=== PATIENT | male | born 1960 | race Hispanic/Latino ===

== ENCOUNTER 2017-07-08 10:28 | Emergency (ER) | payer MEDICARE ==
[2017-07-08] MEDS ORDERED: Silver Sulfadiazine 1% Cream 50 GM JAR ONE (12:28)
== END 2017-07-08 12:57 | disposition home or self-care (01) ==
LOC: ERS 10:28
DX: T23.212A Burn of second degree of left thumb (nail), initial encounter (principal); E11.9 Type 2 diabetes mellitus without complications; M19.90 Unspecified osteoarthritis, unspecified site; F17.210 Nicotine dependence, cigarettes, uncomplicated; X15.3XXA Contact with hot saucepan or skillet, initial encounter
CPT/HCPCS: 36416; 99283

== ENCOUNTER 2017-07-10 07:48 | Inpatient (IN) | payer MEDICARE ==
[2017-07-10 08:40] LABS: #Eosinphils 0.3 thou/uL (0.0-0.7); #Lymphocytes 1.2 thou/uL (1.20-3.40); #Monocytes 0.7 thou/uL (0.11-0.59); #Neutrophils 4.4 thou/uL (1.40-6.50); %Basophils 0.5 % (0.0-1.0); %Monocytes 10.2 % (0.0-10.0); Mean Platelet Volume 7.4 fL (7.4-10.4); Red Blood Cell (RBC) Count 3.16 mill/uL (4.70-6.10); White Blood Cell (WBC) Count 6.5 thou/uL (4.8-10.8)
[2017-07-10] MEDS ORDERED: Lidocaine 1% (PF) 30 ML VIAL ONE (09:23)
[2017-07-10] MEDS ORDERED: HYDROcodone/Acetaminophen 5/325 mg Tablet PO PRN (10:12)
[2017-07-10] MEDS ORDERED: Fentanyl 100 MCG/2 ML VIAL SLOW IVP PRN (10:12)
[2017-07-10] MEDS ORDERED: traMADol HCl 50 MG TAB PO PRN (10:12)
[2017-07-10] MEDS ORDERED: Acetaminophen 325 MG TAB PO PRN (10:12)
[2017-07-10] MEDS ORDERED: TETANUS AND DIPHTHERIA TOX/PF 0.5 ML DISP.SYRIN IM SCH (10:15)
[2017-07-10] MEDS ORDERED: Communication Order-Pharmacy FS SCH (10:15)
[2017-07-10] MEDS ORDERED: Piperacillin/Tazobactam 4.5 GM in Sodium Chloride 0.9% 100 ML IVPB SCH (10:45)
--- NOTE | 2017-07-10 11:19 | RAD ---
3 VIEWS LEFT THUMB: Date: 07/10/17 HISTORY: Pain and swelling left thumb. FINDINGS: AP, lateral, and oblique views of left thumb obtained. There are extensive vascular calcifications co mpatible with changes of diabetes. There is marked thinning of the nail bed and adjacent soft tissues of the distal left thumb. There ar e some lytic changes and atrophy of the distal aspect of the distal phalanx first digit left hand. Th is may represent chronic ischemic changes. No definite evidence of lytic changes seen. IMPRESSION: Atrophy of the distal aspect of distal phalanx first digit, as well as the dorsal soft tissues and fi rst digit nail bed. POS: EFE
[2017-07-10] MEDS ORDERED: Adacel (T-DAP) 0.5 ML VIAL ONE (11:26)
--- NOTE | 2017-07-10 12:45 | RAD ---
CHEST 1 VIEW: Date: 07/10/17 HISTORY: Preop. COMPARISON: Chest 1 view dated 11/14/15. FINDINGS: Lungs without focal air space consolidation, pneumothorax, or effusion. Prior amputation through the right humeral neck. IMPRESSION: 1. No acute intrathoracic abnormality. 2. Right-sided rib fracture of 5th and 6th ribs, age indeterminate. POS: H
[2017-07-10 12:57] LABS: Prothrombin Time 14.5 SEC (12.0-14.7)
[2017-07-10 12:58] LABS: PTT 43.4 SEC (22.9-36.1)
[2017-07-10 12:59] LABS: Anion Gap 16 mmol/L (10-20); BUN (Urea Nitrogen) 51 mg/dL (8.4-25.7); Calc. Creatinine Clearance 0 mL/min (70-130); Calcium 7.8 mg/dL (7.8-10.44); Carbon Dioxide 15 mmol/L (22-29); Chloride 108 mmol/L (98-107); Estimated GFR-MDRD 12
--- NOTE | 2017-07-10 13:08 | HP ---
CHIEF COMPLAINT: Thumb pain. HISTORY OF PRESENT ILLNESS: Mr. Suero is a 57-year-old male who has developed an infection in his t humb. He reports that he burned his left thumb several days ago. He began having swelling and pain. He presented to the emergency department and was placed on Keflex. His left thumb has become incre asingly painful and has not responded to this. He now has re-presented with his increased symptoms. Orthopedics was consulted to evaluate this finding. 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 He does not take medications for diabetes, osteoarthritis, cirrhosis, hepatitis C, an d chronic kidney disease. PAST SURGICAL HISTORY: Previous left cyst removal, right arm amputation from infection. PSYCHIATRIC HISTORY: Negative. SOCIAL HISTORY: The patient drinks alcohol. He smokes cigarettes at least 1 pack per day. He denie s drug use. ALLERGIES: No known drug allergies. MEDICATIONS: He takes amlodipine daily. REVIEW OF SYSTEMS: Positive for left hand and thumb pain, otherwise negative. PHYSICAL EXAMINATION: VITAL SIGNS: Stable. The patient is afebrile. He is alert, sitting upright in no apparent distress . RESPIRATORY: Breathing comfortably. ABDOMEN: Soft, nontender, and nondistended. MUSCULOSKELETAL: The patient's left hand has swelling of the distal aspect of the thumb. There is e rythema. He has tenderness to palpation. There is no swelling more proximally, minimal pain along t he flexor tendon sheath. No palmar pain. He can make a full fist with the remainder of the digits, but not the thumb. No open wounds, no drainage. IMAGES: X-rays of the thumb are negative except for soft tissue swelling. IMPRESSION: Diabetic male in poor health with history of smoking, now with a left thumb infection. PLAN: At this point, the patient will have I&D of his thumb in the emergency department for felterry in fection. I do not think he has a flexor tenosynovitis yet, but this could be developing. Hopefully, decompressing the felon and starting him on intravenous antibiotics including vancomycin and Zosyn w ill be enough to treat this infection. We will watch him closely for signs of improvement or worseni ng. If he does worse, I will take him to the operating room for more thorough irrigation procedure. He will have medical consultation for his diabetes and other medical problems. Questions have been answered.
[2017-07-10] MEDS ORDERED: [UNRECOGNIZED DRUG - REMARK] IVPB PRN (13:35)
[2017-07-10] MEDS ORDERED: Mag-Al 1200 mg/1200 mg/30 ML UDCUP PO PRN (15:36)
[2017-07-10] MEDS ORDERED: Ondansetron ODT 4 MG TAB PO PRN (15:36)
[2017-07-10] MEDS ORDERED: Diabetic Tussin 200 MG/10 ML UDCUP PO PRN (15:36)
[2017-07-10] MEDS ORDERED: Sodium Chloride 0.65% Nasal 44 ML BOT EA NARE PRN (15:36)
[2017-07-10] MEDS ORDERED: Loratadine 10 MG TAB PO PRN (15:36)
[2017-07-10] MEDS ORDERED: Artificial Tears 18 DROP/0.9 ML EA EYE PRN (15:36)
[2017-07-10] MEDS ORDERED: Eucerin (Mineral Oil/Petrolatum,White) 30 gm Jar TOP PRN (15:36)
[2017-07-10] MEDS ORDERED: hydrALAZINE 20 MG/ML VIAL SLOW IVP PRN (15:36)
[2017-07-10] MEDS ORDERED: Chloraseptic Spray 180 ml Bottle PO PRN (15:36)
[2017-07-10] MEDS ORDERED: Milk Of Magnesia 30 ML UDCUP PO PRN (15:36)
[2017-07-10] MEDS ORDERED: Senokot 8.6 MG TAB PO PRN (15:36)
[2017-07-10] MEDS ORDERED: Ondansetron HCl/PF 4 MG/2 ML Vial IVP PRN (15:36)
[2017-07-10] MEDS ORDERED: Temazepam 15 MG CAP PO PRN (15:36)
--- NOTE | 2017-07-10 16:30 | CON ---
PRIMARY CARE PHYSICIAN: [facility] call admission. REASON FOR CONSULTATION: Medical management. HISTORY OF PRESENT ILLNESS: A 57-year-old male who has history of chronic kidney disease se condary to diabetic nephropathy as well as history of chronic hepatitis C who was evaluated in the em ergency room for right thumb pain. Patient reports that he had burn over the left thumb several days ago and subsequently wound got infected and he was having swelling and pain. He also came one time in the emergency room and he was given oral antibiotic therapy, Keflex, but that did not improve, and patient's condition had gotten worse and his left thumb was becoming more painful and it was throbbi ng pain, 8/10 in intensity. He denies any fever or chills. He denies any drainage. He came to emergency room and he had finger x-ray which showed atrophy of the distal aspect of the di stal phalanx first digit as well as the dorsal soft tissue and first digit nailbed. His chest x-ray was unremarkable other than old right-sided rib fracture. This patient was evaluated by Dr. Victoria fisher in the emergency room. Patient had I&D in the emergency department by Dr. Catherine. Dr. Amaya recommended admission to surgical floor. Patient has received antibiotic therapy in the emergency r oom. Patient will require irrigation and debridement in the operating room and that is why the patie nt is being admitted. When I saw this patient, at that time, he is comfortable. He is hemodynamically stable. He denies a ny headache, chest pain, palpitations, and shortness of breath. He denies any diarrhea, constipation , abdominal pain. Sound team was consulted for medical comanagement. PAST MEDICAL HISTORY: Diabetes type 2, chronic kidney failure with CKD stage 4, chronic hepatitis C, history of pancreatitis, chronic diarrhea, history of gangrene of right upper extremity, and osteoar thritis. PAST SURGICAL HISTORY: Right arm amputation as a result of gangrene that developed after a burn. Th e patient required right shoulder arthrocentesis and fasciotomy secondary to infection and eventually required amputation of right upper extremity and history of left neck cyst removal. PAST PSYCHIATRIC HISTORY: Reviewed and negative. ALLERGIES: No known drug allergies. SOCIAL HISTORY: Patient lives with his brother. He has history of smoking about 1 pack per week. H e drinks alcohol occasionally. He currently denies any illicit drug abuse. He is on medical disabil ity. FAMILY HISTORY: No strong family history of premature coronary artery disease, stroke or cancer. No family history of ESRD. Diabetes runs among several family members. CURRENT HOME MEDICATIONS: Keflex 500 mg t.i.d. The patient did not bring other medication, so unable to review at this point. REVIEW OF SYSTEMS: The following complete review of systems was negative, unless otherwise mentioned in the HPI or below: Constitutional: Weight loss or gain, ability to conduct usual activities. Skin: Rash, itching. Eyes: Double vision, pain. ENT/Mouth: Nose bleeding, neck stiffness, pain, tenderness. Cardiovascular: Palpitations, dyspnea on exertion, orthopnea. Respiratory: Shortness of breath, wheezing, cough, hemoptysis, fever or night sweats. Gastrointestinal: Poor appetite, abdominal pain, heartburn, nausea, vomiting, constipation, or diarr hea. Genitourinary: Urgency, frequency, dysuria, nocturia. Musculoskeletal: Pain, swelling. Neurologic/Psychiatric: Anxiety, depression. Allergy/Immunologic: Skin rash, bleeding tendency. Please see my HPI for pertinent positives and negatives. All other review of systems reviewed and ne gative except as mentioned in the HPI. EMERGENCY ROOM COURSE: Patient has received vancomycin 1 gram, Zosyn 4.5 gram, IV fluid and tetanus toxoid 0.5 mL intramuscularly. PHYSICAL EXAMINATION: VITAL SIGNS: Currently, blood pressure 176/92, pulse 79, respiratory rate 17, temperature 98.6, satu ration 100% on room air, and weight 49.9 kilograms. GENERAL: Patient is chronically ill, no obvious acute distress. HEAD: Normocephalic, atraumatic. EYES: Pupils round, reactive to light. Extraocular muscles intact. ENT: Oropharynx within normal limits. Moist mucous membranes. No oral lesions. No pharyngeal eryt mariangel, no exudate. NECK: Supple, no JVD, no thyromegaly, no carotid bruits. LUNGS: Clear to auscultation without any rhonchi or rales. CARDIAC: S1, S2 regular without any murmur. ABDOMEN: Soft, bowel sounds present, nondistended. No organomegaly, no mass, no suprapubic tenderne ss. BACK: Examination unremarkable, no CVA tenderness. EXTREMITIES: Upper extremity, left thumb swelling which has required I&D in the emergency room and s tatus post wound is covered with a dressing. SKIN: No skin rash. HEMATOLOGICAL SYSTEM: No lymphadenopathy. PSYCHIATRIC: Normal affect. IMAGING DATA AND SIGNIFICANT LABORATORY DATA: 1. EKG showing normal sinus rhythm, left atrial enlargement. 2. X-ray finger showing atrophy of the distal aspect of the distal phalanx of the first digit as wel l as dorsal soft tissue and first digit nailbed. 3. Chest x-ray based on my review, no acute cardiopulmonary process. 4. CBC: WBC 6.5, hemoglobin 10.6, MCV 101.0, platelet 107, ESR 82. INR 1.1. 5. BMP: Sodium 134, potassium 4.7, chloride 108, carbon dioxide 815, anion gap 16, BUN 51, creatini ne 4.93, glucose 113, calcium 7.8, CRP 9.53. ASSESSMENT AND PLAN/IMPRESSION: 1. Left thumb abscess, suspected for flexor tenosynovitis, status post minor incision and drainage i n the emergency room. The patient will require irrigation and debridement in open ration theater summer orrow. At this point, we will cover with broad spectrum antibiotic therapy with vancomycin and Zosyn based on renal dose. We will also prescribe probiotic Florastor 250 mg p.o. daily. We will control his pain with Duncan on p.r.n. basis. 2. Anemia of renal disease with macrocytosis. I will start Nephro-Kim one tablet p.o. daily, tay us sulfate 325 mg p.o. daily and Procrit as needed basis. 3. Mild thrombocytopenia. We will repeat CBC tomorrow. Most likely, platelet count low is related with his history of chronic hepatitis C and possibly cirrhosis. 4. Metabolic acidosis due to renal failure. We will continue sodium bicarbonate 650 mg twice daily. 5. Chronic kidney disease stage 4. We will check urinalysis, urine protein creatinine ratio. This patient's glomerular filtration rate is 12. He will require dialysis in the near future. He has to follow up with carpet cleaning technician on an outpatient basis. We will check phosphorus level as well. 6. Chronic hepatitis C. We will check LFT tomorrow. 7. Diabetes type 2, now diet controlled. We will monitor Accu-Chek before meals and at bedtime whil e in hospital. 8. Deep venous thrombosis prophylaxis. Sequential compression device boots only. 9. Benign enlargement of prostate. We will continue Flomax 0.4 mg p.o. daily. 10. Protein calorie malnutrition. The patient will be given Nepro supplements b.i.d. 11. Hypertension and will start amlodipine 10 mg p.o. daily. 12. Gastrointestinal prophylaxis. We will start Pepcid 20 mg p.o. daily. 13. Benign enlargement of prostate. We will continue Flomax 0.4 mg p.o. daily. CODE STATUS: The patient is FULL CODE. Patient does not have any surrogate decision maker. Disposition plan based on clinical course. Thank you for the consult. We will follow up with you while in hospital.
[2017-07-10] MEDS ORDERED: Piperacillin/Tazobactam 2.25 GM in Sodium Chloride 0.9% 100 ML IVPB SCH (18:00)
[2017-07-10] MEDS ORDERED: Piperacillin/Tazobactam 3.375 GM in Sodium Chloride 0.9% 100 ML IVPB SCH (18:00)
[2017-07-10] MEDS: Piperacillin/Tazobactam 2.25 GM in Sodium Chloride 0.9% 100 ML IVPB SCH (20:19)
[2017-07-10] MEDS ORDERED: Vancomycin HCl 1 GM in Premix Bag 1 BAG IVPB SCH (21:00)
[2017-07-10] MEDS ORDERED: Famotidine 20 MG TAB PO SCH (21:00)
[2017-07-11] MEDS: Piperacillin/Tazobactam 2.25 GM in Sodium Chloride 0.9% 100 ML IVPB SCH ×4 (02:03→19:02)
[2017-07-11 05:59] LABS: ALT (SGPT) 12 U/L (8-55); AST (SGOT) 21 U/L (5-34); Alkaline Phosphatase 72 U/L (40-150); Anion Gap 16 mmol/L (10-20); BUN (Urea Nitrogen) 44 mg/dL (8.4-25.7); Bilirubin, Total 0.4 mg/dL (0.2-1.2); Calc. Creatinine Clearance 18 mL/min (70-130); Carbon Dioxide 15 mmol/L (22-29); Chloride 111 mmol/L (98-107); Estimated GFR-MDRD 13; Globulin 3.7 g/dL (2.4-3.5); Protein, Total 6.9 g/dL (6.0-8.3)
[2017-07-11 06:01] LABS: #Eosinphils 0.4 thou/uL (0.0-0.7); #Lymphocytes 1.6 thou/uL (1.20-3.40); #Monocytes 0.7 thou/uL (0.11-0.59); #Neutrophils 3.2 thou/uL (1.40-6.50); %Basophils 0.3 % (0.0-1.0); %Eosinophils 6.7 % (0.0-10.0); %Lymphocytes 26.5 % (21.0-51.0); %Monocytes 12.3 % (0.0-10.0); Hematocrit 29.6 % (42.0-52.0); Mean Platelet Volume 7.8 fL (7.4-10.4); White Blood Cell (WBC) Count 5.9 thou/uL (4.8-10.8)
[2017-07-11] MEDS: Amlodipine 10 MG TAB PO SCH (08:06)
[2017-07-11] MEDS: Ferrous Sulfate 325 MG TAB PO SCH (08:06)
[2017-07-11] MEDS: Famotidine 20 MG TAB PO SCH (08:06)
[2017-07-11] MEDS: Tamsulosin HCl 0.4 MG CAP PO SCH (08:08)
[2017-07-11] MEDS: Saccharomyces boulardii 250 MG CAP PO SCH (08:08)
[2017-07-11] MEDS ORDERED: Folic Acid/Vit B Comp W-C PO SCH (09:00)
[2017-07-11] MEDS ORDERED: hydrALAZINE 20 MG/ML VIAL SLOW IVP PRN ×2 (15:51)
[2017-07-11] MEDS: Carvedilol 3.125 MG TAB PO SCH (17:28)
--- NOTE | 2017-07-11 20:17 | PDOC.PN ---
- Subjective Encounter Start Date: 07/11/17 Encounter Start Time: 15:00 Patient seen and examined. No new complaints. No overnight events - Objective Resuscitation Status: Resuscitation Status FULL:Full Resuscitation MAR Reviewed: Yes Vital Signs & Weight: Vital Signs (12 hours) Temp Pulse Resp BP Pulse Ox 07/11/17 15:50 97.2 F L 66 14 122/73 100 07/11/17 11:50 97.7 F 72 12 168/87 H 100 Weight Weight 159 lb 13.362 oz I&O: 07/10/17 07/11/17 07/12/17 06:59 06:59 06:59 Intake Total 480 1070 Output Total 1325 Balance 480 -255 Result Diagrams: 07/12/17 04:37 07/12/17 04:37 Additional Labs: Accuchecks 07/11/17 07/11/17 15:50 11:51 POC Glucose 133 H 119 H Phys Exam - Physical Examination Constitutional: NAD Respiratory: no wheezing, no rhonchi Cardiovascular: RRR, no rub Gastrointestinal: soft, non-tender, positive bowel sounds Musculoskeletal: no edema Neurological: moves all 4 limbs Dx/Plan - Plan DVT proph w/SCDs IMPRESSION: 1. DM2 2. HTN 3. CKD 4 4. Chronic Hep C 5. Metabolic acidosis PLAN: * Cont to monitor * IV Atbx per Ortho * AM labs * Add thiamine/folic acid/MVM * Cont curent meds as below Review of Systems - Review of Systems Respiratory: negative: Cough, Dry, Shortness of Breath, Hemoptysis, SOB with Excertion, Pleuritic Pain, Sputum, Wheezing Cardiovascular: negative: chest pain, palpitations, orthopnea, paroxysmal nocturnal dyspnea, edema, light headedness - Medications/Allergies Allergies/Adverse Reactions: Allergies Allergy/AdvReac Type Severity Reaction Status Date / Time No Known Drug Allergies Allergy Verified 12/18/14 01:04 Medications: Current Medications Acetaminophen (Tylenol) 650 mg PO Q6H PRN PRN Reason: Headache/Temp >101F/Mild Pain Last Admin: 07/10/17 19:46 Dose: 650 mg Hydrocodone Bitart/Acetaminophen ([place] 5/325) 2 tab PO Q4H PRN PRN Reason: Severe Pain (7-10) Last Admin: 07/11/17 10:03 Dose: 2 tab Al Hydroxide/Mg Hydroxide (Maalox) 15 ml PO Q4H PRN PRN Reason: Heartburn or Indigestion Amlodipine Besylate (Norvasc) 10 mg PO DAILY [facility] Last Admin: 07/11/17 08:06 Dose: 10 mg Artificial Tears (Tears Naturale) 0 drop EA EYE PRN PRN PRN Reason: Dry Eyes Carvedilol (Coreg) 3.125 mg PO BID-[facility] Last Admin: 07/11/17 17:28 Dose: 3.125 mg Famotidine (Pepcid) 20 mg PO DAILY [facility] Last Admin: 07/11/17 08:06 Dose: 20 mg Fentanyl (Sublimaze) 50 mcg SLOW IVP Q30M PRN PRN Reason: Severe breakthrough pain Ferrous Sulfate (Feosol) 325 mg PO QAM-[facility] Last Admin: 07/11/17 08:06 Dose: 325 mg Folic Acid (Folvite) 1 mg PO DAILY [facility] Guaifenesin (Robitussin Sf) 200 mg PO Q4H PRN PRN Reason: Cough Hydralazine HCl (Apresoline) 10 mg SLOW IVP Q4H PRN PRN Reason: Systolic BP > 180 Hydralazine HCl (Apresoline) 5 mg SLOW IVP Q4H PRN PRN Reason: SBP GREATER THAN 160 Hydralazine HCl (Apresoline) 10 mg SLOW IVP Q4H PRN PRN Reason: SBP Greater Than 180 Vancomycin HCl 1 gm/ Device 200 mls @ 200 mls/hr IVPB Q36H [facility] Piperacillin Sod/Tazobactam (Sod 2.25 gm/ Sodium Chloride) 100 mls @ 200 mls/ hr IVPB 0200,0800,1400,2000 [facility] Last Admin: 07/11/17 19:02 Dose: 100 mls Loratadine (Claritin) 10 mg PO DAILYPRN PRN PRN Reason: Sinus Symptoms Magnesium Hydroxide (Milk Of Magnesium) 30 ml PO DAILYPRN PRN PRN Reason: Constipation Mineral Oil/White Petrolatum (Eucerin Cream) 0 gm TOP BIDPRN PRN PRN Reason: Dry Skin Miscellaneous Medication (Pharmacy To Dose) 0 each IVPB DAILYPRN PRN PRN Reason: LABS Multivitamins (Theragran) 1 tab PO DAILY [facility] Ondansetron HCl (Zofran Odt) 4 mg PO Q6H PRN PRN Reason: Nausea/Vomiting Ondansetron HCl (Zofran) 4 mg IVP Q6H PRN PRN Reason: Nausea/Vomiting Phenol (Chloraseptic [place] 180 Ml Bot) 0 ml PO PRN PRN PRN Reason: Sore Throat Saccharomyces Boulardii (Florastor) 250 mg PO DAILY [facility] Last Admin: 07/11/17 08:08 Dose: 250 mg Senna (Senokot) 2 tab PO HSPRN PRN PRN Reason: Constipation Sodium Chloride (Flush - Normal Saline) 10 ml IVF PRN PRN PRN Reason: Saline Flush Last Admin: 07/10/17 20:19 Dose: 10 ml Sodium Chloride (Christian Nasal [place] 0.65%) 0 ml EA NARE QIDPRN PRN PRN Reason: Nasal Congestion Tamsulosin HCl (Flomax) 0.4 mg PO DAILY [facility] Last Admin: 07/11/17 08:08 Dose: 0.4 mg Temazepam (Restoril) 15 mg PO HSPRN PRN PRN Reason: Insomnia Thiamine HCl (Thiamine) 100 mg PO DAILY [facility] Tramadol HCl (Ultram) 50 mg PO Q6H PRN PRN Reason: Mild Pain (1-3) Vitamin B Complex/Vit C/Folic Acid (Nephro-Kim Tablet) 1 tab PO DAILY [facility] Last Admin: 07/11/17 08:08 Dose: 1 tab
[2017-07-11] MEDS ORDERED: Vancomycin HCl 1 GM in Premix Bag 1 BAG IVPB SCH (23:59)
[2017-07-12] MEDS: Piperacillin/Tazobactam 2.25 GM in Sodium Chloride 0.9% 100 ML IVPB SCH (01:52)
[2017-07-12 06:23] LABS: #Basophils 0.1 thou/uL (0.0-0.2); #Eosinphils 0.5 thou/uL (0.0-0.7); #Lymphocytes 1.8 thou/uL (1.20-3.40); #Monocytes 0.7 thou/uL (0.11-0.59); #Neutrophils 2.5 thou/uL (1.40-6.50); %Basophils 1.5 % (0.0-1.0); %Eosinophils 8.3 % (0.0-10.0); %Lymphocytes 32.3 % (21.0-51.0); %Monocytes 12.4 % (0.0-10.0); Hematocrit 29.1 % (42.0-52.0); Mean Platelet Volume 7.4 fL (7.4-10.4); Red Blood Cell (RBC) Count 2.83 mill/uL (4.70-6.10); White Blood Cell (WBC) Count 5.5 thou/uL (4.8-10.8)
[2017-07-12 06:29] LABS: Anion Gap 16 mmol/L (10-20); BUN (Urea Nitrogen) 42 mg/dL (8.4-25.7); Calc. Creatinine Clearance 19 mL/min (70-130); Calcium 8.1 mg/dL (7.8-10.44); Carbon Dioxide 16 mmol/L (22-29); Chloride 109 mmol/L (98-107); Estimated GFR-MDRD 14; Magnesium 1.5 mg/dL (1.6-2.6)
[2017-07-12] MEDS: Carvedilol 3.125 MG TAB PO SCH (08:58)
[2017-07-12] MEDS: Tamsulosin HCl 0.4 MG CAP PO SCH (08:58)
[2017-07-12] MEDS: Ferrous Sulfate 325 MG TAB PO SCH (08:58)
[2017-07-12] MEDS: Saccharomyces boulardii 250 MG CAP PO SCH (08:58)
[2017-07-12] MEDS: Amlodipine 10 MG TAB PO SCH (08:58)
[2017-07-12] MEDS: Famotidine 20 MG TAB PO SCH (08:59)
[2017-07-12] MEDS ORDERED: Sulfameth/Trimethoprim DS 800-160mg TAB PO SCH (09:00)
[2017-07-12] MEDS ORDERED: Folic Acid 1 MG TAB PO SCH (09:00)
[2017-07-12] MEDS ORDERED: Multivit, Therapeutic 1 TAB PO SCH (09:00)
--- NOTE | 2017-07-12 10:46 | DIS ---
PRIMARY CARE PHYSICIAN: [facility] call admission. DATE OF ADMISSION: 07/10/2017 DATE OF DISCHARGE: 07/12/2017 PRIMARY ATTENDING: Dr. Corby Catherine DISCHARGE DISPOSITION: Home. PRIMARY DISCHARGE DIAGNOSES: 1. Left thumb flexor tenosynovitis, status post incision and drainage. 2. Acute on chronic kidney failure, baseline chronic kidney disease stage 4. SECONDARY DISCHARGE DIAGNOSES: Alcohol abuse, diabetes type 2, chronic hepatitis C, history of amput ation of right arm, history of left hydronephrosis, hypertension, macrocytic anemia. Moderate protei n calorie malnutrition, metabolic acidosis, history of rib fracture, thrombocytopenia, tobacco abuse disorder. PRIMARY PROCEDURE/OPERATION: The patient had I&D done in the emergency room. RADIOLOGICAL INVESTIGATION: Finger x-ray, chest x-ray was normal. SIGNIFICANT LABS: WBC 5.5, hemoglobin 9.2, MCV 103, platelets 92. INR 1.1. Sodium 136, potassium 4 .6, BUN 42, creatinine 4.42, calcium 8.1, magnesium 1.5. LFTs normal. Culture from hand grew Staphy lococcus aureus. Blood culture negative. DISCHARGE MEDICATIONS: Norvasc 10 mg p.o. daily, Coreg 3.125 mg p.o. b.i.d., Keflex 500 mg p.o. b.i. d. for 15 days, Pepcid 20 mg p.o. daily, ferrous sulfate 325 mg p.o. daily, folic acid 1 mg p.o. aiden y, [place] 5 one or two tablets q.4 hourly p.r.n., multivitamin 1 tablet p.o. daily, Florastor 250 mg p .o. daily, sodium bicarbonate 325 mg p.o. b.i.d., Flomax 0.4 mg p.o. daily, thiamine 100 mg p.o. aiden y. CONTRAINDICATIONS: None. CODE STATUS: FULL CODE. INPATIENT CONSULTANTS: Dr. Catherine was primary while in hospital. Sound Team was consulted for la dical comanagement. TEST RESULTS PENDING ON DISCHARGE: None. ALLERGIES: No known drug allergies. DISCHARGE PLAN: Post hospital, the patient is advised to follow up with Dr. Thornton for renal insuff iciency. The patient will follow up with Dr. Corby Catherine in 1 week. The patient is advise d to make appointment with primary care physician. HOSPITAL COURSE: A 57-year-old male with the above mentioned medical problems who had a bur n over left thumb and subsequently his wound got infected and he required emergency room visit. His x-ray of the finger was unremarkable, but patient required minor I&D and pus was drained. After that , patient was getting wound care while in hospital. He was given vancomycin and Zosyn based on renal dose. He has acute on chronic kidney failure which is gradually getting worse. During this admissi on, we provided necessary medications prescriptions for his renal insufficiency. He does not need an y dialysis at this point. He is almost nearby for his ESRD and that is why I advised him to follow u p with Dr. Thornton, his exploration engineer. While in hospital his magnesium was replaced. His culture gre w MSSA and based on that, we changed to Keflex on discharge. His blood culture is negative. All new medication prescriptions sent to his pharmacy. Patient is seen and examined at bedside today. REVIEW OF SYSTEMS: Review of systems reviewed with him and negative. VITAL SIGNS: Currently, temperature 98.2, pulse 70, respiratory rate 16, saturation 96%, blood press ure 108/60. Weight 159 pounds. GENERAL: The patient is currently alert, awake, no obvious acute distress. HEENT: Head is normocephalic, atraumatic. Eyes: Pupils round, reactive to light. Extraocular musc les intact. ENT: Oropharynx within normal limits. LUNGS: Clear to auscultation without any rhonchi. CARDIAC: S1, S2 regular. No murmur. ABDOMEN: Soft and benign. EXTREMITIES: No edema. Left thumb is covered with dressing. All new medication prescription sent to his pharmacy. The patient is medically stable for discharge and we will sign off. Please consider this no note as a progress note as well.
[2017-07-12 12:38] VITALS: BP 148/81; TEMP 98.4
== END 2017-07-12 14:35 | disposition home or self-care (01) | DRG 558 ==
LOC: ERS 07:48 → SURG A 10:12
PROVIDERS: ADMIT Orthopaedic Surgery; ATTEND Orthopaedic Surgery
PROC: 0H9GXZZ Drainage of Left Hand Skin, External Approach (ICD-10-PCS; principal; 2017-07-10)
DX: M65.9 Synovitis and tenosynovitis, unspecified (principal); N18.4 Chronic kidney disease, stage 4 (severe); E87.2 Acidosis; D69.6 Thrombocytopenia, unspecified; N17.9 Acute kidney failure, unspecified; E44.0 Moderate protein-calorie malnutrition; L02.512 Cutaneous abscess of left hand; B18.2 Chronic viral hepatitis C; I12.9 Hypertensive chronic kidney disease with stage 1 through stage 4 chronic kidney disease, or unspecified chronic kidney disease; D53.9 Nutritional anemia, unspecified; N40.0 Benign prostatic hyperplasia without lower urinary tract symptoms; B95.61 Methicillin susceptible Staphylococcus aureus infection as the cause of diseases classified elsewhere; F17.210 Nicotine dependence, cigarettes, uncomplicated; Z89.201 Acquired absence of right upper limb, unspecified level; Z68.24 Body mass index [BMI] 24.0-24.9, adult; Z87.81 Personal history of (healed) traumatic fracture; E11.9 Type 2 diabetes mellitus without complications
CPT/HCPCS: 26011; 36415; 36416; 71010; 80048; 80053; 83735; 85025; 85610; 85652; 85730; 86140; 87040; 87070; 87077; 87186; 87205; 90471; 90715; 93005; 96361; 96365; 96366; 96368; 99283; A4216; J2001; J2543; J3370; J3475; J7050

== ENCOUNTER 2018-08-01 17:52 | Inpatient (IN) | payer MEDICARE ==
[~2018-08-01 17:52] MED LIST: Heparin 1,000 UNITS/ML VIAL ONE; Heparin 10,000 UNITS/ 10 ML VIAL ONE
[2018-08-01] MEDS ORDERED: Ondansetron PF 4 MG/2 ML Vial ONE (19:29)
[2018-08-01 19:36] LABS: Hemoglobin 10.3 g/dL (14.0-18.0); Mean Corpuscular HGB CONC 32.8 g/dL (32.0-36.0); Mean Corpuscular Hemoglobin 32.3 pg (27.0-31.0); Mean Corpuscular Volume 98.6 fL (78.0-98.0); Mean Platelet Volume 6.9 fL (7.4-10.4); Platelet Count 166 thou/uL (130-400); RBC Distribution Width 13.5 % (11.5-14.5); Red Blood Cell (RBC) Count 3.18 mill/uL (4.70-6.10); White Blood Cell (WBC) Count 4.7 thou/uL (4.8-10.8)
[2018-08-01 19:57] LABS: ALT (SGPT) 15 U/L (8-55); AST (SGOT) 11 U/L (5-34); Albumin 3.5 g/dL (3.5-5.0); Alkaline Phosphatase 92 U/L (40-150); BUN (Urea Nitrogen) 108 mg/dL (8.4-25.7); Bilirubin, Total 0.5 mg/dL (0.2-1.2); Calc. Creatinine Clearance 0 mL/min (70-130); Calcium 8.1 mg/dL (7.8-10.44); Chloride 109 mmol/L (98-107); Estimated GFR-MDRD 4; Globulin 4.2 g/dL (2.4-3.5); Glucose 103 mg/dL (70-105); Lipase 85 U/L (8-78); Potassium 5.2 mmol/L (3.5-5.1); Protein, Total 7.7 g/dL (6.0-8.3); Sodium 133 mmol/L (136-145)
[2018-08-01 19:58] LABS: Carbon Dioxide Less than 8 mmol/L (22-29)
[2018-08-01 19:59] LABS: Band 8 % (5-11); Burr Cells SLIGHT = 2-5 cells (100X) (0-1/hpf); Eosinophils 2 % (0-10); Lymphocytes 33 % (21-51); MDiff Complete? YES; Metamyelocyte 1 % (0-0); Monocytes 6 % (0-10); Neutrophil 47 % (42-75); Ovalocytes SLIGHT = 2-5 cells (100X) (0-1/hpf); Platelet Morphology Comment Appears Adequate; Polychromasia SLIGHT = 2-3 cells (100X) (0-2/hpf); Reactive Lymphocytes 1 % (0-10)
[2018-08-01 20:52] LABS: Lactic Acid 0.8 mmol/L (0.5-2.2)
[2018-08-01] MEDS ORDERED: Sodium Bicarbonate 150 MEQ in Dextrose 5% in Water 1,000 ML IV SCH (21:00)
[2018-08-01] MEDS ORDERED: Famotidine/PF 20 mg/2ml Vial ONE (21:04)
[2018-08-01 22:48] LABS: Bilirubin Negative (Negative); Blood, Urine Large (Negative); Clarity TURBID (Clear); Glucose, Urine (Dipstick) Negative (Negative); Leukocyte Large (Negative); Nitrite Negative (Negative); Protein, Urine (Dipstick) 100 mg/dL (Neg-Trace); Specific Gravity, Urine 1.011 (1.002-1.036); Urobilinogen 0.2 mg/dL (0.2-1.0)
[2018-08-01 22:58] LABS: Squamous Epithelial 0-3 HPF (0-3)
[2018-08-01 22:59] LABS: Pathc Cast-AUWi Flag 6.46 (0-2.49); Yeast-AUWi Flag 163.2 (0-25.0)
[2018-08-01 23:09] LABS: Bacteria/HPF 3+ HPF (None Seen); RBC/HPF GREATER THAN 50-TNTC HPF (0-3)
[2018-08-01 23:10] LABS: Hyaline Casts/LPF 0-3 HYALINE CAST LPF (0-3 Hyaline)
--- NOTE | 2018-08-02 04:03 | CON ---
DATE OF CONSULTATION: 08/01/2018 TYPE OF CONSULTATION: Nephrology consultation REASON FOR CONSULTATION: Stage 5 chronic kidney disease. HISTORY OF PRESENT ILLNESS: This is a very pleasant 58-year-old gentleman followed by me in clinic since 2015 who presented to the hospital with vomiting. The patient's creatinine has been progressively increasing and was noted to be 12.5 and was severely acidotic, so I was called. The patient denies any headache, numbness, tingling, or weakness. Denies any nausea, vomiting, or chest pain. PAST MEDICAL HISTORY: Significant for hypertension, diabetes mellitus, hepatitis C, chronic failure to thrive, history of right arm amputation, gangrene, cyst surgery. SOCIAL HISTORY: No alcohol or drug use. FAMILY HISTORY: Negative for ESRD. ALLERGIES: REVIEWED. HOME MEDICATIONS: List reviewed. REVIEW OF SYSTEMS: A 15-point review of system was performed and was negative except for positives noted above. GENERAL: HEAD: NECK: No swelling or lumps. NOSE: No epistaxis or discharge. EYES: No diplopia or pain. RESPIRATORY: CARDIOVASCULAR: GASTROINTESTINAL: /COLORER MACHINE: MUSCULOSKELETAL: No joint pain. NEUROPSYCHIATIC SYSTEMS: No suicidal ideation. No ideation. SKIN: Denies any rash or ulcer. CONSTITUTIONAL: No fever or chills. PHYSICAL EXAMINATION: GENERAL: The patient is awake, alert. VITAL SIGNS: Pulse 70, breathing 16, blood pressure 174/90. GENERAL APPEARANCE AND MENTAL STATUS: Fair. HEAD/NECK: Normocephalic. Atraumatic. EYES: EOMI. No deformity. EARS: Clear. No ulcers. NOSE: Intact. No lesions. MOUTH: Clear. No discharge. THROAT: Clear. No exudate. LUNGS: Clear. No crackles. CARDIAC: S1, S2. No rub. ABDOMEN: Benign. Bowel sounds positive. GENITALIA/RECTUM: [place]off[place] absent. BACK/EXTREMITIES: Edema 0+. NEUROLOGICAL: Alert and motor intact. SKIN: LYMPHATICS: The patient is severely cachectic. LABORATORY DATA: Labs show potassium 5.2, hemoglobin 10.3. ASSESSMENT AND PLAN: 1. CKD stage 5 with uremia and acidosis. Plan for dialysis in the morning. 2. Metabolic acidosis, start bicarbonate drip. 3. Anemia, stable. 4. Hyperkalemia. Plan dialysis in the morning and treat it with bicarbonate. Risks verus benefits of dialysis were discussed. Job ID: [id number]
[2018-08-02] MEDS ORDERED: CEFAZOLIN/Water 2 GM/20 ML SYRINGE SLOW IVP SCH (07:00)
[2018-08-02] MEDS ORDERED: CEFAZOLIN 2 GM/50 ML BAG ONE ×2 (08:30→08:33)
[2018-08-02] MEDS ORDERED: Senokot S 8.6-50 MG TAB PO PRN (10:00)
[2018-08-02] MEDS ORDERED: Calcium Carbonate 500 MG ChewTAB PO PRN (10:00)
[2018-08-02] MEDS ORDERED: Dextrose 5% in Water 1,000 ML IV PRN (10:00)
[2018-08-02] MEDS ORDERED: HumaLOG 300 UNITS/3 ML VIAL SC PRN (10:00)
[2018-08-02] MEDS ORDERED: Dextrose 50% Abboject 50 ML SYRINGE SLOW IVP PRN (10:00)
[2018-08-02] MEDS ORDERED: Acetaminophen 325 MG TAB PO PRN (10:00)
[2018-08-02] MEDS ORDERED: Guaifenesin DM 100-10/5 ML UDCUP PO PRN (10:00)
[2018-08-02] MEDS ORDERED: Ondansetron PF 4 MG/2 ML Vial IVP PRN (10:00)
[2018-08-02] MEDS ORDERED: Sodium Chloride 0.9% 10 ML ONE (10:09)
[2018-08-02] MEDS ORDERED: Lidocaine 2% 11 ML SYR ONE (10:09)
[2018-08-02] MEDS ORDERED: Heparin 10,000 UNITS/1 ML VIAL ONE (10:09)
[2018-08-02] MEDS ORDERED: Bupivacaine HCl 0.5%/Epinephrine 1:200,000/PF 30 ml Vial ONE (10:09)
[2018-08-02] MEDS ORDERED: Lidocaine 2% PF 5 ML VIAL ONE (10:10)
[2018-08-02] MEDS ORDERED: Tuberculin PPD 0.1 ML VIAL I-DERMAL SCH ×2 (10:15→12:00)
[2018-08-02] MEDS ORDERED: Fentanyl 100 MCG/2 ML VIAL ONE (10:16)
--- NOTE | 2018-08-02 10:36 | HP ---
REASON FOR ADMISSION: Acute kidney injury and severe metabolic acidosis. HISTORY OF PRESENTING ILLNESS: The patient came to ER with complaints of abdominal pain, nausea, and vomiting. This has been ongoing for the last 3 days. He also mentions that he has had diarrhea from last 2 to 3 days now. The patient has history of CKD stage 3 to 4. He also has hypertension and has not been taking any medications. On arrival, the patient was found to have had uremia with BUN and creatinine of 108 and 12.5 with bicarb less than 8. His potassium was also 5.2. He is currently in day stay for placement of hemodialysis catheter to initiate dialysis. He has no complaints of chest pain or palpitation. No complaints of shortness of breath. He says he ambulates by himself. PAST MEDICAL AND SURGICAL HISTORY: History of CKD stage 4, hypertension, right upper extremity amputation for a prior staph infection, likely benign prostatic hypertrophy, prior history of hep C, pancreatitis, history of chronic diarrhea, diabetes mellitus type 2, prior history of right shoulder arthrocentesis with fasciotomy and eventual amputation of the entire right upper extremity, and history of left neck cyst removal. CURRENT MEDICATIONS: Please note, the patient is not taking any medications at present. ALLERGIES: NO KNOWN DRUG ALLERGIES. PERSONAL HISTORY: Does not abuse alcohol or drugs. He says he quit smoking recently. Prior to which was smoking pack a day before. He is on disability at present. The patient ambulates by himself. FAMILY HISTORY: Mother at the age of 72 years. She has had history of hypertension and diabetes. He does not know much about his father. Previously, the patient was discharged in June of 2017, on Norvasc, Coreg, ferrous sulfate, folic acid, Flomax, and sodium bicarbonate. He is not taking any of these at present. REVIEW OF SYSTEMS: CONSTITUTIONAL: Negative for weight loss or gain, ability to conduct usual activities. SKIN: Negative for rash, itching. EYES: Negative for double vision, pain. ENT/MOUTH: Negative for nose bleeding, neck stiffness, pain, tenderness. CARDIOVASCULAR: Negative for palpitations, dyspnea on exertion, orthopnea. RESPIRATORY: Negative for shortness of breath, wheezing, cough, hemoptysis, fever or night sweats. GASTROINTESTINAL: Negative for poor appetite, abdominal pain, heartburn, nausea , vomiting, constipation, or diarrhea. GENITOURINARY: Negative for urgency, frequency, dysuria, nocturia. MUSCULOSKELETAL: Negative for pain, swelling. NEUROLOGIC/PSYCHIATRIC: Negative for anxiety, depression. ALLERGY/IMMUNOLOGIC: Negative for skin rash, bleeding tendency. CODE STATUS: Full. Power of traffic law attorney is his son, Mr. Courtney, the number to reach him is [phone]. PHYSICAL EXAMINATION: GENERAL: The patient is a 58-year-old male, who is currently not in any acute distress. VITAL SIGNS: Blood pressure 150/74, pulse 90 per minute, respiratory rate 16 per minute, temperature 97.8 degrees Fahrenheit, and saturating 100% on room air. NECK: Supple. No elevated JVD. HEENT: Eyes, extraocular muscles intact. Pupils reacting to light. Oral cavity, mucous membranes are dry. No exudates or congestion. CARDIOVASCULAR SYSTEM: S1 and S2 heard. Regular rhythm. RESPIRATORY SYSTEM: Air entry 1+ bilateral. Basal rales plus. No wheezes. ABDOMEN: Soft. Bowel sounds heard. No tenderness, rigidity, or guarding. EXTREMITIES: No peripheral edema or calf tenderness. The patient has entire right upper extremity amputated at the shoulder. The peripheral pulses are 1+ bilateral. No ischemic ulcerations or gangrene. CENTRAL NERVOUS SYSTEM: No gross focal deficits noted. The patient is alert, awake, and oriented well. PSYCHIATRIC SYSTEM: The patient's mood is euthymic. No hallucinations or delusions. LABORATORY DATA: EKG done shows normal sinus rhythm at 86 beats per minute. There is poor R-wave progression. White count of 4.7, H and H are 10 and 31, MCV is 98 with platelet count of 166, and neutrophils of 47%. Potassium 5.2, sodium 133, chloride 109, serum bicarb less than 8, BUN 108, creatinine 12.5, serum glucose 103, and lactic acid 0.8. Liver enzymes within normal limits. Albumin is 3.5. Lipase is 85. First set of troponin is negative. UA shows large blood, large leukocyte esterase, more than 50 wbc's and rbc's, and 3+ bacteria. CLINICAL IMPRESSION AND PLAN: The patient will be admitted to telemetry for uremia, acute kidney injury on top of his chronic kidney disease stage 4, likely end- stage renal disease and will be initiated on dialysis, severe metabolic acidosis. The patient also has poor medication compliance and followups. He is currently in day stay area for placement of hemodialysis catheter by Dr. Kahn. Likely, he will get a fistula placed as well. We will place him on Norvasc, small dose of Coreg, ferrous sulfate, folic acid, and Flomax. He will be on D5 water with sodium bicarbonate IV drip per Nephrology advise. We will obtain an echo with 2D Doppler for LV function. The patient appears cachectic as well, but his albumin is normal. The patient states he has always been a thin person from before. He will also be on Accu-Cheks before meals and at bedtime with mild Humalog coverage. His current serum glucose is around 100. We will continue to closely monitor him on telemetry. Job ID: [id number] [facility]
[2018-08-02] MEDS ORDERED: Sodium Chloride 0.9% 50 ML ONE (10:43)
[2018-08-02 11:18] LABS: HBSAg Index 0.18 S/CO (0-0.99); Hep B Core Total Ab Non-Reactive (NonReactive); Hep B Core Total Index 0.08 S/CO (0-0.79); Hep B Surf AB Non-Reactive (NonReactive); Hep B Surf Ag Non-Reactive S/CO (NonReactive)
--- NOTE | 2018-08-02 11:20 | RAD ---
FRONTAL VIEW CHEST: Comparison: Two view chest, 07-10-17 Indication: Uremia. Pulmonary infiltrate. FINDINGS: There is no lobar consolidation, effusion, or pneumothorax. The cardiac silhouette is normal in size. There mild vascular calcification. IMPRESSION: No focal consolidation. POS: [facility]
[2018-08-02] MEDS ORDERED: Acetaminophen 500 MG TAB PO PRN (11:22)
[2018-08-02] MEDS ORDERED: traMADol HCl 50 MG TAB PO PRN (11:22)
--- NOTE | 2018-08-02 11:38 | PRG ---
DATE OF SERVICE: 08/02/2018 SUBJECTIVE: A 58-year-old gentleman being seen for end-stage renal disease. The patient denies any nausea, vomiting, or chest pain. OBJECTIVE: See above. CONSTITUTIONAL: Awake, alert, in no acute distress. VITAL SIGNS: Afebrile. Pulse 75, breathing 16, blood pressure was 160/73. GENERAL APPEARANCE AND MENTAL STATUS: Fair. HEAD/NECK: Normocephalic. Atraumatic. EYES: EOMI. No deformity. EARS: Clear. No ulcers. NOSE: Intact. No lesions. MOUTH: Clear. No discharge. THROAT: Clear. No exudate. LUNGS: Clear. No crackles. CARDIAC: S1, S2. No rub. ABDOMEN: Benign. Bowel sounds positive. GENITALIA/RECTUM: Moffett absent. BACK/EXTREMITIES: Edema 0+. NEUROLOGICAL: Alert and motor intact. SKIN: LYMPHATICS: LABORATORY DATA: Labs show hemoglobin 10.3. Other labs are pending. ASSESSMENT AND PLAN: 1. Stage 3 chronic kidney disease, plan dialysis. 2. Hypertension, stable. 3. Anemia, stable. 4. An access was placed with outpatient dialysis setup. Job ID: [id number]
[2018-08-02 12:25] LABS: Hep C IgG Ab Reflex HepC Qnt (NonReactive)
[2018-08-02 12:27] LABS: Hep C Index 11.46 S/CO (0-0.79)
--- NOTE | 2018-08-02 13:03 | RAD ---
PORTABLE CHEST: HISTORY: Respiratory distress. Line placement. COMPARISON: 08/02/2018 FINDINGS: A right-sided HemoSplit catheter is seen. The catheter tip overlies the proximal superior vena cava. There is also a left-sided central line. The tip of this overlies the distal superior vena cava. No signs of pneumothorax. IMPRESSION: Line placement, as discussed above. POS: [facility]
[2018-08-02] MEDS ORDERED: PROPOFOL 200 MG/20 ML VIAL ONE (15:27)
[2018-08-02] MEDS ORDERED: Lidocaine 1% PF 5 ML VIAL ONE (15:27)
[2018-08-02] MEDS ORDERED: Ondansetron PF 4 MG/2 ML Vial ONE (15:27)
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
[2018-08-02] MEDS: Carvedilol 6.25 MG TAB PO SCH (17:35)
[2018-08-02] MEDS ORDERED: Heparin 10,000 UNITS/ 10 ML VIAL CATH PRN (17:45)
--- NOTE | 2018-08-02 18:00 | OP ---
DATE OF PROCEDURE: 08/02/2018 PREOPERATIVE DIAGNOSES: 1. End-stage renal disease. 2. Drug abuse, recent cocaine use, tobacco abuse. 3. Right arm amputation proximally, IV left basilic vein, dorsal forearm left, poor IV access. POSTOPERATIVE DIAGNOSES: 1. End-stage renal disease. 2. Drug abuse, recent cocaine use, tobacco abuse. 3. Right arm amputation proximally, IV left basilic vein, dorsal forearm left, poor IV access. PROCEDURE: 1. Right IJ cuffed tunneled hemodialysis catheter. 2. Left IJ central line. 3. Fluoroscopy and ultrasound used. SURGEON: Chidi Kahn MD ANESTHESIA: TIVA, local of 0.5% Marcaine with epinephrine, 30 mL mixed to 2% Xylocaine 10 mL. DESCRIPTION OF PROCEDURE: The patient was taken to the operating room where under intravenous sedation neck and chest prepared with ChloraPrep and draped in routine fashion. After prepping and draping in routine fashion, local anesthetic mixture was infiltrated into the skin and subcutaneous tissue about the operative site. Using ultrasound guidance, the right and left internal jugular veins were cannulated with trocar catheters. J-wire was threaded, trocar catheter removed. Skin was incised and enlarged on both sides. On the right side, a stab incision was made over the right chest. Using a tunneling device, pre-curved [employer] cuffed-tunneled hemodialysis catheter tunneled between two incisions, placed the fabric cuff beneath the skin access site, catheter secured with two sutures of 3-0 nylon and Biopatch sterile dressing applied. Smaller and medium size dilators were placed with J-wire into the internal jugular vein and removed. Dilator and Peel-Away sheath placed with J-wire in superior vena cava. Dilator and J-wire were removed. Catheter placed with Peel-Away sheath, Peel-Away sheath removed. Platysma was approximated with 4-0 Monocryl, skin with subdermal 4-0 Monocryl, and [place] glue applied. On the left side. Seldinger technique was used to place a triple-lumen catheter securing it with 3-0 nylon, Biopatch sterile dressing applied. J-wire had been removed. All ports aspirated blood, flushed with saline solution. Hemodialysis catheter flushed with 1000 units of heparin/mL indicating volume of the port. Fluoroscopic images revealed good line placement. Job ID: [id number]
[2018-08-02] MEDS ORDERED: Amlodipine 10 MG TAB PO SCH (18:15)
[2018-08-02] MEDS: cloNIDine 0.1 MG TAB PO SCH (20:29)
[2018-08-02] MEDS: Heparin 5,000 UNITS/ML VIAL SC SCH (20:30)
[2018-08-02] MEDS: traMADol HCl 50 MG TAB PO PRN (20:31)
[2018-08-03 05:59] LABS: Albumin 3.4 g/dL (3.5-5.0); Anion Gap 18 mmol/L (10-20); BUN (Urea Nitrogen) 60 mg/dL (8.4-25.7); Calc. Creatinine Clearance 6 mL/min (70-130); Calcium 7.7 mg/dL (7.8-10.44); Carbon Dioxide 17 mmol/L (22-29); Chloride 105 mmol/L (98-107); Estimated GFR-MDRD 7; Glucose 101 mg/dL (70-105); Phosphorus 4.4 mg/dL (2.3-4.7); Potassium 3.7 mmol/L (3.5-5.1); Sodium 136 mmol/L (136-145)
[2018-08-03 06:17] LABS: Band 2 % (5-11); Eosinophils 6 % (0-10); Hemoglobin 9.5 g/dL (14.0-18.0); Lymphocytes 25 % (21-51); MDiff Complete? YES; Mean Corpuscular HGB CONC 33.7 g/dL (32.0-36.0); Mean Corpuscular Hemoglobin 32.1 pg (27.0-31.0); Mean Corpuscular Volume 95.2 fL (78.0-98.0); Mean Platelet Volume 6.7 fL (7.4-10.4); Monocytes 8 % (0-10); Neutrophil 58 % (42-75); Platelet Count 139 thou/uL (130-400); Platelet Morphology Comment Appears Adequate; RBC Distribution Width 13.2 % (11.5-14.5); Red Blood Cell (RBC) Count 2.96 mill/uL (4.70-6.10); White Blood Cell (WBC) Count 4.7 thou/uL (4.8-10.8)
[2018-08-03] MEDS ORDERED: READ PPD TEST SITE PO SCH (09:00)
[2018-08-03] MEDS: Carvedilol 6.25 MG TAB PO SCH ×2 (09:08→17:10)
[2018-08-03] MEDS: Tamsulosin HCl 0.4 MG CAP PO SCH (09:09)
[2018-08-03] MEDS: Heparin 5,000 UNITS/ML VIAL SC SCH ×2 (09:09→20:10)
[2018-08-03] MEDS: Ferrous Sulfate 325 MG TAB PO SCH (09:09)
[2018-08-03] MEDS: Folic Acid 1 MG TAB PO SCH (09:10)
[2018-08-03] MEDS: cloNIDine 0.1 MG TAB PO SCH ×4 (09:10→20:10)
[2018-08-03] MEDS: Amlodipine 10 MG TAB PO SCH (09:10)
[2018-08-03] MEDS: Famotidine 20 MG TAB PO SCH (09:10)
[2018-08-03] MEDS: Polyethylene Glycol 3350 17 GM Packet PO SCH (09:11)
[2018-08-03] MEDS: Multivit, Therapeutic 1 TAB PO SCH (09:11)
--- NOTE | 2018-08-03 10:21 | ULT ---
LEFT UPPER EXTREMITY DIALYSIS VEIN MAPPING: HISTORY: The patient has had a previous history of right arm amputation. FINDINGS: Multiple longitudinal and transverse images of the left upper extremity venous and arterial systems o btained using a multihertz linear ray transducer. Real-time, color flow, and spectral waveform Doppl er analysis demonstrates flow seen in the left brachial artery, radial artery, and ulnar arteries. T he left brachial artery had a diameter of 4.0 mm, the left radial artery 1.6 mm, and left ulnar arter y 1.7 mm. The left cephalic vein has the following measurements: Proximal humeral 0.6 mm Mid humeral 1.2 mm Distal humeral 0.9 mm Antecubital 0.8 mm Proximal forearm 0.6 mm Mid forearm 0.6 mm Distal forearm 0.5 mm The left basilic vein has the following measurements: Proximal humeral 5.4 mm Mid humeral 3.5 mm Distal humeral 2.7 mm Antecubital 2.6 mm Proximal forearm 3.5 mm Mid forearm 2.5 mm Distal forearm 2.7 mm IMPRESSION: Tiny left cephalic vein with left basilic vein measurements as given above. POS: [facility]
--- NOTE | 2018-08-03 10:33 | PRG ---
DATE OF SERVICE: 08/03/2018 SUBJECTIVE: A 58-year-old gentleman being seen for end-stage renal disease. The patient denies any nausea, vomiting, or chest pain. OBJECTIVE: GENERAL: The patient is awake and alert. VITAL SIGNS: Afebrile, pulse 72, breathing 16, blood pressure 133/76. GENERAL APPEARANCE AND MENTAL STATUS: Fair. HEAD/NECK: Normocephalic. Atraumatic. EYES: EOMI. No deformity. EARS: Clear. No ulcers. NOSE: Intact. No lesions. MOUTH: Clear. No discharge. THROAT: Clear. No exudate. LUNGS: Clear. No crackles. CARDIAC: S1, S2. No rub. ABDOMEN: Benign. Bowel sounds positive. GENITALIA/RECTUM: Moffett absent. BACK/EXTREMITIES: Edema 0+. NEUROLOGICAL: Alert and motor intact. SKIN: LYMPHATICS: LABORATORY DATA: Labs show hemoglobin 9.5. Bicarb 17, potassium 3.7. ASSESSMENT AND PLAN: 1. Stage 3 chronic kidney disease, stable. 2. Hypertension, stable. 3. Uremia, improved. We will set up outpatient dialysis. Job ID: [id number]
[2018-08-03] MEDS ORDERED: Heparin 1,000 UNITS/ML VIAL ONE (11:11)
--- NOTE | 2018-08-03 17:57 | PDOC.PN ---
- Subjective Encounter Start Date: 08/03/18 Encounter Start Time: 10:30 Subjective: pt up in bed feels much better today - Objective Resuscitation Status - Order Detail: 08/02/18 09:58 Resuscitation Status Routine Resuscitation Status: FULL: Full Resuscitation Discussed with: POA: son , [id number] Vital Signs & Weight: Vital Signs (12 hours) Temp Pulse Resp BP BP Pulse Ox 08/03/18 17:11 125/67 08/03/18 17:10 125/67 08/03/18 16:00 98.2 F 71 18 125/67 99 08/03/18 13:50 97.4 F L 74 17 151/82 H 100 08/03/18 09:10 72 08/03/18 09:08 163/77 H 08/03/18 08:00 97.5 F L 72 17 163/77 H 100 Weight Admit Weight 97 lb 9.6 oz Weight 97 lb 9.6 oz I&O: 08/02/18 08/03/18 08/04/18 06:59 06:59 06:59 Intake Total 880 480 Output Total 950 250 Balance -70 230 Result Diagrams: 08/03/18 04:45 08/03/18 04:45 Additional Labs: Accuchecks 08/03/18 08/03/18 08/02/18 16:47 05:22 20:19 POC Glucose 118 H 101 157 H Phys Exam - Physical Examination pt appears very cachetic Neck: no nodes, no JVD, supple, full ROM Respiratory: no wheezing, no rales, no rhonchi, wheezing present, clear to auscultation bilateral Cardiovascular: RRR, no significant murmur, no rub, gallop, irregular Gastrointestinal: soft, non-tender, no distention, positive bowel sounds Dx/Plan (1) Acute worsening of stage 4 chronic kidney disease Code(s): N28.9 - DISORDER OF KIDNEY AND URETER, UNSPECIFIED; N18.4 - CHRONIC KIDNEY DISEASE, STAGE 4 (SEVERE) Status: Acute (2) Diabetes mellitus type 2 in nonobese Code(s): E11.9 - TYPE 2 DIABETES MELLITUS WITHOUT COMPLICATIONS Status: Chronic (3) Alcohol abuse Code(s): F10.10 - ALCOHOL ABUSE, UNCOMPLICATED Status: Chronic (4) Hypertension Code(s): I10 - ESSENTIAL (PRIMARY) HYPERTENSION Status: Chronic - Plan pt appears very cachetic, states he eats but has diarrhea all the time -: on hemodialysis -: will add tsh and hiv * . Review of Systems - Review of Systems Respiratory: negative: Cough, Dry, Shortness of Breath, Hemoptysis, SOB with Excertion, Pleuritic Pain, Sputum, Wheezing Cardiovascular: negative: chest pain, palpitations, orthopnea, paroxysmal nocturnal dyspnea, edema, light headedness, other Gastrointestinal: negative: Nausea, Vomiting, Abdominal Pain, Diarrhea, Constipation, Melena, Hematochezia, Other - Medications/Allergies Allergies/Adverse Reactions: Allergies Allergy/AdvReac Type Severity Reaction Status Date / Time No Known Drug Allergies Allergy Verified 08/02/18 16:15 Medications: Current Medications Acetaminophen (Tylenol) 650 mg PO Q4H PRN PRN Reason: Headache/Fever/Mild Pain (1-3) Acetaminophen (Tylenol) 1,000 mg PO Q6H PRN PRN Reason: Moderate to Severe Pain (6-10) Amlodipine Besylate (Norvasc) 10 mg PO DAILY [facility] Last Admin: 08/03/18 09:10 Dose: Not Given Calcium Carbonate (Tums) 1,000 mg PO Q4H PRN PRN Reason: Heartburn or Indigestion Carvedilol (Coreg) 3.125 mg PO BID-[facility] Last Admin: 08/03/18 17:10 Dose: 3.125 mg Cefazolin Sodium (Ancef) 2 gm SLOW IVP ONCALL-OR [facility] Clonidine (Catapres) 0.1 mg PO TID [facility] Last Admin: 08/03/18 17:11 Dose: Not Given Dextrose/Water (Dextrose 50%) 25 gm SLOW IVP PRN PRN PRN Reason: Hypoglycemia Famotidine (Pepcid) 20 mg PO DAILY [facility] Last Admin: 08/03/18 09:10 Dose: 20 mg Ferrous Sulfate (Feosol) 325 mg PO QAM-[facility] Last Admin: 08/03/18 09:09 Dose: 325 mg Folic Acid (Folvite) 1 mg PO DAILY [facility] Last Admin: 08/03/18 09:10 Dose: 1 mg Glucagon (Glucagon) 1 mg IM PRN PRN PRN Reason: Hypoglycemia Guaifenesin/Dextromethorphan (Robitussin Dm) 15 ml PO Q4H PRN PRN Reason: Cough Heparin Sodium (Porcine) (Heparin) 5,000 units SC BID [facility] Last Admin: 08/03/18 09:09 Dose: 5,000 units Heparin Sodium (Porcine) (Heparin 1,000 Units/Ml (10 Ml)) 0 units CATH ONE PRN PRN Reason: TO EACH PORT PER DIALYSIS Stop: 08/09/18 17:46 Dextrose/Water (D5w) 1,000 mls @ 0 mls/hr IV .Q0M PRN PRN Reason: Hypoglycemia Influenza Virus Vaccine Quadrival (Fluzone Quad [id number] Syringe) 0.5 ml IM .ONCE ONE Stop: 08/03/18 21:01 Insulin Human Lispro (Humalog) 0 units SC .MILD SLIDING SCALE PRN PRN Reason: Mild Correctional Scale Multivitamins (Theragran) 1 tab PO DAILY [facility] Last Admin: 08/03/18 09:11 Dose: 1 tab Ondansetron HCl (Zofran) 4 mg IVP Q6H PRN PRN Reason: Nausea/Vomiting Pneumococcal 13-Valent Conj Vacc (Prevnar) 0.5 ml IM .ONCE ONE Stop: 08/03/18 21:01 Polyethylene Glycol (Miralax) 17 gm PO DAILY [facility] Last Admin: 08/03/18 09:11 Dose: Not Given Senna/Docusate Sodium (Senokot S) 2 tab PO BID PRN PRN Reason: Constipation Tamsulosin HCl (Flomax) 0.4 mg PO DAILY [facility] Last Admin: 08/03/18 09:09 Dose: 0.4 mg Tramadol HCl (Ultram) 50 mg PO Q6H PRN PRN Reason: Moderate Pain (4-6) Last Admin: 08/02/18 20:31 Dose: 50 mg Tramadol HCl (Ultram) 100 mg PO Q6H PRN PRN Reason: Severe Pain (7-10)
--- NOTE | 2018-08-03 18:03 | PRG ---
DATE OF SERVICE: 08/03/2018 SUBJECTIVE: Manish Suero is doing well today. He is dialyzing. Ultrasound vein mapping, left arm reveals that his veins are poor. He might not be able to have a basilic vein fistula. He may need a graft. Plan is for placement of fistular graft tomorrow. He may need staged transposition pending operative findings. N.p.o. after midnight. He understands risks and benefits. Questions were answered. Job ID: [id number]
[2018-08-03 18:58] LABS: HIV (1/2) Antibody/Antigen Non-Reactive (NonReactive); HIV 1/2 INDEX 0.08 S/CO (<1.00); Thyroid Stimulating Hormone 2.3065 uIU/mL (0.35-4.94)
[2018-08-03] MEDS ORDERED: Prevnar 13-Val Conj/PF 0.5 ML SYRINGE IM ONE (21:00)
[2018-08-04] MEDS ORDERED: Midazolam HCl 2 mg/2 ml Vial ONE (06:38)
[2018-08-04] MEDS ORDERED: Fentanyl 100 MCG/2 ML VIAL ONE ×2 (06:38→11:42)
[2018-08-04] MEDS: cloNIDine 0.1 MG TAB PO SCH ×3 (09:09→21:07)
[2018-08-04] MEDS: Ferrous Sulfate 325 MG TAB PO SCH (09:09)
[2018-08-04] MEDS: Multivit, Therapeutic 1 TAB PO SCH (09:09)
[2018-08-04] MEDS: Tamsulosin HCl 0.4 MG CAP PO SCH (09:09)
[2018-08-04] MEDS: Amlodipine 10 MG TAB PO SCH (09:09)
[2018-08-04] MEDS: Famotidine 20 MG TAB PO SCH (09:09)
[2018-08-04] MEDS: Folic Acid 1 MG TAB PO SCH (09:09)
[2018-08-04] MEDS: Polyethylene Glycol 3350 17 GM Packet PO SCH (09:10)
[2018-08-04] MEDS: Carvedilol 6.25 MG TAB PO SCH ×2 (09:10→17:30)
[2018-08-04] MEDS: Heparin 5,000 UNITS/ML VIAL SC SCH ×2 (09:10→21:07)
[2018-08-04] MEDS ORDERED: CEFAZOLIN 2 GM/50 ML BAG ONE (10:38)
[2018-08-04] MEDS ORDERED: Tuberculin PPD 0.1 ML VIAL I-DERMAL SCH (11:30)
[2018-08-04] MEDS ORDERED: Protamine Sulfate 50 MG/5 ML VIAL ONE (11:41)
[2018-08-04] MEDS ORDERED: Heparin 5,000 UNITS/ML VIAL ONE (11:41)
[2018-08-04] MEDS ORDERED: Bupivacaine HCl 0.5%/Epinephrine 1:200,000/PF 30 ml Vial ONE (11:41)
[2018-08-04] MEDS ORDERED: Lidocaine 2% PF 5 ML VIAL ONE (11:41)
--- NOTE | 2018-08-04 11:41 | PRG ---
DATE OF SERVICE: 08/04/2018 SUBJECTIVE: A 58-year-old gentleman, being seen for end-stage renal disease. The patient denied nausea, vomiting, or chest pain. OBJECTIVE: GENERAL: The patient is alert and awake. VITAL SIGNS: Afebrile, pulse 71, breathing 16, blood pressure 106/60. GENERAL APPEARANCE AND MENTAL STATUS: Fair. HEAD/NECK: Normocephalic. Atraumatic. EYES: EOMI. No deformity. EARS: Clear. No ulcers. NOSE: Intact. No lesions. MOUTH: Clear. No discharge. THROAT: Clear. No exudate. LUNGS: Clear. No crackles. CARDIAC: S1, S2. No rub. ABDOMEN: Benign. Bowel sounds positive. GENITALIA/RECTUM: Moffett absent. BACK/EXTREMITIES: Edema 0+. NEUROLOGICAL: Alert and motor intact. SKIN: LYMPHATICS: LABORATORY DATA: Lab showed hemoglobin 9.5. Creatinine 8.1. ASSESSMENT AND PLAN: 1. Stage 6 chronic kidney disease, continue hemodialysis. 2. Hypertension, stable. 3. Anemia, stable. 4. Medication based on GFR appropriate. Job ID: [id number]
[2018-08-04] MEDS ORDERED: PHENYLEPHRINE-NS 100 MCG/ML 10 ML SYRINGE ONE ×2 (12:51→16:23)
[2018-08-04] MEDS ORDERED: Heparin 10,000 UNITS/ 10 ML VIAL ONE (16:23)
[2018-08-04] MEDS ORDERED: PROPOFOL 200 MG/20 ML VIAL ONE (16:23)
[2018-08-04 19:13] LABS: HCV log10 6.083 (.); Hep C PCR-Quant 1210000 IU/mL (.)
--- NOTE | 2018-08-04 20:36 | OP ---
DATE OF PROCEDURE: 08/04/2018 PREOPERATIVE DIAGNOSES: End-stage renal disease, history of proximal amputation, right arm. POSTOPERATIVE DIAGNOSES: End-stage renal disease, history of proximal amputation, right arm, left upper extremity primary AV dialysis fistula. Inflow, proximal radial artery of excellent caliber. Outflow, perforating branch of antecubital vein with dual outflow, cephalic and basilic vein, and a separate branch more proximally toward the basilic vein, calibrated outflow with 4 mm coronary dilator. Note, cephalic vein junction, mid distal 3rd upper arm seemed to be occluded. The primary outflow may be the basilic vein. He may need a staged basilic vein transposition fistula. ANESTHESIA: General, local 0.5% Marcaine with epinephrine 30 mL mixed with 2% Xylocaine 10 mL. DESCRIPTION OF PROCEDURE: The patient was taken to the operating room where under general anesthesia (with the patient's amputation right arm, it was felt that he would need his left arm and we did not do regional anesthesia) left arm was prepared with ChloraPrep and draped in routine fashion. Local anesthetic was infiltrated in the skin and subcutaneous tissue about the operative site. Incision was made in the proximal volar forearm below the antecubital fossa longitudinally. This was carried down through the skin and subcutaneous tissue identifying the antecubital vein, cephalic basilic vein. There was a perforating branch, it was of a large caliber. This was dissected free and branches were divided between 4-0 silk ties and clips, and spatulated over branch points and interrogated with coronary dilators. The patient was given 6000 units of heparin intravenously. Coronary dilators were passed through the cephalic vein outflow without obstruction until the juncture of the distal mid 3rd of the cephalic vein, where there seemed to be an obstruction probably from a previous IV. There was no obstruction in the basilic vein outflow. The brachial, ulnar, and radial arteries were clamped with vascular clamps and a longitudinal arteriotomy was made in the proximal radial artery for 2.5 cm anastomosis elongated with Dey scissors and perforating branch of antecubital vein had been spatulated over branch points as described. An end vein to side radial artery anastomosis was created with continuous suture of 6-0 Prolene. At the completion of anastomosis, branches were ligated with 4-0 silk ties and vascular clamps were released. There was good flow in the fistula, interrogated by Doppler with excellent basilic vein outflow. The cephalic vein outflow seemed to be pulsatile indicating the patient will need a basilic vein transposition of fistula in the future. Good hemostasis was noted. The patient was given protamine 25 mg intravenously by Anesthesia. Subcutaneous tissue was approximated with 3-0 Monocryl, skin with subdermal 4-0 Monocryl, and [place] glue applied. Job ID: [id number]
--- NOTE | 2018-08-04 20:56 | CT ---
NONCONTRAST CT HEAD: 08/04/18 HISTORY: Patient fell and hit head today. Patient is on heparin. COMPARISON: 05/07/15. FINDINGS: There is no evidence of an acute cortical infarction, hemorrhage mass effect or midline shift. Mild c erebral volume loss is again seen. The visualized paranasal sinuses and mastoid air cells are clear. No calvarial fracture is seen. There is a minimal amount of scalp soft tissue swelling seen in the ri ght anterior frontal region. Vascular calcifications are seen in the carotid siphons and distal vertebral arteries. IMPRESSION: 1. No acute intracranial abnormalities demonstrated. 2. Cerebral volume loss. 3. Minimal right anterior frontal scalp hematoma. POS: [facility]
[2018-08-05] MEDS: traMADol HCl 50 MG TAB PO PRN (04:55)
--- NOTE | 2018-08-05 07:10 | PDOC.PN ---
- Subjective Encounter Start Date: 08/04/18 - Objective Resuscitation Status - Order Detail: 08/02/18 09:58 Resuscitation Status Routine Resuscitation Status: FULL: Full Resuscitation Discussed with: POA: son , [phone] Vital Signs & Weight: Vital Signs (12 hours) Temp Pulse Pulse Resp Resp BP BP 08/05/18 04:00 98.9 F 69 20 08/04/18 20:40 97.3 F L 71 18 08/04/18 19:54 71 14 91/58 L 113/48 L BP Pulse Ox Pulse Ox 08/05/18 04:00 108/64 95 08/04/18 20:40 115/49 L 98 08/04/18 19:54 100 Weight Admit Weight 97 lb 9.6 oz Weight 94 lb 3.2 oz I&O: 08/04/18 08/05/18 08/06/18 06:59 06:59 06:59 Intake Total 580 720 Output Total 475 600 Balance 105 120 Result Diagrams: 08/03/18 04:45 08/03/18 04:45 Additional Labs: Accuchecks 08/05/18 08/04/18 08/04/18 05:37 21:03 16:55 POC Glucose 176 H 208 H 126 H Dx/Plan (1) Acute worsening of stage 4 chronic kidney disease Code(s): N28.9 - DISORDER OF KIDNEY AND URETER, UNSPECIFIED; N18.4 - CHRONIC KIDNEY DISEASE, STAGE 4 (SEVERE) Status: Acute (2) Diabetes mellitus type 2 in nonobese Code(s): E11.9 - TYPE 2 DIABETES MELLITUS WITHOUT COMPLICATIONS Status: Chronic (3) Alcohol abuse Code(s): F10.10 - ALCOHOL ABUSE, UNCOMPLICATED Status: Chronic (4) Hypertension Code(s): I10 - ESSENTIAL (PRIMARY) HYPERTENSION Status: Chronic - Plan * .
[2018-08-05] MEDS: Ferrous Sulfate 325 MG TAB PO SCH (08:10)
[2018-08-05] MEDS: Amlodipine 10 MG TAB PO SCH (08:10)
[2018-08-05] MEDS: Carvedilol 6.25 MG TAB PO SCH ×2 (08:10→17:35)
[2018-08-05] MEDS: Polyethylene Glycol 3350 17 GM Packet PO SCH ×2 (08:11→08:16)
[2018-08-05] MEDS: cloNIDine 0.1 MG TAB PO SCH ×4 (08:11→22:08)
[2018-08-05] MEDS: Tamsulosin HCl 0.4 MG CAP PO SCH (08:11)
[2018-08-05] MEDS: Folic Acid 1 MG TAB PO SCH (08:11)
[2018-08-05] MEDS: Multivit, Therapeutic 1 TAB PO SCH (08:11)
[2018-08-05] MEDS: Famotidine 20 MG TAB PO SCH (08:11)
[2018-08-05] MEDS: Heparin 5,000 UNITS/ML VIAL SC SCH ×2 (08:11→22:09)
--- NOTE | 2018-08-05 10:48 | EKG ---
Test Reason : Blood Pressure : / mmHG Vent. Rate : 086 BPM Atrial Rate : 086 BPM P-R Int : 134 ms QRS Dur : 100 ms QT Int : 388 ms P-R-T Axes : 074 085 071 degrees QTc Int : 464 ms Normal sinus rhythm Possible Left atrial enlargement Borderline ECG Confirmed by LES CORDOBA DO ([id number]), loan expeditor ERIKA HAYES ([id number]) on 08/05/2018 10:47:55 AM Referred By: Confirmed By:LES CORDOBA DO
--- NOTE | 2018-08-05 11:30 | PDOC.PN ---
- Subjective Encounter Start Date: 08/05/18 Encounter Start Time: 08:45 Subjective: pt up in bed states that he fell yest when he was going to the -: bathroom - Objective Resuscitation Status - Order Detail: 08/02/18 09:58 Resuscitation Status Routine Resuscitation Status: FULL: Full Resuscitation Discussed with: POA: son , [phone] Vital Signs & Weight: Vital Signs (12 hours) Temp Pulse Resp BP BP Pulse Ox 08/05/18 10:59 98.1 F 70 16 119/50 L 100 08/05/18 09:35 120/58 L 120/58 L 08/05/18 08:10 75 08/05/18 08:06 98.6 F 75 16 115/51 L 100 08/05/18 04:00 98.9 F 69 20 108/64 95 Weight Admit Weight 97 lb 9.6 oz Weight 94 lb 3.2 oz I&O: 08/04/18 08/05/18 08/06/18 06:59 06:59 06:59 Intake Total 580 720 Output Total 475 600 350 Balance 105 120 -350 Result Diagrams: 08/03/18 04:45 08/03/18 04:45 Additional Labs: Accuchecks 08/05/18 08/04/18 08/04/18 05:37 21:03 16:55 WBC RBC Hgb Hct MCV MCH MCHC RDW Plt Count MPV Neutrophils % (Manual) Band Neuts % (Manual) Lymphocytes % (Manual) Reactive Lymphs % Monocytes % (Manual) Eosinophils % (Manual) Basophils % (Manual) Metamyelocytes % (Man) Neutrophils # Lymphocytes # Plt Morphology Comment Polychromasia Ovalocytes Andre Cells Sodium Potassium Chloride Carbon Dioxide Anion Gap BUN Creatinine Estimated GFR (MDRD) BUN/Creatinine Ratio Glucose POC Glucose 176 H 208 H 126 H Lactic Acid Calcium Phosphorus Total Bilirubin AST ALT Alkaline Phosphatase Troponin I Serum Total Protein Albumin Globulin Albumin/Globulin Ratio Lipase TSH 3rd Generation Urine Color Urine Clarity Urine pH Ur Specific [place] Urine Protein Urine Glucose (UA) Urine Ketones Urine Blood Urine Nitrite Urine Bilirubin Urine Urobilinogen Ur Leukocyte Esterase Urine RBC Urine WBC Ur Squamous Epith Cells Urine Bacteria Hyaline Casts Hep Bs Antigen Hep Bs Antibody Hep Bs Antibody Index Hep B Core Total Ab Hepatitis C Antibody HCV RNA (PCR) log10 HCV RNA Ultraquant Hepatitis C RNA Comment HIV 1&2 Antigen & Ab 08/03/18 08/03/18 08/03/18 18:10 04:45 04:45 WBC 4.7 L RBC 2.96 L Hgb 9.5 L Hct 28.2 L MCV 95.2 MCH 32.1 H MCHC 33.7 RDW 13.2 Plt Count 139 MPV 6.7 L Neutrophils % (Manual) 58 Band Neuts % (Manual) 2 L Lymphocytes % (Manual) 25 Reactive Lymphs % Monocytes % (Manual) 8 Eosinophils % (Manual) 6 Basophils % (Manual) 1 Metamyelocytes % (Man) Neutrophils # Lymphocytes # Plt Morphology Comment Appears Adequate Polychromasia Ovalocytes [place] Cells Sodium 136 Potassium 3.7 Chloride 105 Carbon Dioxide 17 L Anion Gap 18 BUN 60 H Creatinine 8.11 H Estimated GFR (MDRD) 7 BUN/Creatinine Ratio 7.40 Glucose 101 POC Glucose Lactic Acid Calcium 7.7 L Phosphorus 4.4 Total Bilirubin AST ALT Alkaline Phosphatase Troponin I Serum Total Protein Albumin 3.4 L Globulin Albumin/Globulin Ratio Lipase TSH 3rd Generation 2.3065 Urine Color Urine Clarity Urine pH Ur Specific [place] Urine Protein Urine Glucose (UA) Urine Ketones Urine Blood Urine Nitrite Urine Bilirubin Urine Urobilinogen Ur Leukocyte Esterase Urine RBC Urine WBC Ur Squamous Epith Cells Urine Bacteria Hyaline Casts Hep Bs Antigen Hep Bs Antibody Hep Bs Antibody Index Hep B Core Total Ab Hepatitis C Antibody HCV RNA (PCR) log10 HCV RNA Ultraquant Hepatitis C RNA Comment HIV 1&2 Antigen & Ab Non-Reactive 08/02/18 08/01/18 08/01/18 13:04 22:40 19:51 WBC RBC Hgb Hct MCV MCH MCHC RDW Plt Count MPV Neutrophils % (Manual) Band Neuts % (Manual) Lymphocytes % (Manual) Reactive Lymphs % Monocytes % (Manual) Eosinophils % (Manual) Basophils % (Manual) Metamyelocytes % (Man) Neutrophils # Lymphocytes # Plt Morphology Comment Polychromasia Ovalocytes Andre Cells Sodium Potassium Chloride Carbon Dioxide Anion Gap BUN Creatinine Estimated GFR (MDRD) BUN/Creatinine Ratio Glucose POC Glucose Lactic Acid 0.8 Calcium Phosphorus Total Bilirubin AST ALT Alkaline Phosphatase Troponin I Serum Total Protein Albumin Globulin Albumin/Globulin Ratio Lipase TSH 3rd Generation Urine Color [place] H Urine Clarity TURBID Urine pH 5.0 Ur Specific [place] 1.011 Urine Protein 100 H Urine Glucose (UA) Negative Urine Ketones Trace H Urine Blood Large H Urine Nitrite Negative Urine Bilirubin Negative Urine Urobilinogen 0.2 Ur Leukocyte Esterase Large H Urine RBC GREATER THAN 50-TNTC H Urine WBC Greater Than 50-TNTC H Ur Squamous Epith Cells 0-3 Urine Bacteria 3+ H Hyaline Casts 0-3 HYALINE CAST Hep Bs Antigen Hep Bs Antibody Hep Bs Antibody Index Hep B Core Total Ab Hepatitis C Antibody HCV RNA (PCR) log10 6.083 HCV RNA Ultraquant [id number] Hepatitis C RNA Comment HIV 1&2 Antigen & Ab 08/01/18 08/01/18 08/01/18 19:21 19:21 19:21 WBC 4.7 L RBC 3.18 L Hgb 10.3 L Hct 31.3 L MCV 98.6 H MCH 32.3 H MCHC 32.8 RDW 13.5 Plt Count 166 MPV 6.9 L Neutrophils % (Manual) 47 Band Neuts % (Manual) 8 Lymphocytes % (Manual) 33 Reactive Lymphs % 1 Monocytes % (Manual) 6 Eosinophils % (Manual) 2 Basophils % (Manual) 2 Metamyelocytes % (Man) 1 H Neutrophils # Not Reportable Lymphocytes # Not Reportable Plt Morphology Comment Appears Adequate Polychromasia SLIGHT = 2-3 cells Ovalocytes SLIGHT = 2-5 cells Andre Cells SLIGHT = 2-5 cells Sodium 133 L Potassium 5.2 H Chloride 109 H Carbon Dioxide Less than 8 L* Anion Gap TNP BUN 108 H Creatinine 12.50 H Estimated GFR (MDRD) 4 BUN/Creatinine Ratio Glucose 103 POC Glucose Lactic Acid Calcium 8.1 Phosphorus Total Bilirubin 0.5 AST 11 ALT 15 Alkaline Phosphatase 92 Troponin I Serum Total Protein 7.7 Albumin 3.5 Globulin 4.2 H Albumin/Globulin Ratio 0.8 L Lipase 85 H TSH 3rd Generation Urine Color Urine Clarity Urine pH Ur Specific [place] Urine Protein Urine Glucose (UA) Urine Ketones Urine Blood Urine Nitrite Urine Bilirubin Urine Urobilinogen Ur Leukocyte Esterase Urine RBC Urine WBC Ur Squamous Epith Cells Urine Bacteria Hyaline Casts Hep Bs Antigen Non-Reactive Hep Bs Antibody Non-Reactive Hep Bs Antibody Index 2.20 Hep B Core Total Ab Non-Reactive Hepatitis C Antibody Reflex HepC Qnt H HCV RNA (PCR) log10 HCV RNA Ultraquant Hepatitis C RNA Comment HIV 1&2 Antigen & Ab 08/01/18 19:21 WBC RBC Hgb Hct MCV MCH MCHC RDW Plt Count MPV Neutrophils % (Manual) Band Neuts % (Manual) Lymphocytes % (Manual) Reactive Lymphs % Monocytes % (Manual) Eosinophils % (Manual) Basophils % (Manual) Metamyelocytes % (Man) Neutrophils # Lymphocytes # Plt Morphology Comment Polychromasia Ovalocytes [place] Cells Sodium Potassium Chloride Carbon Dioxide Anion Gap BUN Creatinine Estimated GFR (MDRD) BUN/Creatinine Ratio Glucose POC Glucose Lactic Acid Calcium Phosphorus Total Bilirubin AST ALT Alkaline Phosphatase Troponin I Less than 0.010 Serum Total Protein Albumin Globulin Albumin/Globulin Ratio Lipase TSH 3rd Generation Urine Color Urine Clarity Urine pH Ur Specific [place] Urine Protein Urine Glucose (UA) Urine Ketones Urine Blood Urine Nitrite Urine Bilirubin Urine Urobilinogen Ur Leukocyte Esterase Urine RBC Urine WBC Ur Squamous Epith Cells Urine Bacteria Hyaline Casts Hep Bs Antigen Hep Bs Antibody Hep Bs Antibody Index Hep B Core Total Ab Hepatitis C Antibody HCV RNA (PCR) log10 HCV RNA Ultraquant Hepatitis C RNA Comment HIV 1&2 Antigen & Ab Phys Exam - Physical Examination Neck: no nodes, no JVD, supple, full ROM Respiratory: no wheezing, no rales, no rhonchi, wheezing present, clear to auscultation bilateral Cardiovascular: RRR, no significant murmur, no rub, gallop, irregular Gastrointestinal: soft, non-tender, no distention, positive bowel sounds Neurological: non-focal, normal sensation, 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 Dx/Plan (1) Acute worsening of stage 4 chronic kidney disease Code(s): N28.9 - DISORDER OF KIDNEY AND URETER, UNSPECIFIED; N18.4 - CHRONIC KIDNEY DISEASE, STAGE 4 (SEVERE) Status: Acute (2) Diabetes mellitus type 2 in nonobese Code(s): E11.9 - TYPE 2 DIABETES MELLITUS WITHOUT COMPLICATIONS Status: Chronic (3) Alcohol abuse Code(s): F10.10 - ALCOHOL ABUSE, UNCOMPLICATED Status: Chronic (4) Hypertension Code(s): I10 - ESSENTIAL (PRIMARY) HYPERTENSION Status: Chronic - Plan continue dialysis -: will check bmp today -: pt states he has chronic diarrhea for years, tsh normal -: celiac's work up via serology negative. -: discharge when ok with nephro * . Review of Systems - Review of Systems Cardiovascular: negative: chest pain, palpitations, orthopnea, paroxysmal nocturnal dyspnea, edema, light headedness, other Gastrointestinal: negative: Nausea, Vomiting, Abdominal Pain, Diarrhea, Constipation, Melena, Hematochezia, Other Genitourinary: negative: Dysuria, Frequency, Incontinence, Hematuria, Retention , Other Musculoskeletal: negative: Neck Pain, Shoulder Pain, Arm Pain, Back Pain, Hand Pain, Leg Pain, Foot Pain, Other - Medications/Allergies Allergies/Adverse Reactions: Allergies Allergy/AdvReac Type Severity Reaction Status Date / Time No Known Drug Allergies Allergy Verified 08/02/18 16:15 Medications: Current Medications Acetaminophen (Tylenol) 650 mg PO Q4H PRN PRN Reason: Headache/Fever/Mild Pain (1-3) Acetaminophen (Tylenol) 1,000 mg PO Q6H PRN PRN Reason: Moderate to Severe Pain (6-10) Amlodipine Besylate (Norvasc) 10 mg PO DAILY [facility] Last Admin: 08/05/18 08:10 Dose: 10 mg Calcium Carbonate (Tums) 1,000 mg PO Q4H PRN PRN Reason: Heartburn or Indigestion Carvedilol (Coreg) 3.125 mg PO BID-[facility] Last Admin: 08/05/18 08:10 Dose: 3.125 mg Cefazolin Sodium (Ancef) 2 gm SLOW IVP ONCALL-[facility] Clonidine (Catapres) 0.1 mg PO TID [facility] Last Admin: 08/05/18 09:35 Dose: 0.1 mg Dextrose/Water (Dextrose 50%) 25 gm SLOW IVP PRN PRN PRN Reason: Hypoglycemia Famotidine (Pepcid) 20 mg PO DAILY [facility] Last Admin: 08/05/18 08:11 Dose: 20 mg Ferrous Sulfate (Feosol) 325 mg PO [facility] Last Admin: 08/05/18 08:10 Dose: 325 mg Folic Acid (Folvite) 1 mg PO DAILY [facility] Last Admin: 08/05/18 08:11 Dose: 1 mg Glucagon (Glucagon) 1 mg IM PRN PRN PRN Reason: Hypoglycemia Guaifenesin/Dextromethorphan (Robitussin Dm) 15 ml PO Q4H PRN PRN Reason: Cough Heparin Sodium (Porcine) (Heparin) 5,000 units SC BID [facility] Last Admin: 08/05/18 08:11 Dose: 5,000 units Heparin Sodium (Porcine) (Heparin 1,000 Units/Ml (10 Ml)) 0 units CATH ONE PRN PRN Reason: TO EACH PORT PER DIALYSIS Stop: 08/09/18 17:46 Dextrose/Water (D5w) 1,000 mls @ 0 mls/hr IV .Q0M PRN PRN Reason: Hypoglycemia Insulin Human Lispro (Humalog) 0 units SC .MILD SLIDING SCALE PRN PRN Reason: Mild Correctional Scale Multivitamins (Theragran) 1 tab PO DAILY [facility] Last Admin: 08/05/18 08:11 Dose: 1 tab Read Ppd Test Site 0 each PO ONE [facility] Stop: 08/06/18 09:01 Ondansetron HCl (Zofran) 4 mg IVP Q6H PRN PRN Reason: Nausea/Vomiting Polyethylene Glycol (Miralax) 17 gm PO DAILY [facility] Last Admin: 08/05/18 08:16 Dose: Not Given Senna/Docusate Sodium (Senokot S) 2 tab PO BID PRN PRN Reason: Constipation Tamsulosin HCl (Flomax) 0.4 mg PO DAILY [facility] Last Admin: 08/05/18 08:11 Dose: 0.4 mg Tramadol HCl (Ultram) 50 mg PO Q6H PRN PRN Reason: Moderate Pain (4-6) Last Admin: 08/05/18 04:55 Dose: 50 mg Tramadol HCl (Ultram) 100 mg PO Q6H PRN PRN Reason: Severe Pain (7-10)
--- NOTE | 2018-08-05 12:21 | PRG ---
DATE OF SERVICE: 08/05/2018 SUBJECTIVE: This is a 58-year-old gentleman being seen for end-stage renal disease. The patient denies any nausea, vomiting, or chest pain. OBJECTIVE: CONSTITUTIONAL: The patient is awake and alert. VITAL SIGNS: Afebrile, pulse 70, breathing 16, and blood pressure 120/58. GENERAL APPEARANCE AND MENTAL STATUS: Fair. HEAD/NECK: Normocephalic. Atraumatic. EYES: EOMI. No deformity. EARS: Clear. No ulcers. NOSE: Intact. No lesions. MOUTH: Clear. No discharge. THROAT: Clear. No exudate. LUNGS: Clear. No crackles. CARDIAC: S1, S2. No rub. ABDOMEN: Benign. Bowel sounds positive. GENITALIA/RECTUM: [place] absent. BACK/EXTREMITIES: Edema 0+. NEUROLOGICAL: Alert and motor intact. SKIN: LYMPHATICS: LABORATORY DATA: Labs show hemoglobin 9.5. ASSESSMENT AND PLAN: 1. Stage 6 chronic kidney disease. Continue hemodialysis. 2. Hypertension, stable. 3. Anemia, stable. 4. Medication based on GFR appropriate. Job ID: [id number]
[2018-08-05] MEDS ORDERED: Artificial Tears 18 DROP/0.9 ML EA EYE PRN (13:52)
[2018-08-05] MEDS ORDERED: Heparin 10,000 UNITS/ 10 ML VIAL ONE (15:00)
[2018-08-06] MEDS: Carvedilol 6.25 MG TAB PO SCH ×3 (08:17→17:51)
[2018-08-06] MEDS: cloNIDine 0.1 MG TAB PO SCH ×4 (08:18→20:30)
[2018-08-06] MEDS: Ferrous Sulfate 325 MG TAB PO SCH (08:18)
[2018-08-06] MEDS: Amlodipine 10 MG TAB PO SCH (08:18)
[2018-08-06] MEDS: Heparin 5,000 UNITS/ML VIAL SC SCH ×2 (08:19→20:31)
[2018-08-06] MEDS: Polyethylene Glycol 3350 17 GM Packet PO SCH (08:19)
[2018-08-06] MEDS: Multivit, Therapeutic 1 TAB PO SCH (08:19)
[2018-08-06] MEDS: Famotidine 20 MG TAB PO SCH (08:19)
[2018-08-06] MEDS: Tamsulosin HCl 0.4 MG CAP PO SCH (08:19)
[2018-08-06] MEDS: Folic Acid 1 MG TAB PO SCH (08:19)
[2018-08-06] MEDS ORDERED: READ PPD TEST SITE PO SCH (09:00)
[2018-08-06 09:17] LABS: #Basophils 0.1 thou/uL (0.0-0.2); #Eosinphils 0.3 thou/uL (0.0-0.7); #Lymphocytes 1.4 thou/uL (1.20-3.40); #Monocytes 0.8 thou/uL (0.11-0.59); #Neutrophils 4.1 thou/uL (1.40-6.50); %Basophils 0.8 % (0.0-1.0); %Eosinophils 3.9 % (0.0-10.0); %Lymphocytes 21.2 % (21.0-51.0); %Monocytes 11.7 % (0.0-10.0); %Neutrophils 62.5 % (42.0-75.0); Hemoglobin 7.8 g/dL (14.0-18.0); MDiff Complete? YES; Mean Corpuscular HGB CONC 31.6 g/dL (32.0-36.0); Mean Corpuscular Hemoglobin 31.6 pg (27.0-31.0); Platelet Count 108 thou/uL (130-400); Platelet Morphology Comment Appears Decreased; RBC Distribution Width 12.9 % (11.5-14.5); Red Blood Cell (RBC) Count 2.46 mill/uL (4.70-6.10); White Blood Cell (WBC) Count 6.5 thou/uL (4.8-10.8)
[2018-08-06 09:25] LABS: Anion Gap 14 mmol/L (10-20); BUN (Urea Nitrogen) 24 mg/dL (8.4-25.7); Calc. Creatinine Clearance 12 mL/min (70-130); Calcium 7.5 mg/dL (7.8-10.44); Carbon Dioxide 24 mmol/L (22-29); Chloride 102 mmol/L (98-107); Estimated GFR-MDRD 15; Glucose 200 mg/dL (70-105); Magnesium 1.7 mg/dL (1.6-2.6); Phosphorus 2.8 mg/dL (2.3-4.7); Potassium 3.3 mmol/L (3.5-5.1); Sodium 137 mmol/L (136-145)
--- NOTE | 2018-08-06 10:11 | PRG ---
DATE OF SERVICE: 08/06/2018 SUBJECTIVE: This is a 58-year-old gentleman, being seen for end-stage renal disease. The patient denies any nausea, vomiting, or chest pain. OBJECTIVE: GENERAL: The patient is awake and alert. VITAL SIGNS: Pulse 73, breathing 16, blood pressure 120/49. GENERAL APPEARANCE AND MENTAL STATUS: Fair. HEAD/NECK: Normocephalic. Atraumatic. EYES: EOMI. No deformity. EARS: Clear. No ulcers. NOSE: Intact. No lesions. MOUTH: Clear. No discharge. THROAT: Clear. No exudate. LUNGS: Clear. No crackles. CARDIAC: S1, S2. No rub. ABDOMEN: Benign. Bowel sounds positive. GENITALIA/RECTUM: [place] absent. BACK/EXTREMITIES: Edema 0+. NEUROLOGICAL: Alert and motor intact. SKIN: LYMPHATICS: LABORATORY DATA: hemoglobin 7.8. ASSESSMENT AND PLAN: 1. Stage 6 chronic kidney disease, continue hemodialysis. 2. Hypertension, stable. 3. Anemia, stable. 4. Medications based on GFR appropriate. 5. Hypokalemia, recommend high potassium diet. Job ID: [id number]
--- NOTE | 2018-08-06 13:33 | PDOC.PN ---
- Subjective Encounter Start Date: 08/06/18 Encounter Start Time: 10:30 Subjective: pt up in bed no complains - Objective Resuscitation Status - Order Detail: 08/02/18 09:58 Resuscitation Status Routine Resuscitation Status: FULL: Full Resuscitation Discussed with: POA: son , [phone] Vital Signs & Weight: Vital Signs (12 hours) Temp Pulse Resp BP Pulse Ox 08/06/18 12:00 100 08/06/18 11:29 97.5 F L 76 18 95/60 100 08/06/18 10:58 98.4 F 69 18 121/58 L 100 08/06/18 08:18 73 08/06/18 08:14 98.1 F 73 16 120/49 L 100 08/06/18 03:10 98.9 F 69 16 85/42 L 97 Weight Admit Weight 97 lb 9.6 oz Weight 94 lb 3.2 oz I&O: 08/05/18 08/06/18 08/07/18 06:59 06:59 06:59 Intake Total 720 575 Output Total 600 2150 Balance 120 -1575 Result Diagrams: 08/06/18 08:50 08/06/18 08:50 Additional Labs: Accuchecks 08/06/18 08/06/18 08/05/18 10:48 05:17 20:10 POC Glucose 137 H 108 156 H 08/05/18 18:00 POC Glucose 80 Phys Exam - Physical Examination Respiratory: no wheezing, no rales, no rhonchi, wheezing present, clear to auscultation bilateral Cardiovascular: RRR, no significant murmur, no rub, gallop, irregular Gastrointestinal: soft, non-tender, no distention, positive bowel sounds Musculoskeletal: no edema, pulses present, edema present Dx/Plan (1) Acute worsening of stage 4 chronic kidney disease Code(s): N28.9 - DISORDER OF KIDNEY AND URETER, UNSPECIFIED; N18.4 - CHRONIC KIDNEY DISEASE, STAGE 4 (SEVERE) Status: Acute (2) Diabetes mellitus type 2 in nonobese Code(s): E11.9 - TYPE 2 DIABETES MELLITUS WITHOUT COMPLICATIONS Status: Chronic (3) Alcohol abuse Code(s): F10.10 - ALCOHOL ABUSE, UNCOMPLICATED Status: Chronic (4) Hypertension Code(s): I10 - ESSENTIAL (PRIMARY) HYPERTENSION Status: Chronic - Plan pt's hh is low will get occult blood -: may transfuse if hh is <7 -: if hh stable may discharge in am * . Review of Systems - Review of Systems Respiratory: negative: Cough, Dry, Shortness of Breath, Hemoptysis, SOB with Excertion, Pleuritic Pain, Sputum, Wheezing Cardiovascular: negative: chest pain, palpitations, orthopnea, paroxysmal nocturnal dyspnea, edema, light headedness, other Gastrointestinal: negative: Nausea, Vomiting, Abdominal Pain, Diarrhea, Constipation, Melena, Hematochezia, Other - Medications/Allergies Allergies/Adverse Reactions: Allergies Allergy/AdvReac Type Severity Reaction Status Date / Time No Known Drug Allergies Allergy Verified 08/02/18 16:15 Medications: Current Medications Acetaminophen (Tylenol) 650 mg PO Q4H PRN PRN Reason: Headache/Fever/Mild Pain (1-3) Acetaminophen (Tylenol) 1,000 mg PO Q6H PRN PRN Reason: Moderate to Severe Pain (6-10) Amlodipine Besylate (Norvasc) 10 mg PO DAILY [facility] Last Admin: 08/06/18 08:18 Dose: 10 mg Artificial Tears (Tears Naturale) 2 drop EA EYE Q4H PRN PRN Reason: Dry Eyes Calcium Carbonate (Tums) 1,000 mg PO Q4H PRN PRN Reason: Heartburn or Indigestion Carvedilol (Coreg) 3.125 mg PO BID-[facility] Last Admin: 08/06/18 08:17 Dose: 3.125 mg Cefazolin Sodium (Ancef) 2 gm SLOW IVP [facility] Clonidine (Catapres) 0.1 mg PO TID [facility] Last Admin: 08/06/18 08:18 Dose: 0.1 mg Dextrose/Water (Dextrose 50%) 25 gm SLOW IVP PRN PRN PRN Reason: Hypoglycemia Famotidine (Pepcid) 20 mg PO DAILY [facility] Last Admin: 08/06/18 08:19 Dose: 20 mg Ferrous Sulfate (Feosol) 325 mg PO QAM-[facility] Last Admin: 08/06/18 08:18 Dose: 325 mg Folic Acid (Folvite) 1 mg PO DAILY [facility] Last Admin: 08/06/18 08:19 Dose: 1 mg Glucagon (Glucagon) 1 mg IM PRN PRN PRN Reason: Hypoglycemia Guaifenesin/Dextromethorphan (Robitussin Dm) 15 ml PO Q4H PRN PRN Reason: Cough Heparin Sodium (Porcine) (Heparin) 5,000 units SC BID [facility] Last Admin: 08/06/18 08:19 Dose: 5,000 units Heparin Sodium (Porcine) (Heparin 1,000 Units/Ml (10 Ml)) 0 units CATH ONE PRN PRN Reason: TO EACH PORT PER DIALYSIS Stop: 08/09/18 17:46 Dextrose/Water (D5w) 1,000 mls @ 0 mls/hr IV .Q0M PRN PRN Reason: Hypoglycemia Insulin Human Lispro (Humalog) 0 units SC .MILD SLIDING SCALE PRN PRN Reason: Mild Correctional Scale Multivitamins (Theragran) 1 tab PO DAILY [facility] Last Admin: 08/06/18 08:19 Dose: 1 tab Ondansetron HCl (Zofran) 4 mg IVP Q6H PRN PRN Reason: Nausea/Vomiting Polyethylene Glycol (Miralax) 17 gm PO DAILY [facility] Last Admin: 08/06/18 08:19 Dose: Not Given Senna/Docusate Sodium (Senokot S) 2 tab PO BID PRN PRN Reason: Constipation Tamsulosin HCl (Flomax) 0.4 mg PO DAILY [facility] Last Admin: 08/06/18 08:19 Dose: 0.4 mg Tramadol HCl (Ultram) 50 mg PO Q6H PRN PRN Reason: Moderate Pain (4-6) Last Admin: 08/05/18 04:55 Dose: 50 mg Tramadol HCl (Ultram) 100 mg PO Q6H PRN PRN Reason: Severe Pain (7-10)
[2018-08-07 07:11] LABS: Hemoglobin 7.8 g/dL (14.0-18.0)
[2018-08-07] MEDS: Carvedilol 6.25 MG TAB PO SCH ×2 (08:34→17:24)
[2018-08-07] MEDS: Amlodipine 10 MG TAB PO SCH ×2 (08:34→09:23)
[2018-08-07] MEDS: Polyethylene Glycol 3350 17 GM Packet PO SCH (08:35)
[2018-08-07] MEDS: cloNIDine 0.1 MG TAB PO SCH ×4 (08:35→21:04)
[2018-08-07] MEDS: Folic Acid 1 MG TAB PO SCH (09:10)
[2018-08-07] MEDS: Ferrous Sulfate 325 MG TAB PO SCH (09:10)
[2018-08-07] MEDS: Multivit, Therapeutic 1 TAB PO SCH (09:10)
[2018-08-07] MEDS: Tamsulosin HCl 0.4 MG CAP PO SCH (09:10)
[2018-08-07] MEDS: Famotidine 20 MG TAB PO SCH (09:10)
[2018-08-07] MEDS: Heparin 5,000 UNITS/ML VIAL SC SCH (09:11)
--- NOTE | 2018-08-07 12:20 | PDOC.PN ---
- Subjective Encounter Start Date: 08/07/18 Encounter Start Time: 10:00 Subjective: pt up in bed no complains - Objective Resuscitation Status - Order Detail: 08/02/18 09:58 Resuscitation Status Routine Resuscitation Status: FULL: Full Resuscitation Discussed with: POA: son , [phone] Vital Signs & Weight: Vital Signs (12 hours) Temp Pulse Resp BP BP Pulse Ox 08/07/18 11:46 98.3 F 83 16 97/66 100 08/07/18 09:23 95/51 L 08/07/18 08:35 95/51 L 08/07/18 08:34 74 92/45 L 08/07/18 08:00 98.5 F 74 16 92/45 L 98 08/07/18 05:00 98.7 F 68 17 100/62 98 Weight Admit Weight 97 lb 9.6 oz Weight 94 lb 3.2 oz I&O: 08/06/18 08/07/18 08/08/18 06:59 06:59 06:59 Intake Total 575 1370 240 Output Total 2150 300 Balance -1575 1070 240 Result Diagrams: 08/07/18 06:30 08/06/18 08:50 Additional Labs: Accuchecks 08/07/18 08/07/18 08/06/18 11:52 05:10 20:30 POC Glucose 165 H 128 H 170 H 08/06/18 17:08 POC Glucose 170 H Phys Exam - Physical Examination Neck: no nodes, no JVD, supple, full ROM Respiratory: no wheezing, no rales, no rhonchi, wheezing present, clear to auscultation bilateral Cardiovascular: RRR, no significant murmur, no rub, gallop, irregular Gastrointestinal: soft, non-tender, no distention, positive bowel sounds Dx/Plan (1) Acute worsening of stage 4 chronic kidney disease Code(s): N28.9 - DISORDER OF KIDNEY AND URETER, UNSPECIFIED; N18.4 - CHRONIC KIDNEY DISEASE, STAGE 4 (SEVERE) Status: Acute (2) Diabetes mellitus type 2 in nonobese Code(s): E11.9 - TYPE 2 DIABETES MELLITUS WITHOUT COMPLICATIONS Status: Chronic (3) Alcohol abuse Code(s): F10.10 - ALCOHOL ABUSE, UNCOMPLICATED Status: Chronic (4) Hypertension Code(s): I10 - ESSENTIAL (PRIMARY) HYPERTENSION Status: Chronic - Plan pt's hh low stable, stool for occult blood positive will consult gi -: pt's urine cx indicates group b strep with low colony -: pt's dialysis not set up yet * . Review of Systems - Review of Systems Respiratory: negative: Cough, Dry, Shortness of Breath, Hemoptysis, SOB with Excertion, Pleuritic Pain, Sputum, Wheezing Cardiovascular: negative: chest pain, palpitations, orthopnea, paroxysmal nocturnal dyspnea, edema, light headedness, other Gastrointestinal: negative: Nausea, Vomiting, Abdominal Pain, Diarrhea, Constipation, Melena, Hematochezia, Other - Medications/Allergies Allergies/Adverse Reactions: Allergies Allergy/AdvReac Type Severity Reaction Status Date / Time No Known Drug Allergies Allergy Verified 08/02/18 16:15 Medications: Current Medications Acetaminophen (Tylenol) 650 mg PO Q4H PRN PRN Reason: Headache/Fever/Mild Pain (1-3) Acetaminophen (Tylenol) 1,000 mg PO Q6H PRN PRN Reason: Moderate to Severe Pain (6-10) Amlodipine Besylate (Norvasc) 10 mg PO DAILY [facility] Last Admin: 08/07/18 09:23 Dose: Not Given Artificial Tears (Tears Naturale) 2 drop EA EYE Q4H PRN PRN Reason: Dry Eyes Calcium Carbonate (Tums) 1,000 mg PO Q4H PRN PRN Reason: Heartburn or Indigestion Carvedilol (Coreg) 3.125 mg PO BID-[facility] Last Admin: 08/07/18 08:34 Dose: Not Given Cefazolin Sodium (Ancef) 2 gm SLOW IVP ONCALL-OR [facility] Clonidine (Catapres) 0.1 mg PO TID [facility] Last Admin: 08/07/18 09:23 Dose: Not Given Dextrose/Water (Dextrose 50%) 25 gm SLOW IVP PRN PRN PRN Reason: Hypoglycemia Famotidine (Pepcid) 20 mg PO DAILY [facility] Last Admin: 08/07/18 09:10 Dose: 20 mg Ferrous Sulfate (Feosol) 325 mg PO QAM-[facility] Last Admin: 08/07/18 09:10 Dose: 325 mg Folic Acid (Folvite) 1 mg PO DAILY [facility] Last Admin: 08/07/18 09:10 Dose: 1 mg Glucagon (Glucagon) 1 mg IM PRN PRN PRN Reason: Hypoglycemia Guaifenesin/Dextromethorphan (Robitussin Dm) 15 ml PO Q4H PRN PRN Reason: Cough Heparin Sodium (Porcine) (Heparin) 5,000 units SC BID [facility] Last Admin: 08/07/18 09:11 Dose: Not Given Heparin Sodium (Porcine) (Heparin 1,000 Units/Ml (10 Ml)) 0 units CATH ONE PRN PRN Reason: TO EACH PORT PER DIALYSIS Stop: 08/09/18 17:46 Dextrose/Water (D5w) 1,000 mls @ 0 mls/hr IV .Q0M PRN PRN Reason: Hypoglycemia Insulin Human Lispro (Humalog) 0 units SC .MILD SLIDING SCALE PRN PRN Reason: Mild Correctional Scale Multivitamins (Theragran) 1 tab PO DAILY [facility] Last Admin: 08/07/18 09:10 Dose: 1 tab Ondansetron HCl (Zofran) 4 mg IVP Q6H PRN PRN Reason: Nausea/Vomiting Polyethylene Glycol (Miralax) 17 gm PO DAILY [facility] Last Admin: 08/07/18 08:35 Dose: Not Given Senna/Docusate Sodium (Senokot S) 2 tab PO BID PRN PRN Reason: Constipation Tamsulosin HCl (Flomax) 0.4 mg PO DAILY [facility] Last Admin: 08/07/18 09:10 Dose: 0.4 mg Tramadol HCl (Ultram) 50 mg PO Q6H PRN PRN Reason: Moderate Pain (4-6) Last Admin: 08/05/18 04:55 Dose: 50 mg Tramadol HCl (Ultram) 100 mg PO Q6H PRN PRN Reason: Severe Pain (7-10)
--- NOTE | 2018-08-07 13:23 | PRG ---
DATE OF SERVICE: 08/07/2018 SUBJECTIVE: Manish Suero is doing well. His left arm fistula has a good thrill and bruit. Surgical wound looks good. He underwent, on 08/04/2018, left arm primary fistula; inflow, proximal radial artery; outflow, cephalic and basilic vein. The patient should follow up in my office in 2 to 3 weeks. I will see him as needed in this hospitalization. Please call if needed. Job ID: [id number]
--- NOTE | 2018-08-07 17:43 | PRG ---
DATE OF SERVICE: 08/07/2018 SUBJECTIVE: Patient was seen and examined at bedside and overnight events noted. Patient denies any shortness of breath or chest pain or palpitation. No history of nausea or vomiting or diarrhea or fever or chills or cramps. OBJECTIVE: GENERAL: This is a well built male in no apparent distress. VITAL SIGNS: Temperature 98.3. Pulse 80. Respiratory rate 16. Blood pressure 97/66. HEENT: Atraumatic, normocephalic. Oral mucosa is moist NECK: Supple. CARDIOVASCULAR: S1, S2 heard. Rate and rhythm regular. RESPIRATORY: Clear to auscultation. GASTROINTESTINAL: Abdomen is soft. MUSCULOSKELETAL: No tenderness. No edema. DERMATOLOGIC: No skin rash. NEUROLOGIC: Alert and awake and oriented X3. No focal neurologic deficits. Moving all the extremities. PSYCHIATRIC: Mood and affect normal. LABORATORY DATA: Not done today. ASSESSMENT AND PLAN: 1. End-stage renal disease, on dialysis. 2. Hypertension. 3. Anemia. 4. Hypokalemia. 5. Monitor labs. Check labs in the morning. We will follow. Job ID: [id number]
[2018-08-07] MEDS ORDERED: GoLYTELY 4,000 ml Bottle PO SCH (18:00)
--- NOTE | 2018-08-07 21:26 | CON ---
DATE OF CONSULTATION: 08/07/2018 REQUESTING PHYSICIAN: Dr. Kaufman. REASON FOR CONSULTATION: Anemia and heme-positive stool. HISTORY OF PRESENT ILLNESS: Manish Suero is a 58-year-old gentleman who was admitted to the hospital 5 days ago on 08/02/2018 with [id number] renal failure and severe metabolic acidosis. He was found to have urinary tract infection. Presenting symptoms included nausea and vomiting as well as diarrhea. He has been started on dialysis and over the past few days, he has been feeling much better. He is receiving antibiotics for his UTI. He was noted to be anemic with hemoglobin of 10.3 on presentation and over the course of the past few days, this has declined down to 7.8. There has been no overt evidence of bleeding, but Hemoccult testing was done and was positive. The patient himself denies any melena or hematochezia. He says he has had intermittent bright red blood per rectum over the years just rarely, but none recently. He denies any melena. He denies any abdominal pain. He does say that he deals with chronic diarrhea. This has been going on for several years. Bowel movements basically occur 4-5 times per day or after every meal and urgent and usually loose. He took some Imodium, but this made him feel constipated and he prefers the diarrhea. He does not recall ever having undergone colonoscopy. He thinks he might have had an EGD at some point in the past. Note that, he used cocaine a couple of weeks ago and was smoking tobacco heavily until a couple of weeks ago. REVIEW OF SYSTEMS: Full review of systems including constitutional, head, eyes, ears, nose, throat, GI, , cardiovascular, respiratory, musculoskeletal, neurologic systems are negative except as noted in the HPI. PAST MEDICAL HISTORY: 1. Diabetes type 2. 2. End-stage renal disease. 3. Endocarditis. 4. Hepatitis C genotype 3, treatment naive. 5. Benign prostatic hypertrophy. 6. Drug abuse, tobacco abuse, quit 2 weeks ago. 7. 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 8. Pancreatitis. ALLERGIES: NO KNOWN DRUG ALLERGIES. OUTPATIENT MEDICATIONS: None. SOCIAL HISTORY: He previously drank alcohol heavily. He previously smoked cigarettes heavily, quit only 2 weeks ago. He used cocaine a couple of weeks ago. FAMILY HISTORY: Negative for GI malignancy. PHYSICAL EXAMINATION: VITAL SIGNS: Temperature 98.3, pulse 83, blood pressure 97/66, 100% oxygen saturation on room air. GENERAL: Frail cachectic appearing 58-year-old man lying in bed comfortably, in no acute distress. MENTAL: He is alert and oriented. He is able to answer questions appropriately. SKIN: He is a bit pale. No jaundice, no rashes were palpable. EYES: No scleral icterus. Extraocular movements intact. ENT: Mucous membranes moist. No oral lesions. LYMPH: No submandibular, supraclavicular lymphadenopathy. THYROID: Nontender to palpation. HEART: Regular rate and rhythm. LUNGS: Clear to auscultation bilaterally. ABDOMEN: Bowel sounds present. Soft and nontender on palpation to extremities. No peripheral edema. VESSELS: Radial pulse 2+ bilaterally. NEUROLOGIC: Cranial nerves 2 through 12 intact bilaterally. No focal deficits. LABORATORY STUDIES: Hemoglobin initially 10.3, now down to 7.8, MCV is 100.0, WBC 6.5, platelets 108. Vitamin B12 was normal at 1516. TSH is 2.3, albumin 3.4. LFTs all normal with total bilirubin 0.5, alkaline phosphatase 92, AST 11, ALT 13. BUN is 24, creatinine is 4.01, down from 12.5 on presentation. Sodium 137, potassium 3.3. FOBT is positive. Lipase only 85. Urine culture showing group B strep. IMAGING STUDIES: Echocardiogram demonstrated a grade 1/3 diastolic dysfunction with ejection fraction of 55% to 60%. Brain CT showed no acute processes. ASSESSMENT AND PLAN: 1. Anemia, macrocytic. 2. Heme-positive stool. 3. Chronic kidney disease. 4. Chronic diarrhea. I discussed with the patient multiple potential reasons for his anemia, the chronic kidney disease is likely contributor. Given the heme-positive stool, we need to consider possible occult GI bleeding lesion. It would be reasonable to proceed with EGD and colonoscopy during this hospitalization. He is agreeable to this. We will go ahead and give him a bowel preparation this evening in anticipation of endoscopy tomorrow. Further recommendations based on the presence or absence of findings. Thank you for the consultation. Please call back anytime with questions or concerns. Job ID: [id number]
[2018-08-08 06:20] LABS: Anion Gap 15 mmol/L (10-20); BUN (Urea Nitrogen) 47 mg/dL (8.4-25.7); Calc. Creatinine Clearance 8 mL/min (70-130); Calcium 8.1 mg/dL (7.8-10.44); Carbon Dioxide 19 mmol/L (22-29); Chloride 104 mmol/L (98-107); Estimated GFR-MDRD 10; Glucose 105 mg/dL (70-105); Sodium 134 mmol/L (136-145)
[2018-08-08 09:39] LABS: #Basophils 0.1 thou/uL (0.0-0.2); #Eosinphils 0.3 thou/uL (0.0-0.7); #Lymphocytes 1.7 thou/uL (1.20-3.40); #Monocytes 0.6 thou/uL (0.11-0.59); #Neutrophils 3.3 thou/uL (1.40-6.50); %Basophils 1.3 % (0.0-1.0); %Lymphocytes 28.3 % (21.0-51.0); %Monocytes 10.2 % (0.0-10.0); %Neutrophils 55.2 % (42.0-75.0); Hemoglobin 7.2 g/dL (14.0-18.0); Mean Corpuscular HGB CONC 32.2 g/dL (32.0-36.0); Mean Corpuscular Hemoglobin 32.2 pg (27.0-31.0); Mean Corpuscular Volume 99.9 fL (78.0-98.0); Mean Platelet Volume 7.3 fL (7.4-10.4); Platelet Count 152 thou/uL (130-400); RBC Distribution Width 12.6 % (11.5-14.5); Red Blood Cell (RBC) Count 2.25 mill/uL (4.70-6.10)
[2018-08-08] MEDS: Carvedilol 6.25 MG TAB PO SCH ×2 (12:37→17:32)
[2018-08-08] MEDS: Ferrous Sulfate 325 MG TAB PO SCH (12:37)
[2018-08-08] MEDS: Amlodipine 10 MG TAB PO SCH (12:37)
[2018-08-08] MEDS: Polyethylene Glycol 3350 17 GM Packet PO SCH (12:38)
[2018-08-08] MEDS: cloNIDine 0.1 MG TAB PO SCH ×3 (12:38→20:08)
[2018-08-08] MEDS: Folic Acid 1 MG TAB PO SCH (12:41)
[2018-08-08] MEDS: Multivit, Therapeutic 1 TAB PO SCH (12:41)
[2018-08-08] MEDS: Tamsulosin HCl 0.4 MG CAP PO SCH (12:44)
[2018-08-08] MEDS: cefTRIAXone\\ROCEPHIN 1 GM in Sodium Chloride 0.9% 100 ML IVPB SCH (12:44)
[2018-08-08] MEDS: Famotidine 20 MG TAB PO SCH (12:44)
[2018-08-08 13:22] VITALS: BMI 14.3
--- NOTE | 2018-08-08 15:44 | PRG ---
DATE OF SERVICE: 08/08/2018 This is a GI inpatient daily progress note. SUBJECTIVE: Mr. Suero drank maybe a quarter of his bowel prep last night and then refused to drink anymore. This morning, he denies any abdominal pain or nausea. He says he is feeling hungry. He is not wanting to go forward with any GI procedure. OBJECTIVE: VITAL SIGNS: Pulse 108, blood pressure 87/49, temperature 98.1, and 94% oxygen saturation on room air. GENERAL: No acute distress. HEART: Regular rate and rhythm. LUNGS: Clear to auscultation bilaterally. ABDOMEN: Soft and nontender to palpation. EXTREMITIES: No peripheral edema. LABORATORY STUDIES: Hemoglobin declined further to 7.2, WBC 6.0, MCV is 99.9, and platelets 152. Sodium 134, potassium 4.0, BUN 47, and creatinine 5.73. ASSESSMENT AND PLAN: 1. Anemia. 2. Heme-positive stool. 3. Chronic diarrhea. 4. Chronic kidney disease, now on dialysis. I had a long discussion with the patient today regarding our proposed endoscopic anemia workup. I still do recommend that we proceed with EGD and colonoscopy to rule out occult GI bleeding lesion as a contributor to his anemia, particularly with the heme-positive stool. The patient states that he understands this, but he is also not willing to undergo any endoscopic procedures, not willing to drink the bowel preparation. He would prefer to eat today and leave any further discussion for a later date. I would respect his wishes in this regard. GI will go ahead and sign off, but please call back anytime if we can be of assistance or if the patient changes his mind. Job ID: [id number]
--- NOTE | 2018-08-08 20:02 | PDOC.PN ---
- Subjective Encounter Start Date: 08/08/18 Encounter Start Time: 10:00 Subjective: pt up in bed refusing his egd and colonoscopy - Objective Resuscitation Status - Order Detail: 08/02/18 09:58 Resuscitation Status Routine Resuscitation Status: FULL: Full Resuscitation Discussed with: POA: son , [phone] Vital Signs & Weight: Vital Signs (12 hours) Temp Pulse Resp BP BP Pulse Ox 08/08/18 19:44 100.6 F H 87 16 119/65 98 08/08/18 17:32 87/49 L 08/08/18 14:31 87/49 L 08/08/18 12:38 87/49 L 08/08/18 12:37 108 H 87/59 L Weight Admit Weight 97 lb 9.6 oz Weight 94 lb 3.2 oz I&O: 08/07/18 08/08/18 08/09/18 06:59 06:59 06:59 Intake Total 1370 2390 1600 Output Total 300 750 Balance 1070 2390 850 Result Diagrams: 08/08/18 09:10 08/08/18 05:50 Additional Labs: Accuchecks 08/08/18 08/08/18 08/07/18 17:03 04:26 19:42 POC Glucose 137 H 109 140 H Phys Exam - Physical Examination Neck: no nodes, no JVD, supple, full ROM Respiratory: no wheezing, no rales, no rhonchi, wheezing present, clear to auscultation bilateral Cardiovascular: RRR, no significant murmur, no rub, gallop, irregular Gastrointestinal: soft, non-tender, no distention, positive bowel sounds Dx/Plan (1) Acute worsening of stage 4 chronic kidney disease Code(s): N28.9 - DISORDER OF KIDNEY AND URETER, UNSPECIFIED; N18.4 - CHRONIC KIDNEY DISEASE, STAGE 4 (SEVERE) Status: Acute (2) Diabetes mellitus type 2 in nonobese Code(s): E11.9 - TYPE 2 DIABETES MELLITUS WITHOUT COMPLICATIONS Status: Chronic (3) Alcohol abuse Code(s): F10.10 - ALCOHOL ABUSE, UNCOMPLICATED Status: Chronic (4) Hypertension Code(s): I10 - ESSENTIAL (PRIMARY) HYPERTENSION Status: Chronic - Plan heme positve, refused EGD/colonoscopy -: will discharge pt summer once dialysis is set up * . Review of Systems - Review of Systems Cardiovascular: negative: chest pain, palpitations, orthopnea, paroxysmal nocturnal dyspnea, edema, light headedness, other Gastrointestinal: negative: Nausea, Vomiting, Abdominal Pain, Diarrhea, Constipation, Melena, Hematochezia, Other Genitourinary: negative: Dysuria, Frequency, Incontinence, Hematuria, Retention , Other - Medications/Allergies Allergies/Adverse Reactions: Allergies Allergy/AdvReac Type Severity Reaction Status Date / Time No Known Drug Allergies Allergy Verified 08/02/18 16:15 Medications: Current Medications Acetaminophen (Tylenol) 650 mg PO Q4H PRN PRN Reason: Headache/Fever/Mild Pain (1-3) Acetaminophen (Tylenol) 1,000 mg PO Q6H PRN PRN Reason: Moderate to Severe Pain (6-10) Amlodipine Besylate (Norvasc) 10 mg PO DAILY [facility] Last Admin: 08/08/18 12:37 Dose: Not Given Artificial Tears (Tears Naturale) 2 drop EA EYE Q4H PRN PRN Reason: Dry Eyes Calcium Carbonate (Tums) 1,000 mg PO Q4H PRN PRN Reason: Heartburn or Indigestion [facility] Last Admin: 08/08/18 17:32 Dose: Not Given Clonidine (Catapres) 0.1 mg PO TID [facility] Last Admin: 08/08/18 14:31 Dose: Not Given Dextrose/Water (Dextrose 50%) 25 gm SLOW IVP PRN PRN PRN Reason: Hypoglycemia Famotidine (Pepcid) 20 mg PO DAILY [facility] Last Admin: 08/08/18 12:44 Dose: 20 mg Ferrous Sulfate (Feosol) 325 mg PO [facility] Last Admin: 08/08/18 12:37 Dose: Not Given Folic Acid (Folvite) 1 mg PO DAILY [facility] Last Admin: 08/08/18 12:41 Dose: Not Given Glucagon (Glucagon) 1 mg IM PRN PRN PRN Reason: Hypoglycemia Guaifenesin/Dextromethorphan (Robitussin Dm) 15 ml PO Q4H PRN PRN Reason: Cough Heparin Sodium (Porcine) (Heparin) 5,000 units SC BID [facility] Last Admin: 08/07/18 09:11 Dose: Not Given Heparin Sodium (Porcine) (Heparin 1,000 Units/Ml (10 Ml)) 0 units CATH ONE PRN PRN Reason: TO EACH PORT PER DIALYSIS Stop: 08/09/18 17:46 Dextrose/Water (D5w) 1,000 mls @ 0 mls/hr IV .Q0M PRN PRN Reason: Hypoglycemia Ceftriaxone Sodium 1 gm/ (Sodium Chloride) 100 mls @ 200 mls/hr IVPB Q24HR [facility] Stop: 08/11/18 09:01 Last Admin: 08/08/18 12:44 Dose: 100 mls Insulin Human Lispro (Humalog) 0 units SC .MILD SLIDING SCALE PRN PRN Reason: Mild Correctional Scale Multivitamins (Theragran) 1 tab PO DAILY [facility] Last Admin: 08/08/18 12:41 Dose: Not Given Ondansetron HCl (Zofran) 4 mg IVP Q6H PRN PRN Reason: Nausea/Vomiting Polyethylene Glycol (Miralax) 17 gm PO DAILY [facility] Last Admin: 08/08/18 12:38 Dose: Not Given Senna/Docusate Sodium (Senokot S) 2 tab PO BID PRN PRN Reason: Constipation Tamsulosin HCl (Flomax) 0.4 mg PO DAILY [facility] Last Admin: 08/08/18 12:44 Dose: 0.4 mg Tramadol HCl (Ultram) 50 mg PO Q6H PRN PRN Reason: Moderate Pain (4-6) Last Admin: 08/05/18 04:55 Dose: 50 mg Tramadol HCl (Ultram) 100 mg PO Q6H PRN PRN Reason: Severe Pain (7-10) Last Admin: 08/08/18 15:44 Dose: 100 mg
--- NOTE | 2018-08-08 20:21 | PRG ---
DATE OF SERVICE: 08/08/2018 SUBJECTIVE: Patient was seen and examined at bedside and overnight events noted. Patient denies any shortness of breath or chest pain or palpitation. No history of nausea or vomiting or diarrhea or fever or chills or cramps. OBJECTIVE: GENERAL: This is a thin-built male, in no apparent distress. VITAL SIGNS: Temperature 98.1, pulse 74, respiratory rate blood pressure 106/64. HEENT: Atraumatic, normocephalic. Oral mucosa is moist NECK: Supple. CARDIOVASCULAR: S1, S2 heard. Rate and rhythm regular. RESPIRATORY: Clear to auscultation. GASTROINTESTINAL: Abdomen is soft. MUSCULOSKELETAL: No tenderness. No edema. DERMATOLOGIC: No skin rash. NEUROLOGIC: Alert and awake and oriented X3. No focal neurologic deficits. Moving all the extremities. PSYCHIATRIC: Mood and affect normal. LABORATORY DATA: Potassium is 4.0, BUN 47, creatinine is 5.7. ASSESSMENT AND PLAN: 1. End-stage renal disease. Continue on dialysis. 2. Hypertension . 3. Anemia. 4. Hypokalemia, stable. 5. Plan is to continue on dialysis as tolerated. Follow with case management for outpatient placement. Job ID: [id number]
[2018-08-09 06:02] LABS: #Eosinphils 0.2 thou/uL (0.0-0.7); #Lymphocytes 0.8 thou/uL (1.20-3.40); #Monocytes 0.5 thou/uL (0.11-0.59); #Neutrophils 3.4 thou/uL (1.40-6.50); %Basophils 0.8 % (0.0-1.0); %Eosinophils 3.7 % (0.0-10.0); %Lymphocytes 16.6 % (21.0-51.0); %Monocytes 10.5 % (0.0-10.0); %Neutrophils 68.4 % (42.0-75.0); Hemoglobin 7.9 g/dL (14.0-18.0); Mean Corpuscular HGB CONC 31.6 g/dL (32.0-36.0); Mean Corpuscular Hemoglobin 31.9 pg (27.0-31.0); Mean Platelet Volume 7.4 fL (7.4-10.4); Platelet Count 168 thou/uL (130-400); RBC Distribution Width 12.4 % (11.5-14.5); Red Blood Cell (RBC) Count 2.49 mill/uL (4.70-6.10); White Blood Cell (WBC) Count 4.9 thou/uL (4.8-10.8)
[2018-08-09 06:23] LABS: Anion Gap 12 mmol/L (10-20); BUN (Urea Nitrogen) 17 mg/dL (8.4-25.7); Calc. Creatinine Clearance 15 mL/min (70-130); Calcium 8.1 mg/dL (7.8-10.44); Carbon Dioxide 25 mmol/L (22-29); Chloride 102 mmol/L (98-107); Estimated GFR-MDRD 19; Glucose 108 mg/dL (70-105); Potassium 4.3 mmol/L (3.5-5.1); Sodium 135 mmol/L (136-145)
[2018-08-09] MEDS: Amlodipine 10 MG TAB PO SCH (08:13)
[2018-08-09] MEDS: cloNIDine 0.1 MG TAB PO SCH (08:14)
[2018-08-09] MEDS: Polyethylene Glycol 3350 17 GM Packet PO SCH (08:14)
[2018-08-09] MEDS: cefTRIAXone\\ROCEPHIN 1 GM in Sodium Chloride 0.9% 100 ML IVPB SCH (08:26)
[2018-08-09] MEDS: Tamsulosin HCl 0.4 MG CAP PO SCH (08:27)
[2018-08-09] MEDS: Ferrous Sulfate 325 MG TAB PO SCH (08:27)
[2018-08-09] MEDS: Famotidine 20 MG TAB PO SCH (08:27)
[2018-08-09] MEDS: Multivit, Therapeutic 1 TAB PO SCH (08:27)
[2018-08-09] MEDS: Folic Acid 1 MG TAB PO SCH (08:28)
[2018-08-09] MEDS: Carvedilol 6.25 MG TAB PO SCH (08:28)
[2018-08-09] MEDS: Heparin 5,000 UNITS/ML VIAL SC SCH (08:36)
--- NOTE | 2018-08-09 12:36 | PRG ---
DATE OF SERVICE: 08/09/2018 SUBJECTIVE: Patient was seen and examined at bedside and overnight events noted. Patient denies any shortness of breath or chest pain or palpitation. No history of nausea or vomiting or diarrhea or fever or chills or cramps. OBJECTIVE: GENERAL: This is a thin-built male, in no acute distress. VITAL SIGNS: Temperature 98.4. Heart rate 78. Respiratory rate 21. Blood pressure 104/76. HEENT: Atraumatic, normocephalic. Oral mucosa is moist NECK: Supple. CARDIOVASCULAR: S1, S2 heard. Rate and rhythm regular. RESPIRATORY: Clear to auscultation. GASTROINTESTINAL: Abdomen is soft. MUSCULOSKELETAL: No tenderness. No edema. DERMATOLOGIC: No skin rash. NEUROLOGIC: Alert and awake and oriented X3. No focal neurologic deficits. Moving all the extremities. PSYCHIATRIC: Mood and affect normal. LABORATORY DATA: Potassium is 4.0, BUN is 17, creatinine is 3.0. ASSESSMENT AND PLAN: 1. End-stage renal disease. Continue hemodialysis on Tuesday, Tuesday, and Tuesday. 2. Hypertension. 3. Anemia. 4. Hypokalemia, stable. 5. Continue on dialysis as tolerated. Follow with case management for outpatient placement. Job ID: [id number]
--- NOTE | 2018-08-09 12:46 | PDOC.PN ---
- Subjective Encounter Start Date: 08/09/18 Encounter Start Time: 11:15 Subjective: pt up in bed no complains - Objective Resuscitation Status - Order Detail: 08/02/18 09:58 Resuscitation Status Routine Resuscitation Status: FULL: Full Resuscitation Discussed with: POA: son , [id number] Vital Signs & Weight: Vital Signs (12 hours) Temp Pulse Resp BP BP BP Pulse Ox 08/09/18 11:52 97.8 F 77 18 103/52 L 97 08/09/18 08:28 104/46 L 08/09/18 08:14 87/49 L 08/09/18 08:13 80 08/09/18 08:00 97 08/09/18 07:26 98.4 F 80 16 104/46 L 97 08/09/18 05:00 98.1 F 86 18 112/77 98 Weight Admit Weight 97 lb 9.6 oz Weight 94 lb 3.2 oz I&O: 08/08/18 08/09/18 08/10/18 06:59 06:59 06:59 Intake Total 2390 2070 Output Total 1450 Balance 2390 620 Result Diagrams: 08/09/18 05:50 08/09/18 05:50 Additional Labs: Accuchecks 08/09/18 08/09/18 08/08/18 11:54 04:53 19:44 POC Glucose 127 H 99 114 H 08/08/18 17:03 POC Glucose 137 H Phys Exam - Physical Examination Neck: no nodes, no JVD, supple, full ROM Respiratory: no wheezing, no rales, no rhonchi, wheezing present, clear to auscultation bilateral Cardiovascular: RRR, no significant murmur, no rub, gallop, irregular Gastrointestinal: soft, non-tender, no distention, positive bowel sounds Dx/Plan (1) Acute worsening of stage 4 chronic kidney disease Code(s): N28.9 - DISORDER OF KIDNEY AND URETER, UNSPECIFIED; N18.4 - CHRONIC KIDNEY DISEASE, STAGE 4 (SEVERE) Status: Acute (2) Diabetes mellitus type 2 in nonobese Code(s): E11.9 - TYPE 2 DIABETES MELLITUS WITHOUT COMPLICATIONS Status: Chronic (3) Alcohol abuse Code(s): F10.10 - ALCOHOL ABUSE, UNCOMPLICATED Status: Chronic (4) Hypertension Code(s): I10 - ESSENTIAL (PRIMARY) HYPERTENSION Status: Chronic - Plan waiting for dialysis to be set up -: pt refused egd/colonosocpy -: hh stable * . Review of Systems - Review of Systems Respiratory: negative: Cough, Dry, Shortness of Breath, Hemoptysis, SOB with Excertion, Pleuritic Pain, Sputum, Wheezing Cardiovascular: negative: chest pain, palpitations, orthopnea, paroxysmal nocturnal dyspnea, edema, light headedness, other Gastrointestinal: negative: Nausea, Vomiting, Abdominal Pain, Diarrhea, Constipation, Melena, Hematochezia, Other - Medications/Allergies Allergies/Adverse Reactions: Allergies Allergy/AdvReac Type Severity Reaction Status Date / Time No Known Drug Allergies Allergy Verified 08/02/18 16:15 Medications: Current Medications Acetaminophen (Tylenol) 650 mg PO Q4H PRN PRN Reason: Headache/Fever/Mild Pain (1-3) Acetaminophen (Tylenol) 1,000 mg PO Q6H PRN PRN Reason: Moderate to Severe Pain (6-10) Amlodipine Besylate (Norvasc) 10 mg PO DAILY [facility] Last Admin: 08/09/18 08:13 Dose: Not Given Artificial Tears (Tears Naturale) 2 drop EA EYE Q4H PRN PRN Reason: Dry Eyes Calcium Carbonate (Tums) 1,000 mg PO Q4H PRN PRN Reason: Heartburn or Indigestion Carvedilol (Coreg) 3.125 mg PO BID-[facility] Last Admin: 08/09/18 08:28 Dose: 3.125 mg Clonidine (Catapres) 0.1 mg PO TID [facility] Last Admin: 08/09/18 08:14 Dose: Not Given Dextrose/Water (Dextrose 50%) 25 gm SLOW IVP PRN PRN PRN Reason: Hypoglycemia Famotidine (Pepcid) 20 mg PO DAILY [facility] Last Admin: 08/09/18 08:27 Dose: 20 mg Ferrous Sulfate (Feosol) 325 mg PO QAM-[facility] Last Admin: 08/09/18 08:27 Dose: 325 mg Folic Acid (Folvite) 1 mg PO DAILY [facility] Last Admin: 08/09/18 08:28 Dose: 1 mg Glucagon (Glucagon) 1 mg IM PRN PRN PRN Reason: Hypoglycemia Guaifenesin/Dextromethorphan (Robitussin Dm) 15 ml PO Q4H PRN PRN Reason: Cough Heparin Sodium (Porcine) (Heparin) 5,000 units SC BID [facility] Last Admin: 08/09/18 08:36 Dose: 5,000 units Heparin Sodium (Porcine) (Heparin 1,000 Units/Ml (10 Ml)) 0 units CATH ONE PRN PRN Reason: TO EACH PORT PER DIALYSIS Stop: 08/09/18 17:46 Dextrose/Water (D5w) 1,000 mls @ 0 mls/hr IV .Q0M PRN PRN Reason: Hypoglycemia Ceftriaxone Sodium 1 gm/ (Sodium Chloride) 100 mls @ 200 mls/hr IVPB Q24HR [facility] Stop: 08/11/18 09:01 Last Admin: 08/09/18 08:26 Dose: 100 mls Insulin Human Lispro (Humalog) 0 units SC .MILD SLIDING SCALE PRN PRN Reason: Mild Correctional Scale Multivitamins (Theragran) 1 tab PO DAILY [facility] Last Admin: 08/09/18 08:27 Dose: 1 tab Ondansetron HCl (Zofran) 4 mg IVP Q6H PRN PRN Reason: Nausea/Vomiting Polyethylene Glycol (Miralax) 17 gm PO DAILY [facility] Last Admin: 08/09/18 08:14 Dose: Not Given Senna/Docusate Sodium (Senokot S) 2 tab PO BID PRN PRN Reason: Constipation Tamsulosin HCl (Flomax) 0.4 mg PO DAILY [facility] Last Admin: 08/09/18 08:27 Dose: 0.4 mg Tramadol HCl (Ultram) 50 mg PO Q6H PRN PRN Reason: Moderate Pain (4-6) Last Admin: 08/05/18 04:55 Dose: 50 mg Tramadol HCl (Ultram) 100 mg PO Q6H PRN PRN Reason: Severe Pain (7-10) Last Admin: 08/08/18 15:44 Dose: 100 mg
[2018-08-09 14:20] VITALS: BP 93/38; TEMP 97.9
--- NOTE | 2018-08-10 05:04 | DIS ---
DATE OF ADMISSION: 08/01/2018 DATE OF DISCHARGE: 08/09/2018 DISCHARGE DIAGNOSES: As of the following; 1. Acute worsening of stage 4 chronic kidney disease, going to dialysis. 2. Diabetes. 3. Alcohol abuse. 4. Hypertension. 5. Anemia. HOSPITAL COURSE: The patient is a 58-year-old male who presented to the hospital on the with worsening acute kidney injury and severe metabolic acidosis. He also had complaints of abdominal pain, nausea, vomiting. The patient was seen by the surgeon and also was seen by Nephrology and underwent acute hemodialysis. The patient also had an echocardiogram which indicated an EF of 55% to 60%. He did have some mild tricuspid regurgitation. The patient continued to improve throughout the hospital stay. His hospital course was complicated by a fall which was a mechanical fall. He did have a CT brain, which was negative, just indicated no cerebral volume loss, minimal right anterior frontal scalp hematoma. The patient in the hospital was noted to have anemia. His occult stool specimen was positive. The patient was seen by GI; however, he refused to do the prep, and at this time, an EGD and endoscopy were not performed since the patient refused. I did explain to the patient the importance of this given his anemia and the patient also states that he has chronic diarrhea. The patient stated he understands. However, he does not want to go through this. The patient on discharge had a stable hemoglobin 7.9, he was asymptomatic. He will be discharged home. He will follow up with Nephrology and his primary as an outpatient. I did check an HIV test given that he appeared to be very malnourished. His HIV test was negative. DISCHARGE MEDICATIONS: 1. Tamsulosin 0.4 mg daily. 2. Multivitamin one p.o. daily. 3. Folic acid one p.o. daily. 4. Ferrous sulfate 325 daily. 5. Carvedilol 3.125 daily. His blood pressure was very low. He could not handle any other blood pressure medications. PHYSICAL EXAMINATION: VITAL SIGNS: Temperature 97.7, heart rate 76, respirations 16, oxygen saturation 95% on room air, blood pressure 93/38. GENERAL: He is awake, alert, and oriented x3. Does not appear in distress. CV: S1 and S2 present. No murmurs, rubs, or gallops. ABDOMEN: Soft and nontender. Bowel sounds are present x2. EXTREMITIES: No edema. Pedal pulses are present x2. While he was in the hospital, he did have a urine which was positive. Microbiology indicated Streptococcus agalactiae, less than 5000 colonies. He was treated with Rocephin for 3 days. The patient was asymptomatic. He will again follow up with his primary care doctor as an outpatient. Job ID: [id number]
== END 2018-08-09 14:32 | disposition home or self-care (01) | DRG 674 ==
LOC: ERS 17:52 → ERHOLD 22:38 → SURG A 08-02 08:32 → 2NO 08-02 17:10 → T4-B 08-06 11:12
PROVIDERS: ADMIT Hospitalist; ATTEND Hospitalist
PROC: 0JH63XZ Insertion of Tunneled Vascular Access Device into Chest Subcutaneous Tissue and Fascia, Percutaneous Approach (ICD-10-PCS; 2018-08-02)
PROC: 05HM33Z Insertion of Infusion Device into Right Internal Jugular Vein, Percutaneous Approach (ICD-10-PCS; 2018-08-02)
PROC: B543ZZA Ultrasonography of Right Jugular Veins, Guidance (ICD-10-PCS; 2018-08-02)
PROC: 02HV33Z Insertion of Infusion Device into Superior Vena Cava, Percutaneous Approach (ICD-10-PCS; 2018-08-02)
PROC: B548ZZA Ultrasonography of Superior Vena Cava, Guidance (ICD-10-PCS; 2018-08-02)
PROC: 5A1D70Z Performance of Urinary Filtration, Intermittent, Less than 6 Hours Per Day (ICD-10-PCS; 2018-08-02)
PROC: 5A1D70Z Performance of Urinary Filtration, Intermittent, Less than 6 Hours Per Day (ICD-10-PCS; 2018-08-03)
PROC: 031C0ZF Bypass Left Radial Artery to Lower Arm Vein, Open Approach (ICD-10-PCS; principal; 2018-08-04)
PROC: 5A1D70Z Performance of Urinary Filtration, Intermittent, Less than 6 Hours Per Day (ICD-10-PCS; 2018-08-05)
DX: N17.9 Acute kidney failure, unspecified (principal); E87.2 Acidosis; I12.0 Hypertensive chronic kidney disease with stage 5 chronic kidney disease or end stage renal disease; N18.6 End stage renal disease; F17.210 Nicotine dependence, cigarettes, uncomplicated; B19.20 Unspecified viral hepatitis C without hepatic coma; N40.0 Benign prostatic hyperplasia without lower urinary tract symptoms; E11.22 Type 2 diabetes mellitus with diabetic chronic kidney disease; F10.10 Alcohol abuse, uncomplicated; E87.5 Hyperkalemia; D53.9 Nutritional anemia, unspecified; S00.03XA Contusion of scalp, initial encounter; W19.XXXA Unspecified fall, initial encounter; Y92.231 Patient bathroom in hospital as the place of occurrence of the external cause; Z89.201 Acquired absence of right upper limb, unspecified level
CPT/HCPCS: 36415; 36416; 70450; 71045; 80048; 80053; 80069; 81003; 81015; 82274; 82607; 83605; 83690; 83735; 84100; 84443; 84484; 85014; 85018; 85025; 86580; 86704; 86706; 86803; 87077; 87086; 87340; 87389; 87522; 90935; 93005; 93970; 94760; 96361; 96374; 96375; C1752; C1769; G0257; G0365; J0670; J0696; J1644; J2001; J2250; J2405; J2704; J2720; J3010; J7050; J7070; S0028

== ENCOUNTER 2018-11-11 12:15 | Inpatient (IN) | payer MEDICARE ==
[~2018-11-11 12:15] MED LIST changes: -Heparin 10,000 UNITS/ 10 ML VIAL ONE
[2018-11-11 12:55] LABS: #Basophils 0.1 thou/uL (0.0-0.2); #Eosinphils 0.1 thou/uL (0.0-0.7); #Lymphocytes 0.9 thou/uL (1.20-3.40); #Monocytes 0.7 thou/uL (0.11-0.59); %Basophils 0.5 % (0.0-1.0); %Eosinophils 0.8 % (0.0-10.0); %Lymphocytes 8.6 % (21.0-51.0); %Monocytes 6.3 % (0.0-10.0); %Neutrophils 83.8 % (42.0-75.0); Hemoglobin 7.7 g/dL (14.0-18.0); Mean Corpuscular HGB CONC 31.1 g/dL (32.0-36.0); Mean Corpuscular Hemoglobin 29.9 pg (27.0-31.0); Mean Corpuscular Volume 95.9 fL (78.0-98.0); Mean Platelet Volume 7.3 fL (7.4-10.4); Platelet Count 188 thou/uL (130-400); RBC Distribution Width 14.1 % (11.5-14.5); Red Blood Cell (RBC) Count 2.58 mill/uL (4.70-6.10); White Blood Cell (WBC) Count 10.8 thou/uL (4.8-10.8)
[2018-11-11 13:18] LABS: ALT (SGPT) 12 U/L (8-55); AST (SGOT) 20 U/L (5-34); Alkaline Phosphatase 98 U/L (40-150); Anion Gap 19 mmol/L (10-20); BUN (Urea Nitrogen) 51 mg/dL (8.4-25.7); Bilirubin, Total 0.5 mg/dL (0.2-1.2); CRP (Inflammatory) 24.14 mg/dL (= or < 0.5); Calc. Creatinine Clearance 0 mL/min (70-130); Calcium 8.1 mg/dL (7.8-10.44); Carbon Dioxide 11 mmol/L (22-29); Chloride 109 mmol/L (98-107); Estimated GFR-MDRD 11; Globulin 4.8 g/dL (2.4-3.5); Glucose 105 mg/dL (70-105); Potassium 5.6 mmol/L (3.5-5.1); Protein, Total 7.8 g/dL (6.0-8.3); Sodium 133 mmol/L (136-145)
--- NOTE | 2018-11-11 13:51 | RAD ---
RIGHT FOOT 3 VIEWS: Date: 11/11/18 HISTORY: Bilateral foot wounds. History of diabetes. FINDINGS: Bones are demineralized and there are extensive vascular calcifications seen. I do not see any defini te plain film evidence for osteomyelitis. IMPRESSION: No plain film evidence for osteomyelitis. POS: [facility]
--- NOTE | 2018-11-11 13:57 | RAD ---
LEFT FOOT 3 VIEWS: Date: 11/11/18 HISTORY: Foot wound. History of diabetes. COMPARISON: 02/17/15 exam. FINDINGS: The bones are demineralized. There are extensive vascular calcifications. Neuropathic type changes of the subtalar joint are again seen. There is a fracture involving the proximal phalanx of the little toe. It appears to extend into the p roximal joint space and also into the distal joint space. There is no plain film evidence for osteomy elitis. IMPRESSION: Proximal phalanx little toe fracture. POS: [facility]
[2018-11-11] MEDS ORDERED: Lidocaine 2% 10 ML INJ ONE (14:08)
[2018-11-11] MEDS ORDERED: Clindamycin/D5W 900 mg/50 ml Premix Bag ONE (14:51)
[2018-11-11] MEDS ORDERED: Morphine 4 MG/ML VIAL ONE (14:51)
[2018-11-11] MEDS ORDERED: Ondansetron PF 4 MG/2 ML Vial ONE (14:51)
[2018-11-11] MEDS ORDERED: Ondansetron ODT 4 MG TAB ONE (14:54)
[2018-11-11] MEDS ORDERED: Vancomycin HCl 750 MG in Sodium Chloride 0.9% 250 ML 250 ML IVPB ONE (15:30)
[2018-11-11] MEDS ORDERED: Piperacillin/Tazobactam 2.25 GM in Sodium Chloride 0.9% 100 ML IVPB SCH (15:30)
[2018-11-11] MEDS ORDERED: INSULIN REGULAR IVPB ONE (15:45)
[2018-11-11] MEDS ORDERED: DEXTROSE 10% IVPB ONE (15:45)
[2018-11-11] MEDS ORDERED: WATER IVPB ONE (15:45)
[2018-11-11] MEDS ORDERED: Calcium Gluc 4.6 MEQ/10 ML (100 MG/ML) ONE (15:51)
[2018-11-11] MEDS ORDERED: Morphine 2 MG/ML SYRINGE ONE (16:09)
[2018-11-11] MEDS ORDERED: Insulin Regular 300 UNITS/3 ML VIAL ONE (17:45)
[2018-11-11] MEDS ORDERED: Dextrose 50% Abboject 50 ML SYRINGE ONE ×3 (17:45→21:04)
[2018-11-11 18:22] LABS: Anion Gap 17 mmol/L (10-20); BUN (Urea Nitrogen) 51 mg/dL (8.4-25.7); Calc. Creatinine Clearance 0 mL/min (70-130); Calcium 8.3 mg/dL (7.8-10.44); Carbon Dioxide 12 mmol/L (22-29); Chloride 109 mmol/L (98-107); Estimated GFR-MDRD 12; Glucose 89 mg/dL (70-105); Potassium 5.6 mmol/L (3.5-5.1); Sodium 132 mmol/L (136-145)
[2018-11-11] MEDS ORDERED: Fentanyl 100 MCG/2 ML VIAL SLOW IVP PRN (18:35)
[2018-11-11] MEDS ORDERED: Insulin Regular 300 UNITS/3 ML VIAL SC PRN ×2 (18:36)
[2018-11-11] MEDS ORDERED: Dextrose 5% in Water 1,000 ML IV PRN (18:36)
[2018-11-11] MEDS ORDERED: Dextrose 50% Abboject 50 ML SYRINGE SLOW IVP PRN (18:36)
[2018-11-11] MEDS ORDERED: Bisacodyl 10 MG SUPP PR PRN (18:41)
[2018-11-11] MEDS ORDERED: Calcium Carbonate 500 MG ChewTAB PO PRN (18:41)
[2018-11-11] MEDS ORDERED: Ondansetron ODT 4 MG TAB PO PRN (18:41)
[2018-11-11] MEDS ORDERED: Acetaminophen 325 MG TAB PO PRN (18:41)
[2018-11-11] MEDS ORDERED: Ondansetron PF 4 MG/2 ML Vial IVP PRN (18:41)
[2018-11-11] MEDS ORDERED: Piperacillin/Tazobactam 3.375 GM in Sodium Chloride 0.9% 100 ML IVPB SCH ×2 (18:45→19:15)
[2018-11-11] MEDS ORDERED: Vancomycin HCl 1 GM in Premix Bag 1 BAG IVPB SCH (18:45)
--- NOTE | 2018-11-11 19:12 | HP ---
PRIMARY CARE PHYSICIAN: [facility]. PRIMARY DIRECTOR PAID MEDIA: Dr. Fuchs. CHIEF COMPLAINT: Bilateral lower extremity wounds. HISTORY OF PRESENT ILLNESS: The patient is a 58-year-old male with CKD, currently not on dialysis; hypertension; and diabetes mellitus type 2, presented to the emergency room with above complaints. The patient currently lives at home. He has been not able to tolerate dialysis in the past due to diarrhea. 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 He currently has a dialysis catheter on his right chest. This morning, he noticed left foot blistering along with pus. He felt feverish, however, did not record his temperature. He also had significant pain in the left foot. No nausea, vomiting, abdominal pain, diaphoresis reported. In the emergency room, his workup was consistent with hyperkalemia with potassium 5.6 with significant metabolic acidosis with bicarbonate of 11. His EKG showed peaked T-wave changes. He received insulin D50, vancomycin, Zosyn, morphine, and calcium gluconate in the emergency room. PAST MEDICAL HISTORY: 1. End-stage renal disease, currently not on dialysis. 2. Hypertension. 3. 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 4. Benign prostatic hypertrophy. 5. Chronic hepatitis C. 6. History of pancreatitis. 7. Chronic diarrhea. 8. Diabetes mellitus type 2. 9. Medication noncompliance. 10. History of endocarditis. 11. Tobacco dependence, recently quit. PAST SURGICAL HISTORY: 1. Right upper extremity amputation from Staph infection. 2. Multiple surgical intervention on his right upper extremity. 3. Dialysis access. ALLERGIES: NO KNOWN DRUG ALLERGIES. CURRENT HOME MEDICATIONS: The patient does not take any prescription medications at this time. SOCIAL HISTORY: The patient lives at home with his family. He is full code. Denies current use of alcohol or drug use. He recently quit smoking. FAMILY HISTORY: Hypertension and diabetes runs in his family. REVIEW OF SYSTEMS: All other review of systems were reviewed and were found negative. PHYSICAL EXAMINATION: VITAL SIGNS: Temperature 98.9, respirations 18, pulse rate of 86, blood pressure of 126/64, O2 saturation 100% on room air. GENERAL: A 58-year-old male, in no apparent distress. Denies any shortness of breath. HEENT: Head, atraumatic and normocephalic. Sclerae anicteric. Moist mucous membranes. No oral lesion. NECK: Supple. No JVD appreciated. No carotid bruit. LUNGS: Show minimal rales at bases with scattered rhonchi. No wheezing. No accessory muscle use. HEART: S1 and S2 present. Regular rate and rhythm. No rubs or gallops appreciated. ABDOMEN: Soft, nontender. Bowel sounds present. EXTREMITIES: The patient has history of right upper extremity amputation. No edema or calf tenderness in the right lower extremity. There is some swelling in the left lower extremity. He has dressing present in the left foot from recent I and D in the emergency room. SKIN: There is chronic venous stasis dermatitis mainly in the left lower extremity. Warm and dry. NEUROLOGIC: Grossly nonfocal. Moves all 4 extremities. Diminished sensation in bilateral lower extremities. PSYCHIATRY: Alert, awake, oriented x3. LYMPH NODES: No palpable lymph nodes in the neck. LABORATORY FINDINGS: WBC 10.8 with hemoglobin 7.7, hematocrit 24.7, platelets 188. Chemistry showed sodium 133, potassium 5.6, chloride 109, bicarb 11, BUN 51, creatinine 5.32. Lactic acid 0.7. CRP 24.14. Blood cultures have been sent. Wound culture has been sent. IMAGING DATA: X-ray of the left foot by my review was negative for osteomyelitis. No gas seen. EKG by my review showed sinus rhythm with incomplete right bundle-branch block with peaked T-wave changes in the anterior leads. IMPRESSION: 1. Left foot cellulitis with abscess, status post incision and drainage in the emergency room. 2. Acute kidney injury on chronic kidney disease stage 5. 3. Hyperkalemia, probably due to significant metabolic acidosis. 4. Hyponatremia. 5. Moderate protein-calorie malnutrition. 6. 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 7. History of endocarditis. 8. Chronic hepatitis C. 9. Benign prostatic hypertrophy. 10. Former smoker. 11. 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 12. Anemia secondary to renal insufficiency. PLAN: The patient will be monitored on the telemetry unit due to hyperkalemia. We will start him on sodium bicarbonate drip. We will recheck labs later today. Low-potassium diet. Pain control. I discussed with Nephrology, Dr. Fuchs who recommended sodium bicarbonate drip. We will also consult Dr. Kahn for diabetic foot infection as well as removal of the dialysis catheter that was placed 3 months ago. Recheck labs in a.m. Consult dietitian for low-potassium diet. Insulin sliding scale. Plan of care was discussed with the patient in detail. He stated understanding. The patient will require 3 to 4 days for stabilization. Job ID: [id number]
[2018-11-11] MEDS ORDERED: Piperacillin/Tazobactam 2.25 GM VIAL ONE (20:23)
--- NOTE | 2018-11-11 21:06 | CON ---
DATE OF CONSULTATION: REASON FOR CONSULTATION: Hyperkalemia and acidosis. HISTORY OF PRESENT ILLNESS: This is a very pleasant 58-year-old gentleman with end-stage renal disease refuses to do dialysis, presented to the hospital with lower extremity wound. The patient was noted to have elevated creatinine, severe acidosis, and hyperkalemia. The patient denies headache, numbness, tingling, or weakness. Denies any nausea, vomiting, or chest pain. PAST MEDICAL HISTORY: End-stage renal disease not on dialysis, hypertension, tunneled dialysis catheter, chronic hepatitis C, pancreatitis, diabetes mellitus, right upper extremity amputation due to staph infection, multiple upper extremity dialysis access surgery. MEDICATIONS: Home medication list reviewed. SOCIAL HISTORY: No alcohol or drug use. FAMILY HISTORY: Negative for ESRD. ALLERGIES: REVIEWED. REVIEW OF SYSTEMS: 15-point review of system was performed, negative except for what was noted above. GENERAL: HEAD: NECK: No swelling or lumps. NOSE: No epistaxis or discharge. EYES: No diplopia or pain. RESPIRATORY: CARDIOVASCULAR: GASTROINTESTINAL: /SUPERVISOR ACCOUNTS RECEIVABLE: MUSCULOSKELETAL: No joint pain. NEUROPSYCHIATRIC SYSTEMS: No suicidal ideation. No ideation. SKIN: Denies any rash or ulcer. CONSTITUTIONAL: No fever or chills. PHYSICAL EXAMINATION: GENERAL: The patient is awake and alert. VITAL SIGNS: Afebrile, pulse 90, breathing 16, and blood pressure 126/64. GENERAL APPEARANCE AND MENTAL STATUS: Fair. HEAD/NECK: Normocephalic. Atraumatic. EYES: EOMI. No deformity. EARS: Clear. No ulcers. NOSE: Intact. No lesions. MOUTH: Clear. No discharge. THROAT: Clear. No exudate. LUNGS: Clear. No crackles. CARDIAC: S1, S2. No rub. ABDOMEN: Benign. Bowel sounds positive. GENITALIA/RECTUM: Moffett absent. BACK/EXTREMITIES: Edema 0+. NEUROLOGICAL: Alert and motor intact. SKIN: LYMPHATICS: LABORATORY DATA: Reviewed. ASSESSMENT AND PLAN: 1. Stage 5 chronic kidney disease. Recommend dialysis, the patient declines. 2. Hyperkalemia. Continue bicarbonate. 3. Metabolic acidosis. Continue sodium bicarbonate. Overall prognosis is poor. If the patient change his mind, we will consider dialysis. Job ID: [id number]
[2018-11-12 01:01] LABS: Bilirubin Negative (Negative); Blood, Urine Small (Negative); Clarity CLOUDY (Clear); Glucose, Urine (Dipstick) 250 mg/dL (Negative); Leukocyte Trace (Negative); Nitrite Negative (Negative); Protein, Urine (Dipstick) 100 mg/dL (Neg-Trace); Specific Gravity, Urine 1.013 (1.002-1.036); Urobilinogen 0.2 mg/dL (0.2-1.0)
[2018-11-12 01:03] LABS: Bacteria/HPF None Seen HPF (None Seen); Pathc Cast-AUWi Flag 1.36 (0-2.49); RBC/HPF 0-3 HPF (0-3); Squamous Epithelial 0-3 HPF (0-3)
[2018-11-12 01:17] LABS: Hyaline Casts/LPF 0-3 HYALINE CAST LPF (0-3 Hyaline); Renal Epithelial None Seen HPF (0-3); Transitional Epithelial 0-3 HPF (0-3)
[2018-11-12] MEDS: Acetaminophen 325 MG TAB PO SCH ×4 (02:02→21:47)
[2018-11-12] MEDS: Sodium Bicarbonate 150 MEQ in Dextrose 5% in Water 1,000 ML IV SCH ×3 (02:02→21:48)
[2018-11-12] MEDS: traMADol HCl 50 MG TAB PO PRN (02:07)
[2018-11-12 05:24] LABS: #Monocytes 0.7 thou/uL (0.11-0.59); #Neutrophils 11.9 thou/uL (1.40-6.50); %Basophils 0.1 % (0.0-1.0); %Eosinophils 0.2 % (0.0-10.0); %Lymphocytes 7.4 % (21.0-51.0); %Monocytes 5.3 % (0.0-10.0); Mean Corpuscular HGB CONC 31.6 g/dL (32.0-36.0); Mean Corpuscular Hemoglobin 30.1 pg (27.0-31.0); Mean Corpuscular Volume 95.2 fL (78.0-98.0); Mean Platelet Volume 7.3 fL (7.4-10.4); Platelet Count 145 thou/uL (130-400); Red Blood Cell (RBC) Count 2.31 mill/uL (4.70-6.10); White Blood Cell (WBC) Count 13.7 thou/uL (4.8-10.8)
[2018-11-12 05:50] LABS: Anion Gap 15 mmol/L (10-20); BUN (Urea Nitrogen) 48 mg/dL (8.4-25.7); Calc. Creatinine Clearance 12 mL/min (70-130); Calcium 7.7 mg/dL (7.8-10.44); Carbon Dioxide 16 mmol/L (22-29); Chloride 104 mmol/L (98-107); Estimated GFR-MDRD 12; Glucose 151 mg/dL (70-105); Sodium 130 mmol/L (136-145)
[2018-11-12] MEDS: Saccharomyces boulardii 250 MG CAP PO SCH (09:15)
[2018-11-12] MEDS: Piperacillin/Tazobactam 2.25 GM in Sodium Chloride 0.9% 100 ML IVPB SCH ×2 (09:16→21:47)
[2018-11-12] MEDS ORDERED: Lidocaine 1% (PF) 30 ML VIAL ONE (11:26)
--- NOTE | 2018-11-12 14:14 | PRG ---
DATE OF SERVICE: 11/12/2018 SUBJECTIVE: A 58-year-old gentleman being seen for end-stage kidney disease. The patient refuses dialysis. OBJECTIVE: GENERAL: On examination, the patient is awake and alert. VITAL SIGNS: pulse 86, breathing 16, and blood pressure 130/54. GENERAL APPEARANCE AND MENTAL STATUS: Fair. HEAD/NECK: Normocephalic. Atraumatic. EYES: EOMI. No deformity. EARS: Clear. No ulcers. NOSE: Intact. No lesions. MOUTH: Clear. No discharge. THROAT: Clear. No exudate. LUNGS: Clear. No crackles. CARDIAC: S1, S2. No rub. ABDOMEN: Benign. Bowel sounds positive. GENITALIA/RECTUM: Moffett absent. BACK/EXTREMITIES: Edema 0+. NEUROLOGICAL: Alert and motor intact. SKIN: LYMPHATICS: LABORATORY DATA: Labs show hemoglobin 7. Potassium is 5.0. ASSESSMENT AND PLAN: 1. Stage 5 chronic kidney disease, refused dialysis. 2. Metabolic acidosis, improved. Continue bicarb drip. 3. Anemia. We would recommend transfusion since the patient has refused dialysis. 4. Chronic diarrhea. We would recommend GI consultation. Job ID: [id number]
[2018-11-12 14:29] LABS: Anion Gap 16 mmol/L (10-20); BUN (Urea Nitrogen) 47 mg/dL (8.4-25.7); Calc. Creatinine Clearance 13 mL/min (70-130); Calcium 7.8 mg/dL (7.8-10.44); Carbon Dioxide 18 mmol/L (22-29); Chloride 101 mmol/L (98-107); Estimated GFR-MDRD 13; Glucose 118 mg/dL (70-105); Potassium 4.7 mmol/L (3.5-5.1); Sodium 130 mmol/L (136-145)
--- NOTE | 2018-11-12 15:56 | HP ---
HISTORY OF PRESENT ILLNESS: Manish Suero is a 58-year-old male patient, end-stage renal disease, on maintenance dialysis, but has chosen not to dialyze in a month. He is not dialyzed because it was his belief that his diarrhea was caused by dialysis, although he has had chronic diarrhea for many years longer than he has been on dialysis. He has had a past colonoscopy and upper endoscopy that were normal. The patient wears a diaper most of the times and dialysis was interrupted by his need to have bowel movements, but he states that he can take Imodium. I discussed with him dialysis options. I have discussed with him the fact that if he is not going to do dialysis that he would need to be a DNR and declared that he would never want a dialysis so that when he did become comatose or had a life-threatening arrhythmia that they did not resuscitate him and dialyze him. After this discussion, he has now changed his mind and he wants to do dialysis. I have notified Dr. Fuchs, who will initiate dialysis when appropriate. The patient presents after not having dialysis for a month. He must have enough residual renal function to keep him out of trouble. BUN is 48, creatinine 4.8, GFR 12, potassium 5, CO2 16. In addition, the patient has not had a dressing change or his dialysis right IJ catheter flushed in over a month. He has purulent drainage from the catheter. The patient states that it stinks to him. In addition, he has developed an abscess of his lateral foot, drained in the ER through a small pinhole, wound care and hospitalist have consulted me to evaluate this. Plan is to open this wound further to facilitate wound care and healing. The patient has had positive blood cultures, gram-positive coccus on 11/11, and Enterococcus. Leg cultures are pending. After further draining and opening his left lateral ankle wound and removed his dialysis catheter and per the patient's decision to continue dialysis, I will plan placement of a new hemodialysis catheter tomorrow to give him a 24-hour period without a dialysis catheter to resolve any bacteremia. It is most likely the bacteremia is coming from his dialysis catheter. The patient had a left arm fistula in July. He has not followed up with me. He needs a fistulogram. At the time of placement of his fistula, inflow proximal radial artery, outflow cephalic and basilic vein. It was appreciated at the time of surgery that his outflow cephalic vein may be occluded and it is apparently the case based on his exam and he needs a fistulogram to plan future dialysis access. The patient has had a prior amputation in his right arm due to necrotizing infection. If his left arm is not suitable for a dialysis, consideration of peritoneal dialysis could be given. He does not have any obvious herniation. He did have a CAT scan of the abdomen and pelvis on 05/07/2015 demonstrating left hydronephrosis, hydroureter, but otherwise no remarkable findings. ALLERGIES: NONE. MEDICATIONS: At home, Loperadine. In the hospital, he is on Zosyn and insulin. Glucoses in the hospital, Accu-Cheks 107-180. PAST MEDICAL HISTORY: End-stage renal disease, chosen not to be on dialysis last month, but he needs dialysis, hypertension, BPH, chronic hepatitis C, history of chronic pancreatitis, chronic diarrhea. No records in the hospital to report EGD, colonoscopy, but he has reported he has had this as an outpatient. History of noncompliance, history of endocarditis. PAST SURGICAL HISTORY: Right upper extremity amputation for necrotizing infection at the time when he was abusing alcohol and drugs. Right IJ cuffed tunneled dialysis catheter, left arm primary fistula in July, outflow probably compromised with cephalic vein, collaterals noted on exam. PHYSICAL EXAMINATION: VITAL SIGNS: Height 5 feet 9 inches, BMI 18, he is afebrile, heart rate 84, blood pressure 121/59. LUNGS: Clear to auscultation. CARDIAC: Regular rate and rhythm. No murmur or gallop. ABDOMEN: Soft, nontender, and nondistended. No evident hernias. EXTREMITIES: Proximal right arm amputation. Right IJ cuffed tunneled dialysis catheter, left access. Fistula left arm, inflow proximal radial artery below the elbow crease, outflow cephalic vein, basilic vein. Basilic vein is well distended. Cephalic vein seems to be smaller and seems to occlude in the distal 3rd upper arm. There are multiple collaterals over the upper arm. Lower extremities reveals a pinhole opening in the lateral inferior ankle area. This has undermining posteriorly and anteriorly. There are no areas of cellulitis. The patient has superficial excoriations of two toes on his right foot. He has palpable femoral popliteal pulses bilaterally. He has strongly dopplerable dorsalis pedis posterior tibial pulses. ASSESSMENT AND PLAN: 1. End-stage renal disease, has chosen not to do dialysis for the past month for reasons as documented above. The patient now wants dialysis, I was noted by Dr. Fuchs. The patient has an infected dialysis catheter due to noncompliance and we will remove that at the bedside today and plan to place a new one tomorrow through a new exit site. He will need long-term dialysis access and his left arm fistula was inadequate. He may need a basilic vein transposition fistula. We will obtain a fistulogram this hospitalization and plan to do that secondary procedure later in the week if indicated. 2. Left ankle abscess, inadequately drained. We will plan bedside drainage. He understands the risks and benefits and consents. 3. Excoriations, superficial blistering to toes, right foot. He does not seem to have any significant PAD. He has a history of tobacco use. Job ID: [id number]
[2018-11-12 17:27] LABS: Vancomycin, Random 11.2 ug/mL (See Comment)
[2018-11-12] MEDS ORDERED: Vancomycin HCl 500 MG in Sodium Chloride 0.9% 100 ML IVPB SCH (17:45)
--- NOTE | 2018-11-12 19:55 | PDOC.PN ---
- Subjective Encounter Start Date: 11/12/18 Encounter Start Time: 12:30 Patient seen and examined for SHELBI/diabetic foot infection. Feels better. No new complaints. No overnight events - Objective Resuscitation Status - Order Detail: 11/11/18 18:41 Resuscitation Status Routine Resuscitation Status: FULL: Full Resuscitation MAR Reviewed: Yes Vital Signs & Weight: Vital Signs (12 hours) Temp Pulse Ox 11/12/18 15:14 98.0 F 11/12/18 11:05 99.2 F 11/12/18 08:00 98 Weight Weight 122 lb 6.4 oz Most Recent Monitor Data Heart Rate from ECG 86 NIBP 157/73 NIBP BP-Mean 101 Respiration from ECG 0 SpO2 85 I&O: 11/11/18 11/12/18 11/13/18 06:59 06:59 06:59 Intake Total 1253 Output Total 300 Balance 953 Result Diagrams: 11/12/18 05:09 11/12/18 13:59 Additional Labs: Accuchecks 11/12/18 11/12/18 11/12/18 16:28 10:32 05:48 POC Glucose 122 H 119 H 152 H 11/12/18 11/11/18 11/11/18 00:15 22:40 21:02 POC Glucose 182 H 177 H 107 11/11/18 11/11/18 20:28 20:12 POC Glucose 132 H Less than 35 L* Radiology Reviewed by me: Yes (Foot XR - No Osteo/gas) EKG Reviewed by me: Yes (Tele SR) Phys Exam - Physical Examination Constitutional: NAD Respiratory: no wheezing, no rales, no rhonchi No accessory muscle use Cardiovascular: RRR, no rub no heaves/pulsations Gastrointestinal: soft, non-tender, no distention, positive bowel sounds Musculoskeletal: no edema Foot dressing + Neurological: non-focal, moves all 4 limbs Psychiatric: normal affect, A&O x 3 Dx/Plan - Plan IMPRESSION: 1. Left foot cellulitis with abscess/Bacteremia prob due to dialysis line infection. 2. Acute kidney injury on chronic kidney disease stage 5/ESRD 3. Hyperkalemia, probably due to significant metabolic acidosis. 4. Hyponatremia. 5. Moderate protein-calorie malnutrition. 6. 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 7. History of endocarditis. 8. Chronic hepatitis C. 9. Benign prostatic hypertrophy. 10. Former smoker. 11. 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 12. Anemia secondary to renal insufficiency. PLAN: Cont IV Vancomycin and Zosyn Monitor Vancomycin level Dialysis catheter removed Cont Bicarb drip s/p foot wound debridment AM labs Cont current meds as below Cont sliding scale Microbiology 11/11/18 14:44 Central Line - Left external jugular vein Blood Culture - Preliminary Gram Positive Cocci 11/11/18 14:22 Leg - Pending Bacterial Culture - Preliminary 11/11/18 12:45 Venous blood - Left Arm Blood Culture - Preliminary Enterococcus faecalis Review of Systems - Review of Systems Respiratory: negative: Cough, Dry, Shortness of Breath, Hemoptysis, SOB with Excertion, Pleuritic Pain, Sputum, Wheezing Cardiovascular: negative: chest pain, palpitations, orthopnea, paroxysmal nocturnal dyspnea, edema, light headedness, other Gastrointestinal: negative: Nausea, Vomiting, Abdominal Pain, Diarrhea, Constipation, Melena, Hematochezia, Other - Medications/Allergies Allergies/Adverse Reactions: Allergies Allergy/AdvReac Type Severity Reaction Status Date / Time No Known Drug Allergies Allergy Verified 08/02/18 16:15 Medications: Current Medications Acetaminophen (Tylenol) 650 mg PO Q4H PRN PRN Reason: Headache/Fever/Mild Pain (1-3) Acetaminophen (Tylenol) 650 mg PO TID [facility] Last Admin: 11/12/18 15:39 Dose: 650 mg Albuterol/Ipratropium (Duoneb) 3 ml NEB Q4H PRN PRN Reason: SOB &/or Wheezing Bisacodyl (Dulcolax) 10 mg [place] DAILYPRN PRN PRN Reason: Constipation Calcium Carbonate (Tums) 1,000 mg PO Q4H PRN PRN Reason: Heartburn or Indigestion Dextrose/Water (Dextrose 50%) 25 gm SLOW IVP PRN PRN PRN Reason: Hypoglycemia Fentanyl (Sublimaze) 25 mcg SLOW IVP Q4H PRN PRN Reason: Severe Pain (7-10) Glucagon (Glucagon) 1 mg IM PRN PRN PRN Reason: Hypoglycemia Dextrose/Water (D5w) 1,000 mls @ 0 mls/hr IV .Q0M PRN PRN Reason: Hypoglycemia Sodium Bicarbonate 150 meq/ (Dextrose/Water) 1,150 mls @ 75 mls/hr IV .[id number] COUNT INCLUDES THE [facility] Last Admin: 11/12/18 11:15 Dose: 1,150 mls Piperacillin Sod/Tazobactam (Sod 2.25 gm/ Sodium Chloride) 100 mls @ 200 mls/ hr IVPB Q12HR COUNT INCLUDES THE [facility] Last Admin: 11/12/18 09:16 Dose: 100 mls Insulin Human Regular (Humulin R) 0 units SC .MILD SLIDING SCALE PRN PRN Reason: Mild Correctional Scale Insulin Human Regular (Humulin R) 0 units SC .BEDTIME SLIDING SC PRN PRN Reason: Bedtime Correctional Scale Miscellaneous Medication (Pharmacy To Dose) 1 each IVPB PRN PRN PRN Reason: Pharmacy to dose Ondansetron HCl (Zofran Odt) 4 mg PO Q6H PRN PRN Reason: Nausea/Vomiting Ondansetron HCl (Zofran) 4 mg IVP Q6H PRN PRN Reason: Nausea/Vomiting Saccharomyces Boulardii (Florastor) 250 mg PO DAILY COUNT INCLUDES THE [facility] Last Admin: 11/12/18 09:15 Dose: 250 mg Sodium Chloride (Flush - Normal Saline) 10 ml IVF PRN PRN PRN Reason: Saline Flush Tramadol HCl (Ultram) 50 mg PO Q6H PRN PRN Reason: Moderate Pain (4-6) Last Admin: 11/12/18 02:07 Dose: 50 mg
[2018-11-12] MEDS ORDERED: Vancomycin HCl 1 GM in Premix Bag 1 BAG IVPB SCH (21:00)
[2018-11-13 05:25] LABS: #Eosinphils 0.2 thou/uL (0.0-0.7); #Monocytes 0.5 thou/uL (0.11-0.59); #Neutrophils 4.8 thou/uL (1.40-6.50); %Basophils 0.7 % (0.0-1.0); %Eosinophils 3.5 % (0.0-10.0); %Lymphocytes 15.6 % (21.0-51.0); %Monocytes 8.1 % (0.0-10.0); %Neutrophils 72.1 % (42.0-75.0); Hemoglobin 6.7 g/dL (14.0-18.0); Mean Corpuscular HGB CONC 31.5 g/dL (32.0-36.0); Mean Corpuscular Hemoglobin 29.7 pg (27.0-31.0); Mean Corpuscular Volume 94.3 fL (78.0-98.0); Mean Platelet Volume 7.5 fL (7.4-10.4); Platelet Count 186 thou/uL (130-400); RBC Distribution Width 13.9 % (11.5-14.5); Red Blood Cell (RBC) Count 2.24 mill/uL (4.70-6.10); White Blood Cell (WBC) Count 6.6 thou/uL (4.8-10.8)
[2018-11-13 05:43] LABS: Anion Gap 16 mmol/L (10-20); BUN (Urea Nitrogen) 50 mg/dL (8.4-25.7); Calc. Creatinine Clearance 12 mL/min (70-130); Calcium 7.2 mg/dL (7.8-10.44); Carbon Dioxide 20 mmol/L (22-29); Chloride 101 mmol/L (98-107); Estimated GFR-MDRD 12; Glucose 115 mg/dL (70-105); Potassium 4.6 mmol/L (3.5-5.1); Sodium 132 mmol/L (136-145)
[2018-11-13] MEDS ORDERED: Bupivacaine HCl 0.5%/Epinephrine 1:200,000/PF 30 ml Vial ONE (08:44)
[2018-11-13] MEDS ORDERED: Heparin 5,000 UNITS/ML VIAL ONE (08:44)
[2018-11-13] MEDS ORDERED: Sodium Chloride 0.9% 20 ML ONE (08:44)
[2018-11-13] MEDS ORDERED: Heparin 10,000 UNITS/1 ML VIAL ONE (08:44)
[2018-11-13] MEDS ORDERED: Lidocaine 2% PF 5 ML VIAL ONE (08:44)
[2018-11-13] MEDS ORDERED: PROPOFOL 20 ML ONE (09:03)
[2018-11-13] MEDS ORDERED: Fentanyl 100 MCG/2 ML VIAL ONE (09:03)
[2018-11-13] MEDS: Piperacillin/Tazobactam 2.25 GM in Sodium Chloride 0.9% 100 ML IVPB SCH (10:34)
[2018-11-13] MEDS: Acetaminophen 325 MG TAB PO SCH ×3 (10:48→20:07)
[2018-11-13] MEDS: Saccharomyces boulardii 250 MG CAP PO SCH (10:48)
[2018-11-13] MEDS ORDERED: Promethazine HCl 25 MG/ML VIAL SLOW IVP PRN (10:52)
[2018-11-13] MEDS ORDERED: Ondansetron HCl/PF 4 MG/2 ML Vial IVP PRN (10:52)
[2018-11-13] MEDS ORDERED: Promethazine HCl 25 MG/ML VIAL IM PRN (10:52)
--- NOTE | 2018-11-13 11:58 | OP ---
DATE OF PROCEDURE: 11/12/2018 PREOPERATIVE DIAGNOSIS: End-stage renal disease, noncompliant, uncared for catheter due to noncompliance and lack of dialysis for a month, now willing to start dialysis. Left arm fistula malfunction with probably occluded cephalic vein outflow, needs a fistulogram this hospitalization. Left foot abscess laterally inadequately drain has a pinhole, Nu Gauze dressing with significant undermining needs further drainage. POSTOPERATIVE DIAGNOSIS: End-stage renal disease, noncompliant, uncared for catheter due to noncompliance and lack of dialysis for a month, now willing to start dialysis. Left arm fistula malfunction with probably occluded cephalic vein outflow, needs a fistulogram this hospitalization. Left foot abscess laterally inadequately drain has a pinhole, Nu Gauze dressing with significant undermining needs further drainage. PROCEDURE PERFORMED: Removal of right IJ cuffed tunneled dialysis catheter. Incision and drainage of left foot abscess. Change this pinhole opening to 3.5 cm long opening exposing the underlying cavity and facilitating wound care. ANESTHESIA: 1% Xylocaine (1% Xylocaine with epinephrine requested, but not provided). DESCRIPTION OF PROCEDURE: The patient at bedside used an alcohol prep. His right IJ cuffed tunneled dialysis catheter exiting the right chest was prepared with alcohol and his lateral foot left prepared with alcohol, and local anesthetic was infiltrated in the skin and subcutaneous tissue about both wounds. Hemodialysis catheter was removed. There was some purulent discharge in exit tract, which has previously been cultured. This catheter removed and pressure held hemostatic. The left lateral foot had already been prepared with alcohol and the pinhole opening was open to a 3.5 cm tract with exposed underlying cavity. Normal saline wet-to-dry dressing applied. The patient tolerated the procedure well. Job ID: [id number]
--- NOTE | 2018-11-13 12:15 | OP ---
DATE OF PROCEDURE: 11/13/2018 PREOPERATIVE DIAGNOSES: End-stage renal disease, status post right arm amputation for necrotizing infection years ago, dysfunctional left arm fistula, poor compliance and followup, poor intravenous access. POSTOPERATIVE DIAGNOSES: End-stage renal disease, status post right arm amputation for necrotizing infection years ago, dysfunctional left arm fistula, poor compliance and followup, poor intravenous access. PROCEDURES PERFORMED: Right internal jugular vein cuffed tunneled dialysis catheter. Right subclavian vein triple-lumen catheter. Ultrasound fluoroscopy used. ANESTHESIA: TIVA local of 0.5% Marcaine with epinephrine, 30 mL mixed with 2% Xylocaine 10 mL. INDICATIONS: The patient had decided not to do dialysis for 4 weeks, but now wants to have dialysis. His old dialysis catheter had not been maintained for 4 weeks due to the patient's poor compliance and exit site was infected. Thus, it was removed yesterday. Today, we will place a new catheter and obtain a fistulogram. DESCRIPTION OF PROCEDURE: The patient was taken to the operating room where under intravenous sedation, neck and chest were prepared with ChloraPrep and draped in routine fashion. Local anesthetic mixture was infiltrated into the skin and subcutaneous tissue about the operative site. 0.5% Marcaine with epinephrine, 30 mL mixed with 2% Xylocaine, 10 mL was used. Using an ultrasound guidance, right internal jugular vein was cannulated with a trocar catheter and J-wire threaded, trocar catheter removed. Skin was incised and enlarged sharply. Stab incision was made over the new exit site right chest, and using the tunneling device, pre-curved [employer] cuffed-tunneled hemodialysis catheter tunneled between the 2 incisions, placed the fabric cuff beneath the skin exit site, and catheter was secured with 2 sutures of 3-0 nylon and sterile dressings applied. Small and medium-sized dilators were placed with J-wire and into the internal jugular vein and removed. Dilator and Peel-Away sheath placed with J-wire in the superior vena cava. Dilator and J-wire were removed. Catheter was placed through the Peel-Away sheath and Peel-Away sheath removed. Platysma was approximated with 4-0 Monocryl, skin with subdermal 4-0 Monocryl. Using infraclavicular approach, right subclavian vein triple-lumen catheter was placed using Seldinger technique, removed the J-wire, securing the catheter with 3-0 nylon and aspirated each port of blood and flushed with saline solution. Sterile dressings applied. Final fluoroscopic images revealed good line placement. Job ID: [id number]
--- NOTE | 2018-11-13 12:27 | RAD ---
PORTABLE CHEST: Date: 11/13/18 INDICATION: ICU follow-up. COMPARISON: 08/02/18. FINDINGS: Evidence of new patchy infiltrate in the right lower lung on the current study. Large caliber central line overlies the SVC. Left lung appears clear. Heart and mediastinum unremarka ble. IMPRESSION: Question new right lower lung infiltrate. Follow-up recommended. POS: [facility]
[2018-11-13 12:58] LABS: HBSAg Index 0.37 S/CO (0-0.99); Hep B Surf Ag Non-Reactive S/CO (NonReactive)
[2018-11-13 14:09] LABS: Hep B Core Total Ab Non-Reactive (NonReactive)
[2018-11-13 14:10] LABS: HBSAB Concentration 2.79 mIU/mL; HBSAg Index 0.34 S/CO (0-0.99); Hep B Surf AB Non-Reactive (NonReactive); Hep B Surf Ag Non-Reactive S/CO (NonReactive)
[2018-11-13 14:14] LABS: Hep C IgG Ab Reflex HepC Qnt (NonReactive); Hep C Index 11.78 S/CO (0-0.79)
--- NOTE | 2018-11-13 14:15 | PRG ---
DATE OF SERVICE: 11/13/2018 SUBJECTIVE: Patient was seen and examined at bedside and overnight events noted. Patient denies any shortness of breath or chest pain or palpitation. No history of nausea or vomiting or diarrhea or fever or chills or cramps. OBJECTIVE: GENERAL: This is a thin-built male, in no acute distress. VITAL SIGNS: Temperature 98.2. Heart rate . Respiratory rate 18. Blood pressure . HEENT: Atraumatic, normocephalic. Oral mucosa is moist NECK: Supple. CARDIOVASCULAR: S1, S2 heard. Rate and rhythm regular. RESPIRATORY: Clear to auscultation. GASTROINTESTINAL: Abdomen is soft. MUSCULOSKELETAL: No tenderness. No edema. DERMATOLOGIC: No skin rash. NEUROLOGIC: Alert and awake and oriented X3. No focal neurologic deficits. Moving all the extremities. PSYCHIATRIC: Mood and affect normal. LABORATORY DATA: Potassium 4.6, BUN is 50, and creatinine is 5.1. ASSESSMENT AND PLAN: 1. End-stage renal disease. Plan is to start back on dialysis. The patient agreeable to dialysis and no dialysis catheter placed. 2. Metabolic acidosis. He will have dialysis. 3. Anemia, chronic disease. 4. Edema. 5. Hypertension. We will continue on dialysis as tolerated. We will arrange outpatient dialysis. Job ID: [id number]
[2018-11-13] MEDS ORDERED: Tuberculin PPD 0.1 ML VIAL I-DERMAL SCH (15:00)
[2018-11-13] MEDS ORDERED: PROPOFOL 200 MG/20 ML VIAL ONE (16:45)
[2018-11-13] MEDS ORDERED: Heparin 10,000 UNITS/ 10 ML VIAL ONE (19:27)
[2018-11-13 20:44] LABS: Vancomycin, Random 14.1 ug/mL (See Comment)
[2018-11-13] MEDS ORDERED: Vancomycin HCl 1 GM in Premix Bag 1 BAG IVPB SCH (22:00)
[2018-11-13] MEDS ORDERED: Vancomycin HCl 250 MG in Sodium Chloride 0.9% 100 ML IVPB SCH (22:00)
[2018-11-13] MEDS ORDERED: Vancomycin HCl 500 MG in Sodium Chloride 0.9% 100 ML IVPB SCH (22:00)
[2018-11-13] MEDS ORDERED: HOLD VANCOMYCIN FOR LEVEL >20 FS SCH (22:00)
[2018-11-13] MEDS ORDERED: Vancomycin HCl 750 MG in Sodium Chloride 0.9% 250 ML 250 ML IVPB SCH (22:00)
--- NOTE | 2018-11-13 22:59 | PDOC.PN ---
- Subjective Encounter Start Date: 11/13/18 Encounter Start Time: 11:45 Patient seen and examined for multiple issues. Started on dialysis. No fever. Pain controlled. Appetite ok. No new complaints. No overnight events - Objective Resuscitation Status - Order Detail: 11/11/18 18:41 Resuscitation Status Routine Resuscitation Status: FULL: Full Resuscitation MAR Reviewed: Yes Vital Signs & Weight: Vital Signs (12 hours) Temp Pulse 11/13/18 19:30 98.9 F 11/13/18 15:11 98.8 F 11/13/18 11:27 99.2 F 95 Weight Admit Weight 117 lb 4.8 oz Weight 117 lb 4.8 oz Most Recent Monitor Data Heart Rate from ECG 89 NIBP 171/65 NIBP BP-Mean 100 Respiration from ECG 17 SpO2 100 I&O: 11/12/18 11/13/18 11/14/18 06:59 06:59 06:59 Intake Total 1253 1250 1439 Output Total 483 233 4286 Balance 953 300 -186 Result Diagrams: 11/15/18 05:30 11/15/18 05:30 Additional Labs: Accuchecks 11/13/18 11/13/18 11/13/18 16:41 11:37 06:30 POC Glucose 121 H 101 121 H EKG Reviewed by me: Yes (Tele SR) Phys Exam - Physical Examination Constitutional: NAD Respiratory: no wheezing, no rhonchi Cardiovascular: RRR, no rub Gastrointestinal: soft, non-tender, positive bowel sounds Musculoskeletal: no edema wound dressed Neurological: moves all 4 limbs Dx/Plan - Plan IMPRESSION: 1. Left foot cellulitis with abscess -s/p wound debridment/Enterococcus Bacteremia 2. Acute kidney injury on chronic kidney disease stage 5/ESRD 3. Hyperkalemia, probably due to significant metabolic acidosis. 4. Hyponatremia. 5. Moderate protein-calorie malnutrition. 6. 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 7. History of endocarditis. 8. Chronic hepatitis C. 9. Benign prostatic hypertrophy. 10. Former smoker. 11. 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 12. Anemia secondary to renal insufficiency. PLAN: Cont IV Vancomycin sliding scale Monitor Vancomycin level DC Bicarb drip Transfuse with dialysis in AM if still low AM labs Cont other meds as below Review of Systems - Review of Systems Respiratory: negative: Cough, Dry, Shortness of Breath, Hemoptysis, SOB with Excertion, Pleuritic Pain, Sputum, Wheezing Cardiovascular: negative: chest pain, palpitations, orthopnea, paroxysmal nocturnal dyspnea, edema, light headedness, other - Medications/Allergies Allergies/Adverse Reactions: Allergies Allergy/AdvReac Type Severity Reaction Status Date / Time No Known Drug Allergies Allergy Verified 08/02/18 16:15 Medications: Current Medications Acetaminophen (Tylenol) 650 mg PO Q4H PRN PRN Reason: Headache/Fever/Mild Pain (1-3) Acetaminophen (Tylenol) 650 mg PO TID [facility] Last Admin: 11/13/18 20:07 Dose: 650 mg Albuterol/Ipratropium (Duoneb) 3 ml NEB Q4H PRN PRN Reason: SOB &/or Wheezing Bisacodyl (Dulcolax) 10 mg [place] DAILYPRN PRN PRN Reason: Constipation Calcium Carbonate (Tums) 1,000 mg PO Q4H PRN PRN Reason: Heartburn or Indigestion Dextrose/Water (Dextrose 50%) 25 gm SLOW IVP PRN PRN PRN Reason: Hypoglycemia Fentanyl (Sublimaze) 25 mcg SLOW IVP Q4H PRN PRN Reason: Severe Pain (7-10) Glucagon (Glucagon) 1 mg IM PRN PRN PRN Reason: Hypoglycemia Dextrose/Water (D5w) 1,000 mls @ 0 mls/hr IV .Q0M PRN PRN Reason: Hypoglycemia Vancomycin HCl 1 gm/ Device 200 mls @ 200 mls/hr IVPB [facility]CALL [facility] Vancomycin HCl 750 mg/ Sodium (Chloride) 250 mls @ 250 mls/hr IVPB [facility] Vancomycin HCl 500 mg/ Sodium (Chloride) 100 mls @ 100 mls/hr IVPB [facility] Vancomycin HCl 250 mg/ Sodium (Chloride) 100 mls @ 100 mls/hr IVPB [facility] Vancomycin HCl 500 mg/ Sodium (Chloride) 100 mls @ 100 mls/hr IVPB NOW [facility] Stop: 11/13/18 23:59 Insulin Human Regular (Humulin R) 0 units SC .MILD SLIDING SCALE PRN PRN Reason: Mild Correctional Scale Insulin Human Regular (Humulin R) 0 units SC .BEDTIME SLIDING SC PRN PRN Reason: Bedtime Correctional Scale Loperamide HCl (Imodium) 2 mg PO PRN PRN PRN Reason: Diarrhea/Loose Stools Miscellaneous Medication (Pharmacy To Dose) 1 each IVPB PRN PRN PRN Reason: Pharmacy to dose Read Ppd Test Site 0 each PO 1500 [facility] Stop: 11/16/18 15:01 Hold Vancomycin For (Level >20) 0 each FS .AT DIALYSIS [facility] Ondansetron HCl (Zofran Odt) 4 mg PO Q6H PRN PRN Reason: Nausea/Vomiting Ondansetron HCl (Zofran) 4 mg IVP Q6H PRN PRN Reason: Nausea/Vomiting Saccharomyces Boulardii (Florastor) 250 mg PO DAILY [facility] Last Admin: 11/13/18 10:48 Dose: Not Given Sodium Chloride (Flush - Normal Saline) 10 ml IVF PRN PRN PRN Reason: Saline Flush Tramadol HCl (Ultram) 50 mg PO Q6H PRN PRN Reason: Moderate Pain (4-6) Last Admin: 11/12/18 02:07 Dose: 50 mg
[2018-11-14 06:25] LABS: #Eosinphils 0.3 thou/uL (0.0-0.7); #Lymphocytes 1.2 thou/uL (1.20-3.40); #Monocytes 0.5 thou/uL (0.11-0.59); #Neutrophils 4.2 thou/uL (1.40-6.50); %Basophils 0.2 % (0.0-1.0); %Eosinophils 4.8 % (0.0-10.0); %Lymphocytes 19.5 % (21.0-51.0); %Monocytes 8.8 % (0.0-10.0); %Neutrophils 66.7 % (42.0-75.0); Hemoglobin 6.3 g/dL (14.0-18.0); Mean Corpuscular HGB CONC 31.6 g/dL (32.0-36.0); Mean Corpuscular Hemoglobin 29.8 pg (27.0-31.0); Mean Corpuscular Volume 94.2 fL (78.0-98.0); Mean Platelet Volume 7.2 fL (7.4-10.4); Platelet Count 169 thou/uL (130-400); RBC Distribution Width 13.8 % (11.5-14.5); Red Blood Cell (RBC) Count 2.12 mill/uL (4.70-6.10); White Blood Cell (WBC) Count 6.2 thou/uL (4.8-10.8)
[2018-11-14 06:48] LABS: Anion Gap 12 mmol/L (10-20); BUN (Urea Nitrogen) 28 mg/dL (8.4-25.7); Calc. Creatinine Clearance 17 mL/min (70-130); Calcium 7.4 mg/dL (7.8-10.44); Carbon Dioxide 26 mmol/L (22-29); Chloride 101 mmol/L (98-107); Estimated GFR-MDRD 17; Glucose 108 mg/dL (70-105); Potassium 4.3 mmol/L (3.5-5.1); Sodium 135 mmol/L (136-145)
[2018-11-14] MEDS ORDERED: Epoetin (ESRD) 20,000 UNITS/ML IVP SCH (08:45)
[2018-11-14] MEDS: Acetaminophen 325 MG TAB PO SCH ×3 (10:14→19:54)
[2018-11-14] MEDS: Saccharomyces boulardii 250 MG CAP PO SCH (10:14)
--- NOTE | 2018-11-14 10:50 | PRG ---
DATE OF SERVICE: 11/14/2018 SUBJECTIVE: Patient was seen and examined at bedside and overnight events noted. Patient denies any shortness of breath or chest pain or palpitation. No history of nausea or vomiting or diarrhea or fever or chills or cramps. OBJECTIVE: GENERAL: This is a thin-built male, in no acute distress. VITAL SIGNS: Temperature . Heart rate 90. Respiratory rate 18. Blood pressure 132/49. HEENT: Atraumatic, normocephalic. Oral mucosa is moist NECK: Supple. CARDIOVASCULAR: S1, S2 heard. Rate and rhythm regular. RESPIRATORY: Clear to auscultation. GASTROINTESTINAL: Abdomen is soft. MUSCULOSKELETAL: No tenderness. No edema. DERMATOLOGIC: No skin rash. NEUROLOGIC: Alert and awake and oriented X3. No focal neurologic deficits. Moving all the extremities. PSYCHIATRIC: Mood and affect normal. LABORATORY DATA: Potassium 4.3, BUN is 28, creatinine is 3.6. ASSESSMENT AND PLAN: 1. End-stage renal disease. Continue on dialysis as tolerated. 2. Anemia, here with hemoglobin drop today, rule out any bleed, but we will transfuse 1 unit with dialysis. We will add Epogen. 3. Edema, controlled. 4. Hypertension, stable. 5. Metabolic acidosis, stable. Plan is to have dialysis today with blood transfusion. They would add Epogen. Agree with stopping IV fluids at this time. Job ID: [id number]
[2018-11-14] MEDS ORDERED: Heparin 10,000 UNITS/ 10 ML VIAL ONE (11:11)
[2018-11-14] MEDS ORDERED: Iopamidol 300 61% 100 ML VIAL FS ONE (14:34)
[2018-11-14] MEDS: Loperamide HCl 2 MG CAP PO PRN ×2 (17:00→19:53)
[2018-11-14 17:12] LABS: Vancomycin, Random 15.1 ug/mL (See Comment)
--- NOTE | 2018-11-14 17:18 | PRG ---
DATE OF SERVICE: 11/14/2018 Manish Suero is scheduled for revision of left arm fistula as he has chosen for continued dialysis. Fistulogram today revealed occluded cephalic vein outflow of upper arm as suspected clinically and as suspected at the time of formation of fistula in July. He did not follow up with me as instructed, but now he has decided to continue dialysis. We will plan left arm basilic vein transposition fistula tomorrow. This is usually done as an outpatient and after the surgery, the patient can be discharged the same day or later today, pending his dialysis and medical needs. Job ID: [id number]
[2018-11-14] MEDS: EPOETIN ALFA-EPBX (ESRD) 10,000 UNIT/ML VIAL IVP SCH (18:07)
--- NOTE | 2018-11-14 22:56 | PDOC.PN ---
- Subjective Encounter Start Date: 11/14/18 Encounter Start Time: 12:00 Patient seen and examined for Sepsis/Bacteremia/SHELBI. Feels better. No new complaints. No overnight events - Objective Resuscitation Status - Order Detail: 11/11/18 18:41 Resuscitation Status Routine Resuscitation Status: FULL: Full Resuscitation MAR Reviewed: Yes Vital Signs & Weight: Vital Signs (12 hours) Temp Resp Pulse Ox 11/14/18 20:00 98 11/14/18 19:33 98.6 F 11/14/18 16:00 98.0 F 20 93 L Weight Admit Weight 117 lb 4.8 oz Weight 119 lb 11.2 oz Most Recent Monitor Data Heart Rate from ECG 83 NIBP 150/56 NIBP BP-Mean 87 Respiration from ECG 18 SpO2 96 I&O: 11/13/18 11/14/18 11/15/18 06:59 06:59 06:59 Intake Total 1250 1439 480 Output Total 950 1625 500 Balance 300 -186 -20 Result Diagrams: 11/15/18 05:30 11/15/18 05:30 Additional Labs: Accuchecks 11/14/18 11/14/18 11/14/18 20:28 16:11 10:17 POC Glucose 129 H 129 H 134 H 11/14/18 11/13/18 06:01 23:58 POC Glucose 118 H 124 H EKG Reviewed by me: Yes (Tele SR) Phys Exam - Physical Examination Constitutional: NAD Respiratory: no wheezing, no rhonchi Cardiovascular: RRR, no rub Gastrointestinal: soft, non-tender, positive bowel sounds Musculoskeletal: no edema Neurological: moves all 4 limbs Dx/Plan - Plan DVT proph w/SCDs IMPRESSION: 1. Left foot cellulitis with abscess -s/p wound debridment/Enterococcus Bacteremia due to infected dialysis catheter 2. Acute kidney injury on chronic kidney disease stage 5/ESRD - restarted on dialysis 3. Hyperkalemia, probably due to significant metabolic acidosis. 4. HTN 5. Moderate protein-calorie malnutrition. 6. 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 7. History of endocarditis. 8. Chronic hepatitis C. 9. Benign prostatic hypertrophy. 10. Former smoker. 11. 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 12. Anemia secondary to renal insufficiency. 13. Hyponatremia. PLAN: Add low dose Amlodipine PRBC transfusion today On Epoegen Cont IV Vancomycin sliding scale Monitor Vancomycin level AM labs Cont other meds as below Review of Systems - Review of Systems Respiratory: negative: Cough, Dry, Shortness of Breath, Hemoptysis, SOB with Excertion, Pleuritic Pain, Sputum, Wheezing Cardiovascular: negative: chest pain, palpitations, orthopnea, paroxysmal nocturnal dyspnea, edema, light headedness, other Gastrointestinal: negative: Nausea, Vomiting, Abdominal Pain, Diarrhea, Constipation, Melena, Hematochezia, Other - Medications/Allergies Allergies/Adverse Reactions: Allergies Allergy/AdvReac Type Severity Reaction Status Date / Time No Known Drug Allergies Allergy Verified 08/02/18 16:15 Medications: Current Medications Acetaminophen (Tylenol) 650 mg PO Q4H PRN PRN Reason: Headache/Fever/Mild Pain (1-3) Acetaminophen (Tylenol) 650 mg PO TID [facility] Last Admin: 11/14/18 19:54 Dose: 650 mg Albuterol/Ipratropium (Duoneb) 3 ml NEB Q4H PRN PRN Reason: SOB &/or Wheezing Bisacodyl (Dulcolax) 10 mg [place] DAILYPRN PRN PRN Reason: Constipation Calcium Carbonate (Tums) 1,000 mg PO Q4H PRN PRN Reason: Heartburn or Indigestion Dextrose/Water (Dextrose 50%) 25 gm SLOW IVP PRN PRN PRN Reason: Hypoglycemia Fentanyl (Sublimaze) 25 mcg SLOW IVP Q4H PRN PRN Reason: Severe Pain (7-10) Glucagon (Glucagon) 1 mg IM PRN PRN PRN Reason: Hypoglycemia Dextrose/Water (D5w) 1,000 mls @ 0 mls/hr IV .Q0M PRN PRN Reason: Hypoglycemia Vancomycin HCl 1 gm/ Device 200 mls @ 200 mls/hr IVPB [facility] Vancomycin HCl 750 mg/ Sodium (Chloride) 250 mls @ 250 mls/hr IVPB [facility] Vancomycin HCl 500 mg/ Sodium (Chloride) 100 mls @ 100 mls/hr IVPB [facility] Last Admin: 11/13/18 23:32 Dose: 100 mls Vancomycin HCl 250 mg/ Sodium (Chloride) 100 mls @ 100 mls/hr IVPB [facility] Insulin Human Regular (Humulin R) 0 units SC .MILD SLIDING SCALE PRN PRN Reason: Mild Correctional Scale Insulin Human Regular (Humulin R) 0 units SC .BEDTIME SLIDING SC PRN PRN Reason: Bedtime Correctional Scale Loperamide HCl (Imodium) 2 mg PO PRN PRN PRN Reason: Diarrhea/Loose Stools Last Admin: 11/14/18 19:53 Dose: 2 mg Miscellaneous Medication (Pharmacy To Dose) 1 each IVPB PRN PRN PRN Reason: Pharmacy to dose Read Ppd Test Site 0 each PO 1500 [facility] Stop: 11/16/18 15:01 Hold Vancomycin For (Level >20) 0 each FS .AT DIALYSIS [facility] Ondansetron HCl (Zofran Odt) 4 mg PO Q6H PRN PRN Reason: Nausea/Vomiting Ondansetron HCl (Zofran) 4 mg IVP Q6H PRN PRN Reason: Nausea/Vomiting Saccharomyces Boulardii (Florastor) 250 mg PO DAILY [facility] Last Admin: 11/14/18 10:14 Dose: 250 mg Sodium Chloride (Flush - Normal Saline) 10 ml IVF PRN PRN PRN Reason: Saline Flush Tramadol HCl (Ultram) 50 mg PO Q6H PRN PRN Reason: Moderate Pain (4-6) Last Admin: 11/12/18 02:07 Dose: 50 mg
[2018-11-15 05:48] LABS: #Eosinphils 0.3 thou/uL (0.0-0.7); #Lymphocytes 1.4 thou/uL (1.20-3.40); #Monocytes 0.8 thou/uL (0.11-0.59); #Neutrophils 3.6 thou/uL (1.40-6.50); %Basophils 0.2 % (0.0-1.0); %Eosinophils 5.5 % (0.0-10.0); %Lymphocytes 23.2 % (21.0-51.0); %Monocytes 12.4 % (0.0-10.0); %Neutrophils 58.7 % (42.0-75.0); Hemoglobin 9.1 g/dL (14.0-18.0); Mean Corpuscular HGB CONC 32.3 g/dL (32.0-36.0); Mean Corpuscular Hemoglobin 30.1 pg (27.0-31.0); Mean Corpuscular Volume 93.5 fL (78.0-98.0); Mean Platelet Volume 7.3 fL (7.4-10.4); Platelet Count 182 thou/uL (130-400); RBC Distribution Width 14.1 % (11.5-14.5); White Blood Cell (WBC) Count 6.2 thou/uL (4.8-10.8)
[2018-11-15 06:09] LABS: Anion Gap 12 mmol/L (10-20); BUN (Urea Nitrogen) 20 mg/dL (8.4-25.7); Calc. Creatinine Clearance 20 mL/min (70-130); Calcium 7.8 mg/dL (7.8-10.44); Carbon Dioxide 26 mmol/L (22-29); Chloride 101 mmol/L (98-107); Estimated GFR-MDRD 23; Glucose 94 mg/dL (70-105); Sodium 135 mmol/L (136-145)
[2018-11-15] MEDS ORDERED: Bupivacaine HCl 0.5%/Epinephrine 1:200,000/PF 30 ml Vial ONE (06:43)
[2018-11-15] MEDS ORDERED: Protamine Sulfate 50 MG/5 ML VIAL ONE (06:43)
[2018-11-15] MEDS ORDERED: Heparin 5,000 UNITS/ML VIAL ONE (06:43)
[2018-11-15] MEDS ORDERED: Lidocaine 2% PF 5 ML VIAL ONE (06:43)
[2018-11-15] MEDS ORDERED: Labetalol HCl 100 MG/20 ML VIAL SLOW IVP PRN (06:58)
[2018-11-15] MEDS ORDERED: Fentanyl 100 MCG/2 ML VIAL ONE (07:06)
[2018-11-15] MEDS ORDERED: Bupivacaine/Epinephrine 0.25% 30 ML VIAL ONE (07:55)
--- NOTE | 2018-11-15 07:58 | SPC ---
Left upper extremity dialysis fistulogram HISTORY: Question of abnormal flow in the left upper extremity fistula. Radiation dosimetry: 0.6 minutes of fluoroscopy and the DAP 4.4 reynoso per centimeter squared. Informed consent was obtained from the patient. The left upper extremity dialysis fistula was visuali zed was localized using palpation. The overlying skin was prepped and draped in the usual sterile manner. A 1% lidocaine solution was used to anesthetize the overlying soft tissues. A small dermatoto my was made. A 4 Yoruba micropuncture set was used to gain access into the left upper extremity fistula. Dialysis fistulogram was performed. Radiographic findings: The arterial anastomosis of the left upper extremity fistula is patent without evidence of stenosis. The fistula drains into the left upper extremity basilic vein. No evidence of significant stenosis seen. The basilic vein drains into the left axillary vein and subclavian vein s and left brachiocephalic vein. Flow is seen completely and rapidly passing into the SVC without evidence of occlusion. No significant collateral collaterals are stenosis seen. IMPRESSION: normal left upper extremity dialysis fistula. Fistula drains into the left basilic vein.
[2018-11-15] MEDS ORDERED: Ondansetron HCl/PF 4 MG/2 ML Vial IVP PRN (09:21)
[2018-11-15] MEDS ORDERED: Promethazine HCl 25 MG/ML VIAL SLOW IVP PRN (09:21)
[2018-11-15] MEDS ORDERED: Promethazine HCl 25 MG/ML VIAL IM PRN (09:21)
[2018-11-15] MEDS ORDERED: traMADol HCl 50 MG TAB PO PRN (09:47)
[2018-11-15] MEDS ORDERED: Ondansetron PF 4 MG/2 ML Vial ONE (10:00)
[2018-11-15] MEDS ORDERED: PHENYLEPHRINE-NS 100 MCG/ML 10 ML SYRINGE ONE (10:00)
[2018-11-15] MEDS ORDERED: PROPOFOL 200 MG/20 ML VIAL ONE (10:00)
[2018-11-15] MEDS ORDERED: Esmolol 100 MG/10 ML VIAL ONE (10:00)
[2018-11-15] MEDS ORDERED: Heparin 10,000 UNITS/ 10 ML VIAL ONE (10:00)
[2018-11-15] MEDS ORDERED: Lidocaine 1% PF 5 ML VIAL ONE (10:00)
--- NOTE | 2018-11-15 10:22 | OP ---
DATE OF PROCEDURE: 11/15/2018 PREOPERATIVE DIAGNOSES: Amputation of right arm proximally. History of left arm dialysis fistula malfunction with cephalic vein occlusion outflow, status post replacement of hemodialysis catheter this hospitalization due to lack of care. POSTOPERATIVE DIAGNOSES: Amputation of right arm proximally. History of left arm dialysis fistula malfunction with cephalic vein occlusion outflow, status post replacement of hemodialysis catheter this hospitalization due to lack of care. PROCEDURE PERFORMED: Left basilic vein transposition fistula. ANESTHESIA: General, local 0.25% Marcaine with epinephrine 60 mL mixed with 2% Xylocaine 10 mL. DESCRIPTION OF PROCEDURE: The patient was taken to the operating room, where under general anesthesia left upper extremity was prepared with ChloraPrep and draped in routine fashion. An incision was made from the proximal volar forearm to the medial upper arm into the axilla and carried down through the skin and subcutaneous tissue unroofing the basilic vein, dividing branches between 4-0 silk ties and clips, mobilizing the basilic vein, and marking it with a marker to prevent torsion. A Marcy Wick tunneler was used to create a tunnel over the anterior left upper arm. The cephalic vein outflow, which was occluded, was dissected free and stump ligated with a 3-0 silk tie. After giving the patient 6000 units of heparin intravenously, the basilic vein was transected and flushed with heparinized saline solution and connected to the tunneler, brought through the tunnel, and then flushed with heparinized saline solution, and an end vein to end vein anastomosis was created with continuous suture of 6-0 Prolene completing the anastomosis giving the patient 50 mg of protamine intravenously by Anesthesia. Hemostasis was gained with cautery and clips. Surgicel was placed in the harvest bed. Subcutaneous tissue was approximated with 3-0 Monocryl, skin with subdermal 4-0 Monocryl. Good signal was noted in the axilla, and there was a good palpable thrill in the fistula. A sterile dressing was applied. Job ID: [id number]
[2018-11-15] MEDS: Acetaminophen 325 MG TAB PO SCH (11:31)
--- NOTE | 2018-11-15 11:31 | PRG ---
DATE OF SERVICE: 11/15/2018 SUBJECTIVE: Patient was seen and examined at bedside and overnight events noted. Patient denies any shortness of breath or chest pain or palpitation. No history of nausea or vomiting or diarrhea or fever or chills or cramps. OBJECTIVE: GENERAL: This is a well-built male, in no apparent distress. VITAL SIGNS: Temperature . Heart rate 104. Respiratory rate 18. Blood pressure 142/63. HEENT: Atraumatic, normocephalic. Oral mucosa is moist NECK: Supple. CARDIOVASCULAR: S1, S2 heard. Rate and rhythm regular. RESPIRATORY: Clear to auscultation. GASTROINTESTINAL: Abdomen is soft. MUSCULOSKELETAL: No tenderness. No edema. DERMATOLOGIC: No skin rash. NEUROLOGIC: Alert and awake and oriented X3. No focal neurologic deficits. Moving all the extremities. PSYCHIATRIC: Mood and affect normal. LABORATORY DATA: Potassium 4.0, BUN is 20, creatinine is 2.8. ASSESSMENT AND PLAN: 1. End-stage renal disease. Continue on dialysis as tolerated. 2. Anemia, status post transfusion. Monitor hemoglobin. 3. Edema. 4. Hypertension. 5. Metabolic acidosis. We will monitor labs and continue dialysis as tolerated. Job ID: [id number]
[2018-11-15] MEDS: Amlodipine 5 MG TAB PO SCH (11:32)
[2018-11-15] MEDS: Saccharomyces boulardii 250 MG CAP PO SCH (11:34)
[2018-11-15] MEDS: Loperamide HCl 2 MG CAP PO PRN (14:21)
[2018-11-15] MEDS: READ PPD TEST SITE PO SCH (20:00)
[2018-11-15] MEDS: Acetaminophen 500 MG TAB PO PRN (20:02)
--- NOTE | 2018-11-15 23:43 | PDOC.PN ---
- Subjective Encounter Start Date: 11/15/18 Encounter Start Time: 11:00 Patient seen and examined for Bacteremia. Tolerating dialysis. No fever/chills. No new complaints. No overnight events - Objective Resuscitation Status - Order Detail: 11/11/18 18:41 Resuscitation Status Routine Resuscitation Status: FULL: Full Resuscitation MAR Reviewed: Yes Vital Signs & Weight: Vital Signs (12 hours) Temp Pulse Pulse Resp BP BP BP 11/15/18 20:02 11/15/18 20:00 98.8 F 90 16 139/76 11/15/18 17:00 98.5 F 84 16 169/96 H 11/15/18 14:00 84 175/76 H Pulse Ox Pulse Ox 11/15/18 20:02 94 L 11/15/18 20:00 11/15/18 17:00 98 11/15/18 14:00 100 Weight Admit Weight 117 lb 4.8 oz Weight 111 lb 5.335 oz Most Recent Monitor Data Heart Rate from ECG 83 NIBP 150/56 NIBP BP-Mean 87 Respiration from ECG 18 SpO2 96 I&O: 11/14/18 11/15/18 11/16/18 06:59 06:59 06:59 Intake Total 1439 810 Output Total 1625 850 Balance -186 -40 Result Diagrams: 11/15/18 05:30 11/15/18 05:30 Additional Labs: Accuchecks 11/15/18 11/15/18 11/15/18 16:33 11:17 05:19 POC Glucose 96 127 H 84 Phys Exam - Physical Examination Constitutional: NAD Respiratory: no wheezing, no rhonchi Cardiovascular: RRR, no rub Gastrointestinal: soft, non-tender, positive bowel sounds Musculoskeletal: no edema Neurological: moves all 4 limbs Dx/Plan - Plan DVT proph w/SCDs IMPRESSION: 1. Left foot cellulitis with abscess -s/p wound debridment/Enterococcus Bacteremia due to infected dialysis catheter 2. Acute kidney injury on chronic kidney disease stage 5/ESRD - restarted on dialysis 3. Hyperkalemia, probably due to significant metabolic acidosis. 4. HTN 5. Moderate protein-calorie malnutrition. 6. 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 7. History of endocarditis. 8. Chronic hepatitis C. 9. Benign prostatic hypertrophy. 10. Former smoker. 11. 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 12. Anemia secondary to renal insufficiency. 13. Hyponatremia. PLAN: Cont IV Vancomycin sliding scale Cont Amlodipine Await outpt dialysis setup Cont other meds as below Review of Systems - Medications/Allergies Allergies/Adverse Reactions: Allergies Allergy/AdvReac Type Severity Reaction Status Date / Time No Known Drug Allergies Allergy Verified 08/02/18 16:15 Medications: Current Medications Acetaminophen (Tylenol) 1,000 mg PO Q6H PRN PRN Reason: Moderate to Severe Pain (6-10) Last Admin: 11/15/18 20:02 Dose: 1,000 mg Albuterol/Ipratropium (Duoneb) 3 ml NEB Q4H PRN PRN Reason: SOB &/or Wheezing Amlodipine Besylate (Norvasc) 2.5 mg PO DAILY [facility] Last Admin: 11/15/18 11:32 Dose: 2.5 mg Bisacodyl (Dulcolax) 10 mg SC DAILYPRN PRN PRN Reason: Constipation Calcium Carbonate (Tums) 1,000 mg PO Q4H PRN PRN Reason: Heartburn or Indigestion Dextrose/Water (Dextrose 50%) 25 gm SLOW IVP PRN PRN PRN Reason: Hypoglycemia Fentanyl (Sublimaze) 25 mcg SLOW IVP Q4H PRN PRN Reason: Severe Pain (7-10) Glucagon (Glucagon) 1 mg IM PRN PRN PRN Reason: Hypoglycemia Dextrose/Water (D5w) 1,000 mls @ 0 mls/hr IV .Q0M PRN PRN Reason: Hypoglycemia Vancomycin HCl 1 gm/ Device 200 mls @ 200 mls/hr IVPB [facility] Vancomycin HCl 750 mg/ Sodium (Chloride) 250 mls @ 250 mls/hr IVPB [facility] Vancomycin HCl 500 mg/ Sodium (Chloride) 100 mls @ 100 mls/hr IVPB [facility] Last Admin: 11/13/18 23:32 Dose: 100 mls Vancomycin HCl 250 mg/ Sodium (Chloride) 100 mls @ 100 mls/hr IVPB [facility] Insulin Human Regular (Humulin R) 0 units SC .MILD SLIDING SCALE PRN PRN Reason: Mild Correctional Scale Insulin Human Regular (Humulin R) 0 units SC .BEDTIME SLIDING SC PRN PRN Reason: Bedtime Correctional Scale Labetalol HCl (Normodyne) 10 mg SLOW IVP Q4H PRN PRN Reason: Systolic BP > 180 Loperamide HCl (Imodium) 2 mg PO PRN PRN PRN Reason: Diarrhea/Loose Stools Last Admin: 11/15/18 14:21 Dose: 2 mg Miscellaneous Medication (Pharmacy To Dose) 1 each IVPB PRN PRN PRN Reason: Pharmacy to dose Read Ppd Test Site 0 each PO 1500 [facility] Stop: 11/16/18 15:01 Hold Vancomycin For (Level >20) 0 each FS .AT DIALYSIS [facility] Ondansetron HCl (Zofran Odt) 4 mg PO Q6H PRN PRN Reason: Nausea/Vomiting Ondansetron HCl (Zofran) 4 mg IVP Q6H PRN PRN Reason: Nausea/Vomiting Saccharomyces Boulardii (Florastor) 250 mg PO DAILY [facility] Last Admin: 11/15/18 11:34 Dose: Not Given Sodium Chloride (Flush - Normal Saline) 10 ml IVF PRN PRN PRN Reason: Saline Flush Tramadol HCl (Ultram) 50 mg PO Q6H PRN PRN Reason: Moderate Pain (4-6) Last Admin: 11/12/18 02:07 Dose: 50 mg Tramadol HCl (Ultram) 50 mg PO Q6H PRN PRN Reason: Pain
[2018-11-16 05:42] LABS: #Basophils 0.1 thou/uL (0.0-0.2); #Eosinphils 0.4 thou/uL (0.0-0.7); #Lymphocytes 1.5 thou/uL (1.20-3.40); #Monocytes 0.7 thou/uL (0.11-0.59); #Neutrophils 3.7 thou/uL (1.40-6.50); %Basophils 0.8 % (0.0-1.0); %Eosinophils 6.7 % (0.0-10.0); %Lymphocytes 22.9 % (21.0-51.0); %Monocytes 11.5 % (0.0-10.0); %Neutrophils 58.2 % (42.0-75.0); Hemoglobin 7.7 g/dL (14.0-18.0); Mean Corpuscular HGB CONC 32.8 g/dL (32.0-36.0); Mean Corpuscular Hemoglobin 30.5 pg (27.0-31.0); Mean Corpuscular Volume 93.1 fL (78.0-98.0); Mean Platelet Volume 7.4 fL (7.4-10.4); Platelet Count 163 thou/uL (130-400); RBC Distribution Width 14.2 % (11.5-14.5); Red Blood Cell (RBC) Count 2.51 mill/uL (4.70-6.10); White Blood Cell (WBC) Count 6.4 thou/uL (4.8-10.8)
[2018-11-16] MEDS: Acetaminophen 500 MG TAB PO PRN ×2 (06:25→20:18)
[2018-11-16] MEDS: Saccharomyces boulardii 250 MG CAP PO SCH (08:30)
[2018-11-16] MEDS: Amlodipine 5 MG TAB PO SCH (08:30)
--- NOTE | 2018-11-16 10:14 | PRG ---
DATE OF SERVICE: 11/16/2018 Manish Suero is doing well. His left arm fistula has good thrill and bruit. His surgery was yesterday. I removed his dressing because of the bleeding and hematoma. He has some disruption of the skin wound in his upper medial arm. His nurse Heidi will clean this with soap and water, Betadine, place a sterile dressing. I will return later, under local, replace some krunal that have come out because of the hematoma. The wound is clean and dry. No evidence of infection. Job ID: [id number]
[2018-11-16 10:29] LABS: Vancomycin, Random 11.2 ug/mL (See Comment)
[2018-11-16] MEDS ORDERED: Lidocaine 1% w/Epinephrine 1:200K 30 ML VIAL FS SCH (10:45)
[2018-11-16] MEDS: traMADol HCl 50 MG TAB PO PRN ×2 (11:24→19:10)
[2018-11-16] MEDS: Loperamide HCl 2 MG CAP PO PRN ×2 (11:24→17:47)
[2018-11-16] MEDS: READ PPD TEST SITE PO SCH (14:39)
--- NOTE | 2018-11-16 15:21 | PDOC.PN ---
- Subjective Encounter Start Date: 11/16/18 Encounter Start Time: 15:00 Patient seen and examined for Sepsis/Bacteremia. Feeling better. No CP/SOB. No new complaints. No overnight events - Objective Resuscitation Status - Order Detail: 11/11/18 18:41 Resuscitation Status Routine Resuscitation Status: FULL: Full Resuscitation MAR Reviewed: Yes Vital Signs & Weight: Vital Signs (12 hours) Temp Pulse Resp BP BP BP Pulse Ox 11/16/18 11:00 98.2 F 79 16 127/49 L 95 11/16/18 08:30 81 139/80 11/16/18 08:00 99.5 F 81 18 139/80 100 11/16/18 04:00 98.4 F 81 16 136/81 Weight Admit Weight 117 lb 4.8 oz Weight 113 lb 8.609 oz Most Recent Monitor Data Heart Rate from ECG 83 NIBP 150/56 NIBP BP-Mean 87 Respiration from ECG 18 SpO2 96 I&O: 11/15/18 11/16/18 11/17/18 06:59 06:59 06:59 Intake Total 810 550 Output Total 850 Balance -40 550 Result Diagrams: 11/16/18 05:30 11/15/18 05:30 Additional Labs: Accuchecks 11/16/18 11/16/18 11/15/18 12:12 05:28 21:04 POC Glucose 91 111 H 139 H 11/15/18 16:33 POC Glucose 96 Phys Exam - Physical Examination Constitutional: NAD Respiratory: no wheezing, no rhonchi Cardiovascular: RRR, no rub Gastrointestinal: soft, non-tender, positive bowel sounds Musculoskeletal: no edema Neurological: moves all 4 limbs Dx/Plan - Plan IMPRESSION: 1. Left foot cellulitis with abscess -s/p wound debridment/Enterococcus Bacteremia due to infected dialysis catheter 2. Acute kidney injury on chronic kidney disease stage 5/ESRD - restarted on dialysis 3. Hyperkalemia, probably due to significant metabolic acidosis. 4. HTN 5. Moderate protein-calorie malnutrition. 6. 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 7. History of endocarditis. 8. Chronic hepatitis C. 9. Benign prostatic hypertrophy. 10. Former smoker. 11. 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 12. Anemia secondary to renal insufficiency. 13. Hyponatremia. PLAN: IV Vancomycin sliding scale with dialysis for 2 weeks post discharge Cont current meds as below Await outpt dialysis setup Review of Systems - Review of Systems Respiratory: negative: Cough, Dry, Shortness of Breath, Hemoptysis, SOB with Excertion, Pleuritic Pain, Sputum, Wheezing Cardiovascular: negative: chest pain, palpitations, orthopnea, paroxysmal nocturnal dyspnea, edema, light headedness, other Gastrointestinal: negative: Nausea, Vomiting, Abdominal Pain, Diarrhea, Constipation, Melena, Hematochezia, Other - Medications/Allergies Allergies/Adverse Reactions: Allergies Allergy/AdvReac Type Severity Reaction Status Date / Time No Known Drug Allergies Allergy Verified 08/02/18 16:15 Medications: Current Medications Acetaminophen (Tylenol) 1,000 mg PO Q6H PRN PRN Reason: Moderate to Severe Pain (6-10) Last Admin: 11/16/18 06:25 Dose: 1,000 mg Albuterol/Ipratropium (Duoneb) 3 ml NEB Q4H PRN PRN Reason: SOB &/or Wheezing Amlodipine Besylate (Norvasc) 2.5 mg PO DAILY [facility] Last Admin: 11/16/18 08:30 Dose: 2.5 mg Bisacodyl (Dulcolax) 10 mg [place] DAILYPRN PRN PRN Reason: Constipation Calcium Carbonate (Tums) 1,000 mg PO Q4H PRN PRN Reason: Heartburn or Indigestion Dextrose/Water (Dextrose 50%) 25 gm SLOW IVP PRN PRN PRN Reason: Hypoglycemia Fentanyl (Sublimaze) 25 mcg SLOW IVP Q4H PRN PRN Reason: Severe Pain (7-10) Glucagon (Glucagon) 1 mg IM PRN PRN PRN Reason: Hypoglycemia Dextrose/Water (D5w) 1,000 mls @ 0 mls/hr IV .Q0M PRN PRN Reason: Hypoglycemia Vancomycin HCl 1 gm/ Device 200 mls @ 200 mls/hr IVPB [facility] Vancomycin HCl 750 mg/ Sodium (Chloride) 250 mls @ 250 mls/hr IVPB [facility] Vancomycin HCl 500 mg/ Sodium (Chloride) 100 mls @ 100 mls/hr IVPB [facility] Last Admin: 11/13/18 23:32 Dose: 100 mls Vancomycin HCl 250 mg/ Sodium (Chloride) 100 mls @ 100 mls/hr IVPB [facility] Insulin Human Regular (Humulin R) 0 units SC .MILD SLIDING SCALE PRN PRN Reason: Mild Correctional Scale Insulin Human Regular (Humulin R) 0 units SC .BEDTIME SLIDING SC PRN PRN Reason: Bedtime Correctional Scale Labetalol HCl (Normodyne) 10 mg SLOW IVP Q4H PRN PRN Reason: Systolic BP > 180 Lidocaine/Epinephrine (Xylocaine 1% W/ Epi 1:200k) 30 ml FS ONE [facility] Stop: 11/16/18 23:59 Last Admin: 11/16/18 13:20 Dose: 30 ml Loperamide HCl (Imodium) 2 mg PO PRN PRN PRN Reason: Diarrhea/Loose Stools Last Admin: 11/16/18 11:24 Dose: 2 mg Miscellaneous Medication (Pharmacy To Dose) 1 each IVPB PRN PRN PRN Reason: Pharmacy to dose Hold Vancomycin For (Level >20) 0 each FS .AT DIALYSIS [facility] Ondansetron HCl (Zofran Odt) 4 mg PO Q6H PRN PRN Reason: Nausea/Vomiting Ondansetron HCl (Zofran) 4 mg IVP Q6H PRN PRN Reason: Nausea/Vomiting Saccharomyces Boulardii (Florastor) 250 mg PO DAILY [facility] Last Admin: 11/16/18 08:30 Dose: 250 mg Sodium Chloride (Flush - Normal Saline) 10 ml IVF PRN PRN PRN Reason: Saline Flush Tramadol HCl (Ultram) 50 mg PO Q6H PRN PRN Reason: Moderate Pain (4-6) Last Admin: 11/16/18 11:24 Dose: 50 mg Tramadol HCl (Ultram) 50 mg PO Q6H PRN PRN Reason: Pain Tuberculin PPD (Tuberculin Ppd) 0.1 ml I-DERMAL ONE [facility] Stop: 11/19/18 15:31
[2018-11-16] MEDS ORDERED: Tuberculin PPD 0.1 ML VIAL I-DERMAL SCH (15:30)
[2018-11-16] MEDS ORDERED: Vancomycin HCl 500 MG in Sodium Chloride 0.9% 100 ML IVPB SCH (16:00)
[2018-11-16] MEDS: EPOETIN ALFA-EPBX (ESRD) 10,000 UNIT/ML VIAL IVP SCH (16:33)
--- NOTE | 2018-11-16 17:16 | PRG ---
DATE OF SERVICE: 11/16/2018 SUBJECTIVE: Patient was seen and examined at bedside and overnight events noted. Patient denies any shortness of breath or chest pain or palpitation. No history of nausea or vomiting or diarrhea or fever or chills or cramps. OBJECTIVE: GENERAL: This is a well-built male, in no apparent distress. VITAL SIGNS: Temperature 98.2. Pulse 79. Respiratory rate 16. Blood pressure 127/49. HEENT: Atraumatic, normocephalic. Oral mucosa is moist. NECK: Supple. CARDIOVASCULAR: S1, S2 heard. Rate and rhythm regular. RESPIRATORY: Clear to auscultation. GASTROINTESTINAL: Abdomen is soft. MUSCULOSKELETAL: No tenderness. No edema. DERMATOLOGIC: No skin rash. NEUROLOGIC: Alert and awake and oriented x3. No focal neurologic deficits. Moving all the extremities. PSYCHIATRIC: Mood and affect normal. LABORATORY DATA: Not done today. ASSESSMENT AND PLAN: 1. End-stage renal disease. Continue on dialysis as tolerated. 2. Anemia. 3. Edema. 4. Hypertension. Continue dialysis as tolerated. Job ID: [id number]
[2018-11-16 20:32] VITALS: BMI 16.7
[2018-11-17] MEDS: traMADol HCl 50 MG TAB PO PRN (06:16)
--- NOTE | 2018-11-17 07:59 | OP ---
DATE OF PROCEDURE: 11/16/2018 PREOPERATIVE DIAGNOSIS: Focus of skin disruption secondary to hematoma, bleeding postoperatively. POSTOPERATIVE DIAGNOSIS: Focus of skin disruption secondary to hematoma, bleeding postoperatively. PROCEDURE PERFORMED: Closure of medial upper arm skin separation due to krunal disrupted. Deep stay sutures intact. Staple closure of 3 cm segment of wound due to staple disruption. ANESTHESIA: Local 1% Xylocaine with epinephrine, 10 mL. DESCRIPTION OF PROCEDURE: With the patient at bedside, the dressing from the left upper arm was removed, and area was clean and not bleeding. Area was cleaned with Betadine. Local anesthetic was infiltrated in the skin and subcutaneous tissue, and several krunal applied to reapproximate the skin. The deep Monocryl sutures were intact. There was no evidence of infection. Bleeding had ceased. There was good thrill and bruit in his fistula. Sterile dressings were applied. Job ID: [id number]
[2018-11-17 08:13] VITALS: BP 151/78; TEMP 98.5
[2018-11-17 08:18] LABS: Vancomycin, Random 17.2 ug/mL (See Comment)
[2018-11-17] MEDS: Loperamide HCl 2 MG CAP PO PRN (08:51)
[2018-11-17] MEDS: Saccharomyces boulardii 250 MG CAP PO SCH (08:51)
[2018-11-17] MEDS: Amlodipine 5 MG TAB PO SCH (08:52)
[2018-11-17] MEDS ORDERED: Heparin 1,000 UNITS/ML VIAL ONE (11:11)
--- NOTE | 2018-11-17 13:29 | PRG ---
DATE OF SERVICE: 11/17/2018 Manish Suero is doing well today. His left arm basilic vein fistula has good thrill and bruit. His wound looks good. His wound to be washed daily with soap and water. He can follow up in my office in 2 weeks to remove staple from his wound. I will not access his fistula for at least 4 weeks. I will continue to use his dialysis catheter for dialysis access. I can remove his right subclavian vein central line prior to discharge. Job ID: [id number]
--- NOTE | 2018-11-17 14:17 | PRG ---
DATE OF SERVICE: 11/17/2018 SUBJECTIVE: A 58-year-old gentleman, being seen for end-stage renal disease. The patient denies any nausea, vomiting, or chest pain. OBJECTIVE: GENERAL: On examination, the patient is awake and alert. VITAL SIGNS: Pulse 88, breathing 16, blood pressure 135/77. GENERAL APPEARANCE AND MENTAL STATUS: Fair. HEAD/NECK: Normocephalic. Atraumatic. EYES: EOMI. No deformity. EARS: Clear. No ulcers. NOSE: Intact. No lesions. MOUTH: Clear. No discharge. THROAT: Clear. No exudate. LUNGS: Clear. No crackles. CARDIAC: S1, S2. No rub. ABDOMEN: Benign. Bowel sounds positive. GENITALIA/RECTUM: [place]off[place] absent. BACK/EXTREMITIES: Edema 0+. NEUROLOGICAL: Alert and motor intact. SKIN: LYMPHATICS: LABORATORY DATA: Reviewed. ASSESSMENT AND PLAN: 1. Stage 6 chronic kidney disease. Plan dialysis. 2. Hypertension, stable. 3. Anemia, stable. 4. Medication based on GFR appropriate. Job ID: [id number]
--- NOTE | 2018-11-18 09:17 | DIS ---
DATE OF ADMISSION: 11/11/2018 DATE OF DISCHARGE: 11/17/2018 DISCHARGE DISPOSITION: Home. FOLLOWUP: 1. Follow up with primary care physician at [facility] in 1 week. 2. Follow up with Infectious Disease, Dr. Natarajan in 2 weeks. 3. Follow up with Dr. Fuchs, Nephrology for maintenance hemodialysis. 4. Follow up with General Surgery, Dr. Kahn. 5. Outpatient [facility] dialysis has been set up. ALLERGIES: NO KNOWN DRUG ALLERGIES. HISTORY: The patient was seen and examined on the day of discharge. Denies any new complaints. No chest pain, shortness of breath, palpitations. DISCHARGE MEDICATION: 1. Vancomycin IV with hemodialysis for the 2 weeks for enterococcus bacteremia. 2. Amlodipine 5 mg daily. 3. Florastor 250 mg daily. 4. Tylenol as needed. 5. Tramadol as needed. 6. Imodium as needed. INPATIENT CONSULTANTS: 1. Nephrology, Dr. Fuchs. 2. General Surgery, Dr. Kahn. BRIEF HOSPITAL COURSE: The patient is a 58-year-old male with chronic kidney disease, on dialysis in the past, presented to the emergency room with bilateral lower extremity wounds. Please refer to the history and physical for further details. The patient was admitted to the hospital with a diagnosis of left foot cellulitis with abscess, requiring incision and drainage in the emergency room. He was also found to be in acute kidney injury on chronic kidney disease stage 5. Please note that, the patient has not been dialyzed for last 2 months per the patient's request. He was seen by General Surgery, Dr. Kahn. He underwent debridement of the left foot abscess. Dialysis catheter that was placed 4 months ago was removed by Dr. Kahn. He also underwent left basilic vein transposition fistula along with right internal jugular vein cuffed-tunneled dialysis catheter. A central line was placed during this hospital stay, that was discontinued. He was placed on IV vancomycin for enterococcus bacteremia. A central line culture was also positive for the same organism. Echocardiogram was negative for endocarditis. He will complete 2 weeks course of IV vancomycin with hemodialysis. Outpatient dialysis has been set up. The patient was extensively counseled on medication compliance. FINAL DIAGNOSES: 1. Left foot cellulitis with abscess, status post incision and drainage. 2. Enterococcus bacteremia due to infected dialysis catheter. 3. Acute kidney injury on chronic kidney disease stage 5/end-stage renal disease, restarted on hemodialysis. 4. Hyperkalemia with significant metabolic acidosis on admission, improved with hemodialysis. 5. Moderate protein-calorie malnutrition. 6. Hypertension. 7. Diabetes mellitus type 2 with diabetic neuropathy and nephropathy. His blood sugars remained between 70 to 130 range throughout this hospital stay. He was not started on any diabetic medications. 8. History of endocarditis in the past. 9. Chronic hepatitis C. 10. Benign prostatic hypertrophy. 11. Former smoker. 12. 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 13. Anemia secondary to renal insufficiency. 14. Hyponatremia. 15. Medication noncompliance. 16. Hypoglycemia after insulin and D50 in the emergency room. 17. Elevated inflammatory markers. SIGNIFICANT LABORATORY DATA: Bicarbonate on admission was 11 with potassium 5.6, sodium 133. CRP was 24.1, albumin 3.0. Blood culture 2 of 2 positive for Enterococcus. Central line, left external jugular vein culture was also positive for Enterococcus faecalis. TIME SPENT: Total time coordinating the discharge of this patient was 40 minutes. Job ID: [id number]
== END 2018-11-17 19:35 | disposition home or self-care (01) | DRG 252 ==
LOC: ERS 12:15 → ERHOLD 16:20 → IMCU/EMU 11-12 00:35 → T4-B 11-14 23:07
PROVIDERS: ADMIT Internal Medicine; ATTEND Internal Medicine
PROC: 0J9R0ZX Drainage of Left Foot Subcutaneous Tissue and Fascia, Open Approach, Diagnostic (ICD-10-PCS; 2018-11-12)
PROC: 05PYX3Z Removal of Infusion Device from Upper Vein, External Approach (ICD-10-PCS; 2018-11-12)
PROC: 0JH63XZ Insertion of Tunneled Vascular Access Device into Chest Subcutaneous Tissue and Fascia, Percutaneous Approach (ICD-10-PCS; 2018-11-13)
PROC: 05H533Z Insertion of Infusion Device into Right Subclavian Vein, Percutaneous Approach (ICD-10-PCS; 2018-11-13)
PROC: B5161ZA Fluoroscopy of Right Subclavian Vein using Low Osmolar Contrast, Guidance (ICD-10-PCS; 2018-11-13)
PROC: B51W1ZZ Fluoroscopy of Dialysis Shunt/Fistula using Low Osmolar Contrast (ICD-10-PCS; 2018-11-14)
PROC: 30233N1 Transfusion of Nonautologous Red Blood Cells into Peripheral Vein, Percutaneous Approach (ICD-10-PCS; 2018-11-14)
PROC: 05SC0ZZ Reposition Left Basilic Vein, Open Approach (ICD-10-PCS; principal; 2018-11-15)
PROC: 0JQF3ZZ Repair Left Upper Arm Subcutaneous Tissue and Fascia, Percutaneous Approach (ICD-10-PCS; 2018-11-16)
PROC: 5A1D70Z Performance of Urinary Filtration, Intermittent, Less than 6 Hours Per Day (ICD-10-PCS; 2018-11-17)
DX: T82.7XXA Infection and inflammatory reaction due to other cardiac and vascular devices, implants and grafts, initial encounter (principal); N18.6 End stage renal disease; A41.81 Sepsis due to Enterococcus; L03.116 Cellulitis of left lower limb; I12.0 Hypertensive chronic kidney disease with stage 5 chronic kidney disease or end stage renal disease; N17.9 Acute kidney failure, unspecified; E87.2 Acidosis; E87.1 Hypo-osmolality and hyponatremia; E44.0 Moderate protein-calorie malnutrition; Z68.1 Body mass index [BMI] 19.9 or less, adult; T81.31XA Disruption of external operation (surgical) wound, not elsewhere classified, initial encounter; L76.32 Postprocedural hematoma of skin and subcutaneous tissue following other procedure; T82.41XA Breakdown (mechanical) of vascular dialysis catheter, initial encounter; K86.1 Other chronic pancreatitis; E11.22 Type 2 diabetes mellitus with diabetic chronic kidney disease; E11.628 Type 2 diabetes mellitus with other skin complications; Z99.2 Dependence on renal dialysis; E87.5 Hyperkalemia; E11.40 Type 2 diabetes mellitus with diabetic neuropathy, unspecified; E11.21 Type 2 diabetes mellitus with diabetic nephropathy; B18.2 Chronic viral hepatitis C; N40.0 Benign prostatic hyperplasia without lower urinary tract symptoms; D63.1 Anemia in chronic kidney disease; K52.9 Noninfective gastroenteritis and colitis, unspecified; E11.649 Type 2 diabetes mellitus with hypoglycemia without coma; Y83.8 Other surgical procedures as the cause of abnormal reaction of the patient, or of later complication, without mention of misadventure at the time of the procedure; Y92.230 Patient room in hospital as the place of occurrence of the external cause; F17.210 Nicotine dependence, cigarettes, uncomplicated; Z89.201 Acquired absence of right upper limb, unspecified level; Z91.15 Patient's noncompliance with renal dialysis; Z91.14 Patient's other noncompliance with medication regimen
CPT/HCPCS: 10060; 36415; 36416; 36430; 36901; 71045; 80048; 80053; 80202; 81003; 81015; 83605; 84484; 85025; 85652; 86140; 86580; 86704; 86706; 86803; 86850; 86900; 86901; 87040; 87070; 87077; 87149; 87186; 87205; 87340; 93005; 93306; 96365; 96366; 96367; 96375; 96376; C1752; C1769; J0670; J1644; J1815; J2001; J2270; J2405; J2543; J2704; J2720; J3010; J3370; J3490; J7050; J7070; P9016; Q0162; Q5105; Q9967

== ENCOUNTER 2018-12-20 16:48 | Inpatient (IN) | payer MEDICARE ==
[2018-12-20 17:39] LABS: #Eosinphils 0.3 thou/uL (0.0-0.7); #Lymphocytes 1.4 thou/uL (1.20-3.40); #Monocytes 0.5 thou/uL (0.11-0.59); #Neutrophils 3.3 thou/uL (1.40-6.50); %Basophils 0.4 % (0.0-1.0); %Eosinophils 5.3 % (0.0-10.0); %Lymphocytes 25.5 % (21.0-51.0); %Monocytes 9.3 % (0.0-10.0); %Neutrophils 59.6 % (42.0-75.0); Mean Corpuscular HGB CONC 31.5 g/dL (32.0-36.0); Mean Corpuscular Hemoglobin 29.4 pg (27.0-31.0); Mean Corpuscular Volume 93.4 fL (78.0-98.0); Mean Platelet Volume 7.2 fL (7.4-10.4); Platelet Count 226 thou/uL (130-400); RBC Distribution Width 17.2 % (11.5-14.5); Red Blood Cell (RBC) Count 2.03 mill/uL (4.70-6.10); White Blood Cell (WBC) Count 5.5 thou/uL (4.8-10.8)
[2018-12-20 17:46] LABS: INR-International Normal Ratio 1.4; PTT 42.5 SEC (22.9-36.1); Prothrombin Time 17.3 SEC (12.0-14.7)
[2018-12-20 17:58] LABS: ALT (SGPT) Less than 7 U/L (8-55); AST (SGOT) 13 U/L (5-34); Albumin 2.7 g/dL (3.5-5.0); Alkaline Phosphatase 92 U/L (40-150); Anion Gap 14 mmol/L (10-20); BUN (Urea Nitrogen) 55 mg/dL (8.4-25.7); Bilirubin, Total 0.3 mg/dL (0.2-1.2); Calc. Creatinine Clearance 0 mL/min (70-130); Carbon Dioxide 16 mmol/L (22-29); Chloride 107 mmol/L (98-107); Estimated GFR-MDRD 9; Globulin 5.1 g/dL (2.4-3.5); Glucose 114 mg/dL (70-105); Potassium 5.1 mmol/L (3.5-5.1); Protein, Total 7.8 g/dL (6.0-8.3); Sodium 132 mmol/L (136-145)
--- NOTE | 2018-12-20 18:09 | RAD ---
Exam: XR Ankle Lt 3 View STANDARD HISTORY: Left ankle swelling. COMPARISON: Views left foot on 11/11/2018 FINDINGS: There is diffuse osteopenia. Neuropathic type changes of the hindfoot are again seen with collapse of the talus as well as the calcaneus. These findings have progressed when compared to the views of the foot on 11/11/2018. The joint space involving the tibiotalar joint as well as subtalar joint are o bliterated with no normal joint space seen. Amorphous appearing calcifications are now seen about the ankle. There are ostial lytic changes involving the distal fibula as well as the distal and anter ior aspect of the tibia. Prominent subcutaneous soft tissue swelling is seen about the ankle. Vascular calcifications are seen. IMPRESSION: 1. Findings which are most likely attributable to further progression in neuropathic-type changes inv olving the left hindfoot. There is now greater degree of collapse of the talus as well as the calcaneus with obliteration of tibiotalar and subtalar joint spaces. There is now amorphous type calc ifications and diffuse soft tissue swelling about the ankle. While findings are again thought to be related to progression in neuropathic type changes, osteomyelitis cannot be entirely excluded based o n this exam.
--- NOTE | 2018-12-20 18:32 | RAD ---
PORTABLE AP CHEST X-RAY 12/20/18 HISTORY: Fluid overload. COMPARISON: 11/13/18. FINDINGS: Tunneled right internal jugular vein hemodialysis catheter remains in place. Patchy parenchymal engle es at the right lung base have resolved with only minimal linear densities now present probably relat ed to atelectasis. Lungs are otherwise clear. Cardiac silhouette and pulmonary vasculature are withi n normal limits for the portable technique of the study. There has been no other interval change fro m the prior exam. IMPRESSION: No acute cardiopulmonary process. POS: DULCE MARIA
--- NOTE | 2018-12-20 22:42 | PDOC.FPRHP ---
- History of Present Illness Chief Complaint: low blood count per HD center History of Present Illness: The patient is a 58YOM with a PMH significant for ESRD on HD, DMII, HTN, and chronic Hepatitis C with poor medical compliance and follow-up who presented to the ED per the recommendations of his HD center who called to inform him that "there was something with his blood" and that he needed to go to the ED. The patient reports that he feels well or at his baseline but was last dialyzed on Tuesday. He states he has issues being compliant with his dialysis 2/2 chronic diarrhea that has been ongoing for years and states that he was actually unable to even finish his session on Tuesday 2/2 diarrhea. The patient denies any N/V, fever/chills, melena or hematochezia. He also denies any chest pain, SOB, or abdominal pain. However, he does endorse B/L LE numbness and pain in his ankles and knees from arthritis and states that his LLE/ankle has been swollen chronically but has enlarged slightly more over the last week. ED Course: 2U PRBCs & HD - Allergies/Adverse Reactions Allergies Allergy/AdvReac Type Severity Reaction Status Date / Time No Known Drug Allergies Allergy Verified 08/02/18 16:15 - Home Medications Medication Instructions Recorded Confirmed Type Loperamide HCl [Imodium A-D] 2 mg PO PRN PRN 11/12/18 11/12/18 History Acetaminophen [Tylenol Extra 500 mg PO Q6H PRN tab 11/17/18 Rx Strength] Amlodipine [Norvasc] 5 mg PO DAILY #30 tab 11/17/18 Rx Saccharomyces boulardii [Florastor] 250 mg PO DAILY #20 cap 11/17/18 Rx Vancomycin HCl 1 gm IVPB WILLCALL bag 11/17/18 Rx traMADol HCl [Ultram] 50 mg PO Q6H PRN tab 11/17/18 Rx - History PMHx: ESRD on HD, DMII, HTN, HLD, h/o endocarditis, BPH, chronic hep C, chronic diarrhea, arthritis PSHx: RUE amputation 2/2 gangrenous staph infection, dialysis access placement FHx: DMII & HTN Social: Smoked 1 cig/day x 42 years and drinks 1-2 beers/week. Last used cocaine 10 months ago. Snorts it. No IVDU or other drug use. - Vital signs BP: 155/45 HR: 79 RR: 18 Tmax: 98.5F Pox: 100% on RA Wt: 49.9kg - Physical Exam Constitutional: NAD, awake, alert and oriented, other (cachectic appearing with poor hygeine) HEENT: normocephalic and atraumatic, conjunctiva clear, grossly normal vision, grossly normal hearing, MMM Neck: supple, FROM Heart: RRR, normal S1/S2, no murmurs/rubs/gallops, other (pulses difficult to palpate, jayson in LLE) Lungs: CTAB, no respiratory distress, good air movement, no rales/rhonchi, no wheezing, no retractions Abdomen: soft, non-tender, bowel sounds present Musculoskeletal: ROM grossly normal, other (amputated RUE w/ significant swelling from L foot up to L knee) Neurological: no focal deficit, CN II-XII intact (grossly), other (decreased sensation in B/L LEs) Skin: other (stage 2 ulcer at base of left heel with significant edema overlying medial left ankle) Heme/Lymphatic: no unusual bruising or bleeding, no purpura, no petechia Psychiatric: normal mood and affect, other (poor recent and remote memory) FMR H&P: Results - Labs Result Diagrams: 12/20/18 17:29 12/20/18 17:28 Lab results: WBC 5.5 thou/uL (4.8-10.8) 12/20/18 17: Hgb 6.0 g/dL (14.0-18.0) L 12/20/18 17:29 Hct 19.0 % (42.0-52.0) L 12/20/18 17:29 MCV 93.4 fL (78.0-98.0) 12/20/18 17:29 Plt Count 226 thou/uL (130-400) 12/20/18 17: Neutrophils % 59.6 % (42.0-75.0) 12/20/18 17:29 Sodium 132 mmol/L (136-145) L 12/20/18 17:28 Potassium 5.1 mmol/L (3.5-5.1) 12/20/18 17: Chloride 107 mmol/L (98-107) 12/20/18 17:28 Carbon Dioxide 16 mmol/L (22-29) L 12/20/18 17:28 BUN 55 mg/dL (8.4-25.7) H 12/20/18 17:28 Creatinine 6.20 mg/dL (0.7-1.3) H 12/20/18 17:28 Glucose 114 mg/dL (70-105) H 12/20/18 17:28 Calcium 8.0 mg/dL (7.8-10.44) 12/20/18 17:28 Total Bilirubin 0.3 mg/dL (0.2-1.2) 12/20/18 17:28 AST 13 U/L (5-34) 12/20/18 17:28 ALT Less than 7 U/L (8-55) L 12/20/18 17:28 Alkaline Phosphatase 92 U/L (40-150) 12/20/18 17:28 Serum Total Protein 7.8 g/dL (6.0-8.3) 12/20/18 17:28 Albumin 2.7 g/dL (3.5-5.0) L 12/20/18 17:28 - Radiology Interpretation Chest x-ray Status: report reviewed by me (no acute process) Other Status: report reviewed by me (L ankle x-ray: chronic neuropathic type changes but cannot r/o osteo) FMR H&P: A/P - Problem List (1) ESRD (end stage renal disease) on dialysis Current Visit: Yes Status: Acute Code(s): N18.6 - END STAGE RENAL DISEASE; Z99.2 - DEPENDENCE ON RENAL DIALYSIS (2) BPH (benign prostatic hyperplasia) Current Visit: Yes Status: Acute Code(s): N40.0 - BENIGN PROSTATIC HYPERPLASIA WITHOUT LOWER URINRY TRACT SYMP (3) History of endocarditis in adulthood Current Visit: Yes Status: Acute Code(s): Z86.79 - PERSONAL HISTORY OF OTHER DISEASES OF THE CIRCULATORY SYSTEM (4) Chronic diarrhea Current Visit: Yes Status: Acute Code(s): K52.9 - NONINFECTIVE GASTROENTERITIS AND COLITIS, UNSPECIFIED (5) Normochromic anemia Current Visit: Yes Status: Acute Code(s): D64.9 - ANEMIA, UNSPECIFIED (6) Chronic ulcer of left heel Current Visit: Yes Status: Acute Code(s): L97.429 - NON-PRS CHRONIC ULCER OF LEFT HEEL AND MIDFOOT W UNSP SEVERT (7) Diabetes mellitus type 2 in nonobese Current Visit: No Status: Chronic Code(s): E11.9 - TYPE 2 DIABETES MELLITUS WITHOUT COMPLICATIONS (8) Hepatitis C Current Visit: No Status: Chronic Code(s): B19.20 - UNSPECIFIED VIRAL HEPATITIS C WITHOUT HEPATIC COMA (9) History of amputation of right arm above elbow Current Visit: No Status: Chronic Code(s): Z89.221 - ACQUIRED ABSENCE OF RIGHT UPPER LIMB ABOVE ELBOW (10) Hypertension Current Visit: No Status: Chronic Code(s): I10 - ESSENTIAL (PRIMARY) HYPERTENSION (11) Malnutrition of moderate degree Current Visit: No Status: Chronic Code(s): E44.0 - MODERATE PROTEIN-CALORIE MALNUTRITION (12) Tobacco abuse Current Visit: No Status: Chronic Code(s): Z72.0 - TOBACCO USE - Plan 58YOM with a PMH significant for ESRD on HD, DMII, HTN, and poor medical compliance who was instructed to go to the ED for evaluation after it was ntoed that his Hgb was 6.0 at HD today. Normocytic anemia: - Hgb of 6.0 on presentation but MCV WNLs. s/p 2U PRBCs in the ER per Nephrology. Most likely 2/2 ESRD as it was also reported that the patient missed his last AUTUMN epogen shot. However, will order iron studies to r/o GUERRERO. Will recheck H/H in the AM. Suspected osteomyelitis of L foot: - LLE extremely swollen on exam and x-ray could not r/o osteo. WBC WNLs and no fever which is areassuring but will order blood cultures & a CRP and get an MRI to rule this out. Will consider consulting ID in the AM as Dr. Natarajan has previously seen this patient and he was instructed to follow-up with him after his last d/c but did not. Per last dc summary was supposed to be getting vancomycin with HD for 2 weeks s/p d/c in early November but unsure if patient was adequately treated since he has such poor follow-up to care. - Will hold off on abx pending further imaging and labwork results. ESRD on HD: - Nephrology, Dr. Fuchs consulted in the ED. Patient also dialyzed in the ED. Appreciate recs. HTN: - BP elevated but patient not on any meds at home. Will treat PRN. DMII: - Not on any home meds. Will order an A1c if one not recently done & start on mild SSI for now and AUTUMN ACHS accuchecks. HLD: - Will check a FLP if one not done recently and treat PRN given h/o DM chronic diarrhea: - Patient reports this is a chronic issue he has been dealing with for >10 years. Will continue home loperamide. Chronic Hep C: - Patient is aware of this but has not been treated. Will encourage outpatient treatment FMR H&P: Upper Level - Pertinent history 58HM presenting to ED for lab abnormalities found in dialysis today. PMH significant for ESRD on HD, hep C, DMII that he takes no medication for, and RUE amputation from extensive staph infection. Patient was discharged from the hospital 31 days ago for hyperkalemia 2/2 missing HD. At that time he also had a left foot cellulitis and abscess that was I&D'd and treated with antibiotics. He was also found to be bacteremic, but did not comply with Vancomycin regimen. He was notified of low H/H by dialysis center and advised to go to ED. He admits to feeling fairly normal, but is occasionally tired. He is undergoing dialysis in ED. He is often noncompliant with HD regimen due to chronic diarrhea. He reports his ankle has been swollen for months and the pain level is minimal. - Pertinent findings 165/83 mmHg 71 bpm 17 breaths/min 97.9F 99% Gen: no acute distress; very cachectic CV: RRR; no murmurs Pulm: CTA-B Abd: soft; non tender Ext: swelling to medial ankle with ulceration seen on L heel; warm and painful to touch WBC: 5.5 H/H: 01/03 Na: 132 L foot XR: concerning for osteomyelitis - Plan Date/Time: 12/20/18 9973 I, Mack Reed, have evaluated this patient and agree with findings/plan as outlined by sports intern resident. Pertinent changes/additions are listed here. Asymptomatic anemia: patient receiving 2u of PRBC with dialysis. Nephrology has been consulted from the ED and is overseeing dialysis. Patient appears very cachectic. Chart review shows negative HIV screen in July. Indices show a normocytic anemia, likely 2/2 AoCD. He is non compliant with epogen shots. Suspected L foot osteomyelitis: ID consulted from ED. Procalcitonin and ESR/CRP ordered. Will confirm infection with MRI before starting abx, given his lack of fever and leukocytosis. He will likely need a GS consult for another I&D. Wound care needed. Addendum - Attending - Attending Attestation Date/Time: 12/21/18 0028 I personally evaluated the patient and discussed the management with Drs. Cervantes /Derek I agree with the History, Examination, Assessment and Plan documented above with any addition or exceptions noted below. 58 yo noncompliant diabetic with ESRD was notified of low H/H and directed to to ER for dialysis and transfusion 2 units PRBCs. Patient has been on vancomycin post HD for enteroccoccus bacteremia left heel and ankle markedly swollen and plain film suspicious for osteomyelitis. recent placement HD permanent access left arm per Dr Kahn still maturing known diabetic retinopathy s/p right arm upper humerus amputation 2006 s/p LLE I&D fasciotomy for abscess history of tobacco, alcohol use and cocaine use denies recent or excessive use Social 3 children Anemia assumed chronic disease w/u will be instituted and transfused consider UDS R/o Osteomyelitis left heel /foot, blood culture, CRP, MRI and ID consultation prn note already on above mentioned Vancomycin per Dr Natarajan iv access sites do not appear infected
[2018-12-20 23:54] LABS: HBSAg Index 0.74 S/CO (0-0.99); Hep B Surf Ag Non-Reactive S/CO (NonReactive)
[2018-12-21] MEDS ORDERED: HumaLOG 300 UNITS/3 ML VIAL SC PRN ×2 (00:13→20:57)
[2018-12-21] MEDS ORDERED: Dextrose 50% Abboject 50 ML SYRINGE SLOW IVP PRN (00:13)
[2018-12-21] MEDS ORDERED: Ondansetron ODT 4 MG TAB PO PRN (00:13)
[2018-12-21] MEDS ORDERED: Dextrose 5% in Water 1,000 ML IV PRN (00:13)
[2018-12-21] MEDS ORDERED: Acetaminophen 325 MG TAB PO PRN (00:13)
[2018-12-21] MEDS ORDERED: Loperamide HCl 2 MG CAP PO PRN (00:13)
[2018-12-21 00:27] VITALS: BMI 15.3
[2018-12-21] MEDS ORDERED: Sodium Chloride 0.9% 100 ML BAG IVPB PRN (00:30)
[2018-12-21] MEDS ORDERED: Heparin 10,000 UNITS/ 10 ML VIAL CATH PRN (00:30)
[2018-12-21 00:36] LABS: CRP (Inflammatory) 13.39 mg/dL (= or < 0.5)
[2018-12-21] MEDS: Loperamide HCl 2 MG CAP PO PRN (01:03)
--- NOTE | 2018-12-21 06:09 | PDOC.FM ---
- Subjective Subjective: NAEO. labs still pending b/c needs HD nurse to draw. Denies fevers, chills. No fatigue or weakness. Still having some loose stools. No hematochezia or melena - Objective Vital Signs & Weight: Vital Signs (12 hours) Temp Pulse Resp BP Pulse Ox 12/21/18 03:00 98.3 F 76 16 122/53 L 100 12/21/18 00:25 97.6 F 78 16 115/64 100 Weight Weight 45.858 kg Result Diagrams: 12/20/18 17:29 12/20/18 17:28 Phys Exam - Physical Examination Constitutional: NAD cachectic appearing Respiratory: no wheezing, clear to auscultation bilateral Cardiovascular: RRR, no significant murmur Gastrointestinal: soft right arm amputation, left ankle swelling with wounds, no purulence Neurological: non-focal Psychiatric: A&O x 3 Dx/Plan (1) Anemia Code(s): D64.9 - ANEMIA, UNSPECIFIED Status: Acute (2) Chronic diarrhea Code(s): K52.9 - NONINFECTIVE GASTROENTERITIS AND COLITIS, UNSPECIFIED Status : Acute (3) Chronic ulcer of left heel Code(s): L97.429 - NON-PRS CHRONIC ULCER OF LEFT HEEL AND MIDFOOT W UNSP SEVERT Status: Acute (4) ESRD (end stage renal disease) on dialysis Code(s): N18.6 - END STAGE RENAL DISEASE; Z99.2 - DEPENDENCE ON RENAL DIALYSIS Status: Acute (5) Diabetes mellitus type 2 in nonobese Code(s): E11.9 - TYPE 2 DIABETES MELLITUS WITHOUT COMPLICATIONS Status: Chronic (6) Hepatitis C Code(s): B19.20 - UNSPECIFIED VIRAL HEPATITIS C WITHOUT HEPATIC COMA Status: Chronic (7) History of amputation of right arm above elbow Code(s): Z89.221 - ACQUIRED ABSENCE OF RIGHT UPPER LIMB ABOVE ELBOW Status: Chronic (8) Hypertension Code(s): I10 - ESSENTIAL (PRIMARY) HYPERTENSION Status: Chronic (9) Malnutrition of moderate degree Code(s): E44.0 - MODERATE PROTEIN-CALORIE MALNUTRITION Status: Chronic - Plan Plan: 58YOM with a PMH significant for ESRD on HD, DMII, HTN, and poor medical compliance who was instructed to go to the ED for evaluation after it was ntoed that his Hgb was 6.0 at HD today. #Normocytic anemia - Hgb of 6.0 on presentation but MCV WNLs. s/p 2U PRBCs in the ER per Nephrology. Most likely 2/2 ESRD as it was also reported that the patient missed his last AUTUMN epogen shot -Iron studies pending -Pending labs, notified HD nurse needs to draw them and that cannot be done until this afternoon. Patient vitals stable so okay to wait. #Suspected osteomyelitis of L foot - LLE extremely swollen on exam and x-ray could not r/o osteo. - CRP elevated, WBC WNLs and no fever - Pending MRI - Pending blood cultures, patient stable will wait on Vanc to give with HD today patient cannot have blood cultures drawn. #History of enterococcus bacteremia -Unsure it patient was adequately treated due to noncompliance with HD -Pending blood cultures then start empiric vancomycin #ESRD on HD - Nephrology, Dr. Fuchs consulted in the ED. Patient also dialyzed in the ED. Appreciate recs. #HTN - BP elevated but patient not on any meds at home. Will treat PRN. #DMII - Not on any home meds. Will order an A1c - mild SSI for now and AUTUMN ACHS accuchecks. #HLD - Will check a FLP if one not done recently and treat PRN given h/o DM #chronic diarrhea - Patient reports this is a chronic issue he has been dealing with for >10 years. - C diff studies pending #Chronic Hep C - Patient is aware of this but has not been treated. Will encourage outpatient treatment dvt ppx: heparin
[2018-12-21] MEDS: Heparin 5,000 UNITS/ML VIAL SC SCH ×3 (09:50→21:01)
[2018-12-21] MEDS ORDERED: Vancomycin HCl 1 GM in Premix Bag 1 BAG IVPB SCH (11:00)
[2018-12-21] MEDS ORDERED: HOLD VANCOMYCIN FOR LEVEL >20 FS SCH (11:00)
[2018-12-21] MEDS ORDERED: Vancomycin Sliding Scale 1 EACH FS ONE (11:00)
[2018-12-21] MEDS ORDERED: Vancomycin HCl 250 MG in Sodium Chloride 0.9% 100 ML IVPB SCH (11:00)
[2018-12-21] MEDS ORDERED: Vancomycin HCl 750 MG in Sodium Chloride 0.9% 250 ML 250 ML IVPB SCH (11:00)
--- NOTE | 2018-12-21 11:35 | CON ---
DATE OF CONSULTATION: 12/20/2018 TIME SEEN: 8 p.m. REASON FOR CONSULTATION: Anemia and hyperkalemia. HISTORY OF PRESENT ILLNESS: This is a very noncompliant 58-year-old gentleman who missed dialysis, presented to the hospital with a hemoglobin of 6, so we were consulted for transfusion as well as management of ESRD. PAST MEDICAL HISTORY: Significant for hypertension, anemia, ESRD, right arm amputation, history of noncompliance, history of end stage kidney disease, history of hepatitis C, history of chronic diarrhea, diabetes mellitus, endocarditis, history of gangrenous staph infection, and dialysis access placement. FAMILY HISTORY: Negative for ESRD. ALLERGIES: REVIEWED. SOCIAL HISTORY: No alcohol or drug use. MEDICATIONS: Hospital medication list reviewed. PHYSICAL EXAMINATION: See above. GENERAL: The patient is awake and alert, in no acute distress. VITAL SIGNS: Afebrile, pulse 79, breathing 16, blood pressure 155/45. GENERAL APPEARANCE AND MENTAL STATUS: Fair. HEAD/NECK: Normocephalic. Atraumatic. EYES: EOMI. No deformity. EARS: Clear. No ulcers. NOSE: Intact. No lesions. MOUTH: Clear. No discharge. THROAT: Clear. No exudate. LUNGS: Clear. No crackles. CARDIAC: S1, S2. No rub. ABDOMEN: Benign. Bowel sounds positive. GENITALIA/RECTUM: Moffett absent. BACK/EXTREMITIES: Edema 0+. NEUROLOGICAL: Alert and motor intact. SKIN: LYMPHATICS: LABORATORY DATA: Labs show hemoglobin 6. Potassium 5.1 ASSESSMENT AND PLAN: 1. Stage 6 chronic kidney disease. Plan, dialysis. 2. Hypertension, stable. 3. Anemia. Give transfusion 2 units. 4. Metabolic acidosis. Plan, dialysis. Medication based on GFR appropriate. Noncompliance is a major issue. Job ID: [id number]
[2018-12-21] MEDS ORDERED: Vancomycin HCl 1.25 GM in Sodium Chloride 0.9% 250 ML 250 ML IVPB SCH (12:00)
[2018-12-21] MEDS ORDERED: Ferrous Sulfate 325 MG TAB PO SCH (12:15)
--- NOTE | 2018-12-21 12:50 | PRG ---
DATE OF SERVICE: 12/21/2018 SUBJECTIVE: A 58-year-old male, being seen for end-stage kidney disease. The patient denies any nausea, vomiting, or chest pain. OBJECTIVE: CONSTITUTIONAL: The patient is awake and alert. VITAL SIGNS: Pulse 74, breathing 16, and blood pressure 122/53. GENERAL APPEARANCE AND MENTAL STATUS: Fair. HEAD/NECK: Normocephalic. Atraumatic. EYES: EOMI. No deformity. EARS: Clear. No ulcers. NOSE: Intact. No lesions. MOUTH: Clear. No discharge. THROAT: Clear. No exudate. LUNGS: Clear. No crackles. CARDIAC: S1, S2. No rub. ABDOMEN: Benign. Bowel sounds positive. GENITALIA/RECTUM: Moffett absent. BACK/EXTREMITIES: Edema 0+. NEUROLOGICAL: Alert and motor intact. SKIN: LYMPHATICS: LABORATORY DATA: Labs show hemoglobin is pending. ASSESSMENT AND PLAN: 1. Stage 6 chronic kidney disease, plan dialysis . 2. Hypertension, stable. 3. Anemia, stable. 4. Medication based on GFR appropriate. Job ID: [id number]
--- NOTE | 2018-12-21 14:00 | MRI ---
LEFT LOWER EXTREMITY MRI WITHOUT IV CONTRAST: HISTORY: Increased pain and swelling to left ankle. Clinical concern for osteomyelitis. COMPARISON: Left ankle, 12/20/2018; left foot, 11/11/2018. FINDINGS: There is very severe deformity involving the hindfoot with extensive pathologic fractures involving t he talus, calcaneus, distal fibula, and distal tibia, particularly anteriorly which shows very severe worsening when compared to a prior 11/11/2018 study but certainly could be consistent with very sever e rapid progressive neuropathic changes. There is a fairly large amount of ankle joint fluid and per iarticular fluid posteriorly, medially, laterally, and anteriorly, as well as fairly extensive fluid within the flexor and peroneus tendon sheaths, evidence for tenosynovitis. There is extensive abnorm al marrow signal within the calcaneus, talus, distal fibula, and anterior tibia as well as the very s evere destructive changes. Certainly, rapid progression of neuropathic joint changes is evident. Gi danielle this rapid progression as well as the articular and periarticular fluid, however, the possibility of coexistent infection certainly cannot be excluded from this study. If that remains a strong clin ical concern, followup nuclear medicine white blood cell scan might be of benefit. IMPRESSION: Very severe destructive changes of the calcaneus, talus, distal tibia, and distal fibula, all showing very marked worsening when compared to 11/11/2018 plain film certainly secondary to a component of se tina worsening neuropathic changes. Given the marked worsening as well as the fairly extensive artic ular and periarticular fluid, coexistent osteomyelitis cannot be excluded. Consider followup nuclear medicine white blood cell scan for further assessment. Fairly extensive tenosynovitis changes, nons pecific, in the peroneus and flexor tendons. POS: OFF
[2018-12-21] MEDS ORDERED: Heparin 10,000 UNITS/ 10 ML VIAL ONE ×2 (15:00)
[2018-12-21 15:05] LABS: #Eosinphils 0.3 thou/uL (0.0-0.7); #Lymphocytes 1.3 thou/uL (1.20-3.40); #Monocytes 0.6 thou/uL (0.11-0.59); #Neutrophils 3.1 thou/uL (1.40-6.50); %Basophils 0.2 % (0.0-1.0); %Eosinophils 5.2 % (0.0-10.0); %Lymphocytes 24.3 % (21.0-51.0); %Neutrophils 59.3 % (42.0-75.0); Hemoglobin 8.6 g/dL (14.0-18.0); Mean Corpuscular HGB CONC 32.9 g/dL (32.0-36.0); Mean Corpuscular Hemoglobin 29.5 pg (27.0-31.0); Mean Corpuscular Volume 89.7 fL (78.0-98.0); Mean Platelet Volume 7.1 fL (7.4-10.4); Platelet Count 198 thou/uL (130-400); RBC Distribution Width 16.8 % (11.5-14.5); Red Blood Cell (RBC) Count 2.91 mill/uL (4.70-6.10); White Blood Cell (WBC) Count 5.2 thou/uL (4.8-10.8)
[2018-12-21 15:17] LABS: Vancomycin, Random 2.5 ug/mL (See Comment)
[2018-12-21 15:18] LABS: Anion Gap 13 mmol/L (10-20); BUN (Urea Nitrogen) 21 mg/dL (8.4-25.7); Calc. Creatinine Clearance 16 mL/min (70-130); Calcium 7.8 mg/dL (7.8-10.44); Carbon Dioxide 25 mmol/L (22-29); Chloride 98 mmol/L (98-107); Estimated GFR-MDRD 19; Glucose 106 mg/dL (70-105); Sodium 132 mmol/L (136-145)
--- NOTE | 2018-12-21 17:46 | CON ---
DATE OF CONSULTATION: 12/21/2018 REASON FOR CONSULTATION: Left foot swelling, concern with osteomyelitis. HISTORY OF PRESENT ILLNESS: This is a 58-year-old with history of type 2 diabetes, retinopathy and neuropathy, and end-stage renal disease as well as untreated chronic hepatitis C infection, on hemodialysis through a tunneled catheter in the right IJ position, and prior amputation of the right upper extremity following gangrenous changes in the past, who developed some changes in the blood test that were submitted recently, specifically a low hemoglobin. He was sent to the hospital here and they found a swollen left ankle and has been worked up for osteomyelitis. 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 Imodium seems to help contain the diarrhea consistently. No headaches. 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 No sore throat, odynophagia or dysphagia. No vomiting. No dyspnea or chest pain. No cough or sputum production. No abdominal pain. He still has urinary output, which is [id number], but no dysuria, no bleeding. He does not have feeling in the lower extremities. His chronic swelling of the left ankle has worsened over the past few months. In October, he was admitted with Enterococcus faecalis bacteremia, ascribed to catheter colonization. Catheter was removed and he received vancomycin for a period of time. PAST MEDICAL HISTORY: End-stage renal disease; type 2 diabetes; neuropathy; retinopathy; chronic hep C, which has been not been treated yet; prior amputation of right upper extremity following necrotizing infection; Charcot arthropathy of left ankle. SOCIAL HISTORY: He smokes every other day and drinks occasionally. Lives alone , has a lot of support, sometimes does not have transportation for dialysis. He used to drink more heavily in the past. FAMILY HISTORY: Type 2 diabetes. ALLERGIES: NONE. CURRENT MEDICATIONS: 1. Tylenol. 2. Dextrose. 3. Glucagon. 4. Heparin. 5. Ondansetron. 6. Loperamide. PHYSICAL EXAMINATION: VITAL SIGNS: Vital signs are normal. SKIN: Shows a shallow abrasion of the tip of the right first toe and there is a round 1 cm shallow ulcer at the medial aspect of the left heel area with a red base. There is a much smaller one in the lateral aspect of the left mid foot region, which appears to be healing compared with previous evaluations. The patient has a tunneled catheter in the right IJ position with normal-appearing exit site. HEENT: No lymphadenopathy. Temporal wasting noted overall wasting syndrome. Ocular movements conjugate. Sclerae white. Pupils are equal. Conjunctivae normal. Nasal passages patent. Oral cavity, no mi'kmaq teeth remaining, no oral mucosal lesions noted. NECK: Supple. No jugular vein distention or carotid bruits. No thyromegaly. LUNGS: Symmetric clear breath sounds. HEART: S1 and S2, regular rate. No S3 or S4. ABDOMEN: Soft, not distended or tender. No ascites. No bladder distention. No organomegaly. EXTREMITIES: Pulses are 2+ in the right popliteal and I could not detect a left popliteal. Dorsalis pedis is very strong on the right side and again undetectable on the left. He has a swelling in the left ankle, but no tenderness, but he does have severe neuropathy. Cap refills are normal. He is able to move extremities on command. He is oriented and follows commands. Speech is normal. No delusional thinking process. Recollection is normal. LABORATORY DATA: White cell count 5.5, hemoglobin 6, platelets 226, and MCV 93. Normal differential. INR 1.4. Sodium 132 and creatinine 6.2. Iron 20 and ferritin 385. Transaminases normal. CRP 13. Albumin 2.7. His previous hepatitis RNA PCR was 5.4 log. The ultra quant was 1,000,210. Genotype 3 was ordered. ASSESSMENT: Type 2 diabetes; end-stage renal disease, on hemodialysis with tunneled catheter; recent episode of Enterococcus faecalis bacteremia secondary to line colonization, which seems to have resolved; left ankle Charcot arthropathy versus osteomyelitis. DISCUSSION: Charcot is the more likely scenario here. MRIs are difficult to interpret in the presence of Charcot and it is hard to distinguish from findings associated with osteomyelitis. A tagged WBC study compared with triple phase scan might be more helpful in that regard. The severe anemia is probably multifactorial, cofactor deficiency plus erythropoietin deficiency. He may have anemia of inflammatory condition as well to be determined. The other possibility is endocarditis. Blood cultures are pending. If that turns out positive, then we will have to consider transesophageal echocardiogram. The previous echo at the end of October was not particularly remarkable except for some hypokinesis. Job ID: [id number] [facility]
[2018-12-21] MEDS: Ferrous Sulfate 325 MG TAB PO SCH (18:22)
[2018-12-21] MEDS: cefTRIAXone\\ROCEPHIN 2 GM in Sodium Chloride 0.9% 100 ML IVPB SCH (18:23)
[2018-12-22] MEDS: Ferrous Sulfate 325 MG TAB PO SCH ×2 (07:58→17:08)
[2018-12-22] MEDS: Heparin 5,000 UNITS/ML VIAL SC SCH ×3 (07:59→21:15)
--- NOTE | 2018-12-22 09:26 | PDOC.FM ---
- Subjective Subjective: NAEO. Reprts feeling fine. NO issues - Objective Vital Signs & Weight: Vital Signs (12 hours) Temp Pulse Resp BP Pulse Ox 12/22/18 07:31 98.2 F 79 18 134/60 100 12/22/18 03:50 99.5 F 88 20 175/75 H 98 Weight Admit Weight 45.858 kg Weight 45.858 kg I&O: 12/21/18 12/22/18 12/23/18 06:59 06:59 06:59 Intake Total 600 1525 Output Total 300 Balance 600 1225 Result Diagrams: 12/21/18 14:50 12/21/18 14:50 Phys Exam - Physical Examination Constitutional: NAD cachectic appearing Respiratory: no wheezing, clear to auscultation bilateral Cardiovascular: RRR, no significant murmur Musculoskeletal: no edema right arm amputation, right toe purulence, no bone, left ankle swelling no erythema Psychiatric: normal affect Skin: cap refill <2 seconds Dx/Plan (1) Anemia Code(s): D64.9 - ANEMIA, UNSPECIFIED Status: Acute (2) Chronic diarrhea Code(s): K52.9 - NONINFECTIVE GASTROENTERITIS AND COLITIS, UNSPECIFIED Status : Acute (3) Chronic ulcer of left heel Code(s): L97.429 - NON-PRS CHRONIC ULCER OF LEFT HEEL AND MIDFOOT W UNSP SEVERT Status: Acute (4) ESRD (end stage renal disease) on dialysis Code(s): N18.6 - END STAGE RENAL DISEASE; Z99.2 - DEPENDENCE ON RENAL DIALYSIS Status: Acute (5) Diabetes mellitus type 2 in nonobese Code(s): E11.9 - TYPE 2 DIABETES MELLITUS WITHOUT COMPLICATIONS Status: Chronic (6) Hepatitis C Code(s): B19.20 - UNSPECIFIED VIRAL HEPATITIS C WITHOUT HEPATIC COMA Status: Chronic (7) History of amputation of right arm above elbow Code(s): Z89.221 - ACQUIRED ABSENCE OF RIGHT UPPER LIMB ABOVE ELBOW Status: Chronic (8) Hypertension Code(s): I10 - ESSENTIAL (PRIMARY) HYPERTENSION Status: Chronic (9) Malnutrition of moderate degree Code(s): E44.0 - MODERATE PROTEIN-CALORIE MALNUTRITION Status: Chronic - Plan Plan: 58YOM with a PMH significant for ESRD on HD, DMII, HTN, and poor medical compliance who was instructed to go to the ED for evaluation after it was ntoed that his Hgb was 6.0 at HD today. #Iron deficiency/Normocytic anemia -Hb improved to 8.6 -started PO iron #Suspected osteomyelitis of L foot - MRI indeterminate - continue empiric vanc - WBC tagged study #suspected right toe osteo -Xray #History of enterococcus bacteremia -Unsure it patient was adequately treated due to noncompliance with HD -Pending blood cultures then start empiric vancomycin - May need ARA, Dr. Natarajan on board #ESRD on HD - Nephrology, Dr. Fuchs consulted in the ED. Patient also dialyzed in the ED. Appreciate recs. #HTN - BP elevated but patient not on any meds at home. Will treat PRN. #DMII - Not on any home meds. Will order an A1c - mild SSI for now and AUTUMN ACHS accuchecks. #HLD - Will check a FLP if one not done recently and treat PRN given h/o DM #chronic diarrhea - Patient reports this is a chronic issue he has been dealing with for >10 years. - C diff studies pending #Chronic Hep C - Patient is aware of this but has not been treated. Will encourage outpatient treatment dvt ppx: heparin Addendum - Attending - Attending Attestation Date/Time: 12/22/18 [id number] I personally evaluated the patient and discussed the management with Dr. Navarrete. I agree with the History, Examination, Assessment and Plan documented above with any addition or exceptions noted below. 58 yo M with ESRD on HD here with anemia and concern for osteo in BL LE. Plan for tagged WBC scan today. Appreciate Dr. Natarajan and Femi's recommendations. Will continue empiric abx.
--- NOTE | 2018-12-22 10:33 | RAD ---
RIGHT FOOT 3 VIEWS: Date: 12/22/18 HISTORY: Concern for osteomyelitis. COMPARISON: 11/11/18 exam. FINDINGS: Vascular calcifications are noted. There is some erosive change involving the distal phalanx of the g reat toe suspicious for early osteomyelitis type change. Bones overall are demineralized. IMPRESSION: Findings concerning for developing osteomyelitis of the tuft of the distal phalanx of the great toe. POS: [facility]
--- NOTE | 2018-12-22 12:26 | PRG ---
DATE OF SERVICE: 12/22/2018 SUBJECTIVE: This is a 58-year-old gentleman, being seen for end-stage renal disease. The patient denied nausea, vomiting, or chest pain. OBJECTIVE: CONSTITUTIONAL: The patient is awake and alert. VITAL SIGNS: Afebrile. Pulse 79, breathing 16, blood pressure 134/60. GENERAL APPEARANCE AND MENTAL STATUS: Fair. HEAD/NECK: Normocephalic. Atraumatic. EYES: EOMI. No deformity. EARS: Clear. No ulcers. NOSE: Intact. No lesions. MOUTH: Clear. No discharge. THROAT: Clear. No exudate. LUNGS: Clear. No crackles. CARDIAC: S1, S2. No rub. ABDOMEN: Benign. Bowel sounds positive. GENITALIA/RECTUM: Moffett absent. BACK/EXTREMITIES: Edema 0+. NEUROLOGICAL: Alert and motor intact. SKIN: LYMPHATICS: ASSESSMENT AND RECOMMENDATION: 1. Stage 6 chronic kidney disease, stable. 2. Hypertension, stable. 3. Anemia, stable. Medication based on GFR, appropriate. Job ID: [id number]
[2018-12-22 14:22] LABS: #Eosinphils 0.3 thou/uL (0.0-0.7); #Lymphocytes 0.7 thou/uL (1.20-3.40); #Monocytes 0.4 thou/uL (0.11-0.59); #Neutrophils 3.2 thou/uL (1.40-6.50); %Basophils 0.1 % (0.0-1.0); %Eosinophils 7.1 % (0.0-10.0); %Lymphocytes 14.6 % (21.0-51.0); %Monocytes 8.7 % (0.0-10.0); %Neutrophils 69.5 % (42.0-75.0); Hemoglobin 8.8 g/dL (14.0-18.0); Mean Corpuscular HGB CONC 32.4 g/dL (32.0-36.0); Mean Corpuscular Hemoglobin 29.4 pg (27.0-31.0); Mean Corpuscular Volume 90.6 fL (78.0-98.0); Mean Platelet Volume 6.9 fL (7.4-10.4); Platelet Count 188 thou/uL (130-400); RBC Distribution Width 16.4 % (11.5-14.5); Red Blood Cell (RBC) Count 2.98 mill/uL (4.70-6.10); White Blood Cell (WBC) Count 4.6 thou/uL (4.8-10.8)
[2018-12-22 14:46] LABS: Anion Gap 13 mmol/L (10-20); BUN (Urea Nitrogen) 27 mg/dL (8.4-25.7); CRP (Inflammatory) 9.33 mg/dL (= or < 0.5); Calc. Creatinine Clearance 17 mL/min (70-130); Calcium 7.8 mg/dL (7.8-10.44); Carbon Dioxide 26 mmol/L (22-29); Chloride 96 mmol/L (98-107); Estimated GFR-MDRD 21; Glucose 146 mg/dL (70-105); Potassium 3.8 mmol/L (3.5-5.1); Sodium 131 mmol/L (136-145)
[2018-12-22] MEDS: Vancomycin HCl 500 MG in Sodium Chloride 0.9% 100 ML IVPB SCH (15:31)
[2018-12-22] MEDS: cefTRIAXone\\ROCEPHIN 2 GM in Sodium Chloride 0.9% 100 ML IVPB SCH (17:08)
--- NOTE | 2018-12-23 01:55 | CON ---
DATE OF CONSULTATION: HISTORY OF PRESENT ILLNESS: Manish Suero is a DNR patient. I have been asked by Family Practice to see him regarding his right great toe findings, in which x-ray suggests distal phalanx osteomyelitis. He has this granulating wound in the plantar aspect of distal right great toe. I have also been asked to see him regarding chronic bone changes. MRI and x-rays of left ankle revealing destructive changes in his talus, calcaneus, distal fibula, and anterior tibia. He has changes consistent with osteomyelitis. He has severe swelling around this area, and this is a chronic ongoing for 8 years the patient states. The patient has a superficial ulceration of his heel, small eschar without deep penetration. There is no fluctuance. The patient also has a left arm basilic vein fistula, which I placed on 11/16/2018. He has a right IJ cuffed tunneled dialysis catheter. The patient is ready to start access in his left arm fistula. We will indicate orders to the dialysis team to start doing so. We can eventually remove his hemodialysis catheter. If Dr. Natarajan thinks that if he needs IV access for prolonged intravenous antibiotics for osteomyelitis, this could be left in place. ALLERGIES: NONE. PAST MEDICAL HISTORY: End-stage renal disease, on maintenance dialysis on Tuesday, Tuesday, and Tuesday; BPH; history of endocarditis; history of chronic anemia; chronic ulcer, left heel; osteomyelitis, left ankle and possible osteomyelitis of distal phalanx, right foot, both without open communicating wounds; diabetes mellitus, type 2; hepatitis C; history of amputation of right arm above the elbow; hypertension; malnutrition; and continued tobacco abuse. PAST SURGICAL HISTORY: Right upper extremity amputation above the elbow for necrotizing fasciitis due to alcohol and drug abuse, right IJ cuffed tunneled dialysis catheter, left arm primary fistula in July, and subsequent basilic vein transposition fistula. MEDICATIONS: 1. Ceftriaxone. 2. Tylenol. 3. Vancomycin. HOME MEDICATIONS: 1. Imodium. 2. Acetaminophen. PHYSICAL EXAMINATION: VITAL SIGNS: Height 5 feet 8 inches, 101 pounds, 15 BMI. HEAD, EARS, EYES, NOSE, AND THROAT: Unremarkable. LUNGS: Clear to auscultation. CARDIAC: Regular rate and rhythm without murmur or gallop. ABDOMEN: Soft, nontender. EXTREMITIES: Right arm amputation. Left upper arm basilic vein transposition fistula wound is well healed. Good thrill and bruit. Palpable femoral and popliteal pulses bilaterally. Palpable pedal pulses. The patient has a wound over his plantar aspect of distal right great toe with granulation tissue. There was no communicating sinus to the phalanx. The patient has significant swelling of the left ankle. He has a heel decubitus, which is superficial, about 3 cm in diameter. There is no deep sinus. There is no fluctuance of the swelling of his ankle. ASSESSMENT AND PLAN: 1. Osteomyelitis radiologically, left ankle. No open wound communicated that I could appreciate. This is chronic for eight years. The only solution I have is a [id number] amputation. We will await Dr. Natarajan' opinion. Prolonged antibiotics may be worth a try but may not be helpful. If he needs long-term IV access, his hemodialysis catheter is a cuffed tunneled catheter and that could be used for that. 2. End-stage renal disease with a functioning basilic vein transposition fistula, ready for access. We will ask the dialysis team to start access in his left arm fistula and if they successfully do so, we can terminate usage of the right IJ cuffed tunneled dialysis catheter for dialysis access and if it is needed in few days a cuffed tunneled catheter at outpatient antibiotic administration, we can use this without having to place a Monet or other catheter. We will await Dr. Natarajan' input. Job ID: [id number]
--- NOTE | 2018-12-23 06:42 | PDOC.FM ---
- Subjective Subjective: NAEO. No fevers or issues. - Objective Vital Signs & Weight: Vital Signs (12 hours) Temp Pulse Resp BP Pulse Ox 12/23/18 00:00 98.9 F 86 20 136/51 L 100 12/22/18 19:36 98.5 F 82 20 128/69 100 Weight Admit Weight 45.858 kg Weight 45.858 kg I&O: 12/21/18 12/22/18 12/23/18 06:59 06:59 06:59 Intake Total 600 1525 Output Total 300 Balance 600 1225 Result Diagrams: 12/22/18 14:00 12/23/18 07:25 Phys Exam - Physical Examination Constitutional: NAD cachectic appearing Respiratory: no wheezing, clear to auscultation bilateral Cardiovascular: RRR, no significant murmur Gastrointestinal: soft right arm amputation, right great toe bandage, left ankle swollen, crepitus Neurological: non-focal, moves all 4 limbs Psychiatric: normal affect, A&O x 3 Dx/Plan (1) Anemia Code(s): D64.9 - ANEMIA, UNSPECIFIED Status: Acute (2) Chronic diarrhea Code(s): K52.9 - NONINFECTIVE GASTROENTERITIS AND COLITIS, UNSPECIFIED Status : Acute (3) Chronic ulcer of left heel Code(s): L97.429 - NON-PRS CHRONIC ULCER OF LEFT HEEL AND MIDFOOT W UNSP SEVERT Status: Acute (4) ESRD (end stage renal disease) on dialysis Code(s): N18.6 - END STAGE RENAL DISEASE; Z99.2 - DEPENDENCE ON RENAL DIALYSIS Status: Acute (5) Diabetes mellitus type 2 in nonobese Code(s): E11.9 - TYPE 2 DIABETES MELLITUS WITHOUT COMPLICATIONS Status: Chronic (6) Hepatitis C Code(s): B19.20 - UNSPECIFIED VIRAL HEPATITIS C WITHOUT HEPATIC COMA Status: Chronic (7) History of amputation of right arm above elbow Code(s): Z89.221 - ACQUIRED ABSENCE OF RIGHT UPPER LIMB ABOVE ELBOW Status: Chronic (8) Hypertension Code(s): I10 - ESSENTIAL (PRIMARY) HYPERTENSION Status: Chronic (9) Malnutrition of moderate degree Code(s): E44.0 - MODERATE PROTEIN-CALORIE MALNUTRITION Status: Chronic - Plan Plan: 58YOM with a PMH significant for ESRD on HD, DMII, HTN, and poor medical compliance admitted for anemia with Hb 6 #Suspected osteomyelitis of L foot - MRI indeterminate of left foot and Xray of great toe of right foot likely c/w w/ osteo - Elevated CRP, trending down - continue empiric vanc and rocephin - Blood cx, NGTD, afebrile, no WBC - WBC tagged study tuesday, Dr. Natarajan and Dr. Kahn on board, recs appreciated #Iron deficiency/Normocytic anemia -s/p 2 PRBC -Hb stable 8.8 -continue PO iron, continue EPO -continue to monitor, patient asx - FOBT to r/o occult GI bleeding #History of enterococcus bacteremia -Unsure it patient was adequately treated due to noncompliance with HD - May need ARA pending blood cultures which are NGTD thus far, Dr. Natarajan on board #ESRD on HD - Nephrology, Dr. Fuchs following, recs appreciated #HTN - BP elevated but patient not on any meds at home - will start on chronic antihypertensive #DMII, uncertain diagnosis - Not on any home meds. No hospital records of elevated A1c most recently 5.0 on this admission - mild SSI for now and AUTUMN ACHS accuchecks. #HLD - Pending FLP #chronic diarrhea - Patient reports this is a chronic issue he has been dealing with for >10 years. - C diff studies pending #Chronic Hep C - Patient is aware of this but has not been treated. Will encourage outpatient treatment dvt ppx: heparin 5000 units TID diet: renal, high protein PCP: none Dispo: Continue abx, pending WBC tagged study. Drs. Kahn & Delgado on board
[2018-12-23] MEDS: Ferrous Sulfate 325 MG TAB PO SCH ×2 (08:09→15:59)
[2018-12-23] MEDS: Heparin 5,000 UNITS/ML VIAL SC SCH ×3 (08:09→20:02)
[2018-12-23 08:11] LABS: Anion Gap 13 mmol/L (10-20); BUN (Urea Nitrogen) 21 mg/dL (8.4-25.7); Calc. Creatinine Clearance 19 mL/min (70-130); Carbon Dioxide 24 mmol/L (22-29); Chloride 99 mmol/L (98-107); Estimated GFR-MDRD 25; Glucose 116 mg/dL (70-105); Potassium 3.8 mmol/L (3.5-5.1); Sodium 132 mmol/L (136-145)
[2018-12-23 08:30] LABS: Cardiac Risk 2.6 (Less than 4.5)
[2018-12-23] MEDS ORDERED: Heparin 1,000 UNITS/ML VIAL ONE (09:54)
[2018-12-23] MEDS ORDERED: Docusate 100 MG CAP PO PRN (11:09)
[2018-12-23] MEDS ORDERED: Amlodipine 5 MG TAB PO SCH (11:15)
--- NOTE | 2018-12-23 11:34 | PRG ---
DATE OF SERVICE: 12/23/2018 SUBJECTIVE: This is a 58-year-old gentleman, being seen for end-stage renal disease. The patient denied nausea, vomiting, or chest pain. OBJECTIVE: CONSTITUTIONAL: The patient is awake and alert. VITAL SIGNS: Afebrile. Pulse 75, breathing 16, blood pressure 136/51. GENERAL APPEARANCE AND MENTAL STATUS: Fair. HEAD/NECK: Normocephalic. Atraumatic. EYES: EOMI. No deformity. EARS: Clear. No ulcers. NOSE: Intact. No lesions. MOUTH: Clear. No discharge. THROAT: Clear. No exudate. LUNGS: Clear. No crackles. CARDIAC: S1, S2. No rub. ABDOMEN: Benign. Bowel sounds positive. GENITALIA/RECTUM: Moffett absent. BACK/EXTREMITIES: Edema 0+. NEUROLOGICAL: Alert and motor intact. SKIN: LYMPHATICS: LABORATORY DATA: Reviewed. ASSESSMENT AND RECOMMENDATION: 1. Stage 6 chronic kidney disease, stable. 2. Hypertension, stable. 3. Anemia, stable. Medication based on GFR, appropriate. Job ID: [id number]
[2018-12-23] MEDS ORDERED: Heparin 10,000 UNITS/ 10 ML VIAL ONE (12:00)
[2018-12-23] MEDS: cefTRIAXone\\ROCEPHIN 2 GM in Sodium Chloride 0.9% 100 ML IVPB SCH (15:59)
[2018-12-23] MEDS ORDERED: Cefepime 1 GM in Sodium Chloride 0.9% 100 ML IVPB SCH (17:00)
[2018-12-24] MEDS ORDERED: Labetalol HCl 100 MG/20 ML VIAL SLOW IVP PRN (05:53)
--- NOTE | 2018-12-24 06:02 | PDOC.FM ---
- Subjective Subjective: NAEO. No fevers, chills. - Objective Vital Signs & Weight: Vital Signs (12 hours) Temp Pulse Resp BP Pulse Ox 12/23/18 20:00 98.0 F 94 16 153/79 H 100 Weight Admit Weight 45.858 kg Weight 45.858 kg I&O: 12/22/18 12/23/18 12/24/18 06:59 06:59 06:59 Intake Total 1525 Output Total 300 Balance 1225 Result Diagrams: 12/22/18 14:00 12/23/18 07:25 Phys Exam - Physical Examination Constitutional: NAD HEENT: moist MMs, sclera anicteric Respiratory: no wheezing, clear to auscultation bilateral Cardiovascular: RRR, no significant murmur Gastrointestinal: soft, non-tender right arm amputation, right great toe wound, left ankle swelling Neurological: non-focal Psychiatric: normal affect, A&O x 3 Dx/Plan (1) Anemia Code(s): D64.9 - ANEMIA, UNSPECIFIED Status: Acute (2) Chronic diarrhea Code(s): K52.9 - NONINFECTIVE GASTROENTERITIS AND COLITIS, UNSPECIFIED Status : Acute (3) Chronic ulcer of left heel Code(s): L97.429 - NON-PRS CHRONIC ULCER OF LEFT HEEL AND MIDFOOT W UNSP SEVERT Status: Acute (4) ESRD (end stage renal disease) on dialysis Code(s): N18.6 - END STAGE RENAL DISEASE; Z99.2 - DEPENDENCE ON RENAL DIALYSIS Status: Acute (5) Diabetes mellitus type 2 in nonobese Code(s): E11.9 - TYPE 2 DIABETES MELLITUS WITHOUT COMPLICATIONS Status: Chronic (6) Hepatitis C Code(s): B19.20 - UNSPECIFIED VIRAL HEPATITIS C WITHOUT HEPATIC COMA Status: Chronic (7) History of amputation of right arm above elbow Code(s): Z89.221 - ACQUIRED ABSENCE OF RIGHT UPPER LIMB ABOVE ELBOW Status: Chronic (8) Hypertension Code(s): I10 - ESSENTIAL (PRIMARY) HYPERTENSION Status: Chronic (9) Malnutrition of moderate degree Code(s): E44.0 - MODERATE PROTEIN-CALORIE MALNUTRITION Status: Chronic - Plan Plan: 58YOM with a PMH significant for ESRD on HD, DMII, HTN, and poor medical compliance admitted for anemia with Hb 6 #Suspected osteomyelitis of L foot - MRI indeterminate of left foot and Xray of great toe of right foot likely c/w w/ osteo - Elevated CRP, trending down - continue empiric vanc and cefepime - Blood cx, NGTD, afebrile, no WBC - WBC tagged study tuesday, Dr. Natarajan and Dr. Kahn on board, recs appreciated #Iron deficiency/Normocytic anemia -s/p 2 PRBC -Hb stable 8.8 -continue PO iron, continue EPO -continue to monitor, patient asx - FOBT to r/o occult GI bleeding #History of enterococcus bacteremia -Unsure it patient was adequately treated due to noncompliance with HD -Continue empiric Vanc - May need ARA pending blood cultures which are NGTD thus far, Dr. Natarajan on board #ESRD on HD - Nephrology, Dr. Fuchs following, recs appreciated #cHTN - BP elevated but patient not on any meds at home - amlodpine 2.5 mg, will cover with PRN antihypertensives for now #DMII, uncertain diagnosis - Not on any home meds. No hospital records of elevated A1c, most recently 5.0 on this admission - mild SSI for now and AUTUMN ACHS accuchecks. #HLD - Pending FLP #chronic diarrhea - Patient reports this is a chronic issue he has been dealing with for >10 years. - C diff studies pending #Chronic Hep C - Patient is aware of this but has not been treated. Will encourage outpatient treatment dvt ppx: heparin 5000 units TID diet: renal, high protein PCP: none Dispo: Continue empiric abx for osteo/hx of enterococcus bacteremia, pending WBC tagged study Monday 12/25. Drs. Kahn & Delgado on board
[2018-12-24] MEDS: Amlodipine 5 MG TAB PO SCH (08:19)
[2018-12-24] MEDS: Ferrous Sulfate 325 MG TAB PO SCH ×2 (08:20→16:39)
[2018-12-24] MEDS: Heparin 5,000 UNITS/ML VIAL SC SCH ×3 (08:20→20:44)
[2018-12-24 08:46] LABS: #Eosinphils 0.6 thou/uL (0.0-0.7); #Lymphocytes 1.6 thou/uL (1.20-3.40); #Monocytes 0.7 thou/uL (0.11-0.59); #Neutrophils 3.1 thou/uL (1.40-6.50); %Basophils 0.8 % (0.0-1.0); %Eosinophils 10.2 % (0.0-10.0); %Lymphocytes 25.8 % (21.0-51.0); %Monocytes 11.7 % (0.0-10.0); %Neutrophils 51.5 % (42.0-75.0); Hemoglobin 8.3 g/dL (14.0-18.0); Mean Corpuscular HGB CONC 31.5 g/dL (32.0-36.0); Mean Corpuscular Hemoglobin 29.1 pg (27.0-31.0); Mean Corpuscular Volume 92.5 fL (78.0-98.0); Mean Platelet Volume 7.3 fL (7.4-10.4); Platelet Count 159 thou/uL (130-400); RBC Distribution Width 16.7 % (11.5-14.5); Red Blood Cell (RBC) Count 2.86 mill/uL (4.70-6.10)
[2018-12-24] MEDS ORDERED: Amlodipine 5 MG TAB PO SCH (09:00)
[2018-12-24 09:07] LABS: Anion Gap 14 mmol/L (10-20); BUN (Urea Nitrogen) 31 mg/dL (8.4-25.7); Calc. Creatinine Clearance 15 mL/min (70-130); Calcium 8.2 mg/dL (7.8-10.44); Carbon Dioxide 22 mmol/L (22-29); Chloride 97 mmol/L (98-107); Estimated GFR-MDRD 18; Glucose 136 mg/dL (70-105); Potassium 3.6 mmol/L (3.5-5.1); Sodium 129 mmol/L (136-145)
--- NOTE | 2018-12-24 11:16 | PRG ---
DATE OF SERVICE: 12/24/2018 SUBJECTIVE: A 58-year-old gentleman being seen for end-stage kidney disease. The patient denies any nausea, vomiting, or chest pain. OBJECTIVE: CONSTITUTIONAL: On examination, the patient is awake and alert. VITAL SIGNS: Afebrile, pulse 94, breathing 16, and blood pressure 180/90. GENERAL APPEARANCE AND MENTAL STATUS: Fair. HEAD/NECK: Normocephalic. Atraumatic. EYES: EOMI. No deformity. EARS: Clear. No ulcers. NOSE: Intact. No lesions. MOUTH: Clear. No discharge. THROAT: Clear. No exudate. LUNGS: Clear. No crackles. CARDIAC: S1, S2. No rub. ABDOMEN: Benign. Bowel sounds positive. GENITALIA/RECTUM: Moffett absent. BACK/EXTREMITIES: Edema 0+. NEUROLOGICAL: Alert and motor intact. LABORATORY DATA: Reviewed. ASSESSMENT AND PLAN: 1. Stage 6 chronic kidney disease, plan dialysis. 2. Hypertension, stable. 3. Anemia, stable. 4. Medications based on glomerular filtration rate are appropriate. Job ID: [id number]
[2018-12-24] MEDS ORDERED: Heparin 10,000 UNITS/ 10 ML VIAL ONE ×2 (12:37→15:00)
[2018-12-24] MEDS: cefTRIAXone\\ROCEPHIN 2 GM in Sodium Chloride 0.9% 100 ML IVPB SCH (16:40)
[2018-12-24] MEDS: Loperamide HCl 2 MG CAP PO PRN (20:44)
--- NOTE | 2018-12-25 06:21 | PDOC.FM ---
- Subjective Subjective: NAEO. No complaints. Feels well. Getting dialysis - Objective Vital Signs & Weight: Vital Signs (12 hours) Temp Pulse Resp BP Pulse Ox 12/24/18 20:00 98.5 F 89 18 160/82 H 100 Weight Admit Weight 45.858 kg Weight 45.858 kg I&O: 12/23/18 12/24/18 12/25/18 06:59 06:59 06:59 Intake Total 500 750 Output Total 380 Balance 500 370 Result Diagrams: 12/25/18 07:30 12/25/18 07:30 Phys Exam - Physical Examination Constitutional: NAD HEENT: PERRLA, moist MMs Respiratory: no wheezing, clear to auscultation bilateral Cardiovascular: RRR, no significant murmur Gastrointestinal: soft Musculoskeletal: no edema right arm amputation, left arm HD fistula, left ankle swelling Neurological: non-focal Psychiatric: A&O x 3 Skin: no rash Dx/Plan (1) Anemia Code(s): D64.9 - ANEMIA, UNSPECIFIED Status: Acute (2) Chronic diarrhea Code(s): K52.9 - NONINFECTIVE GASTROENTERITIS AND COLITIS, UNSPECIFIED Status : Acute (3) Chronic ulcer of left heel Code(s): L97.429 - NON-PRS CHRONIC ULCER OF LEFT HEEL AND MIDFOOT W UNSP SEVERT Status: Acute (4) ESRD (end stage renal disease) on dialysis Code(s): N18.6 - END STAGE RENAL DISEASE; Z99.2 - DEPENDENCE ON RENAL DIALYSIS Status: Acute (5) Diabetes mellitus type 2 in nonobese Code(s): E11.9 - TYPE 2 DIABETES MELLITUS WITHOUT COMPLICATIONS Status: Chronic (6) Hepatitis C Code(s): B19.20 - UNSPECIFIED VIRAL HEPATITIS C WITHOUT HEPATIC COMA Status: Chronic (7) History of amputation of right arm above elbow Code(s): Z89.221 - ACQUIRED ABSENCE OF RIGHT UPPER LIMB ABOVE ELBOW Status: Chronic (8) Hypertension Code(s): I10 - ESSENTIAL (PRIMARY) HYPERTENSION Status: Chronic (9) Malnutrition of moderate degree Code(s): E44.0 - MODERATE PROTEIN-CALORIE MALNUTRITION Status: Chronic (10) Fecal occult blood test positive Status: Acute - Plan Plan: 58YOM with a PMH significant for ESRD on HD, HTN, and poor medical compliance admitted for severe anemia #Suspected osteomyelitis of L foot - MRI indeterminate of left foot and Xray of great toe of right foot likely c/w with osteo - Elevated CRP, trending down - continue empiric vanc and rocephin - Blood cx, NGTD, afebrile, no WBC - WBC tagged study 12/25, pending Dr. Natarajan recs, much appreciated #Anemia requiring transfusions -Hb on admission 6, s/p 2 PRBC -Has been stable to date -iron studies with iron def. anemia/ ACD- continue PO iron, continue EPO -+FOBT, pt stable, consulted GI, recs appreciated #Chronic hyponatremia -129 today, chart review shows as low as 128-130s -fluid restrict, monitor since pt asx #cHTN - BP elevated but patient not on any meds at home - amlodipine 2.5 mg, will cover with PRN antihypertensives until amlodipine reaches working levels #History of enterococcus bacteremia -Unsure it patient was adequately treated due to noncompliance with HD -Continue empiric Vanc - Blood cultures negative @48 hours, Dr. Natarajan on board #ESRD on HD - Nephrology, Dr. Shila crawford, recs appreciated - meds renally dosed #DMII, uncertain diagnosis - Not on any home meds. No hospital records of elevated A1c, most recently 5.0 on this admission - mild SSI for now and AUTUMN ACHS accuchecks. #HLD - Pending FLP #chronic diarrhea - Patient reports this is a chronic issue he has been dealing with for >10 years. - C diff studies pending #Chronic Hep C - Patient is aware of this but has not been treated. Will encourage outpatient treatment dvt ppx: heparin 5000 units TID diet: renal, high protein PCP: none Dispo: Continue empiric abx for osteo/hx of enterococcus bacteremia, pending WBC tagged study Monday 12/25. Drs. Kahn & Delgado on board Addendum - Attending - Attending Attestation Date/Time: 12/25/182123 I personally evaluated the patient and discussed the management with Dr. Navarrete. I agree with the History, Examination, Assessment and Plan documented above with any addition or exceptions noted below. Pt was initially admitted with anemia requiring transfusion and fobt is positive. Will consult GI for evaluation and possible colonoscopy. Pt is getting a tagged wbc scan today to better determine if he has osteomyelitis. Will f/u on results and Dr. Delgado gerardo. Pt was seen during dialysis today.
[2018-12-25 07:49] LABS: #Basophils 0.1 thou/uL (0.0-0.2); #Eosinphils 0.5 thou/uL (0.0-0.7); #Lymphocytes 1.5 thou/uL (1.20-3.40); #Monocytes 0.6 thou/uL (0.11-0.59); #Neutrophils 3.1 thou/uL (1.40-6.50); %Basophils 0.9 % (0.0-1.0); %Eosinophils 9.1 % (0.0-10.0); %Lymphocytes 26.3 % (21.0-51.0); %Monocytes 10.5 % (0.0-10.0); %Neutrophils 53.2 % (42.0-75.0); Hemoglobin 8.3 g/dL (14.0-18.0); Mean Corpuscular HGB CONC 32.7 g/dL (32.0-36.0); Mean Corpuscular Hemoglobin 29.6 pg (27.0-31.0); Mean Corpuscular Volume 90.7 fL (78.0-98.0); Mean Platelet Volume 7.6 fL (7.4-10.4); Platelet Count 156 thou/uL (130-400); RBC Distribution Width 16.6 % (11.5-14.5); White Blood Cell (WBC) Count 5.8 thou/uL (4.8-10.8)
[2018-12-25 08:10] LABS: Anion Gap 13 mmol/L (10-20); BUN (Urea Nitrogen) 41 mg/dL (8.4-25.7); Calc. Creatinine Clearance 12 mL/min (70-130); Calcium 8.4 mg/dL (7.8-10.44); Carbon Dioxide 20 mmol/L (22-29); Chloride 101 mmol/L (98-107); Estimated GFR-MDRD 15; Glucose 106 mg/dL (70-105); Sodium 130 mmol/L (136-145)
[2018-12-25 08:17] LABS: Vancomycin, Random 11.7 ug/mL (See Comment)
[2018-12-25] MEDS: Heparin 5,000 UNITS/ML VIAL SC SCH ×3 (09:00→21:07)
[2018-12-25] MEDS ORDERED: Atenolol 25 MG TAB PO SCH (09:00)
[2018-12-25] MEDS: Vancomycin HCl 500 MG in Sodium Chloride 0.9% 100 ML IVPB SCH (09:29)
[2018-12-25] MEDS: Ferrous Sulfate 325 MG TAB PO SCH ×2 (13:23→17:47)
[2018-12-25] MEDS: Amlodipine 5 MG TAB PO SCH (13:24)
--- NOTE | 2018-12-25 14:17 | PRG ---
DATE OF SERVICE: 12/24/2018 ADDENDUM: Please see the progress note from Dr. Shahrzad torres, for which I agree. The patient was seen, evaluated, discussed, and examined with the residents by bedside. Really no change in this gentleman. Still getting dialysis and keeping his hemoglobin elevated. Main issue with him is waiting on a tagged white blood cell scan that will be done tomorrow to help evaluate the left ankle. He is here to figure out this is osteomyelitis or not. He is on IV vancomycin and Rocephin currently. Getting wound care to the right great toe, which will also be evaluated for osteomyelitis tomorrow. Otherwise, supportive care and pain medications. Job ID: [id number]
--- NOTE | 2018-12-25 14:57 | PRG ---
DATE OF SERVICE: 12/23/2018 ADDENDUM: Please see note from Dr. Navarrete for which I agree. The patient was seen, evaluated, discussed with the residents and examined with the residents by bedside. This is a 58-year-old gentleman who is on dialysis, has chronic anemia; recently anemia was pretty severe, and that is why he is in the hospital; after couple units, he is doing better. We have a mixed picture of iron deficiency as well as chronic disease, has longstanding swelling of the left ankle and will return to work that up as well as the right great toe for the possibility of osteomyelitis and it sounds like we are going to do a tagged white blood cell scan as the MRIs were nonconclusive. He is on IV antibiotics in the meantime and Infectious Disease is involved, and is continuing dialysis and he will have to wait to see what the lab results show that sounds like this is osteomyelitis. Unfortunately, may end up getting amputation. Job ID: [id number]
--- NOTE | 2018-12-25 15:06 | NM ---
Radionucleotide white blood cell scan HISTORY: Right toe infection. Left hind foot infection. Abnormal MRI. FINDINGS: Ill-defined but significantly increased radiotracer uptake involves the left ankle and hind foot compared to the right. On white blood cell scan, the uptake of the bone is not necessarily separable from the surrounding soft tissues. Focal uptake is also demonstrated at the distal tuft of the right big toe. IMPRESSION: White blood cell accumulation about the left ankle and hindfoot and at the distal phalanx of the right great toe is consistent with infection at each site. Please see reports for recent MRI of the left foot and radiograph of the right foot for more specific anatomic localization.
--- NOTE | 2018-12-25 16:54 | CON ---
DATE OF CONSULTATION: 12/25/2018 REASON FOR CONSULTATION: Diarrhea and anemia. CONSULTING PHYSICIAN: Shahrzad Navarrete MD HISTORY OF PRESENT ILLNESS: The patient is a 58-year-old male with past medical history of end-stage renal disease on hemodialysis receiving erythropoietin injections, diabetes, hypertension, chronic hepatitis C infection (untreated), hyperlipidemia, BPH, osteoarthritis, endocarditis, and chronic diarrhea, presenting with abnormal labs. The patient states that he was in his usual state of health until last week when he was at the hemodialysis center where routine blood draws showed that he was significantly anemic with a hemoglobin of approximately 6. He was subsequently transferred to the hospital for further evaluation. During this hospitalization, he has not had any evidence of overt GI bleeding. Denying any nausea, vomiting, fevers, chills, abdominal pain, melena, hematochezia, hematemesis, or constipation. However, he does admit to some weight loss (could not quantify over what time) as well as chronic diarrhea. Concerning his diarrhea, he has had this present for approximately in the last 12 to 13 years, characterized as having approximately 2 to 3 liquid bowel movements per day and usually associated with food intake. These episodes of diarrhea would occur within 10 to 15 minutes after the ingestion of a meal, where he would then be prompted to have a bowel movement, that was associated with fecal urgency, but no evidence of fecal incontinence. During this time period, he has been taking Imodium 2 mg daily and while on this regimen, has been having approximately one semi-solid liquid bowel movements every 1 to 2 days. He denies any consumption of water from untreated water sources, use of artificial sweeteners, or significant changes in his medications, although he does go to hemodialysis every Tuesday, Tuesday, and Tuesday, which does put him in increased category for infectious etiology. Upon questioning the patient, he notes that with fasting state, his diarrhea does improve. During the course of this hospitalization, he underwent FOBT testing given his anemia, which was positive. He states that his last colonoscopy was "years ago" with no stated family history of colon polyps or colon cancer. REVIEW OF SYSTEMS: A 10-category review of systems was obtained with all responses negative except for the pertinent positives as listed in HPI. PAST MEDICAL HISTORY: As per HPI. PAST SURGICAL HISTORY: Right upper extremity amputation just distal to the humeral head and arteriovenous fistula placement in the left upper extremity. FAMILY HISTORY: Diabetes and hypertension. Denies any GI malignancies. SOCIAL HISTORY: Denies any tobacco, alcohol, or illicit drug use, although there was mention in his chart of intranasal cocaine approximately 10 months ago. OUTPATIENT MEDICATIONS: Reviewed. ALLERGIES: NO KNOWN DRUG ALLERGIES. PHYSICAL EXAMINATION: VITAL SIGNS: Temperature 98.2, pulse 81, blood pressure 182/77, respiratory rate 18, saturating 100% on room air. GENERAL: The patient was lying in bed, in no acute distress. Alert and oriented x4. HEENT: Neck supple. No JVD or scleral icterus noted. Normocephalic and atraumatic. CARDIOVASCULAR: Regular rate and rhythm with a 4/6 systolic murmur best heard at the left lower sternal border. RESPIRATORY: Clear to auscultation bilaterally with no discernible wheezes or rales. ABDOMEN: Normoactive bowel sounds. Soft, nontender, and nondistended. EXTREMITIES: No cyanosis, clubbing, or edema. Right upper extremity amputation noted. LABORATORY DATA: CBC with a white blood cell count of 5.8, hemoglobin 8.3, hematocrit 25.4, and platelets 156. Chemistry with a sodium of 130, potassium 4 , chloride 101, CO2 of 20, BUN 41, creatinine 4.21, glucose 106, AST 13, ALT less than 7, alkaline phosphatase 92, and total bilirubin 0.3. CRP 9.3. Serum iron 20, ferritin 385, and TIBC 154. IMAGING DATA: No current GI imaging is available for review. ASSESSMENT AND PLAN: The patient is a 58-year-old male with past medical history of end-stage renal disease on hemodialysis, diabetes, hypertension, chronic hepatitis C infection, hyperlipidemia, BPH, osteoarthritis, endocarditis, and chronic diarrhea, presenting with continued chronic diarrhea and anemia. Anemia: The patient is presenting with a decrease in his baseline H and H with a hemoglobin of approximately 6 on this admission. Fortunately, iron indices were drawn prior to the infusion of packed red blood cells with a low iron, normal ferritin, and low TIBC, which is more indicative of anemia of chronic disease/ renal disease. He does receive erythropoietin injections as an outpatient, but has been fairly noncompliant to this regimen more recently, which could contribute to his worsening anemia. He did have a positive fecal occult blood test during this admission for further evaluation of his anemia, but given the low sensitivity and specificity for the detection of active gastrointestinal bleeding, the likelihood of a false-positive is high; however, it seems to have been "years" since he had a previous colonoscopy and has shown to be fairly noncompliant in the outpatient setting. I did discuss the hoahaoism of doing a colonoscopy during this admission and at this point in time, he is reluctant to proceed, but would rather talk to his daughter about undergoing a colonoscopy during this admission. I did reiterate to the patient that his hemoglobin and hematocrit have stabilized since this admission. There was no evidence of active gastrointestinal bleeding. So the urgency of a colonoscopy is not high, but I would recommend this being done within the next 3 to 6 months if not during this admission. Recommendations: 1. Would continue to trend H and H and transfuse as necessary to maintain an H and H of 7/21. 2. Continue to monitor clinically for signs of active GI bleeding. 3. Would hold on colonoscopy for now per the patient preference for colorectal cancer screening. Diarrhea: The patient states that he has had chronic diarrhea for the last 12 to 13 years, characterizes having approximately 2 to 3 liquid bowel movements per day that are strongly associated with the ingestion of solid and liquid food. His diarrhea does also seem to improve with a fasting states, which does lend itself more toward an osmotic diarrhea picture rather than a executive legal secretary one. The patient's dietary habits are fairly poor, is an apical patient with relatively little intake of dietary fiber, which could be potentially contributing to his chronic diarrhea. However, given his significant healthcare exposures with him being on hemodialysis and infectious etiology cannot be ruled out at this time. Stool studies thus far have been negative for Clostridium difficile, but has not evaluated for any other potential pathogen. Recommendations: 1. Would complete workup for infectious stool pathogens contributing to his chronic diarrhea. This would also include ova and parasites given the chronicity of his diarrhea. 2. Would place the patient on a higher fiber diet as part of a stool bulking technique in order to decrease the amount of bowel movements, he has per day. 3. Would attempt to avoid any potential artificial sweeteners or any osmotically active substances that could contribute to his diarrhea during this admission. 4. If not responding to a higher fiber diet after approximately 2 to 3 weeks, could consider colonoscopy at that time for further evaluation. We will continue to follow. Please call with any questions. Job ID: [id number] [facility], [place]
--- NOTE | 2018-12-25 17:39 | PRG ---
DATE OF SERVICE: 12/25/2018 SUBJECTIVE: Mr. Urenaan unchanged without any respiratory symptoms, abdominal pain, or diarrhea. Vital signs are normal, except for elevation of systolic blood pressure. He appears chronically ill, although somewhat cachectic and temporal wasting. Ocular movements are conjugate. He is oriented, follows commands, pleasant. OBJECTIVE: LUNGS: Symmetric. Clear breath sounds. HEART: S1 and S2, regular rate. ABDOMEN: Soft. EXTREMITIES: No changes in the right and left feet. He has the ulcer at the tip of the right first toe. The swollen left ankle. LABORATORY DATA: Sodium 130 and creatinine 4.21. White cell count is at 5.8, hemoglobin 8.3, and platelets 156. IMAGING STUDIES: The previously noted extremity MRI showed destructive changes of calcaneus, talus, distal tibia, and distal fibula with marked worsening compared with 11/11 plain film. There is also periarticular fluid noted, coexistent osteomyelitis could not be excluded. Now, we have the feedback from the white blood cell labeling study, which shows increased radiotracer uptake in the left ankle and hindfoot compared to the right. ASSESSMENT: Type 2 diabetes; neuropathy; end-stage renal disease, on hemodialysis; recent episode of Enterococcus faecalis bacteremia secondary to line colonization; and now worsening swelling of the left ankle with positive uptake on the bone scan, which was WBC labeled. DISCUSSION: Although even WBC labeled studies can sometimes give false positive results in the setting of Charcot due to bone remodeling, I think in the face of recent bacteremia and the findings in the MRI plus the labeled study, we are forced to treat this. I would treat for the Enterococcus faecalis that was identified recently in October 2018, which is the more likely pathogen. We could use vancomycin sliding scale at dialysis and treat until January 26. Weekly labs, CBC, C-reactive protein, and vancomycin levels to be done at each dialysis treatment. Regarding the right foot, if he truly has osteomyelitis of the right first toe, then evidently we will see progression in the upcoming weeks, but it is also possible that that reflects bone remodeling only. Job ID: [id number]
[2018-12-25] MEDS: cefTRIAXone\\ROCEPHIN 2 GM in Sodium Chloride 0.9% 100 ML IVPB SCH (17:47)
--- NOTE | 2018-12-25 20:44 | PRG ---
DATE OF SERVICE: 12/25/2018 SUBJECTIVE: Patient was seen and examined at bedside and overnight events noted. Patient denies any shortness of breath or chest pain or palpitation. No history of nausea or vomiting or diarrhea or fever or chills or cramps. OBJECTIVE: GENERAL: This is a well-built male, in no apparent distress. VITAL SIGNS: Temperature 98.2. Pulse 81. Respiratory rate 18. Blood pressure 182/77. HEENT: Atraumatic, normocephalic. Oral mucosa is moist NECK: Supple. CARDIOVASCULAR: S1, S2 heard. Rate and rhythm regular. RESPIRATORY: Clear to auscultation. GASTROINTESTINAL: Abdomen is soft. MUSCULOSKELETAL: No tenderness. No edema. DERMATOLOGIC: No skin rash. NEUROLOGIC: Alert and awake and oriented X3. No focal neurologic deficits. Moving all the extremities. PSYCHIATRIC: Mood and affect normal. LABORATORY DATA: Potassium is 4.0, BUN is 41, and creatinine is 4.2. ASSESSMENT AND PLAN: 1. End-stage renal disease. Continue on dialysis. 2. Hypertension. 3. Anemia. 4. Edema, controlled. Plan is to continue on dialysis as tolerated. Job ID: [id number]
[2018-12-26] MEDS ORDERED: Melatonin 3 MG TAB PO SCH (02:00)
--- NOTE | 2018-12-26 07:38 | PDOC.FM ---
- Subjective Subjective: NAEO. No issues, had HD yesterday. No fevers, no diarrhea for past day. Feeling well. - Objective MAR Reviewed: Yes Vital Signs & Weight: Vital Signs (12 hours) Temp Pulse Resp BP Pulse Ox 12/26/18 07:22 98.6 F 86 16 134/54 L 100 12/25/18 20:08 98.3 F 86 20 137/72 100 12/25/18 20:00 100 Weight Admit Weight 45.858 kg Weight 45.858 kg I&O: 12/25/18 12/26/18 12/27/18 06:59 06:59 06:59 Intake Total 750 800 Output Total 380 Balance 370 800 Result Diagrams: 12/25/18 07:30 12/25/18 07:30 Phys Exam - Physical Examination Constitutional: NAD cachectic appearing HEENT: PERRLA, sclera anicteric missing teeth Respiratory: no wheezing, clear to auscultation bilateral Cardiovascular: RRR, no significant murmur Gastrointestinal: soft, non-tender Musculoskeletal: no edema right arm amputation, right great toe healing wound, dry, skin intact left ankle swelling, no erythema, non TTP Neurological: moves all 4 limbs Dx/Plan (1) Anemia Code(s): D64.9 - ANEMIA, UNSPECIFIED Status: Acute (2) Chronic diarrhea Code(s): K52.9 - NONINFECTIVE GASTROENTERITIS AND COLITIS, UNSPECIFIED Status : Acute (3) Chronic ulcer of left heel Code(s): L97.429 - NON-PRS CHRONIC ULCER OF LEFT HEEL AND MIDFOOT W UNSP SEVERT Status: Acute (4) ESRD (end stage renal disease) on dialysis Code(s): N18.6 - END STAGE RENAL DISEASE; Z99.2 - DEPENDENCE ON RENAL DIALYSIS Status: Acute (5) Diabetes mellitus type 2 in nonobese Code(s): E11.9 - TYPE 2 DIABETES MELLITUS WITHOUT COMPLICATIONS Status: Chronic (6) Hepatitis C Code(s): B19.20 - UNSPECIFIED VIRAL HEPATITIS C WITHOUT HEPATIC COMA Status: Chronic (7) History of amputation of right arm above elbow Code(s): Z89.221 - ACQUIRED ABSENCE OF RIGHT UPPER LIMB ABOVE ELBOW Status: Chronic (8) Hypertension Code(s): I10 - ESSENTIAL (PRIMARY) HYPERTENSION Status: Chronic (9) Malnutrition of moderate degree Code(s): E44.0 - MODERATE PROTEIN-CALORIE MALNUTRITION Status: Chronic (10) Fecal occult blood test positive Status: Acute - Plan Plan: 58YOM with a PMH significant for ESRD on HD, HTN, and poor medical compliance admitted for severe anemia #Suspected osteomyelitis of L foot - MRI indeterminate of left foot and Xray of great toe of right foot likely c/w with osteo - Elevated CRP, trending down - continue empiric vanc can d/c rocephin - Blood cx, NGTD, afebrile, no WBC to date - WBC tagged study 12/25 c/w with osteomyelitis diagnosis - Per Dr. Natarajan, will continue weekly vancomyin at HD with weekly labs - CM on board to aid in this #Anemia requiring transfusions -Hb on admission 6, s/p 2 PRBC -Has been stable to date -iron studies with iron def. anemia/ ACD- continue PO iron, continue EPO -+FOBT, pt stable, plan for outpt colonoscopy to r/o colon CA #Chronic hyponatremia -129 today, chart review shows as low as 128-130s -fluid restrict, monitor since pt asx #cHTN - BP stable - amlodipine 2.5 mg, will cover with PRN antihypertensives until amlodipine reaches working levels #History of enterococcus bacteremia -Unsure it patient was adequately treated due to noncompliance with HD -Continue empiric Vanc - Blood cultures negative @48 hours, Dr. Natarajan on board #ESRD on HD - Nephrology, Dr. Fuchs following, recs appreciated - meds renally dosed #DMII, uncertain diagnosis - Not on any home meds. No hospital records of elevated A1c, most recently 5.0 on this admission - mild SSI for now and AUTUMN ACHS accuchecks. #HLD - Pending FLP #chronic diarrhea - Patient reports this is a chronic issue he has been dealing with for >10 years. - C diff studies pending #Chronic Hep C - Patient is aware of this but has not been treated. Will encourage outpatient treatment dvt ppx: heparin 5000 units TID diet: renal, high protein PCP: none Dispo: likely d/c today pending stool studies and CM assitance Addendum - Attending - Attending Attestation Date/Time: 12/26/18 4569 I personally evaluated the patient and discussed the management with Dr. Navarrete. I agree with the History, Examination, Assessment and Plan documented above with any addition or exceptions noted below. The patient's WBC scan consistent with osteomyelitis. Arranging outpt antibiotics with dialysis.
[2018-12-26] MEDS: Amlodipine 5 MG TAB PO SCH (08:22)
[2018-12-26] MEDS: Ferrous Sulfate 325 MG TAB PO SCH ×2 (08:22→16:16)
[2018-12-26] MEDS: Heparin 5,000 UNITS/ML VIAL SC SCH ×3 (08:24→21:13)
[2018-12-26] MEDS: Citrucel 500 MG TAB PO SCH (08:24)
--- NOTE | 2018-12-26 15:31 | PRG ---
DATE OF SERVICE: 12/26/2018 SUBJECTIVE: Patient was seen and examined at bedside and overnight events noted. Patient denies any shortness of breath or chest pain or palpitation. No history of nausea or vomiting or diarrhea or fever or chills or cramps. OBJECTIVE: GENERAL: This is a well-built male, in no apparent distress. VITAL SIGNS: Temperature 98.6, heart rate 83, respiratory rate 16, and blood pressure 134/54. HEENT: Atraumatic, normocephalic. Oral mucosa is moist. NECK: Supple. CARDIOVASCULAR: S1, S2 heard. Rate and rhythm regular. RESPIRATORY: Clear to auscultation. GASTROINTESTINAL: Abdomen is soft. MUSCULOSKELETAL: No tenderness. No edema. DERMATOLOGIC: No skin rash. NEUROLOGIC: Alert and awake and oriented X3. No focal neurologic deficits. Moving all the extremities. PSYCHIATRIC: Mood and affect normal. LABORATORY DATA: Potassium 4.0, BUN is 41, and creatinine is 4.2. ASSESSMENT AND PLAN: 1. End-stage renal disease, continue dialysis Tuesday, Tuesday, and Tuesday. 2. Hypertension. 3. Anemia. 4. Edema, controlled. Plan is to continue on dialysis as tolerated. Job ID: [id number]
[2018-12-26] MEDS ORDERED: Melatonin 3 MG TAB PO PRN (21:07)
--- NOTE | 2018-12-26 23:13 | PRG ---
DATE OF SERVICE: 12/26/2018 REASON FOR CONSULTATION: Diarrhea and anemia. SUBJECTIVE: The patient states that he did not have any acute events or problems overnight. He has also not had any further episodes of diarrhea in this admission over the last 12 to 24 hours despite ingestion of a solid meal. Currently, he denies any nausea, vomiting, fevers, chills, abdominal pain, GI bleeding, dysphagia, or odynophagia. OBJECTIVE: VITAL SIGNS: Temperature 98.7, pulse 88, blood pressure 116/57, respiratory rate 16, saturating 99% on room air. GENERAL: The patient was lying in bed, in no acute distress. Alert and oriented x4. CARDIOVASCULAR: Regular rate and rhythm with a 4/6 systolic murmur best heard at the left lower sternal border. RESPIRATORY: Clear to auscultation bilaterally. ABDOMEN: Normoactive bowel sounds. Soft, nontender, nondistended. EXTREMITIES: No cyanosis, clubbing, or edema. Right upper extremity amputation noted. LABORATORY DATA: No current labs are available for review. IMAGING DATA: No current GI imaging is available for review. ASSESSMENT AND PLAN: The patient is a 58-year-old male with past medical history of end-stage renal disease, on hemodialysis; diabetes, hypertension, chronic hepatitis C infection, hyperlipidemia, BPH, osteoarthritis, endocarditis, and chronic diarrhea, presenting with continued chronic diarrhea and anemia. Anemia. The patient is presenting to the hospital with a decrease in his baseline H and H with hemoglobin subsequently 6 on admission. Iron indices drawn prior to infusion of PRBCs were consistent of an anemia of chronic disease/renal disease for which the patient does receive erythropoietin injections as an outpatient. He denies any evidence of overt GI bleeding, although did have a positive fecal occult blood test during this admission. I discussed with the patient the rastafarian of colonoscopy during this admission and at this point, the patient is reluctant to proceed at this time, but would rather follow up as an outpatient for this possible procedure. Given the anemia of chronic disease, the likelihood of a GI malignancy is low, although with a positive FOBT, it does place him at a higher risk stratification for possible pathology. Recommendations: 1. Would continue to trend H and H and transfuse as necessary to maintain an H and H of 7/21. 2. Continue to monitor clinically for signs of active GI bleeding. 3. Would hold on colonoscopy with possible performing it as an outpatient given the patient's preference. Diarrhea The patient initially presented with complaints of chronic diarrhea that had been present for the last 12-13 years, characterized as having approximately 2-3 liquid bowel movements per day and strongly associated with the ingestion of food, however with a higher fiber diet over the last 12 to 24 hours, he subsequently has had no bowel movements, making inadequate fiber intake a likely etiology. Stool studies performed during this admission were negative for C. difficile. Given his significant improvement in diarrhea during this admission, an infectious etiology is highly unlikely. Instead, I would just continue him on a higher fiber diet and continue to monitor. Recommendations: 1. We would continue the patient on a higher fiber diet as part of a stool bulking technique. 2. We would attempt to avoid any potential osmotically active substances that could contribute to his diarrhea. 3. Continue to monitor the patient for bowel movement. We will sign off at this time given the patient's reluctance to proceed with colonoscopy and lack of ANY diarrhea over the last 12 to 24 hours. Please call with any additional questions. Job ID: [id number] [id number]
--- NOTE | 2018-12-27 07:25 | PDOC.FM ---
- Subjective Subjective: Pt denies issues, resting comforably. no fevrs, chills. Ready to go. No diarrhea - Objective MAR Reviewed: Yes Vital Signs & Weight: Vital Signs (12 hours) Temp Pulse Resp BP Pulse Ox 12/26/18 20:00 99 12/26/18 19:41 98.7 F 88 16 116/57 L 99 Weight Admit Weight 45.858 kg Weight 45.858 kg I&O: 12/26/18 12/27/18 12/28/18 06:59 06:59 06:59 Intake Total 800 1700 Output Total 1200 Balance 800 500 Result Diagrams: 12/25/18 07:30 12/25/18 07:30 Phys Exam - Physical Examination Constitutional: NAD cachectic appearing HEENT: PERRLA, moist MMs missing teeth Respiratory: no wheezing, clear to auscultation bilateral Cardiovascular: RRR, no significant murmur Gastrointestinal: soft, non-tender right great toe healing well, left ankle swelling Neurological: non-focal right arm amputation Psychiatric: normal affect, A&O x 3 Skin: cap refill <2 seconds Dx/Plan (1) Anemia Code(s): D64.9 - ANEMIA, UNSPECIFIED Status: Acute (2) Chronic diarrhea Code(s): K52.9 - NONINFECTIVE GASTROENTERITIS AND COLITIS, UNSPECIFIED Status : Acute (3) Chronic ulcer of left heel Code(s): L97.429 - NON-PRS CHRONIC ULCER OF LEFT HEEL AND MIDFOOT W UNSP SEVERT Status: Acute (4) ESRD (end stage renal disease) on dialysis Code(s): N18.6 - END STAGE RENAL DISEASE; Z99.2 - DEPENDENCE ON RENAL DIALYSIS Status: Acute (5) Diabetes mellitus type 2 in nonobese Code(s): E11.9 - TYPE 2 DIABETES MELLITUS WITHOUT COMPLICATIONS Status: Chronic (6) Hepatitis C Code(s): B19.20 - UNSPECIFIED VIRAL HEPATITIS C WITHOUT HEPATIC COMA Status: Chronic (7) History of amputation of right arm above elbow Code(s): Z89.221 - ACQUIRED ABSENCE OF RIGHT UPPER LIMB ABOVE ELBOW Status: Chronic (8) Hypertension Code(s): I10 - ESSENTIAL (PRIMARY) HYPERTENSION Status: Chronic (9) Malnutrition of moderate degree Code(s): E44.0 - MODERATE PROTEIN-CALORIE MALNUTRITION Status: Chronic (10) Fecal occult blood test positive Status: Acute - Plan Plan: 58YOM with a PMH significant for ESRD on HD, HTN, and poor medical compliance admitted for severe anemia #Suspected osteomyelitis of L foot - MRI indeterminate of left foot and Xray of great toe of right foot likely c/w with osteo - Elevated CRP, trending down - continue empiric vanc can d/c rocephin - Blood cx, NGTD, afebrile, no WBC to date - WBC tagged study 12/25 c/w with osteomyelitis diagnosis - Per Dr. Natarajan, will continue weekly vancomyin at HD with weekly labs - CM on board to aid in this, pending dialysis approval #Anemia requiring transfusions -Hb on admission 6, s/p 2 PRBC -Has been stable to date -iron studies with iron def. anemia/ ACD- continue PO iron, continue EPO -+FOBT, pt stable, plan for outpt colonoscopy to r/o colon CA #Chronic hyponatremia -129 today, chart review shows as low as 128-130s -fluid restrict, monitor since pt asx #cHTN - BP stable - amlodipine 2.5 mg, will cover with PRN antihypertensives until amlodipine reaches working levels #History of enterococcus bacteremia -Unsure it patient was adequately treated due to noncompliance with HD -Continue empiric Vanc - Blood cultures negative @48 hours, Dr. Natarajan on board #ESRD on HD - Nephrology, Dr. Fuchs following, recs appreciated - meds renally dosed #DMII, uncertain diagnosis - Not on any home meds. No hospital records of elevated A1c, most recently 5.0 on this admission - mild SSI for now and AUTUMN ACHS accuchecks. #HLD - Pending FLP #chronic diarrhea - Patient reports this is a chronic issue he has been dealing with for >10 years. - C diff negative -much improved with high fiber diet -consulted dietary for patient education #Chronic Hep C - Patient is aware of this but has not been treated. Will encourage outpatient treatment dvt ppx: heparin 5000 units TID diet: renal, high protein PCP: none Dispo: d/c today Addendum - Attending - Attending Attestation Date/Time: 12/27/18 [id number] I personally evaluated the patient and discussed the management with Dr. Navarrete. I agree with the History, Examination, Assessment and Plan documented above with any addition or exceptions noted below. The patient will get dialysis today. Antibiotics with dialysis along with labs have been arranged. He will d/c later today. Diarrhea is also improved.
[2018-12-27] MEDS: Ferrous Sulfate 325 MG TAB PO SCH (08:30)
[2018-12-27] MEDS: Amlodipine 5 MG TAB PO SCH (08:30)
[2018-12-27] MEDS: Heparin 5,000 UNITS/ML VIAL SC SCH ×2 (08:32→16:24)
[2018-12-27] MEDS: Citrucel 500 MG TAB PO SCH (08:36)
[2018-12-27 12:10] LABS: Anion Gap 15 mmol/L (10-20); BUN (Urea Nitrogen) 41 mg/dL (8.4-25.7); Calc. Creatinine Clearance 14 mL/min (70-130); Calcium 8.5 mg/dL (7.8-10.44); Carbon Dioxide 20 mmol/L (22-29); Chloride 97 mmol/L (98-107); Estimated GFR-MDRD 17; Glucose 81 mg/dL (70-105); Potassium 5.1 mmol/L (3.5-5.1); Sodium 127 mmol/L (136-145)
--- NOTE | 2018-12-27 12:55 | PRG ---
DATE OF SERVICE: 12/27/2018 SUBJECTIVE: Patient was seen and examined at bedside and overnight events noted. Patient denies any shortness of breath or chest pain or palpitation. No history of nausea or vomiting or diarrhea or fever or chills or cramps. OBJECTIVE: GENERAL: This is a well-built male in no apparent distress. VITAL SIGNS: Temperature 98.2. Heart rate blood pressure 146/76. HEENT: Atraumatic, normocephalic. Oral mucosa is moist NECK: Supple. CARDIOVASCULAR: S1, S2 heard. Rate and rhythm regular. RESPIRATORY: Clear to auscultation. GASTROINTESTINAL: Abdomen is soft. MUSCULOSKELETAL: No tenderness. No edema. DERMATOLOGIC: No skin rash. NEUROLOGIC: Alert and awake and oriented X3. No focal neurologic deficits. Moving all the extremities. PSYCHIATRIC: Mood and affect normal. LABORATORY DATA: Potassium 5.1, BUN is 41, creatinine 6.3. ASSESSMENT AND PLAN: 1. End-stage renal disease. Continue doing dialysis. 2. Hypertension. 3. Anemia. 4. Edema. . 5. Hyponatremia, limit fluid. 6. Continue dialysis on Tuesday, Tuesday, and Tuesday as tolerated. Job ID: [id number]
[2018-12-27 13:10] LABS: #Eosinphils 0.4 thou/uL (0.0-0.7); #Lymphocytes 1.6 thou/uL (1.20-3.40); #Monocytes 0.5 thou/uL (0.11-0.59); #Neutrophils 2.5 thou/uL (1.40-6.50); %Basophils 0.4 % (0.0-1.0); %Eosinophils 7.8 % (0.0-10.0); %Lymphocytes 32.2 % (21.0-51.0); %Monocytes 9.2 % (0.0-10.0); %Neutrophils 50.3 % (42.0-75.0); Hemoglobin 7.8 g/dL (14.0-18.0); Mean Corpuscular HGB CONC 33.4 g/dL (32.0-36.0); Mean Corpuscular Hemoglobin 30.1 pg (27.0-31.0); Mean Corpuscular Volume 90.4 fL (78.0-98.0); Mean Platelet Volume 7.3 fL (7.4-10.4); Platelet Count 141 thou/uL (130-400); RBC Distribution Width 16.3 % (11.5-14.5); Red Blood Cell (RBC) Count 2.59 mill/uL (4.70-6.10)
[2018-12-27] MEDS: Vancomycin HCl 500 MG in Sodium Chloride 0.9% 100 ML IVPB SCH (13:37)
[2018-12-27 16:30] VITALS: BP 126/76; TEMP 98.4
--- NOTE | 2018-12-28 10:27 | DIS ---
DATE OF ADMISSION: 12/21/2018 DATE OF DISCHARGE: 12/27/2018 CONSULTATIONS: 1. Infectious Disease, Dr. Natarajan. 2. Gastroenterology, Dr. Dee. 3. Nephrology, Dr. Fuchs. PROCEDURES AND IMAGIN. Hemodialysis. 2. White blood cell tag study: White blood cell accumulation at the left ankle and hindfoot and also at the distal phalanx of the right great toe consistent with infection at each side. PRIMARY DIAGNOSES: 1. Osteomyelitis of right ankle and hindfoot, right distal phalanx and right great toe. 2. Anemia of end-stage renal disease and iron deficiency, requiring transfusions. 3. Positive fecal occult blood test. 4. Osmotic diarrhea. 5. Chronic hypertension. 6. Chronic hyponatremia. SECONDARY DIAGNOSES: 1. End-stage renal disease on hemodialysis. 2. Hypertension. 3. Chronic diarrhea. 4. Hyperlipidemia. 5. Chronic hepatitis C. DISCHARGE MEDICATIONS: New home medications: 1. Vancomycin hemodialysis. 2. Melatonin. 3. Ferrous sulfate 325 mg p.o. b.i.d. with meal. 4. Colace 100 mg p.o. b.i.d. p.r.n. for constipation. 5. Citrucel 500 mg p.o. daily. 6. Amlodipine 2.5 mg p.o. daily. 7. Acetaminophen. Resume home medications: 1. Loperamide. 2. Tylenol. Discontinued medications: None. HISTORY OF PRESENT ILLNESS/HOSPITAL COURSE: Mr. Manish Suero is an ESRD patient, on hemodialysis with poor medical compliance and followup, who presented to the ER after hemodialysis called in for low blood count. He had a hemoglobin of 6.0, was asymptomatic. He received 2 PRBCs. Incidentally on exam, there is concern for osteomyelitis due to less swelling in the ankle and wound on the right greater toe, and so he was admitted for both severe normocytic anemia and suspect osteomyelitis. 1. Normocytic anemia: The patient's hemoglobin stabilized at 8 and he remained asymptomatic. Labs are consistent with iron deficiency anemia. The patient also has been noncompliant with his Epogen shot. In addition, he has positive FOBT. GI was consulted, who said FOBT is poor sensitive, needs specific marker for GI bleed, and to follow up for outpatient colonoscopy. anemia of ESRD and possibly occult blood loss. He was started on iron and his hemoglobin remained stable. 2. Osteomyelitis of left ankle, hindfoot, and distal phalanx of right great toe: The patient never developed fever. The patient never met SIRS criteria; however, he had an elevated ESR of 100. MRI was indeterminate for osteo due to chronic inflammation and chronic arthritis. Dr. Natarajan consulted and white blood cell tag study obtained, which confirmed osteomyelitis. Of note, the patient was discharged from the hospital few weeks ago, where he had enterococcus bacteremia, but he never followed up for continued vancomycin with dialysis. He was treated with vancomycin throughout his course. Dr. Natarajan recommended to continue this until January. Blood cultures never grew out, were negative. 3. Osmotic diarrhea. The patient has been on due to history of diarrhea. GI was consulted and they suspected osmotic diarrhea due to poor diet. He was started on Citrucel and high-fiber diet and diarrhea resolved. The patient's education was provided in regard to this. 4. Overall, the patient's anemia stabilized. His osteomyelitis was treated with instructions to continue to receive vancomycin with weekly labs at dialysis with Dr. Fuchs. Stable upon discharge. INSTRUCTIONS: 1. Location: Home. 2. Diet: High-fiber diet, diabetic, renal, protein diet. 3. Activity: Ad carlos as tolerated. 4. Followup: Please follow up with Dr. Shahrzad Navarrete, [facility] in 3 to 5 days. Please follow up with Dr. Fuchs for continued hemodialysis. Please follow up with Dr. Dee for outpatient colonoscopy next month. Job ID: [id number]
== END 2018-12-27 18:11 | disposition home or self-care (01) | DRG 811 ==
LOC: ERS 16:48 → 2SW 20:00 → OBSVTOIN 12-21 15:31 → T4-A 12-22 13:49
PROVIDERS: ADMIT Family Medicine; ATTEND Family Medicine
PROC: 30233N1 Transfusion of Nonautologous Red Blood Cells into Peripheral Vein, Percutaneous Approach (ICD-10-PCS; principal; 2018-12-21)
PROC: 5A1D70Z Performance of Urinary Filtration, Intermittent, Less than 6 Hours Per Day (ICD-10-PCS; 2018-12-22)
DX: D64.9 Anemia, unspecified (principal); N18.6 End stage renal disease; I12.0 Hypertensive chronic kidney disease with stage 5 chronic kidney disease or end stage renal disease; L97.429 Non-pressure chronic ulcer of left heel and midfoot with unspecified severity; E44.0 Moderate protein-calorie malnutrition; Z66 Do not resuscitate; M86.9 Osteomyelitis, unspecified; E87.1 Hypo-osmolality and hyponatremia; E87.2 Acidosis; Z68.1 Body mass index [BMI] 19.9 or less, adult; B18.2 Chronic viral hepatitis C; E11.22 Type 2 diabetes mellitus with diabetic chronic kidney disease; N40.0 Benign prostatic hyperplasia without lower urinary tract symptoms; M19.91 Primary osteoarthritis, unspecified site; F17.210 Nicotine dependence, cigarettes, uncomplicated; K52.9 Noninfective gastroenteritis and colitis, unspecified; E78.5 Hyperlipidemia, unspecified; Z79.899 Other long term (current) drug therapy; Z99.2 Dependence on renal dialysis; Z89.221 Acquired absence of right upper limb above elbow
CPT/HCPCS: 36415; 36416; 36430; 71045; 78806; 80048; 80053; 80061; 80202; 82274; 82728; 83036; 83540; 83550; 85025; 85610; 85652; 85730; 86140; 86850; 86900; 86901; 87040; 87324; 87340; 87449; 90935; A4641; A9521; G0257; J0696; J1644; J3370; J3490; J7050; P9016

== ENCOUNTER 2019-01-10 10:19 | Emergency (ER) | payer MEDICARE ==
--- NOTE | 2019-01-10 12:41 | RAD ---
XR Foot Lt 3 View STANDARD HISTORY: Foot pain with pain and swelling. COMPARISON: Plain film examination of the foot of 11/11/2018 and of the ankle of 12/20/2018. FINDINGS: The changes of far advanced neuropathic changes of the hindfoot are again demonstrated with fragmentation of the talus and calcaneus. The fracture of the base of the proximal phalanx of the little toe is again noted. Vascular calcifications are seen. IMPRESSION: Advanced neuropathic changes of the hindfoot. Incomplete healing of proximal phalanx lian le toe fracture.
--- NOTE | 2019-01-10 12:43 | RAD ---
PORTABLE CHEST ONE VIEW: 01/10/19 at 12:33 p.m. HISTORY: Dyspnea. FINDINGS/IMPRESSION: Comparison made with exam of 12/20/18. Right sided dialysis catheter remains in place. The heart size is stable. The lungs are well expanded without lobar consolidation, pneumothoraces or pleural effusions. There is mild pulmonary vascular c ongestion. POS: [facility]
[2019-01-10 13:09] LABS: #Basophils 0.1 thou/uL (0.0-0.2); #Eosinphils 0.4 thou/uL (0.0-0.7); #Monocytes 0.5 thou/uL (0.11-0.59); #Neutrophils 2.6 thou/uL (1.40-6.50); %Basophils 1.6 % (0.0-1.0); %Eosinophils 6.6 % (0.0-10.0); %Lymphocytes 35.2 % (21.0-51.0); %Monocytes 9.6 % (0.0-10.0); Hemoglobin 7.5 g/dL (14.0-18.0); Mean Corpuscular HGB CONC 32.3 g/dL (32.0-36.0); Mean Corpuscular Hemoglobin 30.3 pg (27.0-31.0); Mean Corpuscular Volume 93.9 fL (78.0-98.0); Mean Platelet Volume 7.1 fL (7.4-10.4); Platelet Count 177 thou/uL (130-400); RBC Distribution Width 17.1 % (11.5-14.5); Red Blood Cell (RBC) Count 2.48 mill/uL (4.70-6.10); White Blood Cell (WBC) Count 5.6 thou/uL (4.8-10.8)
[2019-01-10 13:26] LABS: INR-International Normal Ratio 1.3; PTT 40.5 SEC (22.9-36.1); Prothrombin Time 16.4 SEC (12.0-14.7)
[2019-01-10 13:34] LABS: ALT (SGPT) 14 U/L (8-55); AST (SGOT) 23 U/L (5-34); Albumin 3.1 g/dL (3.5-5.0); Alkaline Phosphatase 127 U/L (40-150); Anion Gap 19 mmol/L (10-20); BUN (Urea Nitrogen) 52 mg/dL (8.4-25.7); Bilirubin, Total 0.4 mg/dL (0.2-1.2); CK (CPK) 22 U/L (30-200); Calc. Creatinine Clearance 0 mL/min (70-130); Calcium 8.2 mg/dL (7.8-10.44); Carbon Dioxide 14 mmol/L (22-29); Chloride 104 mmol/L (98-107); Estimated GFR-MDRD 11; Globulin 5.2 g/dL (2.4-3.5); Glucose 67 mg/dL (70-105); Potassium 5.5 mmol/L (3.5-5.1); Protein, Total 8.3 g/dL (6.0-8.3); Sodium 131 mmol/L (136-145)
[2019-01-10] MEDS ORDERED: Piperacillin/Tazobactam 4.5 GM in Sodium Chloride 0.9% 100 ML IVPB SCH (13:45)
--- NOTE | 2019-01-12 12:56 | EKG ---
Test Reason : Blood Pressure : / mmHG Vent. Rate : 088 BPM Atrial Rate : 088 BPM P-R Int : 150 ms QRS Dur : 098 ms QT Int : 410 ms P-R-T Axes : 065 073 028 degrees QTc Int : 496 ms Normal sinus rhythm Possible Left atrial enlargement Prolonged QT Abnormal ECG Confirmed by JJ ZAMBRANO, TRAMAINE ([id number]), image editor ERIKA HAYES ([id number]) on 01/12/2019 12:55:53 PM Referred By: Confirmed By:TRAMAINE GARDNER MD
== END 2019-01-10 14:45 | disposition home or self-care (01) ==
LOC: ERS 10:19
DX: M86.9 Osteomyelitis, unspecified (principal); E11.9 Type 2 diabetes mellitus without complications; F17.210 Nicotine dependence, cigarettes, uncomplicated; K74.60 Unspecified cirrhosis of liver
CPT/HCPCS: 71045; 80053; 82550; 83605; 83880; 85025; 85610; 85652; 85730; 86140; 87040; 93005; 94760; 96365; J2543; J3370; J3490

== ENCOUNTER 2019-02-03 18:25 | Inpatient (IN) | payer MEDICARE ==
[~2019-02-03 18:25] MED LIST changes: -Heparin 1,000 UNITS/ML VIAL ONE; +ISOVUE-370 76%-LOCM 1 ML ONE
[2019-02-03] MEDS ORDERED: Ondansetron PF 4 MG/2 ML Vial ONE (18:46)
[2019-02-03 18:55] LABS: #Basophils 0.1 thou/uL (0.0-0.2); #Eosinphils 0.5 thou/uL (0.0-0.7); #Lymphocytes 1.7 thou/uL (1.20-3.40); #Monocytes 0.5 thou/uL (0.11-0.59); #Neutrophils 2.7 thou/uL (1.40-6.50); %Basophils 1.3 % (0.0-1.0); %Eosinophils 9.1 % (0.0-10.0); %Lymphocytes 31.3 % (21.0-51.0); %Neutrophils 49.2 % (42.0-75.0); Hemoglobin 8.8 g/dL (14.0-18.0); Mean Corpuscular HGB CONC 31.4 g/dL (32.0-36.0); Mean Corpuscular Hemoglobin 31.5 pg (27.0-31.0); Mean Platelet Volume 8.6 fL (7.4-10.4); Platelet Count 122 thou/uL (130-400); RBC Distribution Width 20.3 % (11.5-14.5); Red Blood Cell (RBC) Count 2.77 mill/uL (4.70-6.10); White Blood Cell (WBC) Count 5.5 thou/uL (4.8-10.8)
[2019-02-03 19:12] LABS: Lactic Acid 0.6 mmol/L (0.5-2.2)
[2019-02-03 19:16] LABS: Phosphorus 7.2 mg/dL (2.3-4.7)
[2019-02-03 19:17] LABS: ALT (SGPT) 7 U/L (8-55); AST (SGOT) 19 U/L (5-34); Albumin 3.1 g/dL (3.5-5.0); Alkaline Phosphatase 91 U/L (40-150); Anion Gap 19 mmol/L (10-20); BUN (Urea Nitrogen) 55 mg/dL (8.4-25.7); Bilirubin, Total 0.5 mg/dL (0.2-1.2); Calc. Creatinine Clearance 0 mL/min (70-130); Calcium 7.5 mg/dL (7.8-10.44); Chloride 111 mmol/L (98-107); Estimated GFR-MDRD 9; Globulin 4.9 g/dL (2.4-3.5); Glucose 84 mg/dL (70-105); Lipase 36 U/L (8-78); Sodium 134 mmol/L (136-145)
[2019-02-03 19:24] LABS: Carbon Dioxide 9 mmol/L (22-29)
--- NOTE | 2019-02-03 19:55 | CT ---
CT OF ABDOMEN AND PELVIS: 02/03/19 COMPARISON: 05/07/15. HISTORY: Nausea and vomiting. TECHNIQUE: Axial CT imaging at 5 mm intervals from lung bases through pubic symphysis with IV contrast. Coronal reformatted imaging obtained. FINDINGS: There is an incompletely imaged moderate right pleural effusion with associated partial consolidation /collapse of the right lower lobe, likely signifying passive atelectasis. Left lung base grossly unre markable aside from trace pleural fluid and minimal atelectatic change. No free intraperitoneal air i s seen. There is nonspecific new small volume free fluid adjacent to the liver inferiorly and surrounding the gallbladder. There is also nonspecific new small volume free fluid within the pelvis posterior to th e urinary bladder. The hepatic parenchyma demonstrates a mottled density and the peripheral contour o f the liver is mildly irregular. This suggests hepatocellular disease of uncertain chronicity. Evaluation of the gallbladder is limited on CT. There is fluid surrounding the gallbladder and/or ga llbladder wall thickening, which could be better assessed with a right upper quadrant ultrasound. Th e spleen appears normal in size. The pancreas appears grossly unremarkable as do the adrenal glands. The kidneys are atrophic and demonstrate diffuse cortical thinning bilaterally. There is a dilated ex trarenal pelvis on the left and there is a mild degree of left sided hydronephrosis. There is also le ft sided hydroureter which extends to the level of the urinary bladder, similar when compared to the prior CT examination. There are multiple punctate nonobstructing stones within the left kidney. There is nonspecific wall thickening of the urinary bladder. Limited assessment of the bowel without oral contrast media demonstrates wall thickening of the colon from the level of the cecum through the level of the mid transverse colon which could represent delano estion on the basis of hepatocellular disease, or could signify acute nonspecific colitis. There is s cattered atherosclerotic calcification of the abdominal aorta and its branches, with prominent arteri al calcification in the pelvis and imaged lower extremities. No evidence for lymphadenopathy in the abdomen or pelvis. Review of the osseous structures demonstrates multilevel lumbar spine degenerative change. No worriso me lytic or blastic bone lesions. IMPRESSION: 1. Abnormal appearance of the liver suggesting age indeterminate hepatocellular disease. Questio n a history of cirrhosis. 2. Nonspecific small volume ascites with moderate sized right pleural effusion. 3. Wall thickening of the urinary bladder which could be inflammatory/infectious in nature. 4. Thick walled colon from level of cecum through transverse colon which could be related to con gestive change associated with hepatocellular disease or nonspecific colitis. 5. Fluid surrounding the gallbladder and/or gallbladder wall thickening. This could be better as sessed via right upper quadrant ultrasound. 6. No evidence for free intraperitoneal air or small bowel obstruction. POS: [facility]
--- NOTE | 2019-02-03 20:56 | ULT ---
Right upper quadrant ultrasound: 02/03/2019 COMPARISON: None HISTORY: Abdominal pain TECHNIQUE: Multiplanar grayscale sonographic imaging of the right upper quadrant obtained. FINDINGS: The pancreas is grossly unremarkable, partially obscured by bowel gas. There is a right pleural effusion noted. There is prominent thickening of the gallbladder wall, measuring 9 mm. The common bile duct measures 6 mm, within normal limits. The right kidney measures 7.5 cm in craniocaudal dimension and is echogenic. Findings suggest renal m edical disease. There is small volume free fluid in the right upper quadrant. The shoe fitter reports a positive Kelly's sign. No gallstones are seen. IMPRESSION: Markedly thick-walled gallbladder. The shoe fitter reports a positive Kelly's sign. No g allstones are seen. In the proper clinical setting, findings may signify acute acalculous cholecystitis. Gallbladder wall thickening can also be seen on the basis of a systemic process, inclu ding anasarca and hepatocellular disease. Patency of the cystic duct would be best assessed via hepatobiliary scan. Small volume right upper quadrant ascites. Incompletely imaged right pleural effusion.
[2019-02-03] MEDS ORDERED: Piperacillin/Tazobactam 4.5 GM VIAL ONE (21:45)
[2019-02-03 22:20] LABS: Base Excess-Venous -17.4 mmol/L (-2.0 to 3.0); Bicarbonate (HCO3v) 9.3 mmol/L (22.0-28.0); CO2 Tension (PvCO2) 24.7 mmHg (40.0-50.0); Calcium, Ionized 1.04 mmol/L (See Comments:); Chloride 114 mmol/L (98-107); Hemoglobin - Calc 10.2 g/dL (14.0-18.0); Sodium 136 mmol/L (138-145); T. Carbon Dioxide 10.1 mmol/L (22.0-28.0)
[2019-02-03] MEDS ORDERED: Sodium Bicarbonate 150 MEQ in Dextrose 5% in Water 1,000 ML IV SCH (22:30)
[2019-02-03] MEDS ORDERED: Ondansetron PF 4 MG/2 ML Vial IVP PRN (23:43)
[2019-02-03] MEDS ORDERED: Acetaminophen 325 MG TAB PO PRN (23:43)
[2019-02-03] MEDS ORDERED: Ondansetron ODT 4 MG TAB PO PRN (23:43)
[2019-02-04 00:45] VITALS: BMI 14.8
[2019-02-04] MEDS ORDERED: Dextrose 50% Abboject 50 ML SYRINGE SLOW IVP PRN (02:25)
[2019-02-04] MEDS ORDERED: Dextrose 5% in Water 1,000 ML IV PRN (02:25)
[2019-02-04] MEDS ORDERED: HumaLOG 300 UNITS/3 ML VIAL SC PRN (02:25)
[2019-02-04] MEDS ORDERED: Sodium Bicarbonate 150 MEQ in Sodium Chloride 0.45% 1,000 ML IV SCH (02:30)
[2019-02-04] MEDS: Piperacillin/Tazobactam 2.25 GM in Sodium Chloride 0.9% 100 ML IVPB SCH ×3 (03:30→20:16)
[2019-02-04 05:57] LABS: #Eosinphils 0.4 thou/uL (0.0-0.7); #Lymphocytes 1.3 thou/uL (1.20-3.40); #Monocytes 0.4 thou/uL (0.11-0.59); #Neutrophils 2.3 thou/uL (1.40-6.50); %Basophils 0.8 % (0.0-1.0); %Eosinophils 8.7 % (0.0-10.0); %Lymphocytes 30.4 % (21.0-51.0); %Monocytes 8.5 % (0.0-10.0); %Neutrophils 51.6 % (42.0-75.0); Hemoglobin 8.3 g/dL (14.0-18.0); Mean Corpuscular HGB CONC 30.8 g/dL (32.0-36.0); Mean Platelet Volume 8.8 fL (7.4-10.4); Platelet Count 103 thou/uL (130-400); RBC Distribution Width 20.3 % (11.5-14.5); Red Blood Cell (RBC) Count 2.68 mill/uL (4.70-6.10); White Blood Cell (WBC) Count 4.4 thou/uL (4.8-10.8)
[2019-02-04 06:19] LABS: Anion Gap 17 mmol/L (10-20); BUN (Urea Nitrogen) 52 mg/dL (8.4-25.7); Calc. Creatinine Clearance 8 mL/min (70-130); Calcium 7.5 mg/dL (7.8-10.44); Carbon Dioxide 10 mmol/L (22-29); Chloride 112 mmol/L (98-107); Estimated GFR-MDRD 9; Glucose 102 mg/dL (70-105); Potassium 4.9 mmol/L (3.5-5.1); Sodium 134 mmol/L (136-145)
[2019-02-04] MEDS ORDERED: Cepastat Lozenges 1 LOZ PO PRN (08:14)
[2019-02-04] MEDS ORDERED: Sodium Chloride 0.65% Nasal 44 ML BOT EA NARE PRN (08:14)
[2019-02-04] MEDS ORDERED: Loratadine 10 MG TAB PO PRN (08:14)
[2019-02-04] MEDS ORDERED: hydrALAZINE 20 MG/ML VIAL SLOW IVP PRN (08:14)
[2019-02-04] MEDS ORDERED: Nitroglycerin 0.4 MG TAB (25 Tab Bottle) SL PRN (08:14)
[2019-02-04] MEDS ORDERED: Artificial Tears 18 DROP/0.9 ML EA EYE PRN (08:14)
[2019-02-04] MEDS ORDERED: HYDROcodone/Acetaminophen 5/325 mg Tablet PO PRN (08:14)
[2019-02-04] MEDS ORDERED: Temazepam 15 MG CAP PO PRN (08:14)
[2019-02-04] MEDS ORDERED: Calcium Carbonate 500 MG ChewTAB PO PRN (08:14)
[2019-02-04] MEDS ORDERED: Diabetic Tussin 200 MG/10 ML UDCUP PO PRN (08:14)
[2019-02-04] MEDS ORDERED: Heparin 5,000 UNITS/ML VIAL SC SCH (09:00)
[2019-02-04] MEDS: Heparin 5,000 UNITS/ML VIAL SC SCH ×2 (09:40→20:16)
[2019-02-04] MEDS: Folic Acid/Vit B Comp W-C PO SCH (09:42)
[2019-02-04] MEDS ORDERED: Heparin 1,000 UNITS/ML VIAL ONE (11:11)
--- NOTE | 2019-02-04 12:12 | PDOC.PN ---
- Subjective Encounter Start Date: 02/04/19 Encounter Start Time: 10:15 -: old records requested/rev pt seen at [facility] scan, updated plan to son bedside Patient seen and examined. No overnight events - Objective Resuscitation Status - Order Detail: 02/03/19 23:43 Resuscitation Status Routine Resuscitation Status: FULL: Full Resuscitation MAR Reviewed: Yes Vital Signs & Weight: Vital Signs (12 hours) Temp Pulse Ox 02/04/19 07:36 100 02/04/19 07:26 98.2 F 02/04/19 03:53 98.6 F 02/04/19 00:44 97.8 F 02/04/19 00:35 100 Weight Weight 100 lb 9.6 oz Most Recent Monitor Data Heart Rate from ECG 72 NIBP 153/44 NIBP BP-Mean 80 Respiration from ECG 20 SpO2 100 I&O: 02/03/19 02/04/19 02/05/19 06:59 06:59 06:59 Intake Total 685 Output Total 300 Balance 385 Result Diagrams: 02/04/19 05:46 02/04/19 05:46 Additional Labs: Accuchecks 02/04/19 05:28 POC Glucose 97 EKG Reviewed by me: Yes Phys Exam - Physical Examination Constitutional: NAD HEENT: PERRLA, moist MMs, sclera anicteric Neck: no JVD, supple Respiratory: no wheezing, no rales, no rhonchi Cardiovascular: RRR, no significant murmur, no rub Gastrointestinal: soft, no distention RUQ discomfort on deep palpation Lymphatic: no nodes Psychiatric: normal affect Skin: normal turgor Deviation from normal: please see WCT finding and photo for wound details Dx/Plan (1) Acute acalculous cholecystitis Code(s): K81.0 - ACUTE CHOLECYSTITIS Status: Suspected (2) Metabolic acidosis Code(s): E87.2 - ACIDOSIS Status: Acute (3) Alcohol abuse Code(s): F10.10 - ALCOHOL ABUSE, UNCOMPLICATED Status: Chronic (4) BPH (benign prostatic hyperplasia) Code(s): N40.0 - BENIGN PROSTATIC HYPERPLASIA WITHOUT LOWER URINRY TRACT SYMP Status: Chronic (5) Cirrhosis of liver Code(s): K74.60 - UNSPECIFIED CIRRHOSIS OF LIVER Status: Chronic (6) Diabetes type 2, controlled Code(s): E11.9 - TYPE 2 DIABETES MELLITUS WITHOUT COMPLICATIONS Status: Chronic (7) ESRD (end stage renal disease) on dialysis Code(s): N18.6 - END STAGE RENAL DISEASE; Z99.2 - DEPENDENCE ON RENAL DIALYSIS Status: Chronic (8) Hepatitis C Code(s): B19.20 - UNSPECIFIED VIRAL HEPATITIS C WITHOUT HEPATIC COMA Status: Chronic (9) History of amputation of right arm above elbow Code(s): Z89.221 - ACQUIRED ABSENCE OF RIGHT UPPER LIMB ABOVE ELBOW Status: Chronic (10) Hypertension Code(s): I10 - ESSENTIAL (PRIMARY) HYPERTENSION Status: Chronic (11) Macrocytic anemia Code(s): D53.9 - NUTRITIONAL ANEMIA, UNSPECIFIED Status: Chronic (12) Protein-calorie malnutrition, moderate Code(s): E44.0 - MODERATE PROTEIN-CALORIE MALNUTRITION Status: Chronic (13) Ribs, multiple fractures Code(s): S22.49XA - MULTIPLE FRACTURES OF RIBS, UNSP SIDE, INIT FOR CLOS FX Status: Chronic (14) Thrombocytopenia Code(s): D69.6 - THROMBOCYTOPENIA, UNSPECIFIED Status: Chronic (15) Tobacco abuse Code(s): Z72.0 - TOBACCO USE Status: Chronic - Plan cont current plan of care, plan discussed w/ family, continue antibiotics * continue zosyn * HIDA scan * discussed with son * follow culture * HD as per nephrology * social work to assist with dialysis outpt to arrange transportation * wound care * nutritional support * medication reconciled. Review of Systems - Review of Systems Constitutional: weakness. negative: fever, chills, sweats, malaise, other Respiratory: negative: Cough, Dry, Shortness of Breath, Hemoptysis, SOB with Excertion, Pleuritic Pain, Sputum, Wheezing Cardiovascular: negative: chest pain, palpitations, orthopnea, paroxysmal nocturnal dyspnea, edema, light headedness, other Gastrointestinal: Nausea, Abdominal Pain. negative: Vomiting, Diarrhea, Constipation, Melena, Hematochezia, Other Genitourinary: negative: Dysuria, Frequency, Incontinence, Hematuria, Retention , Other Musculoskeletal: negative: Neck Pain, Shoulder Pain, Arm Pain, Back Pain, Hand Pain, Leg Pain, Foot Pain, Other Skin: Rash. negative: Lesions, Glenn, Bruising, Other - Medications/Allergies Allergies/Adverse Reactions: Allergies Allergy/AdvReac Type Severity Reaction Status Date / Time No Known Drug Allergies Allergy Verified 12/21/18 00:54 Medications: Current Medications Acetaminophen (Tylenol) 650 mg PO Q4H PRN PRN Reason: Headache/Fever/Mild Pain (1-3) Last Admin: 02/04/19 06:34 Dose: 650 mg Hydrocodone Bitart/Acetaminophen ([place] 5/325) 1 tab PO Q4H PRN PRN Reason: Moderate Pain (4-6) Artificial Tears (Tears Naturale) 2 drop EA EYE PRN PRN PRN Reason: Dry Eyes Calcium Carbonate (Tums) 1,000 mg PO Q4H PRN PRN Reason: Heartburn or Indigestion Dextrose/Water (Dextrose 50%) 25 gm SLOW IVP PRN PRN PRN Reason: Hypoglycemia Glucagon (Glucagon) 1 mg IM PRN PRN PRN Reason: Hypoglycemia Guaifenesin (Robitussin Sf) 200 mg PO Q4H PRN PRN Reason: Cough Heparin Sodium (Porcine) (Heparin) 5,000 units SC BID [facility] Last Admin: 02/04/19 09:40 Dose: 5,000 units Hydralazine HCl (Apresoline) 10 mg SLOW IVP Q4H PRN PRN Reason: SBP > 180 and HR < 70 Dextrose/Water (D5w) 1,000 mls @ 0 mls/hr IV .Q0M PRN PRN Reason: Hypoglycemia Piperacillin Sod/Tazobactam (Sod 2.25 gm/ Sodium Chloride) 100 mls @ 200 mls/ hr IVPB 0300,1100,1900 [facility] Last Admin: 02/04/19 09:44 Dose: 100 mls Insulin Human Lispro (Humalog) 0 units SC .MILD SLIDING SCALE PRN PRN Reason: Mild Correctional Scale Loperamide HCl (Imodium) 2 mg PO PRN PRN PRN Reason: Diarrhea/Loose Stools Loratadine (Claritin) 10 mg PO DAILYPRN PRN PRN Reason: Sinus Symptoms Nitroglycerin (Nitrostat) 0.4 mg SL Q5MIN PRN PRN Reason: Chest Pain Ondansetron HCl (Zofran Odt) 4 mg PO Q6H PRN PRN Reason: Nausea/Vomiting Ondansetron HCl (Zofran) 4 mg IVP Q6H PRN PRN Reason: Nausea/Vomiting Sodium Chloride ([place] Nasal [place] 0.65%) 0 ml EA NARE QIDPRN PRN PRN Reason: Nasal Congestion Temazepam (Restoril) 15 mg PO HSPRN PRN PRN Reason: Insomnia Throat Lozenges (Cepastat Lozenges) 1 tawana PO Q2H PRN PRN Reason: Sore Throat Vitamin B Complex/Vit C/Folic Acid (Nephro-Kim Tablet) 1 tab PO DAILY [facility]UM[facility] Last Admin: 02/04/19 09:42 Dose: Not Given
--- NOTE | 2019-02-04 13:07 | CON ---
DATE OF CONSULTATION: 02/03/2019 TIME SEEN: 8 p.m. REASON FOR CONSULTATION: End-stage renal disease and metabolic acidosis. HISTORY OF PRESENTING ILLNESS: This is a very pleasant 58-year-old gentleman, who is extremely noncompliant and has not showed up for dialysis for the last 2 weeks, presented to the hospital with abdominal pain. The patient was noted to have cholecystitis and severe metabolic acidosis with hyperkalemia. PAST MEDICAL HISTORY: Significant for hypertension, diabetes mellitus, AV fistula, tunneled dialysis catheter, end-stage renal disease, hepatitis C, amputation of the right arm, diabetes mellitus, endocarditis, gangrenous infection multiple times. SOCIAL HISTORY: Noncontributory. FAMILY HISTORY: Negative for ESRD. ALLERGIES: REVIEWED. HOME MEDICATIONS: List reviewed. HOSPITAL MEDICATIONS: List reviewed. REVIEW OF SYSTEMS: Fifteen-point review of system was performed, negative except for positives noted above. GENERAL: HEAD: NECK: No swelling or lumps. NOSE: No epistaxis or discharge. EYES: No diplopia or pain. 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 NEUROPSYCHIATIC SYSTEMS: No suicidal ideation. No ideation. SKIN: Denies any rash or ulcer. CONSTITUTIONAL: No fever or chills. PHYSICAL EXAMINATION: See above. The patient is awake, alert, in no acute distress. VITAL SIGNS: Afebrile, pulse 70, breathing 16, blood pressure 120/70. GENERAL APPEARANCE AND MENTAL STATUS: Fair. HEAD/NECK: Normocephalic. Atraumatic. EYES: EOMI. No deformity. EARS: Clear. No ulcers. NOSE: Intact. No lesions. MOUTH: Clear. No discharge. THROAT: Clear. No exudate. LUNGS: Clear. No crackles. CARDIAC: S1, S2. No rub. ABDOMEN: Benign. Bowel sounds positive. GENITALIA/RECTUM: [place] absent. BACK/EXTREMITIES: Edema 0+. NEUROLOGICAL: Alert and motor intact. SKIN: LYMPHATICS: LABORATORY DATA: Reviewed. ASSESSMENT AND PLAN: 1. Stage chronic kidney disease. Continue bicarbonate drip. 2. Anemia, stable. 3. Hyperkalemia. Lower bicarbonate. No urgent indication for dialysis. We will plan dialysis tomorrow. 4. Anemia, stable. Medication based on GFR appropriate. Prognosis poor. 5. Metabolic acidosis. Start bicarbonate drip. Job ID: [id number]
--- NOTE | 2019-02-04 13:15 | PRG ---
DATE OF SERVICE: 02/04/2019 SUBJECTIVE: This is a 58-year-old gentleman being seen for end-stage renal disease. The patient denies nausea, vomiting, or chest pain. OBJECTIVE: See above. The patient is awake and alert, in no acute distress. GENERAL APPEARANCE AND MENTAL STATUS: Fair. VITAL SIGNS: Afebrile, pulse 70, breathing 16, blood pressure . HEAD/NECK: Normocephalic. Atraumatic. EYES: EOMI. No deformity. EARS: Clear. No ulcers. NOSE: Intact. No lesions. MOUTH: Clear. No discharge. THROAT: Clear. No exudate. LUNGS: Clear. No crackles. CARDIAC: S1, S2. No rub. ABDOMEN: Benign. Bowel sounds positive. GENITALIA/RECTUM: Moffett absent. BACK/EXTREMITIES: Edema 0+. NEUROLOGICAL: Alert and motor intact. SKIN: LYMPHATICS: LABORATORY DATA: Reviewed. ASSESSMENT: 1. Stage 6 chronic kidney disease. Plan dialysis. 2. Hypertension, stable. 3. Anemia, stable. 4. Metabolic acidosis. Plan dialysis. Job ID: [id number]
[2019-02-04] MEDS: Loperamide HCl 2 MG CAP PO PRN ×2 (13:47→20:17)
--- NOTE | 2019-02-04 14:29 | NM ---
NM Hida Scan W Drug HISTORY: Right upper quadrant pain. Thick-walled gallbladder noted on ultrasound. COMPARISON: Ultrasound study of 02/03/2019. FINDINGS: The patient was pretreated with 0.9 mcg of CCK 30 minutes prior to imaging. Subsequently a 4.5 mCi dose of 90 9M technetium mebrofenin was administered. After 60 minutes a repeat 0.9 mcg dose of CCK administered. The distribution of the radiopharmaceutical within the liver appears normal. The gallbladder is visua lized by approximately 8 minutes. No bowel activity is seen in the first 60 minutes. After the second dose of CCK bowel activity is seen and a ejection fraction of 90% was calculated. IMPRESSION: Normal opacification of the gallbladder with gallbladder ejection fraction of 90%. No nasima dence for cholecystitis.
[2019-02-04 18:17] LABS: HBSAg Index 0.34 S/CO (0-0.99); Hep B Surf Ag Non-Reactive S/CO (NonReactive)
[2019-02-05] MEDS: Piperacillin/Tazobactam 2.25 GM in Sodium Chloride 0.9% 100 ML IVPB SCH ×2 (02:30→12:42)
[2019-02-05 04:51] LABS: #Eosinphils 0.4 thou/uL (0.0-0.7); #Lymphocytes 1.2 thou/uL (1.20-3.40); #Monocytes 0.5 thou/uL (0.11-0.59); #Neutrophils 2.8 thou/uL (1.40-6.50); %Basophils 0.3 % (0.0-1.0); %Eosinophils 8.3 % (0.0-10.0); %Lymphocytes 24.4 % (21.0-51.0); %Monocytes 10.7 % (0.0-10.0); %Neutrophils 56.3 % (42.0-75.0); Hemoglobin 8.9 g/dL (14.0-18.0); Mean Corpuscular HGB CONC 31.1 g/dL (32.0-36.0); Mean Corpuscular Hemoglobin 31.3 pg (27.0-31.0); Mean Platelet Volume 8.6 fL (7.4-10.4); Platelet Count 94 thou/uL (130-400); RBC Distribution Width 20.7 % (11.5-14.5); Red Blood Cell (RBC) Count 2.86 mill/uL (4.70-6.10)
[2019-02-05 05:00] LABS: ALT (SGPT) 8 U/L (8-55); AST (SGOT) 24 U/L (5-34); Albumin 2.7 g/dL (3.5-5.0); Alkaline Phosphatase 70 U/L (40-150); Anion Gap 14 mmol/L (10-20); BUN (Urea Nitrogen) 21 mg/dL (8.4-25.7); Bilirubin, Total 0.6 mg/dL (0.2-1.2); Calc. Creatinine Clearance 15 mL/min (70-130); Calcium 7.5 mg/dL (7.8-10.44); Carbon Dioxide 23 mmol/L (22-29); Chloride 105 mmol/L (98-107); Estimated GFR-MDRD 18; Globulin 4.6 g/dL (2.4-3.5); Glucose 104 mg/dL (70-105); Protein, Total 7.3 g/dL (6.0-8.3); Sodium 138 mmol/L (136-145)
[2019-02-05] MEDS: Heparin 5,000 UNITS/ML VIAL SC SCH (07:33)
[2019-02-05] MEDS: Loperamide HCl 2 MG CAP PO PRN ×2 (07:33→15:00)
[2019-02-05] MEDS: Folic Acid/Vit B Comp W-C PO SCH (07:33)
--- NOTE | 2019-02-05 08:20 | HP ---
PRIMARY CARE PHYSICIAN: The patient has no PCP. CODE STATUS: Full code. TIME OF EVALUATION: 10:20 p.m. CHIEF COMPLAINT: Nausea, vomiting, associated with diarrhea. HISTORY OF PRESENT ILLNESS: This is a 58-year-old male patient, known to our hospital, frequent flyer, due to end-stage renal disease, on hemodialysis and not compliant since that he has no chair for hemodialysis, so the patient came to the hospital stating feeling generalized weakness, associated with nausea, vomiting, diarrhea with no clear triggers, no alleviating factors. Associated with abdominal pain that is right upper quadrant that is worse with palpation and the workup that is questioning for possible acute cholecystitis. For that reason, the patient has been admitted. Already receiving Zosyn. REVIEW OF SYSTEMS: CONSTITUTIONAL: The patient has no fever. The patient has chills and generalized weakness. RESPIRATORY: No cough, sputum production, or shortness of breath. CARDIOVASCULAR: No chest pain or palpitation. GASTROINTESTINAL: The patient has nausea, vomiting, diarrhea, and abdominal pain. LAST PULLER: No dizziness, headache, or feeling lightheaded. GENITOURINARY: No burning on urination. EXTREMITIES: The patient has bilateral chronic changes and chronic wounds in bilateral legs. 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 PAST SURGICAL HISTORY: Dialysis shunt in the left upper extremity which was removed from the left leg, right arm amputation. FAMILY HISTORY: Reviewed and non contributory for current presentation. PSYCHIATRIC HISTORY: No previous psych history. SOCIAL HISTORY: Lives at home. Drinks socially twice a month. No drug use. The patient smokes one pack per day. KNOWN ALLERGIES: No known drug allergies. REPORTED MEDICATIONS: None. PHYSICAL EXAMINATION: VITAL SIGNS: On presentation, heart rate 75, temperature 98.2, oxygen saturation was 100 on room air, blood pressure 186/94, respiratory rate was 16. GENERAL APPEARANCE: The patient is alert, oriented, in no acute distress. HEENT: Eyes; normal conjunctivae. Dry oral mucosa. Anicteric. No JVD. RESPIRATORY: Bilateral air entry. No rales. No wheezes. Symmetric expansion. CARDIOVASCULAR: The patient has normal rate, regular rhythm. No murmurs. No gallop. No edema. ABDOMEN: Soft. The patient has right upper quadrant tenderness on palpation. Baseline range of motion and strength. SKIN: Warm, intact. No pallor. No rash. No redness except for bilateral lower extremities the patient has chronic atrophic changes with change in color, texture, multiple small excoriations including the bilateral feet. Capillary refill seems to be intact. NEUROLOGIC: No evidence of any new focal weakness. Cranial nerves seem to be intact. PSYCH: The patient is in good mood. No anxiety. Optimal judgment. DIAGNOSTIC STUDIES: EKG showed normal sinus rhythm with a rate of 75, WY 148, QRS 102, QT corrected 486, incomplete RBBB, prolonged QT. Abdomen and pelvis CT, abnormal appearance of the liver suggesting age-indeterminate hepatocellular disease, question history of cirrhosis, nonspecific small volume ascites with moderate-sized right pleural effusion, wall thickening in the urinary bladder which could be inflammatory, infectious in nature, thick walled colon from level of cecum through transverse colon which could be related to congestive changes associated with hepatocellular disease or nonspecific colitis, fluid surrounding gallbladder and/or gallbladder wall thickening. This could be better assessed through the upper quadrant ultrasound. No evidence for free intraperitoneal air or small bowel obstruction. Abdominal ultrasound; markedly thick-walled gallbladder, there is sonographic represented positive Kelly sign. No gallstones are seen. In the proper clinical setting, findings may signify acute acalculous cholecystitis. Gallbladder wall thickening can also be seen on the basis of systemic process to include anasarca or hepatocellular disease. Patency of the cystic duct could be best assessed via hepatobiliary scan. LABORATORY DATA: Labs are reviewed. The patient has white count 5.5, hemoglobin 8.8, MCV 101, platelet count 122. The VBG was done; the patient has pH 7.18. Chemistry; sodium 134, potassium 5.0, chloride 111, carbon dioxide was 9, anion gap 19, BUN 55, creatinine 6.53, calcium 7.5 phosphorus 7.2, magnesium 2.0, total bilirubin 0.5. LFTs were negative. ASSESSMENT AND PLAN: The patient will be placed in the hospital with following medical problems: 1. End-stage renal disease, on hemodialysis. The patient is in metabolic acidosis, might be combined due to kidney failure and diarrhea due to loss of bicarb. Nephrology has been consulted. The patient will go for hemodialysis as per Nephrology schedule. We will follow recommendations. 2. Severe metabolic acidosis. The patient is compensated with respiratory alkalosis. The patient has been started on bicarb. This seems to be combined due to end-stage renal disease and diarrhea from bicarb loss. 3. Chronic macrocytic anemia. We will defer to Nephrology for any further treatment. We will monitor hemoglobin and treat accordingly. 4. Hyponatremia, sodium 134. This is mild, no need for any acute intervention. We will monitor, we will treat accordingly. 5. Chronic peripheral vascular disease and nonhealing wound in the lower extremities. We will consult Wound Care. 6. History of diabetes, type 2. This is controlled since the patient had stopped taking antidiabetic medication long time ago. 7. History of hepatitis C, this is chronic, seems to be stable. 8. Possible acalculous cholecystitis given findings and workup, the patient has been started on antibiotics. We will adjust antibiotics for renal dose as per pharmacy recommendations. We will monitor, follow cultures, we will adjust treatment as needed. 9. Anasarca with some ascites and pleural effusion. This is likely secondary to underlying end-stage renal disease. The patient is going for dialysis, to be monitored. 10. Deep venous thrombosis prophylaxis. Job ID: [id number] [facility]
--- NOTE | 2019-02-05 10:54 | PRG ---
DATE OF SERVICE: 02/05/2019 SUBJECTIVE: Patient was seen and examined at bedside and overnight events noted. Patient denies any shortness of breath or chest pain or palpitation. No history of nausea or vomiting or diarrhea or fever or chills or cramps. OBJECTIVE: GENERAL: This is a well-built male, in no apparent distress. VITAL SIGNS: Temperature 99.3. Heart rate 82. Respiratory rate 14. Blood pressure 162/54. HEENT: Atraumatic, normocephalic. Oral mucosa is moist NECK: Supple. CARDIOVASCULAR: S1, S2 heard. Rate and rhythm regular. RESPIRATORY: Clear to auscultation. GASTROINTESTINAL: Abdomen is soft. MUSCULOSKELETAL: No tenderness. No edema. DERMATOLOGIC: No skin rash. NEUROLOGIC: Alert and awake and oriented X3. No focal neurologic deficits. Moving all the extremities. PSYCHIATRIC: Mood and affect normal. LABORATORY DATA: Potassium 4.0, BUN is 21, creatinine 3.5. ASSESSMENT AND PLAN: 1. End-stage renal disease. Continue on dialysis as tolerated. Had dialysis yesterday. We will continue dialysis on Tuesday, Tuesday, Tuesday; starting Tuesday. 2. Hypertension, stable. 3. Anemia. Monitor hemoglobin. 4. Edema, controlled. 5. Plan to continue dialysis on Tuesday, Tuesday, Tuesday; starting Tuesday. Job ID: [id number]
[2019-02-05] MEDS ORDERED: Lidocaine 1% w/Epinephrine 1:100K 20 ML VIAL ONE (14:25)
[2019-02-05 15:48] VITALS: TEMP 98.6
== END 2019-02-05 18:26 | disposition home or self-care (01) | DRG 444 ==
LOC: ERS 18:25 → IMCU/EMU 23:52
PROVIDERS: ADMIT Hospitalist; ATTEND Hospitalist
DX: K81.0 Acute cholecystitis (principal); N18.6 End stage renal disease; S22.49XA Multiple fractures of ribs, unspecified side, initial encounter for closed fracture; E87.2 Acidosis; E87.1 Hypo-osmolality and hyponatremia; J90 Pleural effusion, not elsewhere classified; I12.0 Hypertensive chronic kidney disease with stage 5 chronic kidney disease or end stage renal disease; E44.0 Moderate protein-calorie malnutrition; Z68.1 Body mass index [BMI] 19.9 or less, adult; E11.22 Type 2 diabetes mellitus with diabetic chronic kidney disease; K74.60 Unspecified cirrhosis of liver; F17.210 Nicotine dependence, cigarettes, uncomplicated; D53.9 Nutritional anemia, unspecified; I73.9 Peripheral vascular disease, unspecified; B18.2 Chronic viral hepatitis C; F10.10 Alcohol abuse, uncomplicated; N40.0 Benign prostatic hyperplasia without lower urinary tract symptoms; D69.6 Thrombocytopenia, unspecified; E87.5 Hyperkalemia; Z99.2 Dependence on renal dialysis; Z89.221 Acquired absence of right upper limb above elbow; X58.XXXA Exposure to other specified factors, initial encounter
CPT/HCPCS: 36415; 36416; 74177; 76705; 78227; 80048; 80053; 82330; 82803; 83605; 83690; 83735; 84100; 84484; 85025; 87340; 93005; 96365; 96366; 96367; 96375; A9537; J1644; J2001; J2405; J2543; J3490; J7070; Q9966

== ENCOUNTER 2019-02-13 10:54 | Emergency (ER) | payer MEDICARE ==
[2019-02-13 13:48] LABS: #Basophils 0.1 thou/uL (0.0-0.2); #Eosinphils 0.4 thou/uL (0.0-0.7); #Lymphocytes 1.5 thou/uL (1.20-3.40); #Monocytes 0.5 thou/uL (0.11-0.59); #Neutrophils 2.9 thou/uL (1.40-6.50); %Basophils 1.5 % (0.0-1.0); %Eosinophils 7.5 % (0.0-10.0); %Lymphocytes 27.3 % (21.0-51.0); %Monocytes 9.5 % (0.0-10.0); %Neutrophils 54.2 % (42.0-75.0); Hemoglobin 9.1 g/dL (14.0-18.0); Mean Corpuscular HGB CONC 32.4 g/dL (32.0-36.0); Mean Corpuscular Volume 98.6 fL (78.0-98.0); Platelet Count 81 thou/uL (130-400); RBC Distribution Width 19.6 % (11.5-14.5); Red Blood Cell (RBC) Count 2.83 mill/uL (4.70-6.10); White Blood Cell (WBC) Count 5.3 thou/uL (4.8-10.8)
[2019-02-13 13:57] LABS: ALT (SGPT) 36 U/L (8-55); AST (SGOT) 45 U/L (5-34); Albumin 3.1 g/dL (3.5-5.0); Alkaline Phosphatase 107 U/L (40-150); Anion Gap 19 mmol/L (10-20); BUN (Urea Nitrogen) 58 mg/dL (8.4-25.7); Bilirubin, Total 0.4 mg/dL (0.2-1.2); Calc. Creatinine Clearance 0 mL/min (70-130); Calcium 6.6 mg/dL (7.8-10.44); Carbon Dioxide 13 mmol/L (22-29); Chloride 108 mmol/L (98-107); Estimated GFR-MDRD 9; Globulin 4.2 g/dL (2.4-3.5); Glucose 84 mg/dL (70-105); Potassium 4.4 mmol/L (3.5-5.1); Protein, Total 7.3 g/dL (6.0-8.3); Sodium 136 mmol/L (136-145)
[2019-02-13] MEDS ORDERED: Ondansetron PF 4 MG/2 ML Vial ONE (14:48)
[2019-02-13] MEDS ORDERED: Morphine 4 MG/ML VIAL ONE (14:48)
[2019-02-13] MEDS ORDERED: Heparin 10,000 UNITS/1 ML VIAL ONE (15:00)
--- NOTE | 2019-02-13 16:15 | CT ---
CTA AORTIC DISSECTION PROTOCOL: INDICATIONS: Lower back pain for 1-1/2 weeks. COMPARISON: None. FINDINGS: There is a moderate to large right pleural effusion. There is a right IJ dialysis catheter. There i s a small left pleural effusion. There is consolidation within the right lower lobe. No hemodynamic ally significant stenosis, occlusion, or aneurysmal formation is evident. No central pulmonary embol us is grossly evident. There is mild to moderate narrowing involving the origin of the left renal ar nimesh. There is moderate irregularity involving the proximal aspect of the right renal artery. The c eliac and SMA are patent. There is moderate narrowing involving the origin of the TOÑO. The liver is irregular and heterogenous in appearance. There is mild wall thickening involving the g allbladder, which is nonspecific. The pancreas, adrenal glands, and spleen appear within normal limits. There is stable prominent hydr onephrosis involving the left renal collecting system. This has been stable for a number of years. There is a 1.4 cm lucency within the left iliac wing that has been stable since 2014 and likely refle cts a small fiber osseous lesion or solitary bone cyst. No definite acute osseous abnormality is nasima dent. There are multiple healed rib deformities involving the right kidney. There is suggestive wall thickening involving a portion of the colon, which may be related to under-d istention. IMPRESSION: 1. No hemodynamically significant stenosis, occlusion, or aneurysmal formation involving the aorta. 2. Moderate right and mild to moderate left renal artery stenosis. 3. Moderate narrowing involving the origin of the inferior mesenteric artery. 4. Chronic appearing liver changes with persistent gallbladder wall thickening. 5. Moderate right and small left pleural effusion with air space consolidation in the right lower lo be, which may reflect compressive atelectasis; however, a component of pneumonia is not excluded. 6. Stable chronic left-sided hydronephrosis. 7. Accentuated wall thickening of the colon may reflect a component of a colitis. Recommend correl ation. POS: [facility]
== END 2019-02-13 22:31 | disposition home or self-care (01) ==
LOC: ERS 10:54
DX: N18.6 End stage renal disease (principal); E11.22 Type 2 diabetes mellitus with diabetic chronic kidney disease; K74.60 Unspecified cirrhosis of liver; M19.90 Unspecified osteoarthritis, unspecified site; F17.210 Nicotine dependence, cigarettes, uncomplicated
CPT/HCPCS: 36556; 71275; 80053; 84484; 85025; 90935; 93005; 96374; G0257; J1644; J2270; J2405; Q9966

== ENCOUNTER 2019-03-29 05:08 | Inpatient (IN) | payer MEDICARE ==
[2019-03-29 05:58] LABS: Mean Corpuscular HGB CONC 31.8 g/dL (32.0-36.0); Mean Corpuscular Hemoglobin 32.4 pg (27.0-31.0); Mean Platelet Volume 9.7 fL (7.4-10.4); Platelet Count 73 thou/uL (130-400); RBC Distribution Width 16.7 % (11.5-14.5); Red Blood Cell (RBC) Count 2.48 mill/uL (4.70-6.10); White Blood Cell (WBC) Count 10.6 thou/uL (4.8-10.8)
[2019-03-29 06:07] LABS: ALT (SGPT) 10 U/L (8-55); AST (SGOT) 19 U/L (5-34); Albumin 2.3 g/dL (3.5-5.0); Alkaline Phosphatase 110 U/L (40-150); Anion Gap 20 mmol/L (10-20); BUN (Urea Nitrogen) 83 mg/dL (8.4-25.7); Bilirubin, Total 0.9 mg/dL (0.2-1.2); CK (CPK) 12 U/L (30-200); Calc. Creatinine Clearance 0 mL/min (70-130); Calcium 6.7 mg/dL (7.8-10.44); Chloride 109 mmol/L (98-107); Estimated GFR-MDRD 8; Globulin 3.5 g/dL (2.4-3.5); Potassium 3.8 mmol/L (3.5-5.1); Protein, Total 5.8 g/dL (6.0-8.3); Sodium 133 mmol/L (136-145)
[2019-03-29 06:09] LABS: Carbon Dioxide 8 mmol/L (22-29); Glucose 34 mg/dL (70-105)
[2019-03-29] MEDS ORDERED: Dextrose 50% Abboject 50 ML SYRINGE ONE (06:11)
[2019-03-29 06:14] LABS: Anisocytosis SLIGHT = 6-15 cells (100X) (0-5/hpf); Band 2 % (5-11); Hypochromia SLIGHT = 6-15 cells (100X) (0-5/hpf); Lymphocytes 4 % (21-51); MDiff Complete? YES; Macrocytosis SLIGHT = 6-15 cells (100X) (0-5/hpf); Monocytes 6 % (0-10); Neutrophil 88 % (42-75); Platelet Morphology Comment Appears Decreased
[2019-03-29] MEDS ORDERED: Sodium Bicarb 50 MEQ/50 ML VIAL ONE (07:35)
--- NOTE | 2019-03-29 09:47 | RAD ---
PORTABLE CHEST: HISTORY: Shortness of breath. COMPARISON: Chest x-ray from 01/10/2019. CT examination from 02/13/2019. FINDINGS: Heart size is enlarged. A right pleural effusion with associated parenchymal lung changes are seen. The left lung is clear. IMPRESSION: Large right pleural effusion, which appears similar to the previous CT study. POS: DULCE MARIA
--- NOTE | 2019-03-29 09:49 | RAD ---
LEFT ANKLE 3 VIEWS: HISTORY: Ankle pain. COMPARISON: A 01/10/2019 examination of the foot. FINDINGS: Extensive vascular calcifications are seen. There is soft tissue swelling around the ankle. Advance d neuropathic changes of the hindfoot are noted with a very abnormal appearance to the calcaneus, alt diana changes appear relatively stable. The tibia is subluxed more anteriorly than it was on the antonio or examination. There is lucency through the anterior margin of the tibia which is felt to be relati vely stable as compared to the prior exam. IMPRESSION: Extensive vascular calcifications. Development of soft tissue swelling about the ankle with neuropat hic changes in the hindfoot region. The talus is almost completely absent. There is marked deformit y to the calcaneus. Changes are fairly similar to the prior examination. The tibia is somewhat more anteriorly subluxed in relation to the residual talus and calcaneus as compared to the prior study. POS: EFE
[2019-03-29] MEDS ORDERED: hydrALAZINE 20 MG/ML VIAL SLOW IVP PRN (10:17)
[2019-03-29] MEDS ORDERED: Dextrose 5% in Water 1,000 ML IV PRN (10:17)
[2019-03-29 12:37] LABS: Hep B Surf Ag Non-Reactive S/CO (NonReactive)
[2019-03-29] MEDS ORDERED: Piperacillin/Tazobactam 2.25 GM in Sodium Chloride 0.9% 100 ML IVPB SCH (14:00)
--- NOTE | 2019-03-29 15:43 | HP ---
PRIMARY CARE PHYSICIAN: The patient does not have a primary care physician. CHIEF COMPLAINT: "My foot has been hurting and having nausea and vomiting and diarrhea for 2 weeks." HISTORY OF PRESENT ILLNESS: Mr. Suero is a pleasant 59-year-old gentleman, who has a history of end-stage renal disease as well as diabetes mellitus and cirrhosis. He says that for the past couple of weeks he has been having nausea, vomiting, and diarrhea. He does not give much more detail than that. He also says that his throat has been hurting and he has had pain in his left foot. When asked the time frame for the left foot pain, he says about the same time. He also says he has been having some shortness of breath and he also notes shortness of breath, but denies any chest pain. He says he has been having the shortness of breath for about 2 months. He admits that he has not been to dialysis in over a month. When asked why he does not go, he says he does not have any transportation. He does have family in the area, but he says they all work. He does not remember who his foreign language interpreter is, but says that he did go to [facility] before. Otherwise, I am not able to get much history. He says he is cold and continues to pull the covers over his head. REVIEW OF SYSTEMS: CONSTITUTIONAL: He has had subjective fever. He says he has been cold all the time. No known night sweats. Unknown about weight loss. HEENT: He denies any headaches. No dizziness. He does complain of sore throat. No rhinorrhea. No neck pain. No adenopathy. PULMONARY: No hemoptysis. No cough. No wheezing. CARDIOVASCULAR: He denies chest pain. He has had some dyspnea. No PND. No orthopnea. He has swelling in the left ankle. He attributes it to not going to dialysis, and there are also some skin changes there as well. GASTROINTESTINAL: He denies any abdominal pain, but has had nausea, vomiting, and diarrhea. No hematemesis. No melena. GENITOURINARY: He does make some urine still, but no dysuria. No hematuria. MUSCULOSKELETAL: He complains of pain in the left leg and also notes swelling in that left ankle. NEUROLOGIC: No focal weakness or numbness. No seizures. PSYCHIATRIC: No symptoms of anxiety or depression. SKIN AND INTEGUMENT: The patient does not mention any changes in his skin other than swelling. PAST MEDICAL HISTORY: Significant for gangrene of the right upper extremity, diabetes mellitus type 2, cirrhosis, hepatitis C, and end-stage renal disease, on dialysis. PAST SURGICAL HISTORY: He has had a shunt in the left arm and a right arm amputation. ALLERGIES: NO KNOWN DRUG ALLERGIES. SOCIAL HISTORY: He is single. He has 3 children. He is a nondrinker. He denies any smoking. He would like to be a full code. FAMILY HISTORY: Unknown. CURRENT MEDICATIONS: He is currently not taking any medications. PHYSICAL EXAMINATION: GENERAL: He is alert and oriented. He appears to be in some distress, but he denies having any pain. He is very cachectic and chronically ill in appearance. VITAL SIGNS: Blood pressure was 95/22, heart rate 144, respiratory rate of 16, and temperature was 98.4. HEENT: His pupils are equal and reactive. Extraocular muscles are intact. His sclerae are pale. Throat, he has dry mucous membranes. Poor dentition. Temporal wasting. NECK: There is no adenopathy. No bruits. LUNGS: Clear to auscultation. No wheezing. No rales. He does have decreased breath sounds on the right base. CARDIOVASCULAR: He has a normal S1 and S2. There is no S3 or S4. No murmurs, clicks, or rubs. ABDOMEN: Scaphoid. Positive for bowel sounds. There is no rebound or guarding. No organomegaly. EXTREMITIES: He has severe muscle wasting and cachexia. No joint effusions except for in the left ankle. NEUROLOGIC: He is moving all extremities. He is grossly nonfocal. SKIN AND INTEGUMENT: He has a bullous lesion on the medial aspect of the left ankle as well as some dark eschar on the medial malleolus and dorsum of the foot. His dorsalis pedis pulse on the left is nonpalpable. He has ischemic changes in the left foot. On the right, I am able to palpate dorsalis pedis pulse, but it is a bit diminished. He does have sluggish capillary refill. LABORATORY DATA: White blood cell count is 10.6, hemoglobin 8, hematocrit is 25.2, and platelet count is 73. His sodium is 133, potassium 3.8, chloride is 109, CO2 is 8, BUN of 83, creatinine of 7.17, and glucose is 34. IMAGING STUDIES: On his chest x-ray by my reading, he has mild cardiomegaly and fairly large right pleural effusion and possibly superimposed infiltrate. ASSESSMENT: This is a 59-year-old gentleman, who presents to the emergency room with nausea, vomiting, and diarrhea for 2 weeks. He has also been off dialysis for over a month. He is severely acidotic. He is hypoglycemic and appears to have some gangrene of the left lower extremity. He wishes to be a full code. 1. For severe metabolic acidosis, this is likely due to a combination of renal failure and possibly early sepsis given the appearance of his left foot, he will be admitted to the IM, started on bicarbonate possibly orally given he has end-stage renal and Nephrology has already been consulted. He is likely going to need urgent dialysis. 2. Possible gangrene of the left foot. We will go ahead and start him on broad-spectrum IV antibiotics and consult General Surgery as I suspect the leg may not be salvageable. 3. Hypoglycemia, likely due to poor glycogen stores. We will continue to monitor his blood sugars every 4 hours and supplement the glucose as needed. 4. [id number]-[id number] protein calorie malnutrition. We will get a dietitian consult, but this definitely will complicate his care. 5. History of chronic hepatitis C and cirrhosis. He has had a recent ultrasound of the abdomen for surveillance and there was no evidence of any hepatocellular carcinoma. This was done in January. Therefore, we will not do another ultrasound unless concerns for recurrent ascites. 6. The patient has multiple comorbid conditions including gangrene, severe metabolic acidosis, noncompliance with dialysis, as well as advanced cirrhosis. Therefore, his overall prognosis is poor. Job ID: [id number]
[2019-03-29] MEDS ORDERED: Vancomycin HCl 1 GM in Premix Bag 1 BAG IVPB SCH ×2 (16:00→16:15)
[2019-03-29] MEDS ORDERED: Vancomycin HCl 250 MG in Sodium Chloride 0.9% 100 ML IVPB SCH (16:15)
[2019-03-29] MEDS ORDERED: Vancomycin Sliding Scale 1 EACH FS ONE (16:15)
[2019-03-29] MEDS ORDERED: Vancomycin HCl 750 MG in Sodium Chloride 0.9% 250 ML 250 ML IVPB SCH (16:15)
[2019-03-29] MEDS ORDERED: HOLD VANCOMYCIN FOR LEVEL >20 FS SCH (16:15)
--- NOTE | 2019-03-29 20:05 | CON ---
DATE OF CONSULTATION: 03/29/2019 REASON FOR CONSULTATION: Metabolic acidosis. HISTORY OF PRESENT ILLNESS: This is a 59-year-old noncompliant gentleman, presented to the hospital after missing dialysis for all month and severe acidosis. The patient was not interested in dialysis at this time. The patient was last seen in the hospital in January of 2019. PAST MEDICAL HISTORY: Hypertension, AV fistula, tunneled dialysis catheter, hepatitis C, amputation of the right arm, diabetes mellitus, and gangrenous infection multiple times. SOCIAL HISTORY: No alcohol or drug use. FAMILY HISTORY: Negative for ESRD. ALLERGIES: REVIEWED. REVIEW OF SYSTEMS: Fifteen-point review of system was performed, negative except for positives noted above. GENERAL: HEAD: NECK: No swelling or lumps. NOSE: No epistaxis or discharge. EYES: No diplopia or pain. RESPIRATORY: CARDIOVASCULAR: GASTROINTESTINAL: /INSULATION NOZZLEMAN: MUSCULOSKELETAL: No joint pain. NEUROPSYCHIATIC SYSTEMS: No suicidal ideation. No ideation. SKIN: Denies any rash or ulcer. CONSTITUTIONAL: No fever or chills. PHYSICAL EXAMINATION: See above. The patient is awake and alert. VITAL SIGNS: Afebrile, pulse 75, breathing 16, and blood pressure 160/85 GENERAL APPEARANCE AND MENTAL STATUS: Fair. HEAD/NECK: Normocephalic. Atraumatic. EYES: EOMI. No deformity. EARS: Clear. No ulcers. NOSE: Intact. No lesions. MOUTH: Clear. No discharge. THROAT: Clear. No exudate. LUNGS: Clear. No crackles. CARDIAC: S1, S2. No rub. ABDOMEN: Benign. Bowel sounds positive. GENITALIA/RECTUM: Moffett absent. BACK/EXTREMITIES: Edema 0+. NEUROLOGICAL: Alert and motor intact. SKIN: LYMPHATICS: ASSESSMENT AND RECOMMENDATIONS: 1. Stage 6 chronic kidney disease. Plan, dialysis. 2. Metabolic acidosis. Plan, dialysis. 3. Anemia. Continue Epogen. 4. Medication based on GFR appropriate. Overall, prognosis is poor. I would recommend hospice care. Job ID: [id number]
[2019-03-29] MEDS: Piperacillin/Tazobactam 2.25 GM in Sodium Chloride 0.9% 100 ML IVPB SCH (20:15)
[2019-03-29] MEDS: Heparin 5,000 UNITS/ML VIAL SC SCH (20:19)
[2019-03-29] MEDS: HYDROcodone/Acetaminophen 5/325 mg Tablet PO PRN (21:09)
[2019-03-29] MEDS: Dextrose 50% Abboject 50 ML SYRINGE SLOW IVP PRN (22:44)
[2019-03-29] MEDS: Acetaminophen 325 MG TAB PO PRN (23:46)
--- NOTE | 2019-03-30 00:54 | PDOC.EVN ---
Event Note - Event Note Event Note: Blood cultures positive for Gram + cocci. Continue Vanc and Zosyn.
[2019-03-30] MEDS: Acetaminophen 325 MG TAB PO PRN (04:13)
[2019-03-30] MEDS: Piperacillin/Tazobactam 2.25 GM in Sodium Chloride 0.9% 100 ML IVPB SCH ×3 (04:13→20:26)
[2019-03-30 06:08] LABS: Anion Gap 12 mmol/L (10-20); BUN (Urea Nitrogen) 42 mg/dL (8.4-25.7); Calc. Creatinine Clearance 13 mL/min (70-130); Calcium 7.1 mg/dL (7.8-10.44); Carbon Dioxide 19 mmol/L (22-29); Chloride 105 mmol/L (98-107); Estimated GFR-MDRD 15; Glucose 114 mg/dL (70-105); Potassium 3.3 mmol/L (3.5-5.1); Sodium 133 mmol/L (136-145)
[2019-03-30 06:33] LABS: Band 11 % (5-11); Eosinophils 2 % (0-10); Hemoglobin 7.8 g/dL (14.0-18.0); Lymphocytes 13 % (21-51); MDiff Complete? YES; Mean Corpuscular HGB CONC 32.6 g/dL (32.0-36.0); Mean Corpuscular Hemoglobin 32.8 pg (27.0-31.0); Mean Platelet Volume 9.5 fL (7.4-10.4); Monocytes 5 % (0-10); Neutrophil 69 % (42-75); Platelet Count 60 thou/uL (130-400); Platelet Morphology Comment Appears Decreased; RBC Distribution Width 16.7 % (11.5-14.5); Red Blood Cell (RBC) Count 2.38 mill/uL (4.70-6.10); White Blood Cell (WBC) Count 9.8 thou/uL (4.8-10.8)
--- NOTE | 2019-03-30 10:21 | PRG ---
DATE OF SERVICE: 03/30/2019 SUBJECTIVE: This is a 59-year-old gentleman, being seen for end-stage renal disease. The patient denies any nausea, vomiting, or chest pain. OBJECTIVE: See above. The patient is awake, alert. VITAL SIGNS: Afebrile, pulse 95, breathing 16, and blood pressure 110/56. GENERAL APPEARANCE AND MENTAL STATUS: Fair. HEAD/NECK: Normocephalic. Atraumatic. EYES: EOMI. No deformity. EARS: Clear. No ulcers. NOSE: Intact. No lesions. MOUTH: Clear. No discharge. THROAT: Clear. No exudate. LUNGS: Clear. No crackles. CARDIAC: S1, S2. No rub. ABDOMEN: Benign. Bowel sounds positive. GENITALIA/RECTUM: Moffett absent. BACK/EXTREMITIES: Edema 0+. NEUROLOGICAL: Alert and motor intact. SKIN: LYMPHATICS: LABORATORY DATA: Reviewed. ASSESSMENT AND PLAN: 1. Chronic kidney disease, stage 6. No indication for dialysis today. 2. Hypokalemia, stable. Recommend 20 mEq of potassium by mouth. 3. Anemia, stable. 4. Medication based on GFR appropriate. The patient has history of noncompliance, gangrene. Failed to follow up in the clinic for antibiotic therapy. Overall, prognosis poor. I would recommend palliative care. The patient has refused to do dialysis in the past as an outpatient. Job ID: [id number]
[2019-03-30] MEDS: Heparin 5,000 UNITS/ML VIAL SC SCH ×2 (11:43→20:27)
--- NOTE | 2019-03-30 15:09 | PDOC.HOSPP ---
- Subjective Encounter Date: 03/30/19 Encounter Time: 11:00 Subjective: Mr. Suero was seen today in follow-up of severe metabolic acidosis, and left ankle wound. He is complaining of some pain in his foot. He is worried he may loose his leg. - Objective Vital Signs & Weight: Vital Signs (12 hours) Temp Pulse Ox 03/30/19 11:08 99.1 F 03/30/19 08:00 100 03/30/19 07:21 99.0 F 03/30/19 03:56 100.6 F H Weight Weight 109 lb 12.8 oz Most Recent Monitor Data Heart Rate from ECG 95 NIBP 105/57 NIBP BP-Mean 73 Respiration from ECG 14 SpO2 100 I&O: 03/29/19 03/30/19 03/31/19 06:59 06:59 06:59 Intake Total 1170 Output Total 1000 Balance 170 Result Diagrams: 03/30/19 05:37 03/30/19 05:37 Additional Labs: Accuchecks 03/30/19 03/30/19 03/30/19 12:09 08:22 05:40 POC Glucose 101 147 H 118 H 03/30/19 03/29/19 03/29/19 02:05 23:30 22:09 POC Glucose 143 H 158 H 53 L* 03/29/19 03/29/19 20:41 16:32 POC Glucose 62 L 65 L Hospitalist ROS - Medication Medications: Active Medications Generic Name Dose Route Start Last Admin Trade Name Freq PRN Reason Stop Dose Admin Acetaminophen 325 mg 03/29/19 10:17 03/30/19 04:13 Tylenol PO 325 mg Q4H PRN Administration Headache/Fever/Mild Pain (1-3) Hydrocodone Bitart/Acetaminophen 1 tab 03/29/19 10:17 03/29/19 21:09 [place] 5/325 PO 1 tab Q4H PRN Administration Moderate Pain (4-6) Dextrose/Water 25 gm 03/29/19 10:17 03/29/19 22:44 Dextrose 50% SLOW IVP 25 gm PRN PRN Administration Hypoglycemia Heparin Sodium (Porcine) 5,000 units 03/29/19 21:00 03/30/19 11:43 Heparin SC Not Given BID AUTUMN Vancomycin HCl 750 mg/ Sodium 250 mls @ 250 mls/hr 03/29/19 16:15 03/30/19 13 :45 Chloride IVPB 250 mls WILLCALL AUTUMN Administration Piperacillin Sod/Tazobactam 100 mls @ 200 mls/hr 03/29/19 20:00 03/30/19 11: 47 Sod 2.25 gm/ Sodium Chloride IVPB 100 mls 0400,1200,2000 AUTUMN Administration - Exam General Appearance: ill appearing Eye: PERRL, anicteric sclera (pale sclera) ENT: normocephalic atraumatic, no oropharyngeal lesions (temporal wasting) Heart: RRR, no murmur, no gallops, no rubs, normal peripheral pulses Respiratory: CTAB, no wheezes, no rales, no ronchi, normal chest expansion Gastrointestinal: soft, non-tender, non-distended, normal bowel sounds, no palpable masses, no hepatomegaly, no splenomegaly Extremities: no cyanosis, no clubbing, no edema Musculoskeletal: diffuse muscle atrophy (+ large fluctuant lesions on both medial and lateral malleolus, with dark eschar in the central region) Psychiatric: flat affect Hosp A/P (1) Metabolic acidosis Code(s): E87.2 - ACIDOSIS Status: Acute (2) Gangrenous cellulitis Code(s): I96 - GANGRENE, NOT ELSEWHERE CLASSIFIED Status: Acute (3) Severe protein-calorie malnutrition Code(s): E43 - UNSPECIFIED SEVERE PROTEIN-CALORIE MALNUTRITION Status: Chronic (4) Cirrhosis of liver Code(s): K74.60 - UNSPECIFIED CIRRHOSIS OF LIVER Status: Chronic (5) Diabetes type 2, controlled Code(s): E11.9 - TYPE 2 DIABETES MELLITUS WITHOUT COMPLICATIONS Status: Chronic (6) ESRD (end stage renal disease) on dialysis Code(s): N18.6 - END STAGE RENAL DISEASE; Z99.2 - DEPENDENCE ON RENAL DIALYSIS Status: Chronic (7) Hepatitis C Code(s): B19.20 - UNSPECIFIED VIRAL HEPATITIS C WITHOUT HEPATIC COMA Status: Chronic - Plan * Metabolic Acidosis- improved after dialysis * Severe cellulitis and abscess of the left leg- the patient had copious amouts of purrulent, bloody fluid expressed from his left leg, - will place wound care consult- and will await surgery evaluation- I suspect it will require extensive debridement,and possible amputation- Will consult Dr. Kahn on [place]> there is no a surgeon available this weekend to manage this situation. He does not clinically appear to be septic from this, and i suspect the infection has been present for some time. If he develops sepsis oer the weekend would call the surgeon conveyor belt repairer. * ESRD- he has been non-compliant with Dialysis. I spoke with Dr. Fuchs who informs me he is no longer able to dialyze at his center, due to non-compliance - will consult case management to see what his options are * DM-he is still having episodes of hypoglycemia- likely due to poor oral intake and malnutrition- continue to supplement as needed * Agree with Dr. Fuchs's assessment that the patient would be a candidate for Hospice given his multiple co- morbidities. A palliative care consult has been placed.
[2019-03-30 16:10] LABS: Hemoglobin 7.8 g/dL (14.0-18.0); Platelet Count 53 thou/uL (130-400)
[2019-03-30] MEDS: Loperamide HCl 2 MG CAP PO PRN (16:30)
[2019-03-31] MEDS: Piperacillin/Tazobactam 2.25 GM in Sodium Chloride 0.9% 100 ML IVPB SCH ×3 (04:33→21:52)
[2019-03-31] MEDS: Acetaminophen 325 MG TAB PO PRN (07:10)
[2019-03-31] MEDS: Heparin 5,000 UNITS/ML VIAL SC SCH ×2 (10:18→21:52)
[2019-03-31 12:21] LABS: Vancomycin, Random 14.4 ug/mL (See Comment)
--- NOTE | 2019-03-31 13:24 | PDOC.HOSPP ---
- Subjective Encounter Date: 03/31/19 Encounter Time: 11:00 Subjective: is getting HD, no sob, feels weak no sob or chest pain - Objective Vital Signs & Weight: Vital Signs (12 hours) Temp Pulse Resp BP Pulse Ox 03/31/19 08:30 100 03/31/19 08:00 99.9 F H 107 H 16 118/55 L 96 03/31/19 07:00 100.4 F H 03/31/19 03:00 99.2 F Weight Admit Weight 104 lb Weight 112 lb 8 oz Most Recent Monitor Data Heart Rate from ECG 105 NIBP 134/61 NIBP BP-Mean 85 Respiration from ECG 21 SpO2 100 I&O: 03/30/19 03/31/19 04/01/19 06:59 06:59 06:59 Intake Total 1170 650 Output Total 1000 300 Balance 170 650 -300 Result Diagrams: 03/30/19 15:58 03/30/19 05:37 Additional Labs: Accuchecks 03/31/19 03/31/19 03/31/19 11:06 04:35 00:25 POC Glucose 73 86 88 03/30/19 03/30/19 03/30/19 21:18 20:35 16:12 POC Glucose 68 L 48 L* 73 Hospitalist ROS - Medication Medications: Active Medications Generic Name Dose Route Start Last Admin Trade Name Freq PRN Reason Stop Dose Admin Acetaminophen 325 mg 03/29/19 10:17 03/31/19 07:10 Tylenol PO 325 mg Q4H PRN Administration Headache/Fever/Mild Pain (1-3) Hydrocodone Bitart/Acetaminophen 1 tab 03/29/19 10:17 03/29/19 21:09 [place] 5/325 PO 1 tab Q4H PRN Administration Moderate Pain (4-6) Dextrose/Water 25 gm 03/29/19 10:17 03/29/19 22:44 Dextrose 50% SLOW IVP 25 gm PRN PRN Administration Hypoglycemia Heparin Sodium (Porcine) 5,000 units 03/29/19 21:00 03/31/19 10:18 Heparin SC Not Given BID AUTUMN Vancomycin HCl 750 mg/ Sodium 250 mls @ 250 mls/hr 03/29/19 16:15 03/30/19 13 :45 Chloride IVPB 250 mls WILLCALL AUTUMN Administration Piperacillin Sod/Tazobactam 100 mls @ 200 mls/hr 03/29/19 20:00 03/31/19 04: 33 Sod 2.25 gm/ Sodium Chloride IVPB 100 mls 0400,1200,2000 AUTUMN Administration Loperamide HCl 2 mg 03/30/19 15:07 03/30/19 16:30 Imodium PO 2 mg DAILYPRN PRN Administration Diarrhea/Loose Stools - Exam General Appearance: NAD, awake alert Eye: PERRL, anicteric sclera ENT: no oropharyngeal lesions, dry oral mucosa Neck: supple, no JVD Heart: RRR, no murmur Respiratory: no wheezes, no rales Gastrointestinal: soft, non-tender, normal bowel sounds Extremities: no edema Neurological: cranial nerve grossly intact, no focal deficits Psychiatric: A&O x 3 Hosp A/P (1) Sepsis Code(s): A41.9 - SEPSIS, UNSPECIFIED ORGANISM Status: Acute Qualifiers: Sepsis type: methicillin susceptible Staphylococcus aureus (2) Staphylococcus aureus bacteremia Code(s): R78.81 - BACTEREMIA Status: Acute (3) Multiple wounds Code(s): T07.XXXA - UNSPECIFIED MULTIPLE INJURIES, INITIAL ENCOUNTER Status: Chronic (4) Severe protein-calorie malnutrition Code(s): E43 - UNSPECIFIED SEVERE PROTEIN-CALORIE MALNUTRITION Status: Chronic (5) Metabolic acidosis Code(s): E87.2 - ACIDOSIS Status: Acute (6) BPH (benign prostatic hyperplasia) Code(s): N40.0 - BENIGN PROSTATIC HYPERPLASIA WITHOUT LOWER URINRY TRACT SYMP Status: Chronic Qualifiers: Lower urinary tract symptom presence: symptoms absent Qualified Code(s): N40.0 - Benign prostatic hyperplasia without lower urinary tract symptoms (7) Cirrhosis of liver Code(s): K74.60 - UNSPECIFIED CIRRHOSIS OF LIVER Status: Chronic Qualifiers: Ascites presence: without ascites (8) Diabetes type 2, controlled Code(s): E11.9 - TYPE 2 DIABETES MELLITUS WITHOUT COMPLICATIONS Status: Chronic Qualifiers: Diabetes mellitus snf insulin use: without dedicated intermodal truck driver use Diabetes mellitus complication detail: with chronic kidney disease Chronic kidney disease stage: on chronic dialysis (9) ESRD (end stage renal disease) on dialysis Code(s): N18.6 - END STAGE RENAL DISEASE; Z99.2 - DEPENDENCE ON RENAL DIALYSIS Status: Chronic (10) Hepatitis C Code(s): B19.20 - UNSPECIFIED VIRAL HEPATITIS C WITHOUT HEPATIC COMA Status: Chronic Qualifiers: Viral hepatitis chronicity: chronic (11) Hypertension Code(s): I10 - ESSENTIAL (PRIMARY) HYPERTENSION Status: Chronic Qualifiers: Hypertension type: essential hypertension Qualified Code(s): I10 - Essential (primary) hypertension (12) Macrocytic anemia Code(s): D53.9 - NUTRITIONAL ANEMIA, UNSPECIFIED Status: Chronic (13) Thrombocytopenia Code(s): D69.6 - THROMBOCYTOPENIA, UNSPECIFIED Status: Chronic - Plan is on vanc and zosyn getting HD now needs surgical and ID consultation dm is labile with fingersticks dipping into 40's prognosis guarded with multiple med issues
--- NOTE | 2019-03-31 13:42 | PRG ---
DATE OF SERVICE: 03/31/2019 SUBJECTIVE: A 59-year-old gentleman being seen for end-stage renal disease. The patient denied nausea, vomiting, or chest pain. OBJECTIVE: CONSTITUTIONAL: The patient is awake and alert. VITAL SIGNS: Afebrile, pulse 107, breathing 16, blood pressure 118/55. GENERAL APPEARANCE AND MENTAL STATUS: Fair. HEAD/NECK: Normocephalic. Atraumatic. EYES: EOMI. No deformity. EARS: Clear. No ulcers. NOSE: Intact. No lesions. MOUTH: Clear. No discharge. THROAT: Clear. No exudate. LUNGS: Clear. No crackles. CARDIAC: S1, S2. No rub. ABDOMEN: Benign. Bowel sounds positive. GENITALIA/RECTUM: Moffett absent. BACK/EXTREMITIES: Edema 0+. NEUROLOGICAL: Alert and motor intact. SKIN: LYMPHATICS: LABORATORY DATA: Reviewed. ASSESSMENT AND PLAN: 1. Chronic kidney disease, stage 6. Plan dialysis. 2. Hypertension, stable. 3. Anemia, stable. 4. Medication based on GFR appropriate. 5. Overall prognosis is poor. Outpatient discharge planning is in progress. Job ID: [id number]
--- NOTE | 2019-03-31 15:10 | EKG ---
Test Reason : Blood Pressure : / mmHG Vent. Rate : 113 BPM Atrial Rate : 113 BPM P-R Int : 140 ms QRS Dur : 098 ms QT Int : 354 ms P-R-T Axes : 082 096 083 degrees QTc Int : 485 ms Sinus tachycardia Rightward axis Incomplete right bundle branch block Borderline ECG Confirmed by DYLON KNAPP DO ([id number]), editor sound ERIKA HAYES ([id number]) on 03/31/2019 3:10:32 PM Referred By: Confirmed By:DYLON KNAPP DO
[2019-04-01] MEDS: Dextrose 50% Abboject 50 ML SYRINGE SLOW IVP PRN (00:11)
[2019-04-01] MEDS: Piperacillin/Tazobactam 2.25 GM in Sodium Chloride 0.9% 100 ML IVPB SCH (04:18)
[2019-04-01 06:17] LABS: Platelet Count 46 thou/uL (130-400)
[2019-04-01 09:23] LABS: #Eosinphils 0.2 thou/uL (0.0-0.7); #Lymphocytes 1.5 thou/uL (1.20-3.40); #Monocytes 1.2 thou/uL (0.11-0.59); #Neutrophils 5.9 thou/uL (1.40-6.50); %Basophils 0.4 % (0.0-1.0); %Eosinophils 2.7 % (0.0-10.0); %Lymphocytes 16.9 % (21.0-51.0); %Monocytes 13.9 % (0.0-10.0); Mean Corpuscular HGB CONC 32.8 g/dL (32.0-36.0); Mean Corpuscular Hemoglobin 33.5 pg (27.0-31.0); Mean Platelet Volume 10.7 fL (7.4-10.4); Platelet Count 49 thou/uL (130-400); RBC Distribution Width 16.5 % (11.5-14.5); Red Blood Cell (RBC) Count 2.37 mill/uL (4.70-6.10); White Blood Cell (WBC) Count 8.9 thou/uL (4.8-10.8)
[2019-04-01 09:28] LABS: INR-International Normal Ratio 2.3; PTT 50.4 SEC (22.9-36.1); Prothrombin Time 25.1 SEC (12.0-14.7)
[2019-04-01 09:42] LABS: ALT (SGPT) Less than 7 U/L (8-55); AST (SGOT) 26 U/L (5-34); Albumin 1.9 g/dL (3.5-5.0); Alkaline Phosphatase 90 U/L (40-150); Anion Gap 11 mmol/L (10-20); BUN (Urea Nitrogen) 25 mg/dL (8.4-25.7); Bilirubin, Total 1.8 mg/dL (0.2-1.2); Calc. Creatinine Clearance 18 mL/min (70-130); Calcium 7.2 mg/dL (7.8-10.44); Carbon Dioxide 24 mmol/L (22-29); Chloride 99 mmol/L (98-107); Estimated GFR-MDRD 20; Globulin 3.8 g/dL (2.4-3.5); Glucose 93 mg/dL (70-105); Potassium 3.3 mmol/L (3.5-5.1); Protein, Total 5.7 g/dL (6.0-8.3); Sodium 131 mmol/L (136-145)
[2019-04-01] MEDS: Heparin 5,000 UNITS/ML VIAL SC SCH ×2 (10:02→20:16)
[2019-04-01] MEDS: cefTRIAXone\\ROCEPHIN 2 GM in Sodium Chloride 0.9% 100 ML IVPB SCH (10:03)
--- NOTE | 2019-04-01 11:16 | CON ---
DATE OF CONSULTATION: CHIEF COMPLAINT: Left ankle infection. HISTORY OF PRESENT ILLNESS: Mr. Suero is a 59-year-old male, who has severe diabetes as well as end-stage renal disease. He has a long history of Charcot arthropathy of the left foot and ankle. He has poor sensation to bilateral lower extremities. He has had a right upper extremity amputation for infection. Orthopedics was consulted regarding his left ankle infection. The patient has severely draining wound with purulence. He has been somewhat septic. He has MRSA bacteremia. He has been worsening. He has been somewhat hypotensive. He did receive dialysis yesterday. He has plan for dialysis again tomorrow. He has hepatitis C cirrhosis as well. PAST MEDICAL HISTORY: Diabetes, poorly controlled. He has history of gangrene of the right upper extremity, status post amputation. History of hepatitis C and cirrhosis. End-stage renal disease. PAST SURGICAL HISTORY: Left arm shunt placement and right arm amputation. ALLERGIES: NO KNOWN DRUG ALLERGIES. SOCIAL HISTORY: The patient denies tobacco, alcohol, or drug use. FAMILY MEDICAL HISTORY: Unknown. CURRENT MEDICATIONS: The patient takes only a medication for hypertension. PHYSICAL EXAMINATION: VITAL SIGNS: The patient is febrile at 99.4, pulse is 100, respiratory rate 20, oxygen saturation 99%, and blood pressure is 89/34. GENERAL: He is alert, lying supine, in no apparent distress. RESPIRATORY: Breathing comfortably. ABDOMEN: Soft, nontender, and nondistended. MUSCULOSKELETAL: The patient's left lower extremity has a large ulceration over the medial ankle. This is draining gross purulence. There is copious drainage. He has poor sensation around the foot and ankle. He is atrophic in the lower extremity. He has very limited musculature. IMAGING DATA: X-rays of the left ankle demonstrate destruction of the ankle and foot suggestive of Charcot arthropathy. There is possible underlying osteomyelitis. IMPRESSION: Poorly controlled diabetes and end-stage renal disease, now with septic arthritis of the left ankle with open draining wound and likely underlying osteomyelitis. PLAN: At this point, the patient is going to need [id number] amputation. I have discussed this with him. He does want to proceed. He will need to be optimized for surgery. We will plan for giving him FFP to optimize his coagulant function. He may need blood transfusion postoperatively. The goal of surgery is to eradicate infection and prevent further sepsis. He is having workup today including echocardiogram. He should be n.p.o. Job ID: [id number]
[2019-04-01] MEDS: HYDROcodone/Acetaminophen 5/325 mg Tablet PO PRN ×2 (11:39→19:32)
--- NOTE | 2019-04-01 12:05 | PDOC.HOSPP ---
- Subjective Encounter Date: 04/01/19 Encounter Time: 09:15 Subjective: is sleepy but awakens easily no sob or chest pain or palp - Objective Vital Signs & Weight: Vital Signs (12 hours) Temp Pulse Resp BP BP Pulse Ox 04/01/19 09:10 99 04/01/19 08:00 99.4 F 100 20 89/34 L 99 04/01/19 03:14 98.9 F 104 H 18 112/48 L 98 Weight Admit Weight 104 lb Weight 112 lb 8 oz Most Recent Monitor Data Heart Rate from ECG 105 NIBP 134/61 NIBP BP-Mean 85 Respiration from ECG 21 SpO2 100 I&O: 03/31/19 04/01/19 04/02/19 06:59 06:59 06:59 Intake Total 650 820 Output Total 1650 Balance 650 -830 Result Diagrams: 04/01/19 09:05 04/01/19 09:05 Additional Labs: Accuchecks 04/01/19 04/01/19 04/01/19 04:09 00:52 00:09 POC Glucose 116 H 174 H Less than 35 L* 03/31/19 16:41 POC Glucose 75 Hospitalist ROS - Medication Medications: Active Medications Generic Name Dose Route Start Last Admin Trade Name Freq PRN Reason Stop Dose Admin Acetaminophen 325 mg 03/29/19 10:17 03/31/19 07:10 Tylenol PO 325 mg Q4H PRN Administration Headache/Fever/Mild Pain (1-3) Hydrocodone Bitart/Acetaminophen 1 tab 03/29/19 10:17 04/01/19 11:39 [place] 5/325 PO 1 tab Q4H PRN Administration Moderate Pain (4-6) Dextrose/Water 25 gm 03/29/19 10:17 04/01/19 00:11 Dextrose 50% SLOW IVP 25 gm PRN PRN Administration Hypoglycemia Heparin Sodium (Porcine) 5,000 units 03/29/19 21:00 04/01/19 10:02 Heparin SC Not Given BID AUTUMN Vancomycin HCl 750 mg/ Sodium 250 mls @ 250 mls/hr 03/29/19 16:15 03/30/19 13 :45 Chloride IVPB 250 mls WILLCALL AUTUMN Administration Ceftriaxone Sodium 2 gm/ 100 mls @ 200 mls/hr 04/01/19 09:00 04/01/19 10:03 Sodium Chloride IVPB 100 mls Q24HR AUTUMN Administration Loperamide HCl 2 mg 03/30/19 15:07 03/30/19 16:30 Imodium PO 2 mg DAILYPRN PRN Administration Diarrhea/Loose Stools - Exam General Appearance: awake alert, ill appearing Eye: PERRL, anicteric sclera ENT: no oropharyngeal lesions, moist mucosa Neck: supple, no JVD Heart: RRR, no murmur Respiratory: no wheezes, no rales Gastrointestinal: soft, non-tender, normal bowel sounds Extremities - other findings: severe purulent ulceration and cellulitis of left ankle area Neurological: cranial nerve grossly intact, no focal deficits Psychiatric: normal affect, A&O x 3 Hosp A/P (1) Sepsis Code(s): A41.9 - SEPSIS, UNSPECIFIED ORGANISM Status: Acute Qualifiers: Sepsis type: methicillin susceptible Staphylococcus aureus (2) Staphylococcus aureus bacteremia Code(s): R78.81 - BACTEREMIA Status: Acute (3) Multiple wounds Code(s): T07.XXXA - UNSPECIFIED MULTIPLE INJURIES, INITIAL ENCOUNTER Status: Chronic (4) Severe protein-calorie malnutrition Code(s): E43 - UNSPECIFIED SEVERE PROTEIN-CALORIE MALNUTRITION Status: Chronic (5) Metabolic acidosis Code(s): E87.2 - ACIDOSIS Status: Acute (6) BPH (benign prostatic hyperplasia) Code(s): N40.0 - BENIGN PROSTATIC HYPERPLASIA WITHOUT LOWER URINRY TRACT SYMP Status: Chronic Qualifiers: Lower urinary tract symptom presence: symptoms absent Qualified Code(s): N40.0 - Benign prostatic hyperplasia without lower urinary tract symptoms (7) Cirrhosis of liver Code(s): K74.60 - UNSPECIFIED CIRRHOSIS OF LIVER Status: Chronic Qualifiers: Ascites presence: without ascites (8) Diabetes type 2, controlled Code(s): E11.9 - TYPE 2 DIABETES MELLITUS WITHOUT COMPLICATIONS Status: Chronic Qualifiers: Diabetes mellitus care home insulin use: without terminal supervisor use Diabetes mellitus complication detail: with chronic kidney disease Chronic kidney disease stage: on chronic dialysis (9) ESRD (end stage renal disease) on dialysis Code(s): N18.6 - END STAGE RENAL DISEASE; Z99.2 - DEPENDENCE ON RENAL DIALYSIS Status: Chronic (10) Hepatitis C Code(s): B19.20 - UNSPECIFIED VIRAL HEPATITIS C WITHOUT HEPATIC COMA Status: Chronic Qualifiers: Viral hepatitis chronicity: chronic (11) Hypertension Code(s): I10 - ESSENTIAL (PRIMARY) HYPERTENSION Status: Chronic Qualifiers: Hypertension type: essential hypertension Qualified Code(s): I10 - Essential (primary) hypertension (12) Macrocytic anemia Code(s): D53.9 - NUTRITIONAL ANEMIA, UNSPECIFIED Status: Chronic (13) Thrombocytopenia Code(s): D69.6 - THROMBOCYTOPENIA, UNSPECIFIED Status: Chronic - Plan D/w , will have left bka this afternoon will give 3 u ffp and 1 u prbc due to coagulopathy from chr liver disease/hep C/ low platelets is on vanc and ceftriaxone based on culture results will have HD in am, had one yesterday dm is labile with fingersticks dipping into 40's, start D5NS drip, is npo for surgery this afternoon prognosis guarded with multiple med issues d/w patient about current issues and need for likely left bka, is agreable wants to be full code, I did discuss this with him this morning, he is aware of multiple issues and guarded prognosis his son will be POA per patient
--- NOTE | 2019-04-01 13:25 | PRG ---
DATE OF SERVICE: 04/01/2019 SUBJECTIVE: This is a 59-year-old gentleman being seen for end-stage kidney disease. The patient denies any nausea. vomiting, or chest pain. OBJECTIVE: CONSTITUTIONAL: On exam, the patient is awake and alert. VITAL SIGNS: Afebrile, pulse 100, breathing 16, and blood pressure 112/48. GENERAL APPEARANCE AND MENTAL STATUS: Fair. HEAD/NECK: Normocephalic. Atraumatic. EYES: EOMI. No deformity. EARS: Clear. No ulcers. NOSE: Intact. No lesions. MOUTH: Clear. No discharge. THROAT: Clear. No exudate. LUNGS: Clear. No crackles. CARDIAC: S1, S2. No rub. ABDOMEN: Benign. Bowel sounds positive. GENITALIA/RECTUM: Moffett absent. BACK/EXTREMITIES: Edema 0+. NEUROLOGICAL: Alert and motor intact. SKIN: LYMPHATICS: LABORATORY DATA: Hemoglobin 8. ASSESSMENT AND PLAN: 1. Stage 6 chronic kidney disease. Continue hemodialysis. 2. Hypertension, stable. 3. Anemia, stable. 4. Hypokalemia. Recommend high potassium diet. Job ID: [id number]
[2019-04-01] MEDS ORDERED: Fentanyl 100 MCG/2 ML VIAL ONE (14:02)
[2019-04-01] MEDS ORDERED: Famotidine/PF 20 mg/2ml Vial ONE (14:02)
[2019-04-01] MEDS ORDERED: Lidocaine 1% PF 5 ML VIAL ONE (14:27)
[2019-04-01] MEDS ORDERED: ePHEDrine 50 MG/ML VIAL ONE (14:27)
[2019-04-01] MEDS ORDERED: Ondansetron PF 4 MG/2 ML Vial ONE (14:27)
[2019-04-01] MEDS ORDERED: PROPOFOL 200 MG/20 ML VIAL ONE (14:27)
[2019-04-01] MEDS ORDERED: PHENYLEPHRINE-NS 100 MCG/ML 10 ML SYRINGE ONE (14:27)
[2019-04-01] MEDS ORDERED: PROVENTIL INHALER 6.7 G (200 INHALATIONS) ONE (14:27)
[2019-04-01] MEDS ORDERED: Succinylcholine Chloride 20 MG/ML 10 ml SYRINGE FS ONE (14:27)
[2019-04-01] MEDS ORDERED: Ondansetron HCl/PF 4 MG/2 ML Vial IVP PRN (15:13)
[2019-04-01] MEDS ORDERED: Promethazine HCl 25 MG/ML VIAL IM PRN (15:13)
[2019-04-01] MEDS ORDERED: Promethazine HCl 25 MG/ML VIAL SLOW IVP PRN (15:13)
--- NOTE | 2019-04-01 16:09 | OP ---
DATE OF PROCEDURE: 04/01/2019 OPERATION PERFORMED: Left below-knee amputation. PREOPERATIVE DIAGNOSIS: Left ankle infection with underlying osteomyelitis. POSTOPERATIVE DIAGNOSIS: Left ankle infection with underlying osteomyelitis. COMPLICATIONS: None. ESTIMATED BLOOD LOSS: 150 mL. ANESTHESIA: General. IMPLANTS: None. INDICATIONS: Mr. Suero is a 59-year-old male, who has uncontrolled diabetes and end-stage renal disease. He has been indicated for amputation of the left leg given that he has severe infection with chronic ulceration and sepsis. He is aware of risks and benefits and wants to proceed. DESCRIPTION OF PROCEDURE: Mr. Suero was identified in the preoperative holding area. His correct extremity was marked. He was carried to the operating room. He was positioned supine. General anesthesia was induced. A multidisciplinary time-out was performed. The left lower extremity was prepped and draped in sterile fashion. We began the procedure with a fishmouth type incision over the left lower extremity 12 cm distal to the knee joint. We dissected down through the subcutaneous tissues to the bony level. At this point, we incised the fascia as well as the musculature. We isolated the vascular structures. These were tied sequentially as we went with 0 Vicryl suture. We identified the sciatic nerve and this was cut under tension sharply. At this point, we cut the tibia as well as the fibula with a Gigli saw. This allowed amputation of the limb. We thoroughly irrigated with copious lavage. There was purulent material along the posterior aspect of the leg near the Achilles tendon. There was also purulent material in the canal of the tibia. We used a curette to clean out the canal of the tibia. We thoroughly irrigated with copious lavage. At this point, we again obtained hemostasis after the tourniquet was let down. We then performed a final excisional debridement. Next, the wound care team placed a wound VAC on the left lower extremity wound. The patient was taken to the recovery room in good condition. He will need further surgery, possibly an above-knee amputation versus closure of his [id number] amputation if infection can in fact be controlled. Job ID: [id number]
--- NOTE | 2019-04-01 18:26 | CON ---
DATE OF CONSULTATION: 04/01/2019 REASON FOR CONSULTATION: Left foot inflammatory process. 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 He also has poor adherence to dialytic therapy due to various social issues. He has had extensive workup for malnutrition and malabsorption and had been diagnosed with diabetic motility disorder. He has had Enterococcus faecalis bacteremia previously ascribed to catheter colonization, which was treated with vancomycin administered through dialysis. The patient is now being dialyzed through an AV fistula in the left upper extremity. He was evaluated and found to have osteomyelitis and was discharged on vancomycin to be administered through the dialysis sessions. In January, he came in with nausea, vomiting, diarrhea, and had not been dialyzed in a while. He was cachectic, and he was then diagnosed with cirrhosis of the liver, BPH, type-2 diabetes, end-stage renal disease, chronic hep C. Right upper quadrant ultrasound showed markedly thickened gallbladder, but no gallstones. CT of abdomen and pelvis show abnormal findings in the liver suggestive of cirrhosis, but no mass in the liver. The colon was somewhat thickened, felt to be probably due to congestive changes. HIDA scan showed normal opacification of gallbladder. At this time, he was brought in with generalized pain, nausea, vomiting, and diarrhea. His left foot has started to drain as well. He had some dyspnea, has not been to dialysis over a month, and probably did not receive the previously recommended treatment with vancomycin for his chronic infection in left ankle and foot. Initial findings included BP 195/22, heart rate 144, respirations 16, and temperature 98.4. He was cachectic with decreased breath sounds in right base. Heart exam was normal. Abdomen was scaphoid with severe muscle wasting and cachexia. Left ankle medial aspect started draining purulent malodorous exudate. He also had an ulcer in the lateral aspect of the left leg. Initial white cell count 10.6, hemoglobin 8, platelets 73, with 88% neutrophils. Creatinine is 3.19, sodium 131, CO2 is 24, potassium 3.8, and calcium 6.7. Liver profile normal. CK 12. Albumin 2.3. Serology hepatitis surface antigen nonreactive. Cultures with Staph aureus retrieved from 2 sets of blood cultures and ankle aspirate, the strain was methicillin sensitive. Previous cultures yielded E faecalis. Imaging included a chest x-ray with a large right pleural effusion, enlarged heart size, and ankle x-ray with extensive vascular calcifications, soft tissue swelling about the ankle, completely absent talus, marked deformity of calcaneus. Currently, Mr. Suero keeps his eyes closed. He will open them intermittently. His voice is very weak. He has a hard difficulty in communication. He will answer mostly with monosyllabic replies, yes or no. He denies headaches. No sore throat. No chest pain or cough. No abdominal pain. Does not have much urine output. Moderate pain in the left foot. PAST MEDICAL HISTORY: 1. End-stage renal disease secondary to type-2 diabetes. 2. Malnutrition. 3. Chronic diarrhea. 4. Malabsorption. 5. Chronic hep C. 6. Cirrhosis. 7. Chronic Charcot arthropathy with superimposed osteomyelitis, left ankle and foot. 8. Poor adherence to dialytic treatment due to various social difficulties. SOCIAL HISTORY: Chronic smoking. Drinks occasionally. Lives by himself. Obviously, he does not have a lot of social support, and evidently, he cannot handle his activities of daily living. FAMILY HISTORY: Type-2 diabetes. ALLERGIES: NONE. CURRENT MEDICATION LIST: 1. Tylenol. 2. [place]. 3. Ceftriaxone. 4. Glucagon. 5. Heparin. 6. Apresoline. PHYSICAL EXAMINATION: VITAL SIGNS: T-max 100.4, blood pressure 122/81, pulse 99, respirations 16, and O2 saturation 99%. SKIN AND EXTREMITIES: The open ulcer medial aspect of the left foot was associated with profuse purulent drainage. There is an ulcer in the lateral aspect of the left leg, kind of oval shaped, with some exudate drainage, but not purulent. The patient has amputation of the right upper extremity at the shoulder level, functioning AV fistula for dialysis access in the left upper extremity. He does not have a Moffett catheter. Cachexia is noted, which is severe. HEENT: His ocular movements are conjugate. Sclerae are white. Pupils are equal. Conjunctivae are pale. Nasal passages are patent. Oral cavity with no remaining teeth with dry oral mucosa. NECK: Supple. No jugular vein distention. LUNGS: Symmetric air entry. No crackles or wheezing. HEART: S1, S2. Regular rate without murmurs. ABDOMEN: Scaphoid. No organomegaly or ascites. No tenderness. No bladder distention. MUSCULOSKELETAL: No joint inflammatory activity noted. Pulses are diminished in dorsalis pedis. Popliteals are 1+. No edema. NEURO: He is awake, but is very difficult to get answers from him. He keeps his eyes closed most of the time. LABORATORY DATA: White cell count was 10.6, now 8.9; hemoglobin 8; platelets 49 with 66% neutrophils. Sodium 133, creatinine 7.1. Liver profile normal. CK 12. Albumin 2.3. Microbiology, as noted above. ASSESSMENT: 1. End-stage renal disease secondary to type-2 diabetes, poor adherence to hemodialysis due to various personal and social issues, lack of support. 2. Chronic osteomyelitis of left foot and ankle, which I believe now has proven to be refractory to treatment for various reasons. 3. Some element of peripheral vascular disease. 4. Uremia. 5. Malnutrition with chronic diarrhea. DISCUSSION: The patient has a multiplicity of problems starting with his left foot problem, that are refractory and long-standing. Probably the most difficult one is the social situation with questions regarding his ability to care for self and obvious absence of help from relatives, for example: he frequently misses dialysis due to transportation difficulty on top of his clinical problems. He will never have a chance of conservative management leading to resolution and I believe that he would require amputation at the BKA level at least. The adequacy of vascular supply to allow healing of a BK amputation site is questionable. Dr. Catherine has seen the patient at this time and he also concurs with the above. He is bacteremic nonetheless and he does not have any devices, so it would be amenable to treating it at dialysis with cefazolin 3 g after each dialytic therapy and I would treat him for probably 4 weeks. The end date of therapy would be in the middle of April. Again, due to the fact that he has missed his dialytic therapy, I would advise admission to a retirement, where he would get proper treatment. He is at high risk for poor outcome due to severe malnutrition. He needs to have his hepatitis C treated as well, which can be accomplished in the retirement. Job ID: [id number] [facility]
--- NOTE | 2019-04-01 19:35 | CON ---
DATE OF CONSULTATION: 04/01/2019 SERVICE: Pulmonary Service. REASON FOR CONSULTATION: Pleural effusion. HISTORY OF PRESENT ILLNESS: The patient is a 59-year-old male with past medical history significant for diabetes and peripheral vascular disease. He presented to the hospital on March 29, 2019, with complaints of infectious symptoms. Ultimately, he was discovered to have wet gangrene. After finding the appropriate surgeon, he underwent an amputation. He is postop day 0 from that procedure. That being said, on presentation to the emergency department, a chest x-ray was performed, demonstrating a right-sided pleural effusion, it first identified roughly 2-1/2 months ago. It has been steadily growing over this period of time. It appears to be free-flowing. The patient does not have any shortness of breath associated with it. He denies any cough. Otherwise, he is in his usual state of health and has no specific complaints. PAST MEDICAL HISTORY: 1. Type 2 diabetes mellitus. 2. Cirrhosis. 3. Hepatitis C. 4. End-stage renal disease. PAST SURGICAL HISTORY: 1. Right arm amputation following necrotizing fasciitis. 2. Left below-knee amputation, postop day 0. ALLERGIES: NO KNOWN DRUG ALLERGIES. MEDICATIONS: List of his inpatient medications was reviewed. No specific updates were made. SOCIAL HISTORY: He has 3 children. He is currently single. He does not use any current alcohol, tobacco, or illicit drugs. He has no exposure to chemicals, dust, asbestos, or tuberculosis. FAMILY HISTORY: Noncontributory. REVIEW OF SYSTEMS: General; head, ears, eyes, nose, throat; cardiovascular; respiratory; GI; ; musculoskeletal; neurologic; and skin is negative except as mentioned in the HPI. PHYSICAL EXAMINATION: VITAL SIGNS: Afebrile. T-max since he has been here was 100.9, but the profile is improved; pulse 99; blood pressure 122/81; respirations 16; saturation 99% on room air. GENERAL: The patient is awake and alert, in no apparent distress. LUNGS: Decent air entry on the left. Decreased air entry at the right base. No prolonged expiratory phase or wheezing appreciated. HEART: Normal rate, regular. ABDOMEN: Soft, nontender, nondistended. Bowel sounds are positive. MUSCULOSKELETAL: No cyanosis or clubbing. No pitting in the bilateral lower extremities. NEUROLOGIC: Grossly nonfocal. LABORATORY DATA: WBC 8.9, hemoglobin 8.0, platelets 49,000. His MCV is 102. INR 2.3. Potassium 3.3. Basic metabolic profile is otherwise unremarkable. Bilirubin is 1.8 and higher than his baseline. Troponin is unremarkable. BNP is elevated at 1705, which is higher than his baseline, but not as high as his highs. Ankle aspirate and blood cultures x2 are all growing Staph aureus. They have the exact same sensitivities. IMAGING DATA: Chest x-ray shows a right-sided pleural effusion, but otherwise no acute cardiopulmonary process. Ankle x-ray demonstrates extensive vascular calcifications. Development of soft tissue swelling about the ankle with neuropathic change of the hindfoot. ASSESSMENT: 1. Severe sepsis. 2. Wet gangrene of the left foot, status post below-knee amputation, postop day 0. 3. Pleural effusion, slowly getting larger and free-flowing for the last 2 months. 4. End-stage renal disease. 5. Cirrhosis. DISCUSSION AND PLAN: At this point, I am going to let him recover from his operation for 1 night. Tomorrow morning, I am going to perform a thoracentesis for both diagnostic and therapeutic purposes. This unlikely to represent our infected space, but it could get secondarily infected, because of his bacteremia. As such, I think it is reasonable to tap one time. Should this represent a transudate, the fluid should never be approached again unless we suspect the fluid is infected or his symptoms of dyspnea are severe. 70 minutes have been devoted to this patient in various activities. I personally reviewed all imaging studies and laboratory data noted within this document. For fifty percent of this time, I was interacting with the patient at the bedside or coordinating care with the care team. For the remainder of the time I was immediately available to the patient in the hospital unit. Job ID: [id number] [facility]
[2019-04-02 05:43] LABS: Platelet Count 39 thou/uL (130-400)
[2019-04-02] MEDS: Heparin 5,000 UNITS/ML VIAL SC SCH ×2 (08:51→19:53)
--- NOTE | 2019-04-02 11:18 | CT ---
EXAM: CT chest, abdomen, and pelvis with IV contrast: HISTORY: Liver disease. End-stage renal disease. COMPARISON: 02/13/2019 FINDINGS: CT THORAX: Lungs: There is a large right pleural effusion which has increased when compared to the prior exam. T here is consolidation on the right which may be related to passive atelectasis, but pneumonia cannot be entirely excluded. A tiny left pleural effusion is present with atelectasis posteriorly on the left. Linear area of atelectasis is also present in the left lower lobe. Lymph nodes: No lymphadenopathy. Mediastinum: Vascular calcifications are seen in the coronary arteries as well as involving the thora cic aorta. Chest wall: No abnormalities. The right internal jugular tunneled hemodialysis catheter has been mis smita. CT ABDOMEN AND PELVIS: Liver: No focal hepatic lesion is seen. Gallbladder: Previously noted gallbladder wall edema has resolved. Pancreas: Within normal limits. Spleen: Within normal limits. Adrenal glands: Within normal limits. Kidneys: Kidneys are small in size bilaterally. Calcifications are again seen in the superior pole ri ght kidney which may represent vascular type calcifications as opposed to nonobstructing renal calculi. Again noted is moderate left hydronephrosis and hydroureter which is a stable finding compar ed to prior exam as well as a study in 2015. The ureter remains dilated to the level of the base of the urinary bladder. There is mild enhancement of the starr of the left ureter and left renal collect ing system which is nonspecific. This could be inflammatory or infectious in etiology. Correlation with urinalysis is recommended. Urinary Bladder: Starr of the urinary bladder are mildly thickened. The urinary bladder is mildly dis tended. This could be related to either chronic bladder outlet obstruction or secondary to cystitis. Reproductive organs: There are low density collections seen in the prostate gland bilaterally which a re likely contiguous with one another. The collection on the right measures 2.6 cm in greatest AP dimensions and on the left measures 2.1 cm in greatest AP dimension. Bowel: There is diffuse colonic wall thickening which could be related to pseudomembranous colitis. O ther infectious or inflammatory etiologies are also a differential consideration. Loops of small bowel are normal in caliber. Adenopathy:No lymphadenopathy within the abdomen or pelvis. Peritoneum: Small amount of free fluid is seen in the abdomen and pelvis wrist in the upper quadrants and in the pelvis. Abdominal wall: There is mild subcutaneous edema present. Osseous structures: Multilevel degenerative changes are present greatest at the L4-5 level which are unchanged from prior exam. Small lucency within the left iliac bone is again seen. Vessels: Diffuse severe atherosclerotic vascular calcifications are seen. IMPRESSION: 1. Diffuse colonic wall thickening which could be related to pseudomembranous colitis. Other infectio us or inflammatory etiologies are also a differential consideration. 2. Fluid collections within the prostate gland bilaterally which are probably contiguous with one ano ther. Prostate abscess should be considered. Urological consultation is recommended. 3. Moderate left hydronephrosis and hydroureter which is a long-standing process and stable dating ba ck to a study in 2014. 4. Mild thickening of the starr of the urinary bladder could be related to long-standing bladder outl et obstruction, but cystitis is also a differential consideration. There is mild enhancement of the urothelium involving the left renal pelvis and left ureter which could be related to long-standing hy dronephrosis and hydroureter, but infection cannot be entirely excluded. 5. Atrophic appearance of bilateral kidneys. 6. Large right pleural effusion occupying almost 2/3 of the right hemithorax. The pleural effusion anne s increased from prior exam on 02/13/2019. 7. Diffuse vascular calcifications. 8. Small amount of ascites and findings suggesting anasarca.
--- NOTE | 2019-04-02 11:26 | PRG ---
DATE OF SERVICE: 04/02/2019 SERVICE: Pulmonary Medicine. INTERVAL HISTORY: The patient is doing fine from respiratory standpoint. Denies any current chest discomfort, nausea, or vomiting. He is breathing comfortably. Otherwise, there has been no interval change to his condition. PHYSICAL EXAMINATION: VITAL SIGNS: Afebrile, pulse 89, blood pressure 111/51, respirations 18, and saturation 99% on room air. GENERAL: The patient is awake and alert, in no apparent distress. LUNGS: Wonderful air entry on the left. There is decreased air entry at the right base. No prolonged expiratory phase or wheezing is appreciated. HEART: Normal rate. Regular. ABDOMEN: Soft, nontender, and nondistended. Bowel sounds are positive. MUSCULOSKELETAL: No cyanosis or clubbing. No pitting in bilateral lower extremities. NEUROLOGIC: Grossly nonfocal. LABORATORY DATA: WBC 8.9, hemoglobin 8.0, and platelets 49,000. INR 2.3. Basic metabolic profile and liver function studies are otherwise unremarkable. IMAGING: CT of the chest, abdomen, and pelvis demonstrates [id number] pleural effusion on the right. There is complete atelectasis of the right lower lobe, partial atelectasis of the left upper, and left middle lobe. This does not appear to have any significant tension to it. There does not appear to be any loculations whatsoever. No acute parenchymal disease is otherwise appreciated. There is certainly no infiltrate present. ASSESSMENT: 1. Severe sepsis, resolved. 2. Wet gangrene on the left foot, status post below-knee amputation, postop day #1. 3. Pleural effusion, simple. 4. End-stage renal disease. 5. Cirrhosis. DISCUSSION AND PLAN: There is clearly no infiltrate in this chest x-ray. Our source was the foot. CT of the belly is currently pending. I can do a thoracentesis for both diagnostic and therapeutic purposes. Once again, if this demonstrates a transudate, nobody should ever approach this space again unless there is suspicion of significant infection, or the patient is severely symptomatic. Despite the fact that he has had collapse of two-thirds of the right lung, he remains on room air and his saturations are fantastic. Job ID: [id number]
[2019-04-02] MEDS: cefTRIAXone\\ROCEPHIN 2 GM in Sodium Chloride 0.9% 100 ML IVPB SCH (12:52)
[2019-04-02 13:03] LABS: Pleural Fluid, Protein 3.6 g/dL
--- NOTE | 2019-04-02 13:07 | OP ---
DATE OF PROCEDURE: 04/02/2019 SERVICE: Pulmonary Medicine. PROCEDURE PERFORMED: Right-sided pleural drainage with catheter insertion under ultrasound guidance. CONSENT: The risks and benefits of the procedure were explained to the patient. All questions were answered and alternative options explained. STAFF PHYSICIAN: Ubaldo Beckford MD MEDICATIONS USED: Lidocaine 1% without epinephrine, 8 mL. PREOPERATIVE DIAGNOSES: 1. Pleural effusion. 2. Bacteremia with methicillin-susceptible Staphylococcus aureus. POSTOPERATIVE DIAGNOSES: 1. Pleural effusion. 2. Bacteremia with methicillin-susceptible Staphylococcus aureus. DESCRIPTION OF PROCEDURE: Time-out was performed by the procedure team and the patient. The patient was positively identified using name and date of . The procedure site was marked. Vital sign monitoring was accomplished by noninvasive hemodynamic monitoring, pulse oximetry, and telemetry. In the seated position, the right posterior hemithorax was examined using an ultrasound probe. The diaphragm and pleural fluid were easily identified. There was significant amount of free-flowing fluid. No loculations were identified. A finder needle was inserted in the pleural space with return of clear yellow fluid. A pleural drainage catheter was inserted in the same location, a total quantity of 1500 mL of pleural fluid was withdrawn by syringe pump technique. A sample was sent for analysis. Evacuation of fluid was terminated because we arrived at -20 cm of water pressure. The intact catheter was withdrawn on exhalation, and a sterile dressing was applied. The patient had stable vitals throughout the entire procedure. Immediately postprocedure, the patient had at least another 500 mL of fluid in his chest. ESTIMATED BLOOD LOSS: None. COMPLICATIONS: None. Job ID: [id number]
[2019-04-02 13:17] LABS: BF Color Yellow; Body Fluid Source Thoracentesis Fluid; Clarity Cloudy/Turbid (Clear); RBC Count-Automated (BF) 79 /cumm; WBC/Nucleated-Auto (BF) 155 uL
[2019-04-02 13:18] LABS: Tube # 2
--- NOTE | 2019-04-02 14:02 | PDOC.HOSPP ---
- Subjective Encounter Date: 04/02/19 Encounter Time: 08:45 Subjective: awake, not in distress no pain in left bka not eating much - Objective Vital Signs & Weight: Vital Signs (12 hours) Temp Pulse Resp BP Pulse Ox 04/02/19 07:24 97.5 F L 89 18 111/51 L 99 04/02/19 07:23 98 04/02/19 04:00 97.2 F L 92 18 139/58 L 98 Weight Admit Weight 104 lb Weight 112 lb 8 oz Most Recent Monitor Data Heart Rate from ECG 105 NIBP 134/61 NIBP BP-Mean 85 Respiration from ECG 21 SpO2 100 I&O: 04/01/19 04/02/19 04/03/19 06:59 06:59 06:59 Intake Total 820 240 Output Total 1650 Balance -830 240 Result Diagrams: 04/02/19 04:34 04/01/19 09:05 Additional Labs: Accuchecks 04/02/19 04/02/19 04/01/19 12:02 04:18 23:39 POC Glucose 98 102 92 04/01/19 04/01/19 19:54 14:02 POC Glucose 101 87 Hospitalist ROS - Medication Medications: Active Medications Generic Name Dose Route Start Last Admin Trade Name Freq PRN Reason Stop Dose Admin Acetaminophen 325 mg 03/29/19 10:17 03/31/19 07:10 Tylenol PO 325 mg Q4H PRN Administration Headache/Fever/Mild Pain (1-3) Hydrocodone Bitart/Acetaminophen 1 tab 03/29/19 10:17 04/01/19 19:32 [place] 5/325 PO 1 tab Q4H PRN Administration Moderate Pain (4-6) Dextrose/Water 25 gm 03/29/19 10:17 04/01/19 00:11 Dextrose 50% SLOW IVP 25 gm PRN PRN Administration Hypoglycemia Heparin Sodium (Porcine) 5,000 units 03/29/19 21:00 04/02/19 08:51 Heparin SC Not Given BID AUTUMN Vancomycin HCl 750 mg/ Sodium 250 mls @ 250 mls/hr 03/29/19 16:15 03/30/19 13 :45 Chloride IVPB 250 mls WILLCALL AUTUMN Administration Ceftriaxone Sodium 2 gm/ 100 mls @ 200 mls/hr 04/01/19 09:00 04/02/19 12:52 Sodium Chloride IVPB 100 mls Q24HR AUTUMN Administration Loperamide HCl 2 mg 03/30/19 15:07 03/30/19 16:30 Imodium PO 2 mg DAILYPRN PRN Administration Diarrhea/Loose Stools - Exam General Appearance: awake alert, ill appearing Eye: PERRL, anicteric sclera ENT: no oropharyngeal lesions, moist mucosa Neck: supple, no JVD Heart: RRR, no murmur Respiratory: no wheezes, no rales Gastrointestinal: soft, non-distended, normal bowel sounds Extremities - other findings: left bka in wound vac Neurological: cranial nerve grossly intact, no focal deficits Psychiatric: normal affect, A&O x 3 Hosp A/P (1) Sepsis Code(s): A41.9 - SEPSIS, UNSPECIFIED ORGANISM Status: Acute Qualifiers: Sepsis type: methicillin susceptible Staphylococcus aureus (2) Staphylococcus aureus bacteremia Code(s): R78.81 - BACTEREMIA Status: Acute (3) Multiple wounds Code(s): T07.XXXA - UNSPECIFIED MULTIPLE INJURIES, INITIAL ENCOUNTER Status: Chronic (4) Severe protein-calorie malnutrition Code(s): E43 - UNSPECIFIED SEVERE PROTEIN-CALORIE MALNUTRITION Status: Chronic (5) Metabolic acidosis Code(s): E87.2 - ACIDOSIS Status: Acute (6) BPH (benign prostatic hyperplasia) Code(s): N40.0 - BENIGN PROSTATIC HYPERPLASIA WITHOUT LOWER URINRY TRACT SYMP Status: Chronic Qualifiers: Lower urinary tract symptom presence: symptoms absent Qualified Code(s): N40.0 - Benign prostatic hyperplasia without lower urinary tract symptoms (7) Cirrhosis of liver Code(s): K74.60 - UNSPECIFIED CIRRHOSIS OF LIVER Status: Chronic Qualifiers: Ascites presence: without ascites (8) Diabetes type 2, controlled Code(s): E11.9 - TYPE 2 DIABETES MELLITUS WITHOUT COMPLICATIONS Status: Chronic Qualifiers: Diabetes mellitus mcc insulin use: without mcc use Diabetes mellitus complication detail: with chronic kidney disease Chronic kidney disease stage: on chronic dialysis (9) ESRD (end stage renal disease) on dialysis Code(s): N18.6 - END STAGE RENAL DISEASE; Z99.2 - DEPENDENCE ON RENAL DIALYSIS Status: Chronic (10) Hepatitis C Code(s): B19.20 - UNSPECIFIED VIRAL HEPATITIS C WITHOUT HEPATIC COMA Status: Chronic Qualifiers: Viral hepatitis chronicity: chronic (11) Hypertension Code(s): I10 - ESSENTIAL (PRIMARY) HYPERTENSION Status: Chronic Qualifiers: Hypertension type: essential hypertension Qualified Code(s): I10 - Essential (primary) hypertension (12) Macrocytic anemia Code(s): D53.9 - NUTRITIONAL ANEMIA, UNSPECIFIED Status: Chronic (13) Thrombocytopenia Code(s): D69.6 - THROMBOCYTOPENIA, UNSPECIFIED Status: Chronic (14) Status post below knee amputation of left lower extremity Code(s): Z89.512 - ACQUIRED ABSENCE OF LEFT LEG BELOW KNEE Status: Acute - Plan had left bka on 04/01/2019 coagulopathy due to liver disease/cirrhosis/hep C is on vanc and ceftriaxone based on culture results encourage po intake, dietary consult prognosis guarded with multiple med issues wants to be full code, he is aware of multiple issues and guarded prognosis his son will be POA per patient CT pelvis shows findings s/o prostatic abscess, will get uro opinion likely Hickmann cath for iv antibiotics, await opinion
[2019-04-02 14:03] LABS: BF Segmented Neutrophils 66 %; Cell Count Non Hematic 30 %; Lymphocytes 4 %
[2019-04-02 15:00] LABS: #Eosinphils 0.2 thou/uL (0.0-0.7); #Monocytes 0.5 thou/uL (0.11-0.59); #Neutrophils 5.8 thou/uL (1.40-6.50); %Eosinophils 3.3 % (0.0-10.0); %Lymphocytes 13.2 % (21.0-51.0); %Monocytes 6.2 % (0.0-10.0); %Neutrophils 77.3 % (42.0-75.0); Hemoglobin 8.6 g/dL (14.0-18.0); Mean Corpuscular HGB CONC 32.9 g/dL (32.0-36.0); Mean Corpuscular Hemoglobin 32.1 pg (27.0-31.0); Mean Corpuscular Volume 97.6 fL (78.0-98.0); Mean Platelet Volume 11.4 fL (7.4-10.4); Platelet Count 37 thou/uL (130-400); RBC Distribution Width 18.8 % (11.5-14.5); Red Blood Cell (RBC) Count 2.67 mill/uL (4.70-6.10); White Blood Cell (WBC) Count 7.5 thou/uL (4.8-10.8)
--- NOTE | 2019-04-02 17:45 | PRG ---
DATE OF SERVICE: 04/02/2019 SUBJECTIVE: Patient was seen and examined at bedside and overnight events noted. Patient denies any shortness of breath or chest pain or palpitation. No history of nausea or vomiting or diarrhea or fever or chills or cramps. OBJECTIVE: GENERAL: This is a well-built male, in no apparent distress. VITAL SIGNS: Temperature 97.3. Heart rate 95. Respiratory rate 18. Blood pressure 94/54. HEENT: Atraumatic, normocephalic. Oral mucosa is moist NECK: Supple. CARDIOVASCULAR: S1, S2 heard. Rate and rhythm regular. RESPIRATORY: Clear to auscultation. GASTROINTESTINAL: Abdomen is soft. MUSCULOSKELETAL: No tenderness. No edema. DERMATOLOGIC: No skin rash. NEUROLOGIC: Alert and awake and oriented X3. No focal neurologic deficits. Moving all the extremities. PSYCHIATRIC: Mood and affect normal. LABORATORY DATA: No labs done today. ASSESSMENT AND PLAN: 1. End-stage renal disease. Continue on dialysis as tolerated. The patient is hypotensive and had thoracentesis today. Plan is to continue on dialysis. Yesterday's labs look stable. We will check labs in the morning. 2. Edema - will remove fluid with HD as tolerated.. 3. Anemia, stable. 4. Hypotension. We will recheck labs in the morning. 5. Prognosis guarded. The patient is not having regular dialysis. Consider hospice consult also. The patient might benefit from hospice care. Job ID: [id number] MTDD
--- NOTE | 2019-04-02 21:16 | PRG ---
DATE OF SERVICE: 04/02/2019 SUBJECTIVE: Mr. Suero is looking much better, much more alert, ate almost all his dinner. He already had his BK amputation. OBJECTIVE: VITAL SIGNS: T-max 98.7. GENERAL: Does not appear in distress. LUNGS: Symmetric with clear breath sounds. HEART: S1, S2 without murmurs. ABDOMEN: Soft, scaphoid, but not tender. EXTREMITIES: Left BKA site. LABORATORY AND DIAGNOSTIC DATA: White cell count 7.5, hemoglobin 8.6, platelets 37,000. Creatinine 3.19. Microbiology with Staph aureus, two sets of blood cultures from the ankle and leg swabs. He had thoracentesis completed, that showed 155 WBCs, protein 3.6, and LDH 120. He had a CT of abdomen, pelvis, and chest, and there was diffuse colonic wall thickening. The C diff was negative. The fluid collections within the prostate gland bilaterally, possibility of prostatic abscess. Moderate hydronephrosis and hydroureter. Thickening of the starr of urinary bladder. A large right pleural effusion. ASSESSMENT AND DISCUSSION: End-stage renal disease secondary to type-2 diabetes, poor adherence to hemodialysis due to various personal and social issues, chronic osteomyelitis of left foot and ankle, status post left BKA, bacteremia due to MSSA, possible prostate abscesses, pyocystitis associated with end-stage renal disease, uremia, malnutrition, chronic diarrhea with likely element of malabsorption. The patient to continue on cefazolin, given after dialysis, 3 g each treatment 3 times a week. Prostate findings would otherwise need attempted aspiration to allow antimicrobial therapy treatment. An another approach would be to address results of urine cultures, although I think he is anuric. Pleural fluid appears to be an exudate, but this could reflect a chronic pleurisy associated with uremia secondary to poor adherence to dialytic therapy. His end date of therapy for his bacteremia will be in mid April. Treatment can be given at dialysis. He most likely will need to be admitted to the rehab or fdc unit somewhere, so he will be able to comply with his treatments. Job ID: [id number]
--- NOTE | 2019-04-02 22:08 | CON ---
DATE OF CONSULTATION: 04/02/2019 REASON FOR CONSULTATION: Abnormal findings on CT scan. HISTORY OF PRESENT ILLNESS: Mr. Suero is a 59-year-old gentleman, admitted to the hospital on 03/29/2019 with the gangrene of the left foot. He is now status post left BKA. His prior history includes a right upper extremity amputation also for gangrene. He has multiple very significant medical problems including end-stage renal disease, on hemodialysis, cirrhosis, hepatitis C, severe peripheral vascular disease. During this admission, a CT scan was performed. Demonstrated hypoechoic lesions in both the right and left prostate lobes of unclear etiology. The patient denies any new urinary symptoms. He states that he is able to tell when he needs to void. He is able to use the urinal. He states he occasionally has some discomfort on urination, but it is not typical. He is more concerned about his chronic diarrhea and finds this a much more bothersome problem than his urinary tract. He denies any prior urinary tract infections. His imaging also demonstrates chronic findings including a chronically thick-walled bladder, left renal atrophy with hydronephrosis and hydroureter. No urine cultures were obtained on admission, but he has had multiple cultures positive for Staph emanating from his gangrenous foot wound. PAST MEDICAL HISTORY: Gangrene, right upper extremity; diabetes mellitus, type 2; cirrhosis; hepatitis C; end-stage renal disease, on dialysis; peripheral vascular disease; hypertension. PAST SURGICAL HISTORY: Left arm shunt, right upper extremity amputation, left BKA, recent thoracentesis for pleural effusion. SOCIAL HISTORY: He does not drink alcohol or smoke cigarettes, as best I can tell, he lives at home alone somehow. ALLERGIES: NO KNOWN DRUG ALLERGIES. CHRONIC MEDICATION: When he presented to the hospital, he denies being on any chronic medications. REVIEW OF SYSTEMS: RESPIRATORY: He denies any significant shortness of breath. CARDIOVASCULAR: Denies chest pain or palpitations. GASTROINTESTINAL: Chronic diarrhea. GENITOURINARY: Please see history of present illness. PHYSICAL EXAMINATION: GENERAL: He appears older than his stated age. He is obviously debilitated and cachectic in appearance. VITAL SIGNS: Blood pressure 90/38, heart rate 108, respiratory rate 16, temperature 98. HEENT: Normocephalic, atraumatic. NECK: No masses. ABDOMEN: Soft, nontender. No palpable masses. Liver or spleen not palpable. No abdominal tenderness noted. EXTREMITIES: Right upper extremity, absent. Left upper extremity without deformity. Left lower extremity, dressing in place with a drain in place. RECTAL: Digital rectal exam, no rectal masses noted. No tenderness to palpation of the prostate. IMPRESSION: Abnormal prostate on CT exam. The abnormal finding on CT scan is of unclear etiology. While an abscess would have similar appearance, I would anticipate tenderness on his prostate exam, dysuria, recurrent urinary tract infections, and he denies these symptoms. Diagnosis and management could be achieved with cystoscopy and transurethral resection of the prostate gland for drainage. Based on his asymptomatic state and very high risk of anesthesia and any additional surgical intervention, I recommend this procedure not be entertained at this time. If his health status improves and he is at a lower risk for anesthesia or he develops symptoms suggestive of a prostate abscess, then change urethral resection with drainage can be performed. In the interim, without any symptoms to suggest prostate infection, I would recommend repeat CT scan in one month. Job ID: [id number]
[2019-04-03 04:38] LABS: #Eosinphils 0.3 thou/uL (0.0-0.7); #Lymphocytes 0.7 thou/uL (1.20-3.40); #Monocytes 0.5 thou/uL (0.11-0.59); #Neutrophils 5.9 thou/uL (1.40-6.50); %Basophils 0.2 % (0.0-1.0); %Eosinophils 3.5 % (0.0-10.0); %Monocytes 6.6 % (0.0-10.0); %Neutrophils 79.8 % (42.0-75.0); Hemoglobin 8.8 g/dL (14.0-18.0); Mean Corpuscular HGB CONC 32.8 g/dL (32.0-36.0); Mean Corpuscular Hemoglobin 32.1 pg (27.0-31.0); Mean Corpuscular Volume 97.9 fL (78.0-98.0); Mean Platelet Volume 11.1 fL (7.4-10.4); Platelet Count 38 thou/uL (130-400); RBC Distribution Width 18.3 % (11.5-14.5); Red Blood Cell (RBC) Count 2.73 mill/uL (4.70-6.10); White Blood Cell (WBC) Count 7.4 thou/uL (4.8-10.8)
[2019-04-03 08:17] LABS: Vancomycin, Random 13.3 ug/mL (See Comment)
[2019-04-03] MEDS: Heparin 5,000 UNITS/ML VIAL SC SCH ×2 (09:30→20:29)
[2019-04-03 10:23] LABS: Anion Gap 15 mmol/L (10-20); BUN (Urea Nitrogen) 33 mg/dL (8.4-25.7); Calc. Creatinine Clearance 14 mL/min (70-130); Calcium 6.6 mg/dL (7.8-10.44); Carbon Dioxide 19 mmol/L (22-29); Chloride 97 mmol/L (98-107); Estimated GFR-MDRD 15; Glucose 82 mg/dL (70-105); Potassium 3.4 mmol/L (3.5-5.1); Sodium 128 mmol/L (136-145)
[2019-04-03] MEDS ORDERED: CEFAZOLIN 2 GM in Premix Bag 1 BAG IVPB SCH (11:15)
--- NOTE | 2019-04-03 12:56 | PDOC.HOSPP ---
- Subjective Encounter Date: 04/03/19 Encounter Time: 11:20 Subjective: awake, not in distress no trouble breathing encouraged to eat more - Objective Vital Signs & Weight: Vital Signs (12 hours) Temp Pulse Resp BP Pulse Ox 04/03/19 11:07 98.2 F 101 H 18 110/49 L 97 04/03/19 07:41 97 04/03/19 07:06 98.4 F 108 H 18 119/48 L 97 04/03/19 04:00 100.0 F H 108 H 18 96/46 L 100 Weight Admit Weight 104 lb Weight 112 lb 8 oz Most Recent Monitor Data Heart Rate from ECG 105 NIBP 134/61 NIBP BP-Mean 85 Respiration from ECG 21 SpO2 100 I&O: 04/02/19 04/03/19 04/04/19 06:59 06:59 06:59 Intake Total 240 720 Balance 240 720 Result Diagrams: 04/03/19 04:24 04/03/19 04:22 Additional Labs: Accuchecks 04/03/19 04/03/19 04/03/19 09:30 04:58 00:09 POC Glucose 114 H 112 H 91 04/02/19 04/02/19 19:39 16:41 POC Glucose 103 103 Hospitalist ROS - Medication Medications: Active Medications Generic Name Dose Route Start Last Admin Trade Name Emersonq PRN Reason Stop Dose Admin Acetaminophen 325 mg 03/29/19 10:17 03/31/19 07:10 Tylenol PO 325 mg Q4H PRN Administration Headache/Fever/Mild Pain (1-3) Hydrocodone Bitart/Acetaminophen 1 tab 03/29/19 10:17 04/01/19 19:32 [place] 5/325 PO 1 tab Q4H PRN Administration Moderate Pain (4-6) Dextrose/Water 25 gm 03/29/19 10:17 04/01/19 00:11 Dextrose 50% SLOW IVP 25 gm PRN PRN Administration Hypoglycemia Heparin Sodium (Porcine) 5,000 units 03/29/19 21:00 04/03/19 09:30 Heparin SC Not Given BID AUTUMN Vancomycin HCl 750 mg/ Sodium 250 mls @ 250 mls/hr 03/29/19 16:15 03/30/19 13 :45 Chloride IVPB 250 mls WILLCALL AUTUMN Administration Ceftriaxone Sodium 2 gm/ 100 mls @ 200 mls/hr 04/01/19 09:00 04/02/19 12:52 Sodium Chloride IVPB 100 mls Q24HR AUTUMN Administration Loperamide HCl 2 mg 03/30/19 15:07 03/30/19 16:30 Imodium PO 2 mg DAILYPRN PRN Administration Diarrhea/Loose Stools - Exam General Appearance: awake alert, ill appearing Eye: PERRL, anicteric sclera ENT: no oropharyngeal lesions, moist mucosa Neck: supple, no JVD Heart: RRR, no murmur Respiratory: no wheezes, no rales Gastrointestinal: soft, non-tender, normal bowel sounds Extremities: no edema Extremities - other findings: left bka in wound vac Neurological: cranial nerve grossly intact, no focal deficits Psychiatric: normal affect, A&O x 3 Hosp A/P (1) Status post below knee amputation of left lower extremity Code(s): Z89.512 - ACQUIRED ABSENCE OF LEFT LEG BELOW KNEE Status: Acute (2) Sepsis Code(s): A41.9 - SEPSIS, UNSPECIFIED ORGANISM Status: Acute Qualifiers: Sepsis type: methicillin susceptible Staphylococcus aureus (3) Staphylococcus aureus bacteremia Code(s): R78.81 - BACTEREMIA Status: Acute (4) Multiple wounds Code(s): T07.XXXA - UNSPECIFIED MULTIPLE INJURIES, INITIAL ENCOUNTER Status: Chronic (5) Severe protein-calorie malnutrition Code(s): E43 - UNSPECIFIED SEVERE PROTEIN-CALORIE MALNUTRITION Status: Chronic (6) Metabolic acidosis Code(s): E87.2 - ACIDOSIS Status: Acute (7) BPH (benign prostatic hyperplasia) Code(s): N40.0 - BENIGN PROSTATIC HYPERPLASIA WITHOUT LOWER URINRY TRACT SYMP Status: Chronic Qualifiers: Lower urinary tract symptom presence: symptoms absent Qualified Code(s): N40.0 - Benign prostatic hyperplasia without lower urinary tract symptoms (8) Cirrhosis of liver Code(s): K74.60 - UNSPECIFIED CIRRHOSIS OF LIVER Status: Chronic Qualifiers: Ascites presence: without ascites (9) Diabetes type 2, controlled Code(s): E11.9 - TYPE 2 DIABETES MELLITUS WITHOUT COMPLICATIONS Status: Chronic Qualifiers: Diabetes mellitus lobsterman insulin use: without lobsterman use Diabetes mellitus complication detail: with chronic kidney disease Chronic kidney disease stage: on chronic dialysis (10) ESRD (end stage renal disease) on dialysis Code(s): N18.6 - END STAGE RENAL DISEASE; Z99.2 - DEPENDENCE ON RENAL DIALYSIS Status: Chronic (11) Hepatitis C Code(s): B19.20 - UNSPECIFIED VIRAL HEPATITIS C WITHOUT HEPATIC COMA Status: Chronic Qualifiers: Viral hepatitis chronicity: chronic (12) Hypertension Code(s): I10 - ESSENTIAL (PRIMARY) HYPERTENSION Status: Chronic Qualifiers: Hypertension type: essential hypertension Qualified Code(s): I10 - Essential (primary) hypertension (13) Macrocytic anemia Code(s): D53.9 - NUTRITIONAL ANEMIA, UNSPECIFIED Status: Chronic (14) Thrombocytopenia Code(s): D69.6 - THROMBOCYTOPENIA, UNSPECIFIED Status: Chronic - Plan had left bka on 04/01/2019 for osteomyelitis/sepsis/mssa bacteremia. coagulopathy due to liver disease/cirrhosis/hep C is on vanc and ceftriaxone based on culture results, to start cefazolin 3g with HD 3 times on dc encourage po intake, dietary consult prognosis guarded with multiple med issues wants to be full code, he is aware of multiple issues and guarded prognosis his son will be POA per patient no intervention for prostate as he is asymptomatic with normal per rectal exam per uro dc plan to rehab/snf
[2019-04-03] MEDS: Vancomycin HCl 500 MG in Sodium Chloride 0.9% 100 ML IVPB SCH (13:53)
[2019-04-03] MEDS: Multivit, Therapeutic 1 TAB PO SCH (15:54)
[2019-04-03] MEDS: Ascorbic Acid 500 mg Chewable Tablet PO SCH (15:54)
[2019-04-03] MEDS: Folic Acid 1 MG TAB PO SCH (15:54)
[2019-04-03] MEDS: cefTRIAXone\\ROCEPHIN 2 GM in Sodium Chloride 0.9% 100 ML IVPB SCH (15:55)
--- NOTE | 2019-04-03 18:46 | PRG ---
DATE OF SERVICE: 04/03/2019 SUBJECTIVE: Patient was seen and examined at bedside and overnight events noted. Patient denies any shortness of breath or chest pain or palpitation. No history of nausea or vomiting or diarrhea or fever or chills or cramps. OBJECTIVE: GENERAL: This is a well-built male, in no apparent distress. VITAL SIGNS: Temperature 98.5. Heart rate 107. Respiratory rate 18. Blood pressure 122/76. HEENT: Atraumatic, normocephalic. Oral mucosa is moist NECK: Supple. CARDIOVASCULAR: S1, S2 heard. Rate and rhythm regular. RESPIRATORY: Clear to auscultation. GASTROINTESTINAL: Abdomen is soft. MUSCULOSKELETAL: No tenderness. No edema. DERMATOLOGIC: No skin rash. NEUROLOGIC: Alert and awake and oriented X3. No focal neurologic deficits. Moving all the extremities. PSYCHIATRIC: Mood and affect normal. LABORATORY DATA: Not done today. ASSESSMENT AND PLAN: 1. End-stage renal disease. Continue dialysis as tolerated. 2. Edema, controlled. 3. Anemia. 4. History of hypertension. We will continue dialysis as tolerated. Job ID: [id number]
[2019-04-04 05:17] LABS: Platelet Count 41 thou/uL (130-400)
[2019-04-04 05:28] LABS: Anion Gap 11 mmol/L (10-20); BUN (Urea Nitrogen) 15 mg/dL (8.4-25.7); Calc. Creatinine Clearance 23 mL/min (70-130); Calcium 6.6 mg/dL (7.8-10.44); Carbon Dioxide 25 mmol/L (22-29); Chloride 97 mmol/L (98-107); Estimated GFR-MDRD 26; Glucose 92 mg/dL (70-105); Potassium 3.5 mmol/L (3.5-5.1); Sodium 129 mmol/L (136-145)
[2019-04-04] MEDS: Loperamide HCl 2 MG CAP PO PRN (06:02)
[2019-04-04 08:16] LABS: INR-International Normal Ratio 1.9; PTT 43.6 SEC (22.9-36.1)
[2019-04-04] MEDS ORDERED: PROPOFOL 200 MG/20 ML VIAL ONE (09:32)
[2019-04-04] MEDS: Folic Acid 1 MG TAB PO SCH (10:39)
[2019-04-04] MEDS: Heparin 5,000 UNITS/ML VIAL SC SCH ×2 (10:39→20:06)
[2019-04-04] MEDS: Ascorbic Acid 500 mg Chewable Tablet PO SCH (10:39)
[2019-04-04] MEDS: Multivit, Therapeutic 1 TAB PO SCH (10:40)
[2019-04-04] MEDS: cefTRIAXone\\ROCEPHIN 2 GM in Sodium Chloride 0.9% 100 ML IVPB SCH (10:40)
--- NOTE | 2019-04-04 12:11 | PDOC.HOSPP ---
- Subjective Encounter Date: 04/04/19 Encounter Time: 10:15 Subjective: awake, not in distress says he is eating what's given to him he does not like nepro - Objective Vital Signs & Weight: Vital Signs (12 hours) Temp Pulse Resp BP Pulse Ox 04/04/19 07:51 97.8 F 102 H 18 162/71 H 99 04/04/19 04:00 99.3 F 104 H 18 120/52 L 98 Weight Admit Weight 104 lb Weight 102 lb 15.294 oz Most Recent Monitor Data Heart Rate from ECG 105 NIBP 134/61 NIBP BP-Mean 85 Respiration from ECG 21 SpO2 100 I&O: 04/03/19 04/04/19 04/05/19 06:59 06:59 06:59 Intake Total 720 1180 Output Total 420 Balance 720 760 Result Diagrams: 04/04/19 04:19 04/04/19 04:19 Additional Labs: Accuchecks 04/04/19 04/04/19 04/04/19 08:09 05:12 00:06 POC Glucose 84 90 100 04/03/19 04/03/19 04/03/19 20:13 16:17 11:55 POC Glucose 127 H 85 117 H Hospitalist ROS - Medication Medications: Active Medications Generic Name Dose Route Start Last Admin Trade Name Freq PRN Reason Stop Dose Admin Acetaminophen 325 mg 03/29/19 10:17 03/31/19 07:10 Tylenol PO 325 mg Q4H PRN Administration Headache/Fever/Mild Pain (1-3) Hydrocodone Bitart/Acetaminophen 1 tab 03/29/19 10:17 04/01/19 19:32 [place] 5/325 PO 1 tab Q4H PRN Administration Moderate Pain (4-6) Ascorbic Acid 500 mg 04/03/19 09:00 04/04/19 10:39 Vitamin C PO Not Given DAILY [facility] Dextrose/Water 25 gm 03/29/19 10:17 04/01/19 00:11 Dextrose 50% SLOW IVP 25 gm PRN PRN Administration Hypoglycemia Folic Acid 1 mg 04/03/19 09:00 04/04/19 10:39 Folvite PO Not Given DAILY [facility] Heparin Sodium (Porcine) 5,000 units 03/29/19 21:00 04/04/19 10:39 Heparin SC Not Given BID [facility] Vancomycin HCl 750 mg/ Sodium 250 mls @ 250 mls/hr 03/29/19 16:15 03/30/19 13 :45 Chloride IVPB 250 mls WILLCALL AUTUMN Administration Vancomycin HCl 500 mg/ Sodium 100 mls @ 100 mls/hr 03/29/19 16:15 04/03/19 13 :53 Chloride IVPB 100 mls WILLCALL AUTUMN Administration Ceftriaxone Sodium 2 gm/ 100 mls @ 200 mls/hr 04/01/19 09:00 04/04/19 10:40 Sodium Chloride IVPB 100 mls Q24HR AUTUMN Administration Loperamide HCl 2 mg 03/30/19 15:07 04/04/19 06:02 Imodium PO 2 mg DAILYPRN PRN Administration Diarrhea/Loose Stools Multivitamins 1 tab 04/03/19 09:00 04/04/19 10:40 Theragran PO Not Given DAILY AUTUMN - Exam General Appearance: NAD, awake alert Eye: PERRL, anicteric sclera ENT: no oropharyngeal lesions, moist mucosa Neck: supple, no JVD Heart: RRR, no murmur Respiratory: no wheezes, no rales Gastrointestinal: soft, non-tender, non-distended, normal bowel sounds Extremities: no edema Extremities - other findings: left bka in wound vac Neurological: cranial nerve grossly intact, no focal deficits Psychiatric: normal affect, A&O x 3 Hosp A/P (1) Status post below knee amputation of left lower extremity Code(s): Z89.512 - ACQUIRED ABSENCE OF LEFT LEG BELOW KNEE Status: Acute (2) Sepsis Code(s): A41.9 - SEPSIS, UNSPECIFIED ORGANISM Status: Acute Qualifiers: Sepsis type: methicillin susceptible Staphylococcus aureus (3) Staphylococcus aureus bacteremia Code(s): R78.81 - BACTEREMIA Status: Acute (4) Multiple wounds Code(s): T07.XXXA - UNSPECIFIED MULTIPLE INJURIES, INITIAL ENCOUNTER Status: Chronic (5) Severe protein-calorie malnutrition Code(s): E43 - UNSPECIFIED SEVERE PROTEIN-CALORIE MALNUTRITION Status: Chronic (6) Metabolic acidosis Code(s): E87.2 - ACIDOSIS Status: Acute (7) BPH (benign prostatic hyperplasia) Code(s): N40.0 - BENIGN PROSTATIC HYPERPLASIA WITHOUT LOWER URINRY TRACT SYMP Status: Chronic Qualifiers: Lower urinary tract symptom presence: symptoms absent Qualified Code(s): N40.0 - Benign prostatic hyperplasia without lower urinary tract symptoms (8) Cirrhosis of liver Code(s): K74.60 - UNSPECIFIED CIRRHOSIS OF LIVER Status: Chronic Qualifiers: Ascites presence: without ascites (9) Diabetes type 2, controlled Code(s): E11.9 - TYPE 2 DIABETES MELLITUS WITHOUT COMPLICATIONS Status: Chronic Qualifiers: Diabetes mellitus intermediate project manager insulin use: without retirement use Diabetes mellitus complication detail: with chronic kidney disease Chronic kidney disease stage: on chronic dialysis (10) ESRD (end stage renal disease) on dialysis Code(s): N18.6 - END STAGE RENAL DISEASE; Z99.2 - DEPENDENCE ON RENAL DIALYSIS Status: Chronic (11) Hepatitis C Code(s): B19.20 - UNSPECIFIED VIRAL HEPATITIS C WITHOUT HEPATIC COMA Status: Chronic Qualifiers: Viral hepatitis chronicity: chronic (12) Hypertension Code(s): I10 - ESSENTIAL (PRIMARY) HYPERTENSION Status: Chronic Qualifiers: Hypertension type: essential hypertension Qualified Code(s): I10 - Essential (primary) hypertension (13) Macrocytic anemia Code(s): D53.9 - NUTRITIONAL ANEMIA, UNSPECIFIED Status: Chronic (14) Thrombocytopenia Code(s): D69.6 - THROMBOCYTOPENIA, UNSPECIFIED Status: Chronic - Plan had left bka on 04/01/2019 for osteomyelitis/sepsis/mssa bacteremia. coagulopathy due to liver disease/cirrhosis/hep C is on vanc and ceftriaxone based on culture results, to start cefazolin 3g with HD 3 times on dc encourage po intake, dietary consult prognosis guarded with multiple med issues wants to be full code, he is aware of multiple issues and guarded prognosis his son will be POA per patient no intervention for prostate as he is asymptomatic with normal per rectal exam per uro dc plan to rehab/snf when accepted is going to OR today for debridement and stump reconstruction by Ortho.
[2019-04-04] MEDS ORDERED: HumaLOG 300 UNITS/3 ML VIAL SC PRN (12:15)
[2019-04-04] MEDS ORDERED: Neomycin-Polymyxin 1 ML AMP ONE (12:20)
[2019-04-04] MEDS ORDERED: Ketamine 50 MG/ML (10ML VIAL) ONE (12:38)
[2019-04-04] MEDS ORDERED: Midazolam HCl 2 mg/2 ml Vial ONE ×2 (12:38→14:21)
[2019-04-04] MEDS ORDERED: Fentanyl 100 MCG/2 ML VIAL ONE (12:38)
[2019-04-04] MEDS ORDERED: Promethazine HCl 25 MG/ML VIAL SLOW IVP PRN (14:02)
[2019-04-04] MEDS ORDERED: Promethazine HCl 25 MG/ML VIAL IM PRN (14:02)
[2019-04-04] MEDS ORDERED: Ondansetron HCl/PF 4 MG/2 ML Vial IVP PRN (14:02)
--- NOTE | 2019-04-04 14:07 | PRG ---
DATE OF SERVICE: 04/04/2019 SUBJECTIVE: Patient was seen and examined at bedside and overnight events noted. Patient denies any shortness of breath or chest pain or palpitation. No history of nausea or vomiting or diarrhea or fever or chills or cramps. OBJECTIVE: GENERAL: This is a well built man in no acute distress. VITAL SIGNS: Temperature 97.8. Heart rate 102. Respiratory rate 18. Blood pressure 162/71. HEENT: Atraumatic, normocephalic. Oral mucosa is moist NECK: Supple. CARDIOVASCULAR: S1, S2 heard. Rate and rhythm regular. RESPIRATORY: Clear to auscultation. GASTROINTESTINAL: Abdomen is soft. MUSCULOSKELETAL: No tenderness. No edema. DERMATOLOGIC: No skin rash. NEUROLOGIC: Alert and awake and oriented X3. No focal neurologic deficits. Moving all the extremities. PSYCHIATRIC: Mood and affect normal. LABORATORY DATA: Potassium 3.5, BUN is 15, creatinine is 2.5. ASSESSMENT AND PLAN: 1. End-stage renal disease. Continue on dialysis as tolerated. 2. Edema, controlled. Remove fluid dialysis if tolerated. 3. Anemia of chronic disease. 4. Hypertension. Plan to continue on dialysis as tolerated. Job ID: [id number]
--- NOTE | 2019-04-04 18:00 | PRG ---
DATE OF SERVICE: 04/04/2019 SERVICE: Pulmonary Medicine. INTERVAL HISTORY: The patient is doing fine from breathing standpoint. He has no complaints of fevers, chills, nausea, or vomiting. Otherwise, there has been no interval change to his condition. PHYSICAL EXAMINATION: VITAL SIGNS: Afebrile, pulse 102, blood pressure 162/71, respirations 18, and saturation 99% on room air. GENERAL: The patient is awake and alert, in no apparent distress. LUNGS: Very good air entry. No prolonged expiratory phase or wheezing is appreciated. HEART: Normal rate regular. ABDOMEN: Soft, nontender, and nondistended. Bowel sounds are positive. MUSCULOSKELETAL: No cyanosis or clubbing. No pitting edema is appreciated. LABORATORIES: Platelets 41. CBC is otherwise unremarkable. Hemoglobin is improving. Sodium 129 and up trending. Creatinine 2.53. Calcium 6.6. A weak exudate is present. ASSESSMENT: 1. Pleural effusion, weak exudate. 2. Severe sepsis, resolved. 3. Wet gangrene of the left foot, status post BKA, postop day #3. 4. End-stage renal disease. 5. Cirrhosis. DISCUSSION AND PLAN: The effusion appeared to have a fairly benign appearance. It is a weak exudate making me believe this is a pseudo exudate. He can undergo a chest x-ray in 4 to 6 weeks in the outpatient setting. If there is a recurrence of the effusion, a repeat thoracentesis could be considered. That being said, if it maintains a benign appearance and the patient is asymptomatic to it, it is reasonable to watch this through time. Cytology was negative, which is nice and reassuring. Note at this point, he has no further requirements for inpatient Pulmonary Critical Care opinion, and I will sign off. Please call with additional questions or concerns through time. Job ID: [id number]
[2019-04-04] MEDS: Dextrose 5 % And 0.9 % NaCl 1,000 ML IV SCH (20:03)
[2019-04-04] MEDS: hydrALAZINE 25 MG TAB PO SCH (20:06)
--- NOTE | 2019-04-04 20:17 | OP ---
DATE OF PROCEDURE: 04/04/2019 OPERATION: Irrigation and debridement of left leg wound with closure of below-knee amputation stump site. PREOPERATIVE DIAGNOSIS: Status post below-knee amputation with open stump for infection. POSTOPERATIVE DIAGNOSIS: Status post below-knee amputation with open stump for infection. COMPLICATIONS: None. ESTIMATED BLOOD LOSS: 100 mL. ANESTHESIA: General. FIG BAR MACHINE OPERATOR: Zenobia Aguayo. IMPLANTS: None. INDICATIONS: Mr. Suero is a 59-year-old male who has required a below-knee amputation for severe infection. This is a complication of diabetes and end-stage renal disease. He has been indicated now for repeat irrigation and debridement with closure of his wound. Risks have been reviewed. He has elected to proceed with the operation. DESCRIPTION OF PROCEDURE: Mr. Suero was identified in the preoperative holding area. His correct extremity was marked. He was carried to the operating room. He was positioned supine. General anesthesia was induced. A multidisciplinary time-out was performed. The left lower extremity was prepped and draped in sterile fashion. We began the procedure by irrigation of the wounds. We used a pulsed lavage. Multiple liters were used to irrigate the wound. We gently debrided with a knife as well as electrocautery. We irrigated the bone as well. We used a curette in the bone. There was no obvious gross contamination or infection. At this point, after the irrigation, we began closure. We closed the deep fascia with a #1 Vicryl suture, followed by 2-0 Vicryl suture, and nylon for the skin. A sterile dressing was applied. The patient was taken to the recovery room in good condition without complication. Job ID: [id number]
[2019-04-04] MEDS: Dextrose 50% Abboject 50 ML SYRINGE SLOW IVP PRN (20:49)
[2019-04-05] MEDS: HumaLOG 300 UNITS/3 ML VIAL SC PRN (05:24)
[2019-04-05 06:32] LABS: Mean Corpuscular HGB CONC 33.1 g/dL (32.0-36.0); Mean Corpuscular Hemoglobin 32.3 pg (27.0-31.0); Mean Corpuscular Volume 97.8 fL (78.0-98.0); Mean Platelet Volume 10.5 fL (7.4-10.4); Platelet Count 43 thou/uL (130-400); RBC Distribution Width 17.4 % (11.5-14.5); Red Blood Cell (RBC) Count 2.15 mill/uL (4.70-6.10); White Blood Cell (WBC) Count 6.4 thou/uL (4.8-10.8)
[2019-04-05 07:45] LABS: Vancomycin, Random 12.3 ug/mL (See Comment)
[2019-04-05] MEDS: Vancomycin HCl 500 MG in Sodium Chloride 0.9% 100 ML IVPB SCH (10:23)
[2019-04-05] MEDS: cefTRIAXone\\ROCEPHIN 2 GM in Sodium Chloride 0.9% 100 ML IVPB SCH (10:26)
[2019-04-05] MEDS: Dextrose 5 % And 0.9 % NaCl 1,000 ML IV SCH ×2 (10:32→22:37)
[2019-04-05] MEDS: Folic Acid 1 MG TAB PO SCH (10:37)
[2019-04-05] MEDS: Multivit, Therapeutic 1 TAB PO SCH (10:37)
[2019-04-05] MEDS: hydrALAZINE 25 MG TAB PO SCH ×2 (10:37→19:55)
[2019-04-05] MEDS: Ascorbic Acid 500 mg Chewable Tablet PO SCH (10:37)
[2019-04-05] MEDS: Carvedilol 6.25 MG TAB PO SCH ×2 (10:38→16:46)
[2019-04-05] MEDS: Heparin 5,000 UNITS/ML VIAL SC SCH ×2 (10:38→19:44)
--- NOTE | 2019-04-05 14:57 | PDOC.HOSPP ---
- Subjective Encounter Date: 04/05/19 Encounter Time: 11:00 Subjective: no pain, feels better no sob, says he will work with PT/OT to learn transfers today - Objective Vital Signs & Weight: Vital Signs (12 hours) Temp Pulse Resp BP Pulse Ox 04/05/19 10:52 97.9 F 99 18 126/71 100 04/05/19 10:37 98 04/05/19 07:36 98.6 F 98 14 152/90 H 100 04/05/19 03:55 98.3 F 96 16 157/87 H 96 Weight Admit Weight 104 lb Weight 102 lb 15.294 oz Most Recent Monitor Data Heart Rate from ECG 105 NIBP 134/61 NIBP BP-Mean 85 Respiration from ECG 21 SpO2 100 I&O: 04/04/19 04/05/19 04/06/19 06:59 06:59 06:59 Intake Total 1180 700 Output Total 420 0 Balance 760 700 Result Diagrams: 04/05/19 06:19 04/04/19 04:19 Additional Labs: Accuchecks 04/05/19 04/04/19 04/04/19 05:17 22:00 20:41 POC Glucose 162 H 150 H 60 L 04/04/19 18:12 POC Glucose 68 L Hospitalist ROS - Medication Medications: Active Medications Generic Name Dose Route Start Last Admin Trade Name Freq PRN Reason Stop Dose Admin Acetaminophen 325 mg 03/29/19 10:17 03/31/19 07:10 Tylenol PO 325 mg Q4H PRN Administration Headache/Fever/Mild Pain (1-3) Hydrocodone Bitart/Acetaminophen 1 tab 03/29/19 10:17 04/01/19 19:32 [place] 5/325 PO 1 tab Q4H PRN Administration Moderate Pain (4-6) Ascorbic Acid 500 mg 04/03/19 09:00 04/05/19 10:37 Vitamin C PO 500 mg DAILY AUTUMN Administration Carvedilol 6.25 mg 04/05/19 08:00 04/05/19 10:38 Coreg PO 6.25 mg BID-WM AUTUMN Administration Dextrose/Water 25 gm 03/29/19 10:17 04/04/19 20:49 Dextrose 50% SLOW IVP 25 gm PRN PRN Administration Hypoglycemia Folic Acid 1 mg 04/03/19 09:00 04/05/19 10:37 Folvite PO 1 mg DAILY AUTUMN Administration Heparin Sodium (Porcine) 5,000 units 03/29/19 21:00 04/05/19 10:38 Heparin SC 5,000 units BID AUTUMN Administration Hydralazine HCl 25 mg 04/04/19 21:00 04/05/19 10:37 Apresoline PO 25 mg BID AUTUMN Administration Vancomycin HCl 750 mg/ Sodium 250 mls @ 250 mls/hr 03/29/19 16:15 03/30/19 13 :45 Chloride IVPB 250 mls WILLCALL AUTUMN Administration Vancomycin HCl 500 mg/ Sodium 100 mls @ 100 mls/hr 03/29/19 16:15 04/03/19 13 :53 Chloride IVPB 100 mls WILLCALL AUTUMN Administration Ceftriaxone Sodium 2 gm/ 100 mls @ 200 mls/hr 04/01/19 09:00 04/05/19 10:26 Sodium Chloride IVPB 100 mls Q24HR AUTUMN Administration Dextrose/Sodium Chloride 1,000 mls @ 75 mls/hr 04/04/19 18:45 04/05/19 10:32 D5 0.9% Ns IV 1,000 mls .[id number] AUTUMN Administration Insulin Human Lispro 0 units 04/04/19 12:15 04/05/19 05:24 Humalog SC 2 unit .MILD SLIDING SCALE PRN Administration Mild Correctional Scale Loperamide HCl 2 mg 03/30/19 15:07 04/04/19 06:02 Imodium PO 2 mg DAILYPRN PRN Administration Diarrhea/Loose Stools Multivitamins 1 tab 04/03/19 09:00 04/05/19 10:37 Theragran PO 1 tab DAILY AUTUMN Administration - Exam General Appearance: NAD, awake alert Eye: PERRL, anicteric sclera ENT: no oropharyngeal lesions, moist mucosa Neck: supple, no JVD Heart: RRR, no murmur Respiratory: no wheezes, no rales Gastrointestinal: soft, non-tender, non-distended, normal bowel sounds Extremities - other findings: left bka Neurological: cranial nerve grossly intact, no focal deficits Psychiatric: normal affect, A&O x 3 Hosp A/P (1) Status post below knee amputation of left lower extremity Code(s): Z89.512 - ACQUIRED ABSENCE OF LEFT LEG BELOW KNEE Status: Acute (2) Sepsis Code(s): A41.9 - SEPSIS, UNSPECIFIED ORGANISM Status: Resolved Qualifiers: Sepsis type: methicillin susceptible Staphylococcus aureus (3) Staphylococcus aureus bacteremia Code(s): R78.81 - BACTEREMIA Status: Acute (4) Multiple wounds Code(s): T07.XXXA - UNSPECIFIED MULTIPLE INJURIES, INITIAL ENCOUNTER Status: Chronic (5) Severe protein-calorie malnutrition Code(s): E43 - UNSPECIFIED SEVERE PROTEIN-CALORIE MALNUTRITION Status: Chronic (6) Metabolic acidosis Code(s): E87.2 - ACIDOSIS Status: Resolved (7) BPH (benign prostatic hyperplasia) Code(s): N40.0 - BENIGN PROSTATIC HYPERPLASIA WITHOUT LOWER URINRY TRACT SYMP Status: Chronic Qualifiers: Lower urinary tract symptom presence: symptoms absent Qualified Code(s): N40.0 - Benign prostatic hyperplasia without lower urinary tract symptoms (8) Cirrhosis of liver Code(s): K74.60 - UNSPECIFIED CIRRHOSIS OF LIVER Status: Chronic Qualifiers: Ascites presence: without ascites (9) Diabetes type 2, controlled Code(s): E11.9 - TYPE 2 DIABETES MELLITUS WITHOUT COMPLICATIONS Status: Chronic Qualifiers: Diabetes mellitus intermediate project manager insulin use: without intermediate project manager use Diabetes mellitus complication detail: with chronic kidney disease Chronic kidney disease stage: on chronic dialysis (10) ESRD (end stage renal disease) on dialysis Code(s): N18.6 - END STAGE RENAL DISEASE; Z99.2 - DEPENDENCE ON RENAL DIALYSIS Status: Chronic (11) Hepatitis C Code(s): B19.20 - UNSPECIFIED VIRAL HEPATITIS C WITHOUT HEPATIC COMA Status: Chronic Qualifiers: Viral hepatitis chronicity: chronic (12) Hypertension Code(s): I10 - ESSENTIAL (PRIMARY) HYPERTENSION Status: Chronic Qualifiers: Hypertension type: essential hypertension Qualified Code(s): I10 - Essential (primary) hypertension (13) Macrocytic anemia Code(s): D53.9 - NUTRITIONAL ANEMIA, UNSPECIFIED Status: Chronic (14) Thrombocytopenia Code(s): D69.6 - THROMBOCYTOPENIA, UNSPECIFIED Status: Chronic - Plan had left bka on 04/01/2019 for osteomyelitis/sepsis/mssa bacteremia. coagulopathy due to liver disease/cirrhosis/hep C is on ceftriaxone based on culture results, to start cefazolin 3g with HD 3 times on dc encourage po intake, dietary recommendations to be continued prognosis guarded with multiple med issues wants to be full code, he is aware of multiple issues and guarded prognosis his son will be POA per patient no intervention for prostate as he is asymptomatic with normal per rectal exam per uro dc plan to rehab/snf when accepted Had closure of left bka wound and wound vac is removed.
--- NOTE | 2019-04-05 19:17 | PRG ---
DATE OF SERVICE: 04/05/2019 SUBJECTIVE: Patient was seen and examined at bedside and overnight events noted. Patient denies any shortness of breath or chest pain or palpitation. No history of nausea or vomiting or diarrhea or fever or chills or cramps. OBJECTIVE: GENERAL: This is a well-built male, in no apparent distress. VITAL SIGNS: Temperature 97.9. Heart rate 87. Respiratory rate 14. Blood pressure 192/70. HEENT: Atraumatic, normocephalic. Oral mucosa is moist NECK: Supple. CARDIOVASCULAR: S1, S2 heard. Rate and rhythm regular. RESPIRATORY: Clear to auscultation. GASTROINTESTINAL: Abdomen is soft. MUSCULOSKELETAL: No tenderness. No edema. DERMATOLOGIC: No skin rash. NEUROLOGIC: Alert and awake and oriented X3. No focal neurologic deficits. Moving all the extremities. PSYCHIATRIC: Mood and affect normal. LABORATORY DATA: Not done today. ASSESSMENT AND PLAN: 1. End-stage renal disease. Continue dialysis as tolerated. 2. Edema, controlled. 3. Anemia of chronic disease. 4. History of hypertension. We will continue on dialysis as tolerated. Job ID: [id number]
[2019-04-05] MEDS: HYDROcodone/Acetaminophen 5/325 mg Tablet PO PRN (19:55)
[2019-04-05] MEDS: Loperamide HCl 2 MG CAP PO PRN (19:55)
[2019-04-06] MEDS: HumaLOG 300 UNITS/3 ML VIAL SC PRN (05:35)
[2019-04-06] MEDS: Folic Acid 1 MG TAB PO SCH (09:23)
[2019-04-06] MEDS: Multivit, Therapeutic 1 TAB PO SCH (09:23)
[2019-04-06] MEDS: Carvedilol 6.25 MG TAB PO SCH ×2 (09:24→16:48)
[2019-04-06] MEDS: Heparin 5,000 UNITS/ML VIAL SC SCH (09:24)
[2019-04-06] MEDS: Ascorbic Acid 500 mg Chewable Tablet PO SCH (09:24)
[2019-04-06] MEDS: hydrALAZINE 25 MG TAB PO SCH (09:24)
[2019-04-06] MEDS: cefTRIAXone\\ROCEPHIN 2 GM in Sodium Chloride 0.9% 100 ML IVPB SCH (09:32)
[2019-04-06] MEDS: Acetaminophen 325 MG TAB PO PRN (10:07)
--- NOTE | 2019-04-06 11:39 | PRG ---
DATE OF SERVICE: 04/06/2019 SUBJECTIVE: Patient was seen and examined at bedside and overnight events noted. Patient denies any shortness of breath or chest pain or palpitation. No history of nausea or vomiting or diarrhea or fever or chills or cramps. OBJECTIVE: GENERAL: This is a well-built male, in no apparent distress. VITAL SIGNS: Temperature 98.2. Heart rate 80. Respiratory rate 18. Blood pressure 134/64. HEENT: Atraumatic, normocephalic. Oral mucosa is moist NECK: Supple. CARDIOVASCULAR: S1, S2 heard. Rate and rhythm regular. RESPIRATORY: Clear to auscultation. GASTROINTESTINAL: Abdomen is soft. MUSCULOSKELETAL: No tenderness. No edema. DERMATOLOGIC: No skin rash. NEUROLOGIC: Alert and awake and oriented X3. No focal neurologic deficits. Moving all the extremities. PSYCHIATRIC: Mood and affect normal. LABORATORY DATA: Not done today. ASSESSMENT AND PLAN: 1. End-stage renal disease. Continue on dialysis as tolerated. 2. Edema, controlled. 3. Anemia of chronic disease. 4. History of hypertension. Plan to continue on dialysis as tolerated. Plan is to have Tuesday, , and Tuesday dialysis. I have talked with the manager social responsibility to check with the dialysis clinic to see if he still remains the patient there or is he already discharged due to noncompliance. We will follow. Job ID: [id number]
[2019-04-06 13:27] VITALS: TEMP 98.4
[2019-04-06] MEDS: Dextrose 5 % And 0.9 % NaCl 1,000 ML IV SCH (13:27)
[2019-04-06 13:46] VITALS: BMI 15.6
[2019-04-06 16:51] VITALS: BP 134/65
--- NOTE | 2019-04-07 12:38 | DIS ---
DATE OF ADMISSION: 03/29/2019 DATE OF DISCHARGE: 04/06/2019 DISCHARGE DISPOSITION: Inpatient rehab. PRIMARY DISCHARGE DIAGNOSES: 1. Methicillin-susceptible Staphylococcus aureus bacteremia with sepsis. 2. Left ankle osteomyelitis, status post below-knee amputation. 3. Severe protein-calorie malnutrition. 4. End-stage renal disease, on hemodialysis. 5. Cirrhosis of liver with hepatitis C. 6. Benign prostatic hypertrophy. 7. Diabetes mellitus, type 2, diet controlled. 8. Macrocytic anemia. 9. Chronic thrombocytopenia. 10. Coagulopathy due to liver disease. PROCEDURES DONE DURING HOSPITALIZATION: Chest x-ray done, showed large right pleural effusion. Left ankle 3-view x-ray done showed extensive vascular calcification. There is soft-tissue swelling above the ankle with neuropathic changes in the hindfoot region. The talus is almost completely absent. There is marked deformity of the calcaneus. Tibia was somewhat more anteriorly subluxed in relation to the residual talus and calcaneus. The patient has had left below- knee amputation done by Dr. Catherine on 04/01/2019. CT chest, abdomen, and pelvis with IV contrast done, showed possible prostate abscess, which was evaluated by Urology, moderate left hydronephrosis, and hydroureter, which is a longstanding process. Atrophic appearance of bilateral kidney, large right pleural effusion almost occupying two-thirds of right hemithorax, diffuse vascular calcifications, small amount of ascites. The patient had paracentesis done on 04/02/2019, by Dr. Beckford with removal of 1500 mL of pleural fluid, which is clear yellow fluid. Pleural fluid cytology shows no malignant cells. Echo with 2D Doppler showed EF of 30% to 35%. Blood cultures x2 grew Staph aureus resistant to amoxicillin and Zosyn, but sensitive to all other antibiotics. Wound cultures from the left ankle aspirate was also grown Staph aureus with similar sensitivity profile as blood cultures, stool for Clostridium difficile negative. Pleural fluid acid-fast bacilli were negative. Discharge H and H 7 and 21, platelet count 43, MCV is 97. PT/INR 25 and 2.3, PTT 50 on the day of admission. Discharge BUN and creatinine 15 and 2.5. Albumin is 2.3. Initial BUN and creatinine on admission were 83 and 7.1 with bicarb of 8 and serum glucose of 34. HBS antigen was nonreactive. DISCHARGE MEDICATIONS: 1. Cefazolin 3 g IV on hemodialysis days 3 times weekly for a total of 4 weeks. 2. Coreg 6.25 mg twice daily. 3. Vitamin C 500 mg p.o. daily. 4. Ferrous sulfate 325 mg p.o. daily. 5. Folic acid 1 mg p.o. daily. 6. Hydralazine 25 mg twice daily. 7. Multivitamin one tablet once daily. ALLERGIES: NO KNOWN DRUG ALLERGIES. DISCHARGE PLAN: The patient is being discharged to inpatient rehab to learn with transfers. BRIEF COURSE DURING HOSPITALIZATION: The patient was initially admitted on the with complaints of nausea, vomiting, diarrhea, and left ankle drainage. He was found to be septic, and carson-cultures were obtained. Blood cultures grew MSSA bacteremia. Left ankle had purulent drainage with clinical findings of osteomyelitis. He has had consultation with Dr. Catherine and has had left below-knee amputation done. The patient also had large right pleural effusion and in view of MSSA bacteremia, has had thoracenteses done with no signs of empyema. The patient has multiple organ failures. He is also noncompliant with his dialysis regimen in the outpatient setting prior to arrival. He has had consultation with Dr. Rojo with regard to finding of possible prostate abscess on the CAT scan , but clinically, the patient did not have any signs or symptoms of prostate enlargement. Per Dr. Rojo, this was not further worked up. His echo revealed EF of 30% to 35%, and the patient has end-stage renal disease, hence was not placed on any SILVER or ARBs. He is on small dose of carvedilol, and a small dose of hydralazine has been placed. He is hemodynamically stable and will be receiving Epogen with ongoing dialysis. A total of 35 minutes was spent on discharge plan. I have given complete updates to Dr. Langley. He is cleared for discharge by all specialists. Please note, I have seen and examined the patient on the day of discharge. Job ID: [id number] MTDD
== END 2019-04-06 17:05 | DRG 853 ==
LOC: ERS 05:08 → ERHOLD 06:42 → IMCU/EMU 13:58 → 2NO 03-31 08:02 → SURG A 04-04 14:43
PROVIDERS: ADMIT Internal Medicine; ATTEND Internal Medicine
PROC: 0Y6J0Z3 Detachment at Left Lower Leg, Low, Open Approach (ICD-10-PCS; principal; 2019-04-01)
PROC: 0W9930Z Drainage of Right Pleural Cavity with Drainage Device, Percutaneous Approach (ICD-10-PCS; 2019-04-02)
PROC: 0JBP0ZZ Excision of Left Lower Leg Subcutaneous Tissue and Fascia, Open Approach (ICD-10-PCS; 2019-04-04)
DX: A41.01 Sepsis due to Methicillin susceptible Staphylococcus aureus (principal); E43 Unspecified severe protein-calorie malnutrition; N18.6 End stage renal disease; E87.2 Acidosis; E11.52 Type 2 diabetes mellitus with diabetic peripheral angiopathy with gangrene; I96 Gangrene, not elsewhere classified; I12.0 Hypertensive chronic kidney disease with stage 5 chronic kidney disease or end stage renal disease; M86.672 Other chronic osteomyelitis, left ankle and foot; J90 Pleural effusion, not elsewhere classified; T87.44 Infection of amputation stump, left lower extremity; Z68.1 Body mass index [BMI] 19.9 or less, adult; E11.22 Type 2 diabetes mellitus with diabetic chronic kidney disease; R65.20 Severe sepsis without septic shock; D69.6 Thrombocytopenia, unspecified; K74.60 Unspecified cirrhosis of liver; Z89.112 Acquired absence of left hand; Z89.111 Acquired absence of right hand; E87.6 Hypokalemia; B19.20 Unspecified viral hepatitis C without hepatic coma; N40.0 Benign prostatic hyperplasia without lower urinary tract symptoms; D53.9 Nutritional anemia, unspecified
CPT/HCPCS: 36415; 36416; 36430; 71045; 71260; 74177; 80048; 80053; 80202; 82550; 82945; 83605; 83615; 83880; 83986; 84157; 84484; 85025; 85027; 85049; 85060; 85610; 85730; 86850; 86900; 86901; 87040; 87070; 87077; 87116; 87149; 87186; 87205; 87206; 87324; 87340; 87449; 88112; 88305; 88307; 88311; 89051; 90935; 93005; 93306; 96374; 96375; G0257; J0131; J0690; J0696; J1644; J2001; J2250; J2405; J2543; J2704; J3010; J3370; J3490; J7050; P9016; P9059; S0028

== ENCOUNTER 2019-06-04 14:51 | Inpatient (IN) | payer MEDICARE ==
[2019-06-04 16:03] LABS: Hemoglobin 7.5 g/dL (14.0-18.0); Mean Corpuscular HGB CONC 32.3 g/dL (32.0-36.0); Mean Corpuscular Hemoglobin 30.8 pg (27.0-31.0); Mean Corpuscular Volume 95.3 fL (78.0-98.0); Mean Platelet Volume 6.9 fL (7.4-10.4); Platelet Count 230 thou/uL (130-400); RBC Distribution Width 13.9 % (11.5-14.5); Red Blood Cell (RBC) Count 2.43 mill/uL (4.70-6.10); White Blood Cell (WBC) Count 3.9 thou/uL (4.8-10.8)
[2019-06-04 16:28] LABS: Band 3 % (5-11); Eosinophils 8 % (0-10); Lymphocytes 32 % (21-51); MDiff Complete? YES; Monocytes 15 % (0-10); Neutrophil 42 % (42-75); Platelet Morphology Comment Appears Adequate; Polychromasia SLIGHT = 2-3 cells (100X) (0-2/hpf)
[2019-06-04 16:29] LABS: Anion Gap 13 mmol/L (10-20); Carbon Dioxide 23 mmol/L (22-29); Chloride 98 mmol/L (98-107); Potassium 3.3 mmol/L (3.5-5.1); Sodium 131 mmol/L (136-145)
[2019-06-04 16:30] LABS: ALT (SGPT) Less than 7 U/L (8-55); AST (SGOT) 18 U/L (5-34); Alkaline Phosphatase 72 U/L (40-110); BUN (Urea Nitrogen) 16 mg/dL (8.4-25.7); Bilirubin, Total 0.4 mg/dL (0.2-1.2); Calc. Creatinine Clearance 0 mL/min (70-130); Calcium 7.9 mg/dL (7.8-10.44); Estimated GFR-MDRD 15; Globulin 5.6 g/dL (2.4-3.5); Glucose 67 mg/dL (70-105); Protein, Total 7.6 g/dL (6.0-8.3)
[2019-06-04] MEDS ORDERED: Ondansetron PF 4 MG/2 ML Vial IVP PRN ×2 (21:01→21:19)
[2019-06-04] MEDS ORDERED: Ondansetron ODT 4 MG TAB SL PRN (21:01)
[2019-06-04] MEDS ORDERED: Loperamide HCl 2 MG CAP PO PRN (21:19)
[2019-06-04] MEDS ORDERED: HYDROcodone/Acetaminophen 5/325 mg Tablet PO PRN (21:19)
[2019-06-04] MEDS ORDERED: hydrALAZINE 20 MG/ML VIAL SLOW IVP PRN (21:32)
[2019-06-04 21:42] VITALS: BMI 13.8
[2019-06-04] MEDS ORDERED: diphenhydrAMINE 25 MG CAP PO SCH (21:45)
[2019-06-04] MEDS ORDERED: Potassium Chloride 10 MEQ TAB PO SCH (22:30)
[2019-06-04] MEDS: hydrALAZINE 25 MG TAB PO SCH (22:54)
[2019-06-05 06:10] LABS: Eosinophils 4 % (0-10); Hemoglobin 7.1 g/dL (14.0-18.0); Lymphocytes 38 % (21-51); MDiff Complete? YES; Mean Corpuscular HGB CONC 32.6 g/dL (32.0-36.0); Mean Corpuscular Hemoglobin 30.7 pg (27.0-31.0); Mean Corpuscular Volume 94.1 fL (78.0-98.0); Mean Platelet Volume 6.8 fL (7.4-10.4); Monocytes 16 % (0-10); Neutrophil 42 % (42-75); Platelet Count 218 thou/uL (130-400); Platelet Morphology Comment Appears Adequate; RBC Distribution Width 14.2 % (11.5-14.5); Red Blood Cell (RBC) Count 2.31 mill/uL (4.70-6.10); White Blood Cell (WBC) Count 3.8 thou/uL (4.8-10.8)
[2019-06-05 06:17] LABS: Anion Gap 12 mmol/L (10-20); BUN (Urea Nitrogen) 19 mg/dL (8.4-25.7); Calc. Creatinine Clearance 11 mL/min (70-130); Calcium 7.9 mg/dL (7.8-10.44); Carbon Dioxide 24 mmol/L (22-29); Chloride 97 mmol/L (98-107); Estimated GFR-MDRD 14; Potassium 3.7 mmol/L (3.5-5.1); Sodium 129 mmol/L (136-145)
[2019-06-05 06:25] LABS: Glucose 54 mg/dL (70-105)
--- NOTE | 2019-06-05 07:37 | HP ---
PRESENTING COMPLAINT: Chronic diarrhea, witnessed. HISTORY OF PRESENT ILLNESS: Mr. Manish Suero is a 59-year-old male with past medical history of hypertension, diabetes mellitus, liver cirrhosis secondary to hepatitis C, ESRD, on HD , senior living resident after recent left BKA 1 month ago, complicated with pleural effusion, requiring thoracentesis, history of low EF with last echo of 30% EF, presented today after being sent from senior living because of persistent diarrhea. Unclear if the patient has had workup for C. diff in the past as states he has 2 sets from senior living per senior living report. The patient has been started on Imodium during his previous admission 3 weeks ago at [facility] for similar complaint. He has initially presented to the ED for need of dialysis. After dialysis, the patient was being planned to be discharged home but noted continued to have diarrhea and came for further workup. The patient is a poor historian, though awake. is helping with history. He states he has not had colonoscopy in the past. Of note, his medical history includes history of thrombocytopenia in the past. PAST MEDICAL HISTORY: Hypertension, diabetes mellitus, peripheral vascular disease, left BKA, chronic diarrhea, hepatitis C infection, ESRD on HD, recurrent pleural effusion, history of CHF, and history of right arm amputation. FAMILY HISTORY: Noncontributory. The patient denies history of cancer. HOME MEDICATIONS: 1. Coreg. 2. Ferrous sulfate. 3. Folic acid. 4. Hydralazine. 5. Multivitamin. 6. Vitamin C. 7. Epo during dialysis. ALLERGIES: NO KNOWN DRUG ALLERGIES. REVIEW OF SYSTEMS: All systems review x14 were negative except as mentioned above. PHYSICAL EXAMINATION: CURRENT VITAL SIGNS: Blood pressure of 203/89, repeat down to 189/90, pulse of 80, respiratory rate of 12 to 14, and O2 sat 98% on room air. GENERAL: Small built, chronically ill looking male, on room air. HEENT: Head is atraumatic and normocephalic. Pupils equal and reactive to light. Anicteric, conjunctiva. NECK: No JVD. No carotid bruit. Noted right upper arm amputation with stump in situ. RESPIRATORY: Mild bibasilar crepitation. There is good air entry. CARDIOVASCULAR: Rate and rhythm regular. ABDOMEN: Full, soft, and nontender. No palpable hepatomegaly. EXTREMITIES: Right upper arm amputation. Left BKA. Left upper arm AVF, good thrill. NEUROLOGIC: The patient is alert, . LABORATORY DATA: WBC 3.9, hemoglobin 7.5, neutrophils 42, bands 3%, platelet count 230,000. Sodium 131, potassium 3.3, bicarb 23, and creatinine 4. AST and ALT normal. Alkaline phosphatase 72. BNP 2958. Albumin 2.0. T bili of 0.4. IMPRESSION: 1. Recurrent chronic diarrhea, rule out possible Clostridium difficile, given recent multiple antibiotics use for sepsis. 2. Anemia of chronic disease/end-stage renal disease. 3. End-stage renal disease, on hemodialysis. 4. Hypertension - uncontrolled. 5. History of hepatitis C. PLAN: We will admit the patient to observation. We will plan for the following. 1. Chronic diarrhea. We will obtain stool for C difficile. Continue Imodium if C difficile negative. We will need GI evaluation with possible colonoscopy if persistent. 2. Persistent anemia - we will transfuse 1 unit of PRBC tonight. Follow H and H in a.m. Continue epo per Nephrology. 3. Hypertension, uncontrolled. Increase hydralazine to 50 mg t.i.d., continue Coreg. 4. Diabetes mellitus with insulin sliding scale for now. 5. End-stage renal disease. Continue HD . 6. DVT prophylaxis with subcutaneous heparin q.12 5000 units. 7. Advanced directive. The patient is full code as per discussion with the patient and today. 8. Hypokalemia. Likely due to post hemodialysis, follow with PRBCs, follow magnesium level. Time spent on review of record, discussion with the patient, and evaluation is greater than 60 minutes. Job ID: [id number]
--- NOTE | 2019-06-05 08:32 | CON ---
DATE OF CONSULTATION: 06/05/2019 REQUESTING PHYSICIAN: Irma Ghotra MD REASON FOR CONSULTATION: End-stage renal disease management. HISTORY OF PRESENT ILLNESS: A 59-year-old male with known history of end-stage renal disease secondary to diabetic nephropathy and/or hepatitis C glomerulonephritis on hemodialysis Tuesday, Tuesday, and Tuesday, protein calorie malnutrition, hypertension, diabetes complicated with peripheral artery disease, status post left BKA as well as prior history of MRSA infection requiring long-term antibiotics, complicated pleural effusion requiring thoracentesis and cardiomyopathy with EF of 30%, admitted for further evaluation of acute on chronic anemia. The patient on routine hemoglobin check in the dialysis unit was found to have hemoglobin of 6.7. The patient also continued to have frequent loose stools associated with incontinence and progressive weight loss. There was no history of nausea, vomiting or fever. The patient also denied melena or hematochezia. Last hemodialysis was on Tuesday. The patient has not really completed dialysis due to issues related to stool incontinence and frequent loose stools. However, in the ER here, the patient was found to have hemoglobin of 7.5, which is at variance with hemodialysis unit lab check. There is no history of chest pain, shortness of breath, or edema. PAST MEDICAL HISTORY: 1. Hypertension. 2. Diabetes mellitus. 3. Peripheral vascular disease status post left BKA as well as right arm amputation. 4. Chronic diarrhea. 5. Hepatitis C infection. 6. End-stage renal disease, on hemodialysis. 7. Recurrent pleural effusion. 8. Chronic CHF. 9. Cardiomyopathy with ejection fraction of 30%. PAST SURGICAL HISTORY: 1. Thoracentesis. 2. Right arm amputation. 3. Left BKA. 4. Osteomyelitis of left foot, status post amputation. 5. Noncompliance. 6. Left arm AV fistula. FAMILY HISTORY: Noncontributory. SOCIAL HISTORY: The patient currently lives in a residential. Denied tobacco, alcohol, or recreational drug use. ALLERGIES: NO KNOWN DRUG ALLERGIES REPORTED. PRIOR TO HOSPITAL MEDICATIONS: 1. mg q.4h. p.r.n. 2. Calcium carbonate 1000 mg q.6h. p.r.n. 3. Clonidine 0.1 mg q.6h. p.r.n. for elevation in blood pressure. 4. Metronidazole 500 mg q.8h. 5. Acetaminophen 650 mg p.o. t.i.d. 6. Aranesp 60 mcg every 7 days. 7. Pancrelipase 1 capsule p.o. t.i.d. 8. Protonix 40 mg p.o. daily. 9. Simethicone 80 mg p.o. t.i.d. p.r.n. 10. Ascorbic acid 500 mg p.o. daily. 11. Carvedilol 6.125 mg p.o. b.i.d. 12. Ferrous sulfate 325 mg p.o. daily. 13. Folic acid 1 mg p.o. daily. 14. Multivitamin 1 tablet p.o. daily. REVIEW OF SYSTEMS: 12-point review of system performed and was negative other than pertinent positives and negatives included in the history of present illness. PHYSICAL EXAMINATION: VITAL SIGNS: Temperature 98.8, pulse 84, respiratory rate 18, SpO2 of 99% on room air, and blood pressure is 158/72. GENERAL: Chronically ill-looking cachectic male in no obvious distress. Afebrile. Anicteric. Acyanotic. HEENT: Normocephalic, atraumatic. Facial muscle wasting noted. Oral mucosa is dry. NECK: Supple and nontender with good range of motion. No JVD appreciated. CARDIOVASCULAR: Regular rhythm and rate with normal heart sounds. Systolic murmur noted. RESPIRATORY: Fair air entry bilaterally with no obvious crackle or rhonchi or use of accessory muscles. GI: Scaphoid, soft, nontender with normal bowel sounds. EXTREMITIES: Right upper arm amputation as well as left BKA noted. Atrophic limbs noted with no obvious edema. Left upper arm AV fistula with good thrill noted. SAP DATA ARCHITECT: Conscious, alert and oriented x3 with appropriate mental status. Cranial nerves 2 through 12 are grossly intact. DIAGNOSTIC DATA: CBC today showed WBC count of 3.8, hemoglobin of 7.1, hematocrit of 94.1, platelet count of 218. Renal function panel showed sodium 129, potassium 3.7, chloride 97, CO2 of 24, BUN 19, creatinine 4.41, glucose 54, calcium 7.9. CMP on presentation on June 04 showed sodium of 131, potassium 3.3, chloride 98, CO2 of 23, BUN 16, creatinine 4.03, glucose 67, calcium 7.9, total bilirubin 0.4, AST 18, ALT 7, alkaline phosphatase 72, total protein 7.6, albumin 2.0, globulin 5.6. BNP on presentation was 2958. Initial troponin was less than 0.01. ASSESSMENT: 1. End-stage renal disease, on hemodialysis Tuesday, Tuesday, and Tuesday. No acute issues. 2. Anemia in chronic kidney disease: Acute drop in hemoglobin is of unclear etiology. The patient was getting erythrocyte stimulating agent during dialysis. GI bleed is a concern given chronic diarrhea. Hemoglobin is down from 7.5 yesterday to 7.1 today. Of note, it was 6.7 recently in the dialysis unit. 3. Chronic diarrhea. 4. Severe protein-calorie malnutrition. 5. Hepatitis C infection. 6. Status post below knee amputation on the left side. 7. Cardiomyopathy with ejection fraction of 30%. 8. Chronic congestive heart failure. 9. Type 2 diabetes mellitus: Currently off medications due to end-stage renal disease. PLAN: 1. We will dialyze the patient today for 3 hours. The patient seems euvolemic, hence little or no UF will be done. 2. We will also transfuse 1 unit of packed red blood cells with hemodialysis. 3. Agree with GI consult for chronic diarrhea. 4. Dietary supplementation with Nepro will be commenced. 5. The patient can be discharged from Nephrology point of view after hemodialysis today. Many thanks for involving us in the care of this patient. We will follow along with you. Job ID: [id number]
[2019-06-05] MEDS: Multivit, Therapeutic 1 TAB PO SCH (11:53)
[2019-06-05] MEDS: Carvedilol 6.25 MG TAB PO SCH ×2 (11:53→16:53)
[2019-06-05] MEDS: Famotidine 20 MG TAB PO SCH (11:53)
[2019-06-05] MEDS: hydrALAZINE 25 MG TAB PO SCH ×2 (11:54→20:19)
[2019-06-05] MEDS: Folic Acid 1 MG TAB PO SCH (11:54)
[2019-06-05] MEDS: Ferrous Sulfate 325 MG TAB PO SCH (11:54)
[2019-06-05] MEDS: Ascorbic Acid 500 mg Chewable Tablet PO SCH (11:54)
[2019-06-05] MEDS: Heparin 5,000 UNITS/ML VIAL SC SCH ×2 (11:55→20:49)
[2019-06-05] MEDS: Pancrelipase DR 12000 1 CAP PO SCH (17:08)
--- NOTE | 2019-06-05 18:34 | RAD ---
RADIOGRAPH CHEST 2 VIEW: DATE: 06/05/2019 TIME: 6:26 PM HISTORY: 59-year-old male with right pleural effusion COMPARISON: 03/29/2019 single view study FINDINGS: There is a large right pleural effusion occupying approximately 60-75% of the right hemithoracic volu me, with associated total atelectasis of right lower lobe, total or near-total atelectasis of right middle lobe, and subsegmental atelectasis of posterior segment of right upper lobe. There is a tiny l eft pleural effusion. On the frontal view, the right pleural effusion appears larger than previously. Left lung remains clear. No pneumothorax. No cardiomegaly or mediastinal widening. IMPRESSION: Large right pleural effusion has probably increased in volume
[2019-06-06 06:26] LABS: Anion Gap 12 mmol/L (10-20); BUN (Urea Nitrogen) 9 mg/dL (8.4-25.7); Calc. Creatinine Clearance 19 mL/min (70-130); Calcium 7.9 mg/dL (7.8-10.44); Carbon Dioxide 24 mmol/L (22-29); Chloride 102 mmol/L (98-107); Estimated GFR-MDRD 27; Glucose 73 mg/dL (70-105); Iron Binding Capacity, Total 75 mcg/dL (261-462); Sodium 134 mmol/L (136-145)
[2019-06-06] MEDS: Heparin 5,000 UNITS/ML VIAL SC SCH (07:51)
[2019-06-06] MEDS: Pancrelipase DR 12000 1 CAP PO SCH ×3 (09:07→16:57)
[2019-06-06] MEDS: Ascorbic Acid 500 mg Chewable Tablet PO SCH (09:08)
[2019-06-06] MEDS: Multivit, Therapeutic 1 TAB PO SCH (09:08)
[2019-06-06] MEDS: hydrALAZINE 25 MG TAB PO SCH ×2 (09:08→21:36)
[2019-06-06] MEDS: Ferrous Sulfate 325 MG TAB PO SCH (09:09)
[2019-06-06] MEDS: Carvedilol 6.25 MG TAB PO SCH ×2 (09:09→16:56)
[2019-06-06] MEDS: Folic Acid 1 MG TAB PO SCH (09:09)
[2019-06-06] MEDS: Famotidine 20 MG TAB PO SCH (09:09)
--- NOTE | 2019-06-06 09:32 | CON ---
DATE OF CONSULTATION: 06/05/2019 REASON FOR CONSULTATION: I was asked to see Mr. Suero by Dr. Ghotra for diarrhea. HISTORY OF PRESENT ILLNESS: Mr. Suero reports he was sent to the hospital from the skilled nursing, where he lives secondary to needing a blood transfusion. He reports that he has had diarrhea and it has been after meals, just to about every time he eats for about 5 years. It is not different now than it has been in the past. It is does not occur if he does not eat. He has no pain or cramps associated with this. He has no bleeding. He has no tenesmus. He has no nausea or vomiting. He is chronically ill. He has hepatitis C. He has had amputations of his left arm and right leg secondary to infections. In the past, he drank alcohol very heavily. He denies any knowledge of a diagnosis of cirrhosis. He has used drugs including cocaine up until about a year ago. He states he has not used any drugs or drank alcohol about the past year. Most recently, he was in this hospital in March, discharged on the . At that time, he had a very large pleural effusion. He had a methicillin-susceptible Staph aureus bacteremia and sepsis, left ankle osteomyelitis. He also has end-stage renal disease, on dialysis and has a diagnosis of cirrhosis on the discharge summary along with macrocytic anemia, chronic thrombocytopenia. Presently, the patient is without other complaints. Denies any rashes, change in bowels, recent antibiotics, abdominal pain, melena, or hematochezia. PAST MEDICAL HISTORY: 1. History of heavy substance abuse in the past and alcohol abuse of both which has stopped in the past year. 2. Hypertension. 3. Diabetes. 4. Peripheral vascular disease. 5. Previous amputations, left BKA secondary to vascular disease and diabetes as well as right arm amputation. It seems that these may also have been related to chronic infection at that time. 6. Hepatitis C infection, never treated secondary to ongoing substance abuse and inability to follow up. 7. End-stage renal disease, on dialysis. 8. Right-sided pleural effusion. 9. Reportedly CHF with ejection fraction of 30%. 10. Chronic diarrhea. PAST SURGICAL HISTORY: 1. Thoracentesis. 2. Right arm amputation. 3. BKA. 4. Osteomyelitis of left foot, status post amputation. 5. Left AV fistula in the arm. FAMILY HISTORY: Noncontributory. SOCIAL HISTORY: He lives in a skilled nursing now. He does not smoke, drink, or use drugs now. ALLERGIES: NONE KNOWN. MEDICATIONS: On admission at home included: 1. Aranesp. 2. Calcium carbonate. 3. Catapres. 4. Zofran p.r.n. 5. Tylenol. 6. . 7. Milk of magnesia p.r.n. 8. Simethicone. 9. Ferrous sulfate. 10. Protonix. 11. Multivitamin. 12. Metronidazole. 13. Pancrelipase 1200 units daily with meals. 14. Ascorbic acid. 15. Folic acid. 16. Carvedilol. Present medications: 1. Vitamin C. 2. Carvedilol. 3. Famotidine. 4. Iron. 5. Folic acid. 6. Heparin. 7. Hydralazine. 8. Hydrocodone p.r.n. 9. Loperamide p.r.n. 10. Multivitamin p.r.n. 11. Zofran p.r.n. PHYSICAL EXAMINATION: VITAL SIGNS: Temperature 98, pulse 88, blood pressure . GENERAL: He is resting in bed. He is very frail and thin. He has cachexia with muscle wasting and temporal wasting. HEENT: Oropharynx without lesions. NECK: Supple. No adenopathy. LUNGS: Notable for decreased breath sounds on the right. ABDOMEN: Soft and nontender. There is slight fluid wave but no shifting dullness. There is no palpable hepatosplenomegaly. EXTREMITIES: Reveal which shiny and hairless. He missing his leg below his left knee. He is missing his right arm. NEUROLOGICAL: He is alert and oriented to person, place, and time. LABORATORY STUDIES: Sodium is 129, potassium 3.7, chloride 97, carbon dioxide 24, BUN and creatinine 19 and 4.41. Glucose 54, it is 67 this morning, is 75 this afternoon. Calcium 7.8. Liver function tests yesterday, AST was 18, ALT was 7, alkaline phosphatase 72. Iron study showed anemia of chronic disease back in 12/20/2018, with a serum iron of 20, TIBC of 154, and a ferritin over 300. His B12 and folate have all been normal several times in the past with a B12 of 1516 on 08/07/2018, and a normal folate. Urine is notable for heavy protein. Thoracentesis on 04/02/2019, showed white count of 155, red blood cells 76, total free protein of 3.6, LDH of 120. He had a negative celiac testing in 2014. Negative testing for ANCAs in 2014. Hepatitis C is most recently positive with antibody in 10/2018. HIV was negative in 07/2018. Hep C RNA was 1.2 million in July of 2018. INR is 1.9. IMAGING STUDIES: Recent imaging; CAT scan of the abdomen and pelvis on 04/02, show no PE; thickening of the colon; mild fluid in the pelvis; left hydronephrosis; scant ascites. On my review, he has a nodular liver as well. He had a very large right effusion at that time. ASSESSMENT: 1. Chronic diarrhea. This is likely related to chronic pancreatitis. It seems he is on some Creon at the skilled nursing, but he is not on enough. I suspect the thickening seen on the CAT scan is related to portal hypertension. He does not really have any overt signs of colitis with tenesmus or blood in the stool. At this time, he is not a candidate for a colonoscopy in light of his known large right effusion which has probably recurred since this tap in March, although he has not had a repeat chest x-ray. He has decreased breath sounds on the right side. Apparently, he had some stool studies in the skilled nursing, it is not clear if anything was positive or not. There are no records in his chart. He was on Flagyl however, it is unclear if that was some type of empiric treatment. The patient however states the diarrhea is really unchanged from what he has had for several years. Regarding his diarrhea, I check Clostridium difficile, which has already been ordered. A fecal lactoferrin to see if there is actually inflammation in the stool. A pancreatic elastase, which could be a marker for chronic pancreatitis is low and also stool fecal fat. [place] [address] units with each meal. 2. Thickened colon as above. We would not plan on colonoscopy unless the stool studies are negative. 3. Chronic anemia. He has anemia of chronic disease. He has had iron studies consistent with anemia of chronic disease. He has macrocytosis from liver disease and he has gotten in the past when he was drinking, this is resolved now. He has normal B12 and folate. Interestingly, he also has a large globulin gap with an albumin of 2 and a protein of 7.6. This may just be from diffuse inflammation, but probably related to his chronic disease or he could have amyloidosis and multiple myeloma. In regard to this, I would check a serum protein electrophoresis. 4. Cirrhosis related to heavy alcohol abuse in the past and hepatitis C. This has not been treated. He has a cirrhotic appearing liver on CAT scan. He has low albumin. His effusion in his chest is probably hepatic hydrothorax and a chest tube should never be placed in that or it will never come out. It is going to be difficult to manage all this with his renal failure. As dialysis is the only way for him to lose fluid, he needs to stay on a very low salt diet. With regard to his cirrhosis, he should have immunization for hepatitis A and B in the future as an outpatient and he should also have alpha fetoprotein checked for hepatoma screening, which we can order here. His CAT scan showed no masses, but they are less sensitive because he cannot have IV contrast. 5. At this point in time, regarding questioning of endoscopy, he is going to need a chest x-ray to see the status of his effusion. He is high risk for endoscopy and any kind of sedation and I am not sure it is going to change his overall outcome. There are no signs of acute bleeding. If his stool studies all come back negative and he does not have improvement with the increased dose of Creon, we can consider endoscopy for his diarrhea, but again I think we are going to have see what his status of his heart and his effusion first. He would be very high risk for respiratory arrest with a large effusion that was present on his last CAT scan. I suspect it has probably recurred. Job ID: [id number]
[2019-06-06 10:26] LABS: Hemoglobin 8.9 g/dL (14.0-18.0); Mean Corpuscular Hemoglobin 30.7 pg (27.0-31.0); Mean Platelet Volume 6.6 fL (7.4-10.4); Platelet Count 210 thou/uL (130-400); RBC Distribution Width 15.3 % (11.5-14.5); Red Blood Cell (RBC) Count 2.88 mill/uL (4.70-6.10); White Blood Cell (WBC) Count 3.6 thou/uL (4.8-10.8)
--- NOTE | 2019-06-06 17:48 | PRG ---
DATE OF SERVICE: 06/06/2019 SUBJECTIVE: A 59-year-old male with multiple comorbidities including end-stage renal disease, on hemodialysis, being followed up for hemodialysis management. The patient had hemodialysis yesterday. No new problem. GI is evaluating the patient for chronic diarrhea. The patient denies shortness of breath. Appetite is improving. Still having frequent loose stools. OBJECTIVE: VITAL SIGNS: Temperature 99.0, pulse 80, respiratory rate 18, SpO2 of 98% on room air, blood pressure 127/67. GENERAL: Cachectic male patient, in no obvious distress. Afebrile. Anicteric. HEENT: Normocephalic. Facial wasting noted. CARDIOVASCULAR: Regular rhythm and rate with soft systolic murmur. RESPIRATORY: Fair air entry bilaterally with no obvious crackle, rhonchi, or use of accessory muscles. GI: Abdomen is scaphoid, but nontender with normal bowel sounds. EXTREMITIES: Left BKA and right upper arm amputation noted. No edema was appreciated. COMMERCIAL LOAN SPECIALIST: Conscious, alert, oriented x3 with appropriate mental status. DIAGNOSTIC DATA: CBC showed WBC count of 3.6, hemoglobin of 8.9, MCV of 93, platelets of 210. Renal function panel showed BMP showed sodium 134, potassium 4.0, chloride 102, CO2 of 24, BUN 9, creatinine 2.47, glucose 73, calcium 7.9. PLAN/ASSESSMENT: 1. End-stage renal disease, on hemodialysis. Last hemodialysis was yesterday, June 05. Volume status and electrolytes as well as azotemia are acceptable. No need for dialysis today, though today is the patient's regular dialysis day. 2. Volume status, acceptable. 3. Right pleural effusion, chronic, status post previous thoracentesis. The patient is asymptomatic. This most likely related to the patient's severe protein-calorie malnutrition status. We will defer to Pulmonology for thoracentesis if indicated. 4. Severe protein-calorie malnutrition. Nutritional rehabilitation to continue. 5. Chronic diarrhea: GI is following. 6. Disposition: The patient can be discharged from Nephrology point of view to continue outpatient hemodialysis schedule. Job ID: [id number]
--- NOTE | 2019-06-06 18:31 | PRG ---
DATE OF SERVICE: 06/06/2019 SUBJECTIVE: Mr. Suero is feeling okay. He has ongoing chronic diarrhea at least 4 to 5 bowel movements per day, basically having an urgent bowel movement after every meal. There is no blood. There is no abdominal pain associated with this. Symptoms are really unchanged from his baseline. He states that before he was in the intermediate, he was able to take more Imodium. When he was taking Imodium 2 mg 30 minutes before every meal, his diarrhea was much better controlled. He had been on Creon, but it looks like only fairly low dose of 12,000 units with each meal. I note the negative C difficile, elevated fecal lactoferrin. Dr. Ponce had ordered pancreatic stool elastase, which is pending. OBJECTIVE: VITAL SIGNS: Temperature 99.0, pulse 80, blood pressure 124/66, and 99% oxygen saturation on room air. GENERAL: No acute distress. HEART: Regular rate and rhythm. LUNGS: Decreased breath sounds of the right lower lung field. No respiratory distress. No wheezing. ABDOMEN: Soft and nontender to palpation. EXTREMITIES: No peripheral edema. LABORATORY STUDIES: WBC 3.6, hemoglobin 8.9, platelets 210. Sodium 134, potassium 4.0, BUN 9, creatinine 2.47, glucose 85. Ferritin 672.58, TIBC 75, and AFP is less than 2. ASSESSMENT AND PLAN: 1. Chronic diarrhea. This is not significantly changed from his baseline. Dr. Ponce had recommended going up to 36,000 units on the Creon. So, take three tablets with meals and one tablet with snacks. I would also recommend that he be allowed to be more aggressive with the Imodium at his nursing facility. He can take 2 mg by mouth up to three times daily as needed and it seems to work better if he takes it just prior to a meal. We will not plan on any endoscopic investigation , given his extensive comorbidities. 2. Cirrhosis secondary to hepatitis C. Note, the AFP level is normal. No evidence of liver lesion on prior imaging. Unclear whether his right pleural effusion represents hepatic hydrothorax, but he does not have any significant ascites. Fluid management through dialysis. GI will sign off at this time, but please call back anytime with questions or concerns. Job ID: [id number] [facility]
--- NOTE | 2019-06-06 20:49 | CON ---
DATE OF CONSULTATION: 06/06/2019 SERVICE: Pulmonary Medicine. REASON FOR CONSULTATION: Pleural effusion. HISTORY OF PRESENT ILLNESS: The patient is a 59-year-old male with past medical history significant for end-stage renal disease, and liver dysfunction. He is in his usual state of health when he was found to have low blood. He was transitioned to the emergency department. He was subsequently admitted. A couple of units of blood was provided. At no point did the patient have any dyspnea on exertion. He is not having any fevers, chills, cough, sputum production, nausea , vomiting, or diarrhea. Otherwise, he indicates that he does not feel like he has an infection anywhere. He is essentially in his usual state of health. During this encounter, chest x-ray was performed just to follow up on the results of previous chest x-ray that showed pleural effusion prior to thoracentesis. The pleural effusion on the right had increased in size. As such, this consultation was generated. There were no significant overnight events. PAST MEDICAL HISTORY: 1. Cirrhosis. 2. End-stage renal disease. 3. Hypertension. 4. Dyslipidemia. 5. Peripheral vascular disease. 6. Type 2 diabetes mellitus. 7. Chronic diarrhea. 8. Hepatitis C, chronic. PAST SURGICAL HISTORY: 1. Right arm amputation. 2. Left BKA. FAMILY HISTORY: Noncontributory. SOCIAL HISTORY: Currently negative for alcohol, tobacco, or illicit drug use. He has no exposure to chemicals, dust, asbestos, or tuberculosis. ALLERGIES: NO KNOWN DRUG ALLERGIES. MEDICATIONS: List of his inpatient medications was reviewed. No specific updates were made at this time. REVIEW OF SYSTEMS: General, head, ears, eyes, nose, throat, cardiovascular, respiratory, GI, , musculoskeletal, neurologic, and skin are negative except as mentioned in the HPI. PHYSICAL EXAMINATION: VITAL SIGNS: Afebrile, pulse 74, respirations 14, saturation 98% on room air. GENERAL: The patient is awake and alert. No prolonged expiratory phase is appreciated. HEART: Normal rate. Regular. ABDOMEN: Soft, nontender, and nondistended. Bowel sounds are positive. MUSCULOSKELETAL: No cyanosis or clubbing. There is no pitting in the bilateral lower extremities. NEUROLOGIC: Grossly nonfocal. IMAGING: Chest x-ray shows a large right-sided pleural effusion. No obvious consolidation is appreciated. ASSESSMENT: 1. Pleural effusion, previously demonstrated to be a transudate. 2. Cirrhosis secondary to history of heavy alcohol abuse, and hepatitis C. 3. End-stage renal disease. 4. Chronic systolic heart failure. 5. Anemia, status post transfusion. DISCUSSION AND PLAN: The patient is doing fine from a respiratory standpoint. At this point, no thoracentesis is going to be pursued. If the patient has signs of infection, or severe respiratory distress associated with this collection of water, a thoracentesis could be entertained. Treatment needs to be directed at optimization of comorbidities including cirrhosis and end-stage renal disease. At this point, he has no further requirements for inpatient pulmonary or critical care opinion, and I will sign off. Please call with additional questions or concerns through time. 70 minutes have been devoted to this patient in various activities. I personally reviewed all imaging studies and laboratory data noted within this document. For fifty percent of this time, I was interacting with the patient at the bedside or coordinating care with the care team. For the remainder of the time I was immediately available to the patient in the hospital unit. Job ID: [id number] [id number]
--- NOTE | 2019-06-07 07:34 | PDOC.HOSPP ---
- Subjective Encounter Date: 06/06/19 Encounter Time: 15:30 Subjective: Patient seen and examined for Gen weakness. Feels better. s/p 1 unit PRBC during dialysis yesterday. No new complaints. No overnight events - Objective Vital Signs & Weight: Vital Signs (12 hours) Temp Pulse Resp BP Pulse Ox 06/07/19 03:33 99.0 F 74 20 112/73 99 06/06/19 21:36 75 06/06/19 20:00 99.3 F 75 20 113/67 99 Weight Admit Weight 93 lb 8 oz Weight 93 lb 8 oz I&O: 06/06/19 06/07/19 06/08/19 06:59 06:59 06:59 Intake Total 350 Balance 350 Result Diagrams: 06/06/19 09:53 06/06/19 05:35 Additional Labs: Accuchecks 06/07/19 06/06/19 06/06/19 03:42 20:21 16:48 POC Glucose 92 119 H 85 06/06/19 06/06/19 11:10 09:09 POC Glucose 100 73 Radiology Reviewed by me: Yes (CXR - Large Rt pleural eff) Hospitalist ROS - Review of Systems Constitutional: denies: fever, chills, sweats, weakness, malaise, other Gastrointestinal: denies: nausea, vomiting, abdominal pain, diarrhea, constipation, melena, hematochezia, other - Medication Medications: Active Medications Generic Name Dose Route Start Last Admin Trade Name Freq PRN Reason Stop Dose Admin Lipase/Protease/Amylase 3 cap 06/05/19 17:00 06/06/19 16:57 Arlene Strong [id number] PO 3 cap TID-WM AUTUMN Administration Ascorbic Acid 500 mg 06/05/19 09:00 06/06/19 09:08 Vitamin C PO 500 mg DAILY AUTUMN Administration Carvedilol 6.25 mg 06/05/19 08:00 06/06/19 16:56 Coreg PO 6.25 mg BID-WM AUTUMN Administration Famotidine 20 mg 06/05/19 09:00 06/06/19 09:09 Pepcid PO 20 mg DAILY AUTUMN Administration Ferrous Sulfate 325 mg 06/05/19 09:00 06/06/19 09:09 Feosol PO 325 mg DAILY AUTUMN Administration Folic Acid 1 mg 06/05/19 09:00 06/06/19 09:09 Folvite PO 1 mg DAILY AUTUMN Administration Hydralazine HCl 75 mg 06/04/19 21:00 06/06/19 21:36 Apresoline PO 75 mg BID AUTUMN Administration Multivitamins 1 tab 06/05/19 09:00 06/06/19 09:08 Theragran PO 1 tab DAILY AUTUMN Administration - Exam General Appearance: NAD Heart: RRR, no gallops Respiratory: rales, rhonchi Respiratory - other findings: dec AE on Rt Gastrointestinal: soft, non-tender, normal bowel sounds Extremities: no cyanosis Neurological: no new deficit Psychiatric: normal affect, A&O x 3 Hosp A/P - Plan DVT proph w/SCDs Gen weakness Diarrhea Large Rt Pleural effusion ESRD on HD - MWF 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 Hypoglycemia - improved History of endocarditis. Chronic hepatitis C. Benign prostatic hypertrophy. Former smoker. 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 Hyponatremia. PLAN: Consult Dr Beckford for Rt Pleural effusion - Had thoracentesis on 04/04 Dialysis per Nephrology Cont Creon for diarrhea C diff neg Cont Coreg/Hydralazine Cont other meds as above
[2019-06-07] MEDS: hydrALAZINE 25 MG TAB PO SCH (09:07)
[2019-06-07] MEDS: Ascorbic Acid 500 mg Chewable Tablet PO SCH (09:08)
[2019-06-07] MEDS: Famotidine 20 MG TAB PO SCH (09:08)
[2019-06-07] MEDS: Pancrelipase DR 12000 1 CAP PO SCH (09:08)
[2019-06-07] MEDS: Multivit, Therapeutic 1 TAB PO SCH (09:09)
[2019-06-07] MEDS: Folic Acid 1 MG TAB PO SCH (09:09)
[2019-06-07] MEDS: Carvedilol 6.25 MG TAB PO SCH (09:09)
[2019-06-07] MEDS: Ferrous Sulfate 325 MG TAB PO SCH (09:09)
[2019-06-07 12:09] VITALS: BP 126/71; TEMP 98.1
--- NOTE | 2019-06-07 14:25 | PQF ---
CLINICAL DOCUMENTATION IMPROVEMENT CLARIFICATION FORM: ICD-10 Updated PLEASE DO AN ADDENDUM TO THE PROGRESS NOTE WITH ANY DOCUMENTATION UPDATES OR ADDITIONS AND CARRY THROUGH TO DC SUMMARY. THANK YOU. DATE: 06/07/2019 ATTN: Dr. Cortes Please exercise your independent, professional judgment in responding to the clarification form. Clinical indicators are provided on the bottom of this form for your review Please check appropriate box(s): Conflicting documentation was noted in the Medical Record, please clarify if patient is being treated/monitored for: [ x ] Moderate protein-calorie malnutrition [ ] Severe protein-calorie malnutrition [ ] Other diagnosis [ ] Unable to determine In addition, please specify: Present on Admission (POA): [ x ] Yes [ ] No [ ] Unable to determine For continuity of documentation, please document condition throughout progress notes and discharge summary. Thank You. CLINICAL INDICATORS - SIGNS / SYMPTOMS/ LABS / RESULTS AND LOCATION IN EMR 06/06/2019 (Ladha): Moderate protein-calorie malnutrition 06/05-06/06 (Obi): Severe protein-calorie malnutrition Community Health Nursing Director Assessment 06/06: Nutrition Dx: Malnutrition related to chronic diarrhea as evidenced by -10% wt loss x 2 months per EMR: severe muscle wasting to temporalis muscles, quadriceps, gastrocnemius muscles, clavicle region, dorsal interosseous muscles. RISKS: H&P 06/04: PMH of HTN, DM, left BKA, chronic diarrhea, hepatitis C infection, ESRD on HD. TREATMENT: Community Health Nursing Director Assessment 06/05/2019 for BMI 13.8, MST 1 (poor appetite) Order 06/05: Supplement: Kimani SIMON Thank you, Jael (This form is maintained as a part of the permanent medical record) 2014 [employer]. All Rights Reserved Jael Jackson RN, BSN [email or web address] Office: [phone] [facility]
--- NOTE | 2019-06-07 14:41 | PQF ---
CLINICAL DOCUMENTATION IMPROVEMENT CLARIFICATION FORM: ICD-10 Updated PLEASE DO AN ADDENDUM TO THE PROGRESS NOTE WITH ANY DOCUMENTATION UPDATES OR ADDITIONS AND CARRY THROUGH TO DC SUMMARY. THANK YOU. DATE: 06/07/2019 ATTN: Dr. Cortes Please exercise your independent, professional judgment in responding to the clarification form. Clinical indicators are provided on the bottom of this form for your review Please check appropriate box(s): HEART FAILURE: A. TYPE [ ] Systolic / HFrEF [ ] Diastolic / HFpEF [ x] Combined Systolic / Diastolic [ ] Hypertensive Heart and Kidney disease [ ] Hypertensive Kidney Disease [ ] Other diagnosis [ ] Unable to determine In addition, please specify: Present on Admission (POA): [ x ] Yes [ ] No [ ] Unable to determine For continuity of documentation, please document condition throughout progress notes and discharge summary. Thank You. CLINICAL INDICATORS - SIGNS / SYMPTOMS / LABS / RESULTS AND LOCATION IN EMR 06/05 (Obi) BNP on presentation was 2958 Cardiomyopathy with ejection fraction of 30% Chronic congestive heart failure. 06/06 (Sebastian) Large Rt PLeural effusion RISKS: H&P 06/04: PMH HTN, DM. ESRD on HD, recurrent pleural effusion, history of chf. TREATMENT: MAR: Order 06/04: hydralazine 75 mg po BID MAR: Order 06/04: Coreg 6.25 mg po BID Thank you, Jael (This form is maintained as a part of the permanent medical record) 2014 [employer]. All Rights Reserved Jael Jackson, RN, BSN [email or web address] Office: [phone] [facility]
--- NOTE | 2019-06-08 13:44 | DIS ---
DATE OF ADMISSION: 06/06/2019 DATE OF DISCHARGE: 06/07/2019 DISCHARGE DISPOSITION: The patient is returning back to long-term shelter ([facility]). ALLERGIES: NO KNOWN DRUG ALLERGIES. DISCHARGE MEDICATIONS: 1. Amlodipine 2.5 mg daily. 2. Imodium 2 mg 3 times daily as needed. 3. Creon 12,000 units 3 capsules 3 times a day. 4. All other home medications were left unchanged. The patient was seen and examined on the day of discharge. Denies any new complaints. No chest pain, shortness of breath, or palpitations reported. His diarrhea has improved. INPATIENT CIRCUS ROUSTABOUT: 1. Gastroenterology Dr. Paredes. 2. Nephrology, Dr. Niño. BRIEF HOSPITAL COURSE: The patient is a 59-year-old male with end-stage renal disease, on hemodialysis; hypertension; diabetes mellitus type 2; and peripheral vascular disease, presented to the hospital from [facility] with worsening diarrhea along with abnormal hemoglobin count. He was also found to have hypoglycemia, had labs done at the shelter earlier. For this reason, he was sent to the emergency room. His stool was positive for lactoferrin, however, negative for C difficile. He received 1 unit of PRBC. His hemoglobin at discharge is 8.9. He was evaluated by Gastroenterology, who recommended increasing the dose of pancrelipase as well as adding Imodium on an as-needed basis up to 3 times a day. His appetite has also improved. Blood sugar remained stable. This morning, his blood sugars were 92 and 102. He has been cleared by consultants for discharge. FINAL DIAGNOSES: 1. Generalized weakness, multifactorial. 2. Acute on chronic diarrhea. Clostridium difficile ruled out. His pancreatic enzyme dose was increased. 3. 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 4. Anemia secondary to chronic kidney disease, status post 1 unit of PRBC. 5. Moderate protein-calorie malnutrition. 6. Chronic systolic and diastolic heart failure. 7. Moderate protein-calorie malnutrition. 8. Diabetes mellitus type 2 with diabetic neuropathy and nephropathy. 9. Hypoglycemia, improved. 10. History of endocarditis. 11. Benign prostatic hypertrophy. 12. Former smoker. 13. Hyponatremia. 14. 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 15. Leukopenia of unclear etiology. 16. Hypokalemia, corrected. 17. End-stage renal disease, on hemodialysis Tuesday, Tuesday, and Tuesday. 18. Large right-sided pleural effusion. Please note, the patient had thoracentesis earlier this year and the pleural fluid was consistent with transudate. The patient was evaluated by Dr. Beckford. Dr. Beckford recommended close followup. There was no need for thoracentesis per Dr. Beckford. TIME SPENT: Total time coordinating the discharge of this patient was 38 minutes. Job ID: [id number]
[2019-06-11 19:09] LABS: A/G Ratio 0.4 (0.7-1.7); Alpha 1 0.3 g/dL (0.0-0.4); Alpha 2 0.7 g/dL (0.4-1.0); Beta 1.4 g/dL (0.7-1.3); Gamma 2.8 g/dL (0.4-1.8); Globulin, Total 5.2 g/dL (2.2-3.9); M-Spike Not Observed g/dL (Not Observed)
== END 2019-06-07 14:30 | DRG 391 ==
LOC: ERS 14:51 → T4-A 21:11 → OBSVTOIN 06-06 11:46
PROVIDERS: ADMIT Internal Medicine; ATTEND Internal Medicine
DX: R19.7 Diarrhea, unspecified (principal); N18.6 End stage renal disease; J90 Pleural effusion, not elsewhere classified; I13.2 Hypertensive heart and chronic kidney disease with heart failure and with stage 5 chronic kidney disease, or end stage renal disease; I42.9 Cardiomyopathy, unspecified; E87.1 Hypo-osmolality and hyponatremia; Z68.1 Body mass index [BMI] 19.9 or less, adult; I50.42 Chronic combined systolic (congestive) and diastolic (congestive) heart failure; E44.0 Moderate protein-calorie malnutrition; E11.21 Type 2 diabetes mellitus with diabetic nephropathy; E11.22 Type 2 diabetes mellitus with diabetic chronic kidney disease; Z89.512 Acquired absence of left leg below knee; Z79.899 Other long term (current) drug therapy; Z99.2 Dependence on renal dialysis; D63.1 Anemia in chronic kidney disease; E11.649 Type 2 diabetes mellitus with hypoglycemia without coma; Z87.891 Personal history of nicotine dependence; N40.0 Benign prostatic hyperplasia without lower urinary tract symptoms; B18.2 Chronic viral hepatitis C; E87.6 Hypokalemia; K74.60 Unspecified cirrhosis of liver; E11.51 Type 2 diabetes mellitus with diabetic peripheral angiopathy without gangrene
CPT/HCPCS: 36415; 36416; 36430; 71046; 80048; 80053; 82105; 82728; 83550; 83630; 83880; 84165; 84484; 85007; 85025; 85027; 86850; 86900; 86901; 86921; 87324; 87449; 90935; 93005; G0257; P9016